=== PATIENT | female | born 1950 | race Caucasian/White ===

== ENCOUNTER → 2016-03-18 | Outpatient (CLI) | payer BC, OTHER ==
--- NOTE | 2016-03-18 19:04 | Diagnostic Imaging Report ---
Bilateral screening mammogram The current study was also evaluated with a Computer Aided Detection (CAD) system. INDICATION: Screening. No current complaints stated on the questionnaire. COMPARISON: 05/19/15. FINDINGS: The breasts are composed of extremely dense parenchyma which may decrease mammographic sensitivity. Benign-appearing calcifications and a biopsy clip is seen in the left breast. Allowing for technique and positional differences, no suspicious change is seen. IMPRESSION: Dense breasts with no definite change. ACR BI-RADS Category 2: Benign findings. Result letter will be mailed to the patient. Note: At least 10% of breast cancer is not imaged by mammography. Dictated by: Dictated on workstation # [id number]
== END ==
LOC: RAD 09:34
PROVIDERS: ATTEND Internal Medicine
DX: Z12.31 Encounter for screening mammogram for malignant neoplasm of breast (principal)
CPT/HCPCS: 77067

== ENCOUNTER → 2017-04-09 | Outpatient (CLI) | payer MEDICARE, OTHER ==
--- NOTE | 2017-04-09 14:52 | Diagnostic Imaging Report ---
INDICATION: Fall. [place] pop in left shoulder. FINDINGS: There is a transverse fracture of the neck of the humerus. Fracture does extend into the humeral tuberosity. Alignment is good. Humeral head is in normal articulation with the glenoid fossa. Scapular Y. view shows no fractures. There is separation of the AC joint with the inferior clavicular surface riding above the superior surface of the a.c. joint. IMPRESSION: 1. Transverse fracture of the humeral neck. 2. Separation of the AC joint. These findings were discussed with Dr. Hyde by Dr. Gabriel Moses prior to dictation. Report faxed to Dr. Hyde at [phone] at 2:52 p.m. 04/09/2017/cb Dictated by: Dictated on workstation # [id number]
== END ==
LOC: RAD 13:53
PROVIDERS: ATTEND Family Medicine
DX: S42.202A Unspecified fracture of upper end of left humerus, initial encounter for closed fracture (principal); S43.102A Unspecified dislocation of left acromioclavicular joint, initial encounter; S40.012A Contusion of left shoulder, initial encounter; W19.XXXA Unspecified fall, initial encounter
CPT/HCPCS: 73030

== ENCOUNTER → 2017-06-14 | Outpatient (CLI) | payer MEDICARE, OTHER ==
--- NOTE | 2017-06-14 17:03 | Diagnostic Imaging Report ---
EXAM: Digital mammogram bilateral screening with 3D tomosynthesis and Computer Aided Detection (CAD) system. COMPARISON: This study was compared to prior exams of 03/18/2016, 05/19/2015 and 11/05/2014. There are no current complaints. FINDINGS: The fibroglandular tissue in both breasts is dense. This does limit the sensitivity of this exam. Overall, there does not appear to have been any significant change when compared to the prior study. No primary or secondary sign of malignancy is noted. The stereotactic clip in the left breast seen previously is again evident and no different. IMPRESSION: There is no radiographic evidence for malignancy. ACR BI-RADS Category 1: Negative. Result letter will be mailed to the patient. Note: At least 10% of breast cancer is not imaged by mammography. Dictated by: Dictated on workstation # [id number]
== END ==
LOC: RAD 12:58
PROVIDERS: ATTEND Family Medicine
DX: Z12.31 Encounter for screening mammogram for malignant neoplasm of breast (principal)
CPT/HCPCS: 77067

== ENCOUNTER → 2018-06-01 | Outpatient (CLI) | payer MEDICARE, OTHER | LOC: CARD 13:35 | PROVIDERS: ATTEND Internal Medicine Cardiovascular Disease | DX: I48.2 Chronic atrial fibrillation (principal); I10 Essential (primary) hypertension; R00.0 Tachycardia, unspecified; E78.2 Mixed hyperlipidemia | CPT/HCPCS: 93306 ==

== ENCOUNTER → 2018-06-07 | Outpatient (CLI) | payer MEDICARE, OTHER ==
[~2018-06-07] VITALS: Ht 157.5 cm; Wt 55.3 kg
[~2018-06-07] MED LIST: CATHETER FLUSH 10 ML SYR IV PRN; REGADENOSON 0.4 MG/5 ML SYR (LEXISCAN) IV ONE; meTOprolol 5 MG/5 ML (LOPRESSOR) VIAL IV ONE; meTOprolol 5 MG/5 ML (LOPRESSOR) VIAL ONE
[2018-06-07 13:20] VITALS: BP 132/78
[2018-06-07 13:24] VITALS: BP 121/85
--- NOTE | 2018-06-07 20:06 | STRESS TEST ---
DATE OF SERVICE: 06/07/2018 LEXISCAN MYOVIEW STRESS TEST REPORT REFERRING PHYSICIAN: Dr. Gwendolyn Botello. Baseline heart rate is 90, baseline blood pressure 132/78. Baseline EKG is atrial fibrillation with no ischemic changes. In summary, the patient was injected with 10.68 mCi of technetium-99 Myoview and the resting images were obtained. Then, the patient received 0.4 mg of Lexiscan followed by 32.9 mCi of technetium-99 Myoview. Throughout the test, there were no EKG changes. The resting and stress images were reviewed and compared in the short axis, horizontal long axis, and vertical long axis views. Review of the images showed good radiotracer uptake with no significant ischemia or infarction on SPECT images. SSS is 2, SDS 2, TID value 1.05. On the gated images, the left ventricle appeared to be in normal size with normal contractility. Calculated ejection fraction 73%. CONCLUSION: 1. The patient tolerated Lexiscan well. 2. No significant ischemia or infarction on SPECT images. 3. Normal left ventricular size with normal contractility. Calculated ejection fraction 73%, gated images are unreliable due to underlying atrial fibrillation that was persistent during test. Job ID: [id number] DocumentID: [id number] Dictated Date: 06/07/2018 15:20:39 Motor Grader Operator Date: 06/07/2018 20:05:06 Dictated By: ADRIEL ROLDAN MD
== END ==
LOC: CARD 11:57
PROVIDERS: ATTEND Internal Medicine Cardiovascular Disease
DX: R00.0 Tachycardia, unspecified (principal); I10 Essential (primary) hypertension; I48.2 Chronic atrial fibrillation; E78.2 Mixed hyperlipidemia
CPT/HCPCS: 78452; 93017

== ENCOUNTER → 2018-06-22 | Outpatient (CLI) | payer MEDICARE, OTHER ==
--- NOTE | 2018-06-22 17:41 | Diagnostic Imaging Report ---
INDICATION: Routine screening. COMPARISON: Comparison is made with prior mammograms from 06/14/2017 and 03/18/2016. TECHNIQUE: 2-D and 3-D bilateral screening mammography was performed with Computer Aided Detection (CAD) system. FINDINGS: Both breasts remain heterogeneously dense, limiting the sensitivity of mammography. Biopsy clip in the left breast is noted. There are benign calcifications bilaterally. No mass or malignant appearing microcalcifications are seen. Axillae are unremarkable. IMPRESSION: No mammographic features suspicious for malignancy are identified. ACR BI-RADS Category 2: Benign findings. Result letter will be mailed to the patient. Note: At least 10% of breast cancer is not imaged by mammography. Dictated by: Dictated on workstation # [id number]
== END ==
LOC: RAD 10:42
PROVIDERS: ATTEND Family Medicine
DX: Z12.31 Encounter for screening mammogram for malignant neoplasm of breast (principal)
CPT/HCPCS: 77067

== ENCOUNTER → 2018-11-14 | Outpatient (CLI) | payer MEDICARE, OTHER ==
--- NOTE | 2018-11-14 15:22 | Diagnostic Imaging Report ---
EXAMINATION: Low-dose lung cancer screening exam. INDICATION: Screening for lung cancer. [id number] smoking history. Routine images of thorax were obtained using the low-dose lung cancer screening protocol. There are no prior studies available for comparison. FINDINGS: There is no parenchymal lung mass identified. There is no sign of failure, pneumonia, or pleural effusion to indicate an acute abnormality either. The heart size is at the upper limits of normal. There are a few coronary artery calcifications involving the distal LAD. The aorta is not abnormally dilated. There is no obvious mediastinal or hilar adenopathy. The thyroid gland is generally unremarkable. There is no breast mass noted. The sections through the upper abdomen fail to show any sign of an acute abnormality. The bone windows are unremarkable for a fracture or for a destructive lesion. There is mild levoscoliosis of the thoracolumbar junction. IMPRESSION: 1. There is no evidence for a lung mass. A follow-up low-dose lung cancer screening exam in one year would be recommended for continued evaluation. 2. There is no acute cardiopulmonary abnormality identified. 3. There is borderline cardiomegaly and sparse coronary artery calcifications. LUNG RADS CATEGORY : 1 Dictated by: Dictated on workstation # [id number]
--- NOTE | 2018-11-14 15:53 | Diagnostic Imaging Report ---
INDICATION: Screening for osteoporosis. COMPARISON: None. FINDINGS: There are no prior studies available for comparison. The bone mineral density of the hips and spine was measured. The T score for the spine is -3.4. This does indicate osteoporosis. The total T score for the left hip is -2.8 and for the right hip -3.2. The T score for each femoral neck is -3.1. All of these values also fall within the range of osteoporosis. AP Spine L1-L4: [BMD (g/cm2): .786] [T-Score: -3.4] [Z-Score: -1.5] [BMD Previous: 1.016] [BMD % Change: -22.6] LT Hip Neck: [BMD (g/cm2): 0.612] [T-Score: -3.1] [Z-Score: -1.3] LT Hip Total: [BMD (g/cm2):0.656] [T-Score:-2.8] [Z-Score: -1.2] [BMD Previous: 0.780] [BMD % Change: -15.9] RT Hip Neck: [BMD (g/cm2):0.605] [T-Score:-3.1] [Z-Score:-1.3] RT Hip Total: [BMD (g/cm2):0.608] [T-score:-3.2] [Z-Score:-1.6] [BMD Previous:0.687] [BMD % Change:-11.5] *Indicates significant change from prior examination based on 95% confidence level. World Health Organization criteria for BMD interpretation classify patients as Normal (T-score at or above -1.0), Osteopenic (T-score between -1.0 and -2.5) or Osteoporotic (T-score at or below -2.5). LIMITATIONS AND MODIFICATION: None. FRACTURE RISK (FRAX SCORE): The ten year probability of (%): Major Osteoporotic Fracture: [26.7] Hip Fracture: [9.1] IMPRESSION: 1. There is osteoporosis of the spine, hips and femoral necks. 2. See below National Osteoporosis Foundation guidelines on when to potentially initiate pharmacologic therapy. Based on the National Osteoporosis Foundation Guidelines, pharmacologic treatment should be initiated in any of the following, unless clinical conditions suggest otherwise: * Any patient with prior fragility fracture of the hip or vertebrae. A spine fracture indicates 5X risk for subsequent spine fracture and 2X risk for subsequent hip fracture. * Osteoporosis (T-score <-2.5). * Postmenopausal women and men age 50 and older with low bone mass/osteopenia (T-score between -1.0 and -2.5) by DXA and 10-year major osteoporotic fracture greater than 20% or a 10-year probability of hip fracture greater than 3%. These fracture risks are supplied above in the FRAX score, if applicable. * Clinician judgement and/or patient preferences may indicate treatment for people with 10-year fracture probabilities above or below these levels. Dictated by: Dictated on workstation # [id number]
== END ==
LOC: RAD 13:31
PROVIDERS: ATTEND Family Medicine
DX: Z12.2 Encounter for screening for malignant neoplasm of respiratory organs (principal); Z00.00 Encounter for general adult medical examination without abnormal findings; Z13.820 Encounter for screening for osteoporosis; M81.0 Age-related osteoporosis without current pathological fracture; I25.10 Atherosclerotic heart disease of native coronary artery without angina pectoris; I51.7 Cardiomegaly; Z87.891 Personal history of nicotine dependence; Z78.0 Asymptomatic menopausal state
CPT/HCPCS: 77080

== ENCOUNTER → 2019-07-13 | Outpatient (CLI) | payer MEDICARE, OTHER ==
--- NOTE | 2019-07-13 13:52 | Diagnostic Imaging Report ---
INDICATION: Screening. EXAM: Digital screening with CAD. COMPARISONS: 06/2018, 06/2017 and 03/2016 FINDINGS: The parenchymal pattern is extremely dense limiting mammographic sensitivity. No irregular lesion, spiculated mass or architectural distortion. No suspicious calcifications. IMPRESSION: Stable negative mammograms with heterogeneously dense parenchymal pattern. Dictated by: Dictated on workstation # [id number]
== END ==
LOC: RAD 09:25
PROVIDERS: ATTEND Nurse Practitioner Family
DX: Z12.31 Encounter for screening mammogram for malignant neoplasm of breast (principal)
CPT/HCPCS: 77063; 77067

== ENCOUNTER → 2019-12-06 | Outpatient (CLI) | payer MEDICARE, OTHER ==
--- NOTE | 2019-12-06 15:44 | Diagnostic Imaging Report ---
CT Lung Screening. INDICATION:30 pack-year smoking history TECHNIQUE: Noncontrast, low-dose CT imaging performed according to the lung cancer screening protocol. Auto Exposure Controls were utilize during the CT exam to meet ALARA standards for radiation dose reduction. COMPARISON: 11/14/2018. FINDINGS: The previous CT low-dose lung cancer screening exam of 11/14/2018 failed to show any sign of a parenchymal lung mass. On this study, there is still no mass identified to suggest neoplastic disease. The lungs remain generally clear. There is no sign of failure, pneumonia or a pleural effusion to indicate an acute abnormality. The heart is stable in size and within normal limits. The aorta is not abnormally dilated. There is no obvious mediastinal or hilar adenopathy. The thyroid gland was not well visualized. There is no definite breast mass identified. The sections through the upper abdomen failed to show any acute abnormality. The bone windows are also unremarkable for a fracture or for an acute injury. There is mild compression deformity of the superior endplate of T3. This appears to have been present on the prior exam although it was not well visualized. I do suspect this injury is long-standing in nature. There is also mild levoscoliosis of the lower thoracic spine. IMPRESSION: 1. There is still no evidence for a parenchymal lung mass to suggest neoplastic disease. A follow-up low-dose lung cancer screening exam in one year would be recommended for continued evaluation. 2. There is no acute cardiopulmonary abnormality noted. 3. The mild compression deformity of T3 is most likely long-standing in nature. If further imaging is desired, then MRI would be recommended. LUNG-RADS CATEGORY:1 MODIFIER: OTHER SIGNIFICANT FINDINGS: Dictated by: Dictated on workstation # [id number]
== END ==
LOC: RAD 12:45
PROVIDERS: ATTEND Family Medicine
DX: Z12.2 Encounter for screening for malignant neoplasm of respiratory organs (principal); M48.54XA Collapsed vertebra, not elsewhere classified, thoracic region, initial encounter for fracture; F17.210 Nicotine dependence, cigarettes, uncomplicated

== ENCOUNTER → 2020-07-18 | Outpatient (CLI) | payer MEDICARE, OTHER ==
--- NOTE | 2020-07-21 09:22 | Diagnostic Imaging Report ---
INDICATION: Routine screening. COMPARISON: 07/13/2019 and 06/22/2018. TECHNIQUE: 2D and 3D bilateral screening mammography was performed with CAD. FINDINGS: Both breasts remain heterogeneously dense, limiting the sensitivity of mammography. The parenchymal pattern is stable. A biopsy clip in the upper left breast is again noted. No mass or malignant appearing microcalcifications are seen. The axillae are unremarkable. IMPRESSION: No mammographic features suspicious for malignancy are identified. ACR BI-RADS Category 2: Benign findings. Result letter will be mailed to the patient. Note: At least 10% of breast cancer is not imaged by mammography. Dictated by: Dictated on workstation # [id number]
== END ==
LOC: RAD 13:15
PROVIDERS: ATTEND Family Medicine
DX: Z12.31 Encounter for screening mammogram for malignant neoplasm of breast (principal)
CPT/HCPCS: 77063; 77067

== ENCOUNTER → 2020-08-15 | Outpatient (CLI) | payer MEDICARE, OTHER ==
[~2020-08-15] VITALS: Ht 157 cm; Wt 54.0 kg
[~2020-08-15] MED LIST changes: -meTOprolol 5 MG/5 ML (LOPRESSOR) VIAL IV ONE; -meTOprolol 5 MG/5 ML (LOPRESSOR) VIAL ONE
[2020-08-15 08:32] VITALS: BP 146/80
--- NOTE | 2020-08-15 11:15 | Cardiology Stress Test Report ---
Stress Test Report Date of Procedure/Referring: Date of Procedure: Aug 15, 2020 PCP Adriel Davis MD Admitting Physician Gwendolyn Botello MD Indications: CP Baseline Heart Rate: 68 Baseline Blood Pressure: Blood Pressure Systolic: 146 Blood Pressure Diastolic: 80 Baseline Vitals Vital Signs Date Time Temp Pulse Resp B/P (MAP) Pulse Ox O2 Delivery O2 Flow Rate FiO2 08/15/20 08:32 66 18 146/80 (102) 98 Room Air Baseline EKG: Baseline EKG: NSR Summary After explaining the procedure to the patient, she signed a consent and then brought to the stress nuclear laboratory. Patient received 0.4 mg Lexiscan for stress test, ECG, heart rate and blood pressure were monitored continuously. Resting and stress dose of radio tracer were injected, imaging was acquired and reviewed in short axis, horizontal long axis and vertical long axis views. TID: 1.15 SSS: 2 SDS: 2 EF: 74 1. Patient tolerated Lexiscan well, had mild chest pain resolved spontaneously. 2. No ischemia or infarction on SPECT images 3. Normal left ventricular size, EF 74% ADRIEL DAVIS MD Aug 15, 2020 11:15
== END ==
LOC: CARD 07:15
PROVIDERS: ATTEND Internal Medicine Cardiovascular Disease
DX: I25.10 Atherosclerotic heart disease of native coronary artery without angina pectoris (principal); I10 Essential (primary) hypertension
CPT/HCPCS: 78452; 93017; A9502

== ENCOUNTER 2020-09-05 11:21 | Emergency (ER) | payer MEDICARE, OTHER ==
[~2020-09-05] VITALS: Ht 157.4 cm; Wt 55.8 kg
--- NOTE | 2020-09-05 11:59 | ED Chest Pain ---
General Stated Complaint: CHEST PAIN Source: patient Exam Limitations: no limitations (BRYCE CARRENO APRN) History of Present Illness Date Seen by Provider: Sep 05, 2020 Time Seen by Provider: 11:45 Initial Comments This is a 70-year-old female who presents to the ER with complaints of mid abdominal "bloating" and pain that radiated into her left chest. States discomfort started approximately 1 hour prior to arrival. On her way to the emergency department she broke out in a sweat, denies nausea, denies vomiting. Currently describes discomfort as pressure. States that she has had this pain in the past however was less severe. Has had both Covid vaccines in March 2020. Denies cough, shortness of breath, nausea, vomiting. (BRYCE CARRENO APRN) Allergies and Home Medications Allergies Coded Allergies: ibuprofen (Unverified Allergy, Unknown, 06/07/18) Patient Home Medication List Home Medication List Reviewed: Yes (BRYCE CARRENO APRN) Review of Systems Review of Systems Constitutional: see HPI; No chills, No fever EENTM: No Symptoms Reported Respiratory: No Symptoms Reported Cardiovascular: See HPI Gastrointestinal: See HPI Genitourinary: No Symptoms Reported Musculoskeletal: no symptoms reported Skin: no symptoms reported Psychiatric/Neurological: No Symptoms Reported Endocrine: No Symptoms Reported Hematologic/Lymphatic: No Symptoms Reported (BRYCE CARRENO APRN) All Other Systems Reviewed Negative Unless Noted: Yes (BRYCE CARRENO APRN) Physical Exam Vital Signs Vital Signs - First Documented 09/05/20 11:25 Temp 37.0 Pulse 89 Resp 18 B/P (MAP) 181/114 (136) Pulse Ox 99 O2 Delivery Room Air (MAURO GUY MD) Vital Signs Capillary Refill : (BRYCE CARRENO APRN) Height, Weight, BMI Height: 5'2.00" Weight: 122lbs. 0.0oz. 55.545228nk; 21.90 BMI Method: General Appearance: No Apparent Distress, WD/WN HEENT: PERRL/EOMI, TMs Normal, Normal ENT Inspection, Pharynx Normal, Moist Mucous Membranes Neck: Full Range of Motion, Normal Inspection, Supple Respiratory: Lungs Clear, Normal Breath Sounds, No Accessory Muscle Use Cardiovascular: No Edema, No Murmur, Normal Peripheral Pulses, Irregularly Irregular Gastrointestinal: Normal Bowel Sounds, No Organomegaly, No Pulsatile Mass, Soft; No Distended; Tenderness (diffuse) Extremity: Normal Inspection, Normal Range of Motion, Non Tender Neurologic/Psychiatric: Alert, Oriented x3, No Motor/Sensory Deficits, Normal Mood/Affect Skin: Normal Color, Warm/Dry (BRYCE CARRENO APRN) Progress/Results/Core Measures Results/Orders Lab Results Laboratory Tests Test 09/05/20 11:35 09/05/20 15:05 Range/Units White Blood Count 8.4 4.3-11.0 10^3/uL Red Blood Count 4.38 3.80-5.11 10^6/uL Hemoglobin 15.1 11.5-16.0 g/dL Hematocrit 45 35-52 % Mean Corpuscular Volume 102 H 80-99 fL Mean Corpuscular Hemoglobin 35 H 25-34 pg Mean Corpuscular Hemoglobin Concent 34 32-36 g/dL Red Cell Distribution Width 13.4 10.0-14.5 % Platelet Count 214 130-400 10^3/uL Mean Platelet Volume 11.9 9.0-12.2 fL Immature Granulocyte % (Auto) 0 % Neutrophils (%) (Auto) 52 42-75 % Lymphocytes (%) (Auto) 35 12-44 % Monocytes (%) (Auto) 11 0-12 % Eosinophils (%) (Auto) 2 0-10 % Basophils (%) (Auto) 0 0-10 % Neutrophils # (Auto) 4.4 1.8-7.8 10^3/uL Lymphocytes # (Auto) 2.9 1.0-4.0 10^3/uL Monocytes # (Auto) 0.9 0.0-1.0 10^3/uL Eosinophils # (Auto) 0.2 0.0-0.3 10^3/uL Basophils # (Auto) 0.0 0.0-0.1 10^3/uL Immature Granulocyte # (Auto) 0.0 0.0-0.1 10^3/uL Prothrombin Time 17.5 H 12.2-14.7 SEC INR Comment 1.4 0.8-1.4 Activated Partial Thromboplast Time 36 H 24-35 SEC D-Dimer 0.82 H 0.00-0.49 UG/ML Sodium Level 138 135-145 MMOL/L Potassium Level 4.3 3.6-5.0 MMOL/L Chloride Level 101 98-107 MMOL/L Carbon Dioxide Level 24 21-32 MMOL/L Anion Gap 13 5-14 MMOL/L Blood Urea Nitrogen 13 7-18 MG/DL Creatinine 0.91 0.60-1.30 MG/DL Estimat Glomerular Filtration Rate 61 BUN/Creatinine Ratio 14 Glucose Level 113 H 70-105 MG/DL Calcium Level 10.1 8.5-10.1 MG/DL Corrected Calcium 9.8 8.5-10.1 MG/DL Magnesium Level 1.9 1.6-2.4 MG/DL Total Bilirubin 1.1 H 0.1-1.0 MG/DL Aspartate Amino Transf (AST/SGOT) 32 5-34 U/L Alanine Aminotransferase (ALT/SGPT) 22 0-55 U/L Alkaline Phosphatase 64 40-136 U/L Myoglobin 40.8 10.0-92.0 NG/ML Troponin I < 0.028 < 0.028 <0.028 NG/ML B-Type Natriuretic Peptide 488.4 H <100.0 PG/ML Total Protein 8.0 6.4-8.2 GM/DL Albumin 4.4 3.2-4.5 GM/DL (MAURO GUY MD) Vital Signs/I&O 09/05/20 09/05/20 09/05/20 09/05/20 11:25 11:25 12:35 12:55 Temp 37.0 Pulse 89 104 88 Resp 18 18 18 B/P (MAP) 181/114 (136) 167/106 (126) 147/106 (120) Pulse Ox 99 97 99 O2 Delivery Room Air 09/05/20 16:20 Pulse 96 Resp 20 B/P (MAP) 128/84 Pulse Ox 94 (MAURO GUY MD) Progress Progress Note : Progress Note Patient examined and in no acute distress. Initiated cardiac work-up orders placed for ASA 324 mg x 1 and nitro tablet x1. Will reevaluate. She does have a history of chronic A. fib, rate is currently controlled. Reports feeling much improved and pain 0/10 after 1 dose of nitro. Labs reviewed her cardiac markers were negative. Her BNP is slightly elevated. She is noted to have elevation of Ddimer-0.82, reviewed findings with patient as well as risk/benefit of obtaining CTa Chest for PE r/o. She declined at this time. Reviewed case with Dr. Matute, patient OK to d/c home with close follow up next week if repeat enzymes neg and she continues to have no active chest pain. Repeat enzymes neg. Reviewed discharge POC with patient and she is agreeable with plan. (BRYCE CARRENO APRN) Initial ECG Impression Date: Sep 05, 2020 Initial ECG Impression Time: 11:42 Initial ECG Rate: 86 Initial ECG Rhythm: A Fib/Flutter Initial ECG Impression: Atrial Fibrillation Initial ECG Comparisson: Unchanged (BRYCE CARRENO APRN) Diagnostic Imaging Diagonstic Imaging: Xray Plain Films/CT/US/NM/MRI: chest Comments [facility] [place], [place] NAME: SHOBHA SCHRO[facility]ER [facility] REC#: [id number] PT STATUS: REG ER : 1950 PHYSICIAN: BRYCE CARRENO APRN ADMIT DATE: 09/05/20/ER Draft Date of Exam:09/05/20 CHEST 1 VIEW, AP/PA ONLY INDICATION: Chest pain. TECHNIQUE: Single view chest, 12:36 p.m. CORRELATION STUDY: Portions of CT chest 12/06/2019. FINDINGS: Heart size appears relatively stable. Hilum is mildly prominent but appears likely relatively stable. Lung doan are hyperinflated. No consolidating infiltrate. Mild scoliotic curvature of the thoracic spine. IMPRESSION: 1. Negative for acute abnormality of the chest. Mildly hyperinflated lung doan. No consolidating infiltrate. Dictated on workstation # [id number] Dict: 09/05/20 1236 Trans: 09/05/20 1244 [id number] Interpreted by: SHARON GRAHAM DO Electronically signed by: Reviewed: Reviewed by Me (BRYCE CARRENO APRN) Departure Impression Primary Impression: Chest pain Disposition: HOME, SELF-CARE Condition: Improved Departure-Patient Inst. Decision time for Depature: 15:53 (BRYCE CARRENO APRN) Referrals: JT VEGAS MD (PCP/Family) Primary Care Physician Patient Instructions: Chest Pain (DC) Add. Discharge Instructions: Plan: 1. Call Cardiology office on Tuesday to schedule close follow up. 2. Return to ER if you develop any chest pain, shortness of breath, nausea/vomiting. 3. Return for any new, concerning, or worsening symptoms. ATTENDING PHYSICIAN NOTE: I was physically present as attending physician in the emergency department during the care of this patient, but I was not directly involved in the decision making or delivery of care for this patient. (MAURO GUY MD) BRYCE CARRENO APRN Sep 05, 2020 11:59 MAURO GUY MD Sep 06, 2020 14:35
[2020-09-05 12:24] LABS: BASOPHILS % (AUTO) 0 % (0-10); EOSINOPHILS # (AUTO) 0.2 10^3/uL (0.0-0.3); EOSINOPHILS % (AUTO) 2 % (0-10); HEMATOCRIT 45 % (35-52); HEMOGLOBIN 15.1 g/dL (11.5-16.0); LYMPHOCYTES # (AUTO) 2.9 10^3/uL (1.0-4.0); LYMPHOCYTES % (AUTO) 35 % (12-44); MEAN CORPUSCULAR HEMOGLOBIN 35 pg (25-34); MEAN CORPUSCULAR HGB CONC 34 g/dL (32-36); MEAN CORPUSCULAR VOLUME 102 fL (80-99); MEAN PLATELET VOLUME 11.9 fL (9.0-12.2); MONOCYTES # (AUTO) 0.9 10^3/uL (0.0-1.0); MONOCYTES % (AUTO) 11 % (0-12); NEUTROPHILS # (AUTO) 4.4 10^3/uL (1.8-7.8); NEUTROPHILS % (AUTO) 52 % (42-75); PLATELET COUNT 214 10^3/uL (130-400); WHITE BLOOD COUNT 8.4 10^3/uL (4.3-11.0)
[2020-09-05 12:27] LABS: ALBUMIN 4.4 GM/DL (3.2-4.5); CHLORIDE 101 MMOL/L (98-107); POTASSIUM 4.3 MMOL/L (3.6-5.0); SODIUM 138 MMOL/L (135-145)
[2020-09-05 12:29] LABS: CALCIUM 10.1 MG/DL (8.5-10.1)
[2020-09-05 12:30] LABS: GLUCOSE 113 MG/DL (70-105); INR 1.4 (0.8-1.4); PROTHROMBIN TIME PATIENT 17.5 SEC (12.2-14.7)
[2020-09-05] MEDS ORDERED: ASPIRIN 81 MG CHEW (CHILDREN'S ASA) PO ONE (12:30)
[2020-09-05 12:31] LABS: CARBON DIOXIDE 24 MMOL/L (21-32)
[2020-09-05 12:32] LABS: BILIRUBIN,TOTAL 1.1 MG/DL (0.1-1.0)
[2020-09-05 12:33] LABS: ALKALINE PHOSPHATASE 64 U/L (40-136); CREATININE SERUM 0.91 MG/DL (0.60-1.30); GFR ESTIMATED 61
[2020-09-05] MEDS: NITROGLYCERIN 0.4 MG SL TABS BTL 25'S SL PRN ×2 (12:33→12:45)
[2020-09-05 12:34] LABS: BUN/CREATININE RATIO 14
[2020-09-05 12:36] LABS: ALANINE AMINOTRANSFERASE 22 U/L (0-55); MAGNESIUM 1.9 MG/DL (1.6-2.4)
--- NOTE | 2020-09-05 12:44 | Diagnostic Imaging Report ---
INDICATION: Chest pain. TECHNIQUE: Single view chest, 12:36 p.m. CORRELATION STUDY: Portions of CT chest 12/06/2019. FINDINGS: Heart size appears relatively stable. [place] is mildly prominent but appears likely relatively stable. Lung doan are hyperinflated. No consolidating infiltrate. Mild scoliotic curvature of the thoracic spine. IMPRESSION: 1. Negative for acute abnormality of the chest. Mildly hyperinflated lung doan. No consolidating infiltrate. Dictated by: Dictated on workstation # [id number]
[2020-09-05 16:20] VITALS: BP 128/84
== END 2020-09-05 16:23 | disposition home or self-care (01) ==
LOC: EDUNIT# 11:21 → ER 11:22
DX: R07.9 Chest pain, unspecified (principal)
CPT/HCPCS: 36415; 71045; 80053; 83735; 83874; 83880; 84484; 85025; 85379; 85610; 85730; 93005; 93041

== ENCOUNTER → 2020-12-23 | Outpatient (CLI) | payer MEDICARE, OTHER ==
--- NOTE | 2020-12-23 16:08 | Diagnostic Imaging Report ---
CT Lung Screening INDICATION: 42-yxin-hone smoking history, cessation five years ago, for low-dose screening. TECHNIQUE: Noncontrast, low-dose CT imaging performed according to the lung cancer screening protocol. Auto Exposure Controls were utilized during the CT exam to meet ALARA standards for radiation dose reduction. COMPARISON: 12/06/2019. FINDINGS: No dominant spiculated or suspicious lung mass is found. There is no thoracic lymphadenopathy. No consolidation, pneumonia, or evidence of edema. There is no effusion or pneumothorax. There is some slight biapical pleural-parenchymal scarring, chronic. A few 3-4 mm stable juxta-fissural and subpleural benign nodular foci are unchanged. No findings of neoplasm. Old T3 superior endplate concavity is chronic. No acute soft tissue or osseous chest wall pathology. The visualized upper abdomen appeared nonacute. IMPRESSION: Stable chronic findings. No evidence for lung cancer. Continued low-dose CT screening follow-up in one year's time recommended. LUNG-RADS CATEGORY: 1 MODIFIER: None. OTHER SIGNIFICANT FINDINGS: None. Dictated by: Dictated on workstation # [id number]
== END ==
LOC: RAD 13:45
PROVIDERS: ATTEND Family Medicine
DX: Z12.2 Encounter for screening for malignant neoplasm of respiratory organs (principal); Z87.891 Personal history of nicotine dependence
CPT/HCPCS: 71271

== ENCOUNTER 2021-01-11 10:19 | Inpatient (IN) | payer MEDICARE, OTHER ==
[2021-01-11] VITALS (9 sets, daily range): BP systolic 82–104; BP diastolic 53–66
[~2021-01-11] VITALS: Ht 157.4 cm; Wt 57.3 kg
[2021-01-11] MEDS ORDERED: NS IV 1000 ML 1,000 ML ONE (10:42)
[2021-01-11] MEDS ORDERED: NS IV 1000 ML 1,000 ML IV SCH ×2 (10:45→12:45)
[2021-01-11 11:00] LABS: BASOPHILS # (AUTO) 0.1 10^3/uL (0.0-0.1); BASOPHILS % (AUTO) 0 % (0-10); EOSINOPHILS % (AUTO) 0 % (0-10); HEMATOCRIT 48 % (35-52); HEMOGLOBIN 16.2 g/dL (11.5-16.0); LYMPHOCYTES # (AUTO) 0.9 10^3/uL (1.0-4.0); LYMPHOCYTES % (AUTO) 4 % (12-44); MEAN CORPUSCULAR HEMOGLOBIN 34 pg (25-34); MEAN CORPUSCULAR HGB CONC 34 g/dL (32-36); MEAN CORPUSCULAR VOLUME 102 fL (80-99); MEAN PLATELET VOLUME 12.5 fL (9.0-12.2); MONOCYTES # (AUTO) 1.1 10^3/uL (0.0-1.0); MONOCYTES % (AUTO) 5 % (0-12); NEUTROPHILS # (AUTO) 19.3 10^3/uL (1.8-7.8); NEUTROPHILS % (AUTO) 90 % (42-75); PLATELET COUNT 191 10^3/uL (130-400); WHITE BLOOD COUNT 21.5 10^3/uL (4.3-11.0)
[2021-01-11] MEDS ORDERED: PIPERACILLIN SODIUM/TAZOBACTAM 4.5 GM in NS (IVPB) 100 ML IV ONE (11:00)
[2021-01-11] MEDS ORDERED: morphine INJ 10 MG/ML 1ML (SYR OR VIAL) IVP ONE (11:00)
[2021-01-11] MEDS ORDERED: ONDANSETRON 4 MG/2 ML (SDV) Z0FRAN IVP ONE (11:00)
--- NOTE | 2021-01-11 11:04 | ED GI ---
General Chief Complaint: Abdominal/GI Problems Stated Complaint: ABD PAIN Nursing Triage Note: STARTED FEELING ILL ON TUESDAY WAS EXPERIENCING BLOATING EXTREME PAIN. WORSENING TODAY Source of Information: Patient Exam Limitations: No Limitations (NATALIE AMBROSE) History of Present Illness Date Seen by Provider: Jan 11, 2021 Time Seen by Provider: 11:01 Initial Comments Patient is a 70-year-old female presents ED with right-sided abdominal pain. Sharp pain since Tuesday. Pain does not radiate. She states she feels distended and bloated. Last bowel movement last . Patient with a history of A. fib. Currently on Xarelto. Slightly tachycardic on arrival. Denies of any fever, cough, chest pain, shortness of breath, headache, dizziness. Decreased urination. She reports vomiting initially but has not been able to eat since last Tuesday secondary to the pain. Denies history of previous abdominal surgery. Decreased urination. Patient in mild distress on arrival. (NATALIE AMBROSE) Allergies and Home Medications Allergies Coded Allergies: ibuprofen (Unverified Allergy, Unknown, 06/07/18) Patient Home Medication List Home Medication List Reviewed: Yes (NATALIE AMBROSE) Review of Systems Review of Systems Constitutional: No chills, No fever, No malaise EENTM: No Ear Pain, No Mouth Pain Respiratory: Denies Cough, Denies SOA With Exertion Cardiovascular: Denies Chest Pain, Denies Edema Gastrointestinal: Abdomen Distended, Abdominal Pain, Constipated; Denies Diarrhea; Nausea, Vomiting Musculoskeletal: No back pain, No joint pain, No muscle pain, No muscle stiffness Skin: No change in color, No dryness Psychiatric/Neurological: Denies Headache, Denies Weakness (NATALIE AMBROSE) Past Fdukjvl-Ibhrlx-Cmqiab Hx Patient Social History Tobacco Use?: No Smoking Status: Former Smoker Use of E-Cig and/or Vaping dev: No Substance use?: No Alcohol Use?: Yes Alcohol type: Wine Alcohol Frequency: Daily Pt feels they are or have been: No (NATALIE AMBROSE) Immunizations Up To Date Influenza Vaccine Up-to-Date: Yes; Up-to-Date First/Initial COVID19 Vaccinat: MAR 2020 Second COVID19 Vaccination Franki: APRIL 2020 COVID19 Vaccine Client Solutions Director: MODERNA (NATALIE AMBROSE) Physical Exam Vital Signs Vital Signs - First Documented 01/11/21 10:35 Temp 36.0 Pulse 77 Resp 18 B/P (MAP) 82/56 (65) Pulse Ox 99 O2 Delivery Room Air (MAURO GUY MD) Vital Signs Capillary Refill : Less Than 3 Seconds (NATALIE AMBROSE) Height/Weight/BMI Height: 5'2.00" Weight: 122lbs. 0.0oz. [id number]; 22.00 BMI Method: General Appearance: WD/WN, mild distress HEENT: PERRL/EOMI, normal ENT inspection, TMs normal Neck: non-tender, full range of motion, supple Respiratory: chest non-tender, lungs clear, normal breath sounds, no respiratory distress Cardiovascular: no edema, no gallop, irregularly irregular Gastrointestinal: normal bowel sounds, soft, distended, tenderness (rlq abd pain) Extremities: normal range of motion, non-tender, normal inspection, no pedal edema Back: normal inspection, no CVA tenderness, no vertebral tenderness Neurologic/Psychiatric: demonstrator sales II-XII nml as tested, no motor/sensory deficits, alert, normal mood/affect, oriented x 3 (NATALIE AMBROSE) Focused Exam Lactate Level 01/11/21 10:48: Lactic Acid Level 2.35*H 01/11/21 12:15: Lactic Acid Level 1.76 (MAURO GUY MD) Lactic Acid Level Laboratory Tests Test 01/11/21 10:48 01/11/21 12:15 Lactic Acid Level 2.35 MMOL/L (0.50-2.00) *H 1.76 MMOL/L (0.50-2.00) (MAURO GUY MD) Progress/Results/Core Measures Results/Orders Lab Results Laboratory Tests Test 01/11/21 10:40 01/11/21 10:48 01/11/21 12:15 Range/Units White Blood Count 21.5 H 4.3-11.0 10^3/uL Red Blood Count 4.71 3.80-5.11 10^6/uL Hemoglobin 16.2 H 11.5-16.0 g/dL Hematocrit 48 35-52 % Mean Corpuscular Volume 102 H 80-99 fL Mean Corpuscular Hemoglobin 34 25-34 pg Mean Corpuscular Hemoglobin Concent 34 32-36 g/dL Red Cell Distribution Width 13.5 10.0-14.5 % Platelet Count 191 130-400 10^3/uL Mean Platelet Volume 12.5 H 9.0-12.2 fL Immature Granulocyte % (Auto) 1 % Neutrophils (%) (Auto) 90 H 42-75 % Lymphocytes (%) (Auto) 4 L 12-44 % Monocytes (%) (Auto) 5 0-12 % Eosinophils (%) (Auto) 0 0-10 % Basophils (%) (Auto) 0 0-10 % Neutrophils # (Auto) 19.3 H 1.8-7.8 10^3/uL Lymphocytes # (Auto) 0.9 L 1.0-4.0 10^3/uL Monocytes # (Auto) 1.1 H 0.0-1.0 10^3/uL Eosinophils # (Auto) 0.0 0.0-0.3 10^3/uL Basophils # (Auto) 0.1 0.0-0.1 10^3/uL Immature Granulocyte # (Auto) 0.2 H 0.0-0.1 10^3/uL Neutrophils % (Manual) 84 % Lymphocytes % (Manual) 4 % Monocytes % (Manual) 6 % Band Neutrophils 6 % Blood Morphology Comment NORMAL Prothrombin Time 26.7 H 12.2-14.7 SEC INR Comment 2.4 H 0.8-1.4 Activated Partial Thromboplast Time 36 H 24-35 SEC Sodium Level 136 135-145 MMOL/L Potassium Level 4.3 3.6-5.0 MMOL/L Chloride Level 97 L 98-107 MMOL/L Carbon Dioxide Level 22 21-32 MMOL/L Anion Gap 17 H 5-14 MMOL/L Blood Urea Nitrogen 20 H 7-18 MG/DL Creatinine 1.17 0.60-1.30 MG/DL Estimat Glomerular Filtration Rate 46 BUN/Creatinine Ratio 17 Glucose Level 105 70-105 MG/DL Calcium Level 9.2 8.5-10.1 MG/DL Corrected Calcium 9.1 8.5-10.1 MG/DL Total Bilirubin 3.2 H 0.1-1.0 MG/DL Aspartate Amino Transf (AST/SGOT) 32 5-34 U/L Alanine Aminotransferase (ALT/SGPT) 21 0-55 U/L Alkaline Phosphatase 55 40-136 U/L C-Reactive Protein High Sensitivity 13.50 H 0.00-0.50 MG/DL Total Protein 7.8 6.4-8.2 GM/DL Albumin 4.1 3.2-4.5 GM/DL Lipase 1411 H 8-78 U/L Procalcitonin 5.57 H <0.10 NG/ML Lactic Acid Level 2.35 *H 1.76 0.50-2.00 MMOL/L (MAURO GUY MD) My Orders Orders - MAURO GUY MD Ed Iv/Invasive Line Start (01/11/21 10:41) Ns Iv 1000 Ml (Sodium Chloride 0.9%) (01/11/21 10:45) Ns Iv 1000 Ml (Sodium Chloride 0.9%) (01/11/21 10:42) Cbc With Automated Diff (01/11/21 10:50) Comprehensive Metabolic Panel (01/11/21 10:50) Blood Culture (01/11/21 10:50) Sputum Culture (01/11/21 10:50) Urinalysis (01/11/21 10:50) Urine Culture (01/11/21 10:50) Protime With Inr (01/11/21 10:50) Partial Thromboplastin Time (01/11/21 10:50) Chest 1 View, Ap/Pa Only (01/11/21 10:50) Vital Signs Adult Sepsis Patie Q15M (01/11/21 10:50) O2 (01/11/21 10:50) Remove Rings In Anticipation O (01/11/21 10:50) Lactic Acid Analyzer (01/11/21 10:50) Hs C Reactive Protein (01/11/21 10:50) Procalcitonin (Pct) (01/11/21 10:50) Lipase (01/11/21 10:50) Manual Differential (01/11/21 10:40) (MAURO GUY MD) Medications Given in ED Current Medications Medications Dose Ordered Sig/Beata Route Start Time Stop Time Status Last Admin Dose Admin Diltiazem HCl 10 mg ONCE ONCE IVP 01/11/21 12:00 01/11/21 12:01 DC 01/11/21 12:01 10 MG Iohexol 100 ml ONCE ONCE IV 01/11/21 12:15 01/11/21 12:16 DC 01/11/21 12:24 68 ML Morphine Sulfate 4 mg ONCE ONCE IVP 01/11/21 11:00 01/11/21 11:01 DC 01/11/21 11:14 4 MG Ondansetron HCl 4 mg ONCE ONCE IVP 01/11/21 11:00 01/11/21 11:01 DC 01/11/21 11:14 4 MG Piperacillin Sod/ Tazobactam Sod 4.5 gm/Sodium Chloride 100 ml @ 200 mls/hr ONCE ONCE IV 01/11/21 11:00 01/11/21 11:29 DC 01/11/21 11:15 200 MLS/HR Sodium Chloride 100 ml ONCE ONCE IV 01/11/21 12:15 01/11/21 12:16 DC 01/11/21 12:24 80 ML (MAURO GUY MD) Vital Signs/I&O 01/11/21 01/11/21 10:35 10:35 Temp 36.0 36.0 Pulse 77 77 Resp 18 18 B/P (MAP) 82/56 (65) 82/56 Pulse Ox 99 99 O2 Delivery Room Air (MAURO GUY MD) Blood Pressure Mean: 65 Initial ECG Impression Date: Jan 11, 2021 Initial ECG Impression Time: 11:57 Comment Atrial fibrillation, heart rate 131, QRS duration 74, QTc 511 MS (NATALIE AMBROSE) Departure Communication (Admissions) Time/Spoke to Admitting Phy: 13:17 Time/Spoke to Consulting Phy: 13:17 Patient hypotensive on arrival. Patient afebrile. Tachycardic concerning for A. fib with RVR. Patient was started sepsis protocol. Patient was given 30 mls/kg IV fluids. Started on IV Zosyn. Right-sided abdominal pain with no history of previous abdominal surgery. CT abdomen pelvis with acute pancreatitis. No evidence of cholelithiasis or cholecystitis. lipase 1411. Elevated white blood count 21,000. Pain controlled with IV morphine here in the ED. Patient Was started on Cardizem drip secondary to atrial fibrillation with RVR.. Improvement of blood pressure. Patient with a lactic acid 2.35. Discussed patient with Dr. Mendoza who accepts patient at this time. Patient was consulted with Dr. Vale who will consult general surgery. Patient was discussed with eICU who is aware of patient at this time. Discussed patient with who will consult. Patient states she drinks a half a bottle of wine daily. Surgery recommends ultrasound in the morning. Vasopressors were not started secondary to improvement of blood pressure. We will continue monitoring. (NATALIE AMBROSE) Impression Primary Impression: Septic shock Additional Impression: Pancreatitis Disposition: ADMITTED INPATIENT Condition: Stable Admissions Decision to Admit Reason: Admit from ER (General) Decision to Admit/Date: Jan 11, 2021 Time/Decision to Admit Time: 13:18 (NATALIE AMBROSE) Departure-Patient Inst. Referrals: JT VEGAS MD (PCP/Family) Primary Care Physician ATTENDING PHYSICIAN NOTE: I was physically present as attending physician in the emergency department during the care of this patient. I reviewed this case in brief with Jp Ambrose and Dr. Vlae. (MAURO GUY MD) NATALIE AMBROSE Jan 11, 2021 11:04 MAURO GUY MD Jan 11, 2021 20:23
[2021-01-11 11:26] LABS: ALBUMIN 4.1 GM/DL (3.2-4.5); BAND NEUTROPHILS 6 %; LYMPHOCYTES % (MANUAL) 4 %; MONOCYTES % (MANUAL) 6 %; NEUTROPHILS % (MANUAL) 84 %; POTASSIUM 4.3 MMOL/L (3.6-5.0); RBC MORPH NORMAL
[2021-01-11 11:27] LABS: INR 2.4 (0.8-1.4); PROTHROMBIN TIME PATIENT 26.7 SEC (12.2-14.7)
[2021-01-11 11:28] LABS: CALCIUM 9.2 MG/DL (8.5-10.1)
--- NOTE | 2021-01-11 11:28 | Diagnostic Imaging Report ---
EXAMINATION: Chest radiograph, portable AP view. DATE: 01/11/2021 11:16 AM INDICATION: 70-year-old female, worsening chest pain. COMPARISON: September 05, 2020. FINDINGS: Heart size and mediastinal contours are unchanged. There is no identified pneumothorax. There is no large pleural effusion. There is minimal atelectasis in the lung bases. There is chronic-appearing widening of the left acromioclavicular joint which is present previously. IMPRESSION: 1. No identified acute cardiopulmonary abnormality. 2. Mild atelectasis in the lung bases. Dictated by: Dictated on workstation # [id number]
[2021-01-11 11:29] LABS: TOTAL PROTEIN 7.8 GM/DL (6.4-8.2)
[2021-01-11 11:31] LABS: BILIRUBIN,TOTAL 3.2 MG/DL (0.1-1.0)
[2021-01-11 11:33] LABS: CREATININE SERUM 1.17 MG/DL (0.60-1.30)
[2021-01-11] MEDS ORDERED: HOLD METFORMIN - RECEIVED CONTRAST 20 ML VIAL IV SCH (12:15)
[2021-01-11] MEDS ORDERED: IOHEXOL 350 MG/ML 100 ML (OMNIPAQUE 350) VIAL IV ONE (12:15)
[2021-01-11] MEDS ORDERED: NS 100 ML (IVPB) BAG IV ONE (12:15)
--- NOTE | 2021-01-11 12:47 | Diagnostic Imaging Report ---
PROCEDURE: CT abdomen and pelvis with contrast. TECHNIQUE: Multiple contiguous axial images were obtained through the abdomen and pelvis after administration of intravenous contrast. Auto Exposure Controls were utilized during the CT exam to meet ALARA standards for radiation dose reduction. All CT scans use one or more of the following dose optimizing techniques: automated exposure control, MA and/or KvP adjustment based on patient size and exam type or iterative reconstruction. DATE: January 11, 2021. COMPARISON: None. INDICATION: 70-year-old female, abdominal pain and bloating. FINDINGS: There are linear opacities in the lung bases consistent with atelectasis. The heart is not enlarged. There is no pericardial effusion. The liver is unremarkable in size and contour. There is no identified liver lesion. The main, right, left portal veins are patent. The gallbladder is unremarkable. There is no intrahepatic or extrahepatic bile duct dilation. The main pancreatic duct is not abnormally dilated. There is abnormal fluid and inflammatory stranding adjacent to the pancreas. There is no currently well marginated focal fluid collection. There is enhancement of the pancreatic parenchyma without evidence of pancreatic necrosis. The spleen is normal in size. The adrenal glands are unremarkable. There is a 7 mm low-attenuation right renal lesion on axial image 30 which is too small to characterize. The urinary collecting systems are not distended. There is no identified renal or ureteral stone. Urinary bladder is collapsed and not well evaluated. The appendix is unremarkable and well seen. There is nonspecific wall thickening of the distal stomach. There is no free intraperitoneal air. There is a small volume ascites. There are atherosclerotic calcifications. There is no identified abnormally enlarged lymph node in the abdomen or pelvis meeting CT size criteria for adenopathy. There is no identified acute bony abnormality. IMPRESSION: CT ABDOMEN AND PELVIS. 1. Findings suspicious for acute pancreatitis with peripancreatic fluid and inflammatory stranding. No clearly identified current well marginated focal drainable fluid collection. No evidence of pancreatic necrosis. 2. Small volume ascites. 3. No CT evidence of cholelithiasis or acute cholecystitis. No biliary ductal dilation. Dictated by: Dictated on workstation # [id number]
[2021-01-11] MEDS: dilTIAZem DRIP PRE-MIX 125 ML IV SCH (12:54)
--- NOTE | 2021-01-11 13:07 | History & Physical-Hospitalist ---
History of Present Illness HPI/Chief Complaint Chief complaint: Atrial fibrillation with rapid ventricular response with acute pancreatitis and severe sepsis History present illness: This is a 70-year-old white female who drinks wine with heavy use who presented to the ER with a couple of days of nausea and vomiting and not feeling well with abdominal pain. She was found to be in atrial fibrillation with rapid ventricular response in addition to hypotension req uiring aggressive IV fluid at 30 cc/KG and found to have acute pancreatitis. Dr. Vale is consulted and will obtain ultrasound in the morning. Zosyn was started. Cardiology consulted for atrial fibrillation with right ventricular response. Patient sees Dr. Davis on a regular basis for atrial fibrillation. Patient appears to be very debilitated and acutely ill. ICU admission indicated. High risk for decompensation and respiratory failure and intubation. Source: patient, RN/MD, old records Exam Limitations: clinical condition Date Seen 01/11/21 Time Seen by a Provider: 14:00 Attending Physician PCP Gwendolyn Botello MD Referring Physician Date of Admission Home Medications & Allergies Home Medications Reviewed patient Home Medication Reconciliation performed by pharmacy medication reconciliations cooling tower technician and/or nursing. Patients Allergies have been reviewed. Allergies Allergies Coded Allergies ibuprofen (Unverified Allergy, Unknown, 06/07/18) Past Ggvshbo-Ywmndx-Ugyqee Hx Patient Social History Marrital Status: Employed/Student: retired Tobacco Use?: No Smoking Status: Former Smoker Use of E-Cig and/or Vaping dev: No Substance use?: No Alcohol Use?: Yes Alcohol type: Wine Alcohol Frequency: Daily Pt feels they are or have been: No Immunizations Up To Date First/Initial COVID19 Vaccinat: MAR 2020 Second COVID19 Vaccination Franki: APRIL 2020 Current Status Advance Directives: Yes Communicates: Verbally Primary Language: Emirati Preferred Spoken Language: Emirati Is interpretation needed?: No Past Medical History Atrial Fibrillation Osteoporosis Review of Systems Constitutional: see HPI, dizziness, malaise, weakness EENTM: no symptoms reported Respiratory: dyspnea on exertion Cardiovascular: no symptoms reported Gastrointestinal: abdominal pain, loss of appetite, nausea, vomiting Musculoskeletal: no symptoms reported Skin: no symptoms reported Psychiatric/Neurological: No Symptoms Reported All Other Systems Reviewed Negative Unless Noted: Yes Physical Exam Physical Exam Vital Signs Vital Signs - First Documented 01/11/21 01/11/21 10:35 16:30 Temp 36.0 Pulse 77 Resp 18 B/P (MAP) 82/56 (65) Pulse Ox 99 O2 Delivery Room Air FiO2 21 Capillary Refill : Less Than 3 Seconds Height, Weight, BMI Height: 5'2.00" Weight: 122lbs. 0.0oz. 55.699392lf; 22.00 BMI Method: General Appearance: No Apparent Distress, Chronically ill Eyes: Right Eye Normal Inspection, Right Eye PERRL HEENT: PERRL/EOMI, Normal ENT Inspection, Pharynx Normal, Moist Mucous Membranes Neck: Full Range of Motion, Normal Inspection, Non Tender Respiratory: Chest Non Tender, Lungs Clear, Normal Breath Sounds, No Accessory Muscle Use, No Respiratory Distress Cardiovascular: Regular Rate, Rhythm, No Edema, No Gallop, No JVD, No Murmur, Normal Peripheral Pulses Gastrointestinal: Normal Bowel Sounds, No Organomegaly, No Pulsatile Mass, Tenderness Back: Normal Inspection, No CVA Tenderness, No Vertebral Tenderness Extremity: Normal Capillary Refill, Normal Inspection, Normal Range of Motion, Non Tender, No Calf Tenderness, No Pedal Edema Neurologic/Psychiatric: Alert, Oriented x3, No Motor/Sensory Deficits, Normal Mood/Affect Skin: Normal Color, Warm/Dry Lymphatic: No Adenopathy Results Results/Procedures Labs Laboratory Tests 01/11/21 10:40 Patient resulted labs reviewed. Assessment/Plan Admission Diagnosis Assessment: Severe sepsis placed on severe sepsis IV fluid protocol Acute pancreatitis with possible pseudocyst infection placed on Zosyn Atrial fibrillation with rapid ventricular response Regular alcohol use heavy consumption of wine Anticoagulation for atrial fibrillation managed by Dr. Davis INR 2.4 today Leukocytosis Hypoxemia on ABG Osteoporosis Plan: Alcohol withdrawal protocol Aggressive IV fluid Zosyn Dr. Akanksha Grimes eIC Oxygen Supportive care Admission Status: Inpatient Order (span 2 midnights) Reason for Inpatient Admission: Severe sepsis Diagnosis/Problems Diagnosis/Problems (1) Atrial fibrillation with rapid ventricular response (2) Hypertension (3) Leukocytosis (4) On continuous oral anticoagulation (5) Osteoporosis (6) Severe sepsis (7) Pancreatitis ANAID IBRAHIM DO Jan 11, 2021 13:07
[2021-01-11] MEDS ORDERED: fentaNYL INJ 100 MCG/2 ML AMP IVP STA (13:38)
[2021-01-11 15:33] LABS: BILIRUBIN,URINE NEGATIVE (NEGATIVE); CLARITY,URINE SL CLOUDY; COLOR,URINE YELLOW; GLUCOSE, URINE (UA) NEGATIVE (NEGATIVE); KETONES,URINE TRACE (NEGATIVE); LEUKOCYTE ESTERASE ,URINE NEGATIVE (NEGATIVE); NITRITE,URINE NEGATIVE (NEGATIVE); PROTEIN,URINE 1+ (NEGATIVE)
[2021-01-11 15:40] LABS: BACTERIA,URINE NEGATIVE /HPF
[2021-01-11] MEDS ORDERED: LORazepam INJ 2 MG/ML (ATIVAN) VIAL IM/IV PRN (16:00)
[2021-01-11] MEDS ORDERED: LORazepam INJ 2 MG/ML (ATIVAN) VIAL IV PRN (16:00)
[2021-01-11] MEDS ORDERED: 1/2 NS IV SOLUTION 1,000 ML IV PRN (16:00)
[2021-01-11] MEDS ORDERED: LORazepam 1 MG (ATIVAN) TAB PO PRN (16:00)
[2021-01-11] MEDS ORDERED: ACETAMINOPHEN 650 MG SUPP (TYLENOL) PR PRN (16:00)
[2021-01-11] MEDS ORDERED: D5 1/2 NS 1000 ML IV SOLUTION 1,000 ML IV PRN (16:00)
--- NOTE | 2021-01-11 16:26 | Consultation - Surgery ---
SKIP LEMUS 01/11/21 1626: History of Present Illness History of Present Illness Patient Consulted On(niharika/time) 01/11/21 16:18 Date Seen by Provider: Jan 11, 2021 Time Seen by Provider: 03:56 History of Present Illness Cheri Del Cid is a 70 y/o female with a PMH of Afib, HTN, and HLD who presents with abdominal pain. Pt reports that the abdominal pain began around 10pm 2 days ago. The pain was spread throughout her abdomen and radiated to her chest and back. At the time she said the pain was a 10/10. Also had nausea and vomiting. Her abdomen also was distended so much that she felt like "her abdomen was about to burst". States that she did not go into the ER that night because she thought it was food poisoning from what she ate that night. Says that she had a baked potato with sour cream and spinach that night. At the current moment her abdominal pain is located in both right quadrants. Says that the pain is now cramp like and intermittent. Increases when she twists or tries to get up. Rates the pain as a 6-7/10. Nausea is still present but the vomiting has resolved. She reports that she drinks about a half bottle of wine a night. History of smoking which she said she quit in 2015 but started occasionally smoking again at the start of the COVID pandemic. Allergies and Home Medications Allergies Coded Allergies: ibuprofen (Unverified Allergy, Unknown, 06/07/18) Past Gehiaem-Sqtwmj-Tgnzyf Hx Patient Social History Smoking Status: Current Someday Smoker Type Used: Cigarettes Alcohol Use?: Yes (half bottle of wine nightly) Have you traveled recently?: No Surgeries History of Surgeries: Yes Surgeries: Orthopedic (bunionectomy) Cardiovascular History of Cardiac Disorders: Yes Cardiac Disorders: Atrial Fibrillation, High Cholesterol, Hypertension Neurological History of Neurological Disord: No Family Medical History Significant Family History: Psychiatric Problems (father-alzheimer's) Review of Systems-General Constitutional: No chills; diaphoresis; No fever EENTM: No hearing loss, No blurred vision, No double vision Respiratory: No cough, No dyspnea on exertion Cardiovascular: No chest pain, No palpitations Gastrointestinal: abdominal pain, nausea, vomiting Genitourinary: No dysuria, No frequency Musculoskeletal: No back pain, No joint pain, No muscle pain, No muscle weakness Skin: rash (on feet) Psychiatric/Neurological: Denies Numbness, Denies Paresthesia Physical Exam-General Problems Physical Exam Vital Signs Vital Signs - First Documented 01/11/21 10:35 Temp 36.0 Pulse 77 Resp 18 B/P (MAP) 82/56 (65) Pulse Ox 99 O2 Delivery Room Air Capillary Refill : Less Than 3 Seconds General Appearance: WD/WN, mild distress HEENT: PERRL/EOMI, scleral icterus (R), scleral icterus (L); No photophobia Neck: non-tender, supple Respiratory: lungs clear, normal breath sounds, no respiratory distress Cardiovascular: normal peripheral pulses, regular rate, rhythm Gastrointestinal: guarding, tenderness (diffuse tenderness w/ greater tenderness over epigastric region) Back: no CVA tenderness, no vertebral tenderness Extremities: non-tender, no pedal edema, normal capillary refill Neurologic/Psychiatric: alert, normal mood/affect Skin: cool (hands and feet), rash (diffuse rash on feet) Lymphatic: no adenopathy (cervical) Data Review Labs Laboratory Tests 01/11/21 10:40: White Blood Count 21.5H, Red Blood Count 4.71, Hemoglobin 16.2H, Hematocrit 48, Mean Corpuscular Volume 102H, Mean Corpuscular Hemoglobin 34, Mean Corpuscular Hemoglobin Concent 34, Red Cell Distribution Width 13.5, Platelet Count 191, Mean Platelet Volume 12.5H, Immature Granulocyte % (Auto) 1, Neutrophils (%) (Auto) 90H, Lymphocytes (%) (Auto) 4L, Monocytes (%) (Auto) 5, Eosinophils (%) (Auto) 0, Basophils (%) (Auto) 0, Neutrophils # (Auto) 19.3H, Lymphocytes # (Auto) 0.9L, Monocytes # (Auto) 1.1H, Eosinophils # (Auto) 0.0, Basophils # (Auto) 0.1, Immature Granulocyte # (Auto) 0.2H, Neutrophils % (Manual) 84, Lymphocytes % (Manual) 4, Monocytes % (Manual) 6, Band Neutrophils 6, Blood M orphology Comment NORMAL, Prothrombin Time 26.7H, INR Comment 2.4H, Activated Partial Thromboplast Time 36H, Sodium Level 136, Potassium Level 4.3, Chloride Level 97L, Carbon Dioxide Level 22, Anion Gap 17H, Blood Urea Nitrogen 20H, Creatinine 1.17, Estimat Glomerular Filtration Rate 46, BUN/Creatinine Ratio 17, Glucose Level 105, Calcium Level 9.2, Corrected Calcium 9.1, Total Bilirubin 3.2H, Aspartate Amino Transf (AST/SGOT) 32, Alanine Aminotransferase (ALT/SGPT) 21, Alkaline Phosphatase 55, C-Reactive Protein High Sensitivity 13.50H, Total Protein 7.8, Albumin 4.1, Lipase 1411H, Procalcitonin 5.57H 01/11/21 10:48: Lactic Acid Level 2.35*H 01/11/21 12:15: Lactic Acid Level 1.76 01/11/21 15:25: Urine Color YELLOW, Urine Clarity SL CLOUDY, Urine pH 6.0, Urine Specific Beaver <=1.005, Urine Protein 1+H, Urine Glucose (UA) NEGATIVE, Urine Ketones TRACEH, Urine Nitrite NEGATIVE, Urine Bilirubin NEGATIVE, Urine Urobilinogen 0.2, Urine Leukocyte Esterase NEGATIVE, Urine RBC (Auto) TRACE-IH, Urine RBC NONE, Urine WBC 5-10H, Urine Squamous Epithelial Cells 2-5, Urine Renal Epithelial Cells NONE, Urine Crystals NONE, Urine Bacteria NEGATIVE, Urine Casts NONE, Urine Mucus NEGATIVE, Urine Culture Indicated CULTURE PENDING Assessment/Plan Assessment/Plan Assessment/Plan Assessment Abdominal pain Acute pancreatitis Afib HTN HLD Plan U/S gallbladder tomorrow NPO Continue anti-emetics and pain medications prn Continue to monitor lab values BETH GUIDO DO 01/11/21 1709: History of Present Illness History of Present Illness Time Seen by Provider: 15:56 History of Present Illness Surgery asked to consult regarding abdominal pain. Pt stated she has never had pain like this before and denies any previous episodes of pancreatitis. Pain is at least 7 out of 10; nothing but pain meds seem to help. Allergies and Home Medications Allergies Coded Allergies: ibuprofen (Unverified Allergy, Unknown, 06/07/18) Patient Home Medication List Home Medication List Reviewed: Yes (pt gave me her hand written list) Past Quxoxde-Uekgac-Brfebk Hx Patient Social History Smoking Status: Current Someday Smoker Type Used: Cigarettes Alcohol Use?: Yes (half bottle of wine nightly) Surgeries History of Surgeries: Yes Surgeries: Orthopedic (bunionectomy) Respiratory History of Respiratory Disorde: No Cardiovascular History of Cardiac Disorders: Yes Cardiac Disorders: Atrial Fibrillation, High Cholesterol, Hypertension Neurological History of Neurological Disord: No Genitourinary History of Genitourinary Disor: No Gastrointestinal History of Gastrointestinal Di: No Musculoskeletal History of Musculoskeletal Dis: Yes Musculoskeletal Disorders: Degenerate Disk Disease, Arthritis Endocrine History of Endocrine Disorders: No HEENT History of HEENT Disorders: No Cancer History of Cancer: No Psychosocial History of Psychiatric Problem: No Integumentary History of Skin or Integumenta: No Family Medical History Significant Family History: Psychiatric Problems (father-alzheimer's) Review of Systems-General Constitutional: No chills; diaphoresis; No fever EENTM: No hearing loss, No blurred vision, No double vision Respiratory: No cough, No dyspnea on exertion Cardiovascular: No chest pain; palpitations Gastrointestinal: abdominal pain, nausea, vomiting Genitourinary: No dysuria, No frequency Musculoskeletal: No back pain, No joint pain, No muscle pain, No muscle weakness Skin: rash (on feet) Psychiatric/Neurological: Denies Numbness, Denies Paresthesia Physical Exam-General Problems Physical Exam General Appearance: mild distress, thin Eyes: Bilateral Eye PERRL, Bilateral Eye EOMI HEENT: PERRL/EOMI, scleral icterus (R), scleral icterus (L) Neck: non-tender, supple Respiratory: lungs clear, normal breath sounds, no respiratory distress Cardiovascular: normal peripheral pulses, no murmur, irregularly irregular Gastrointestinal: soft, no organomegaly, guarding (voluntary), tenderness (diffuse tenderness w/ greater tenderness over epigastric region) Back: no CVA tenderness, no vertebral tenderness Extremities: non-tender, no pedal edema Neurologic/Psychiatric: alert, normal mood/affect Skin: cool (hands and feet), rash (diffuse rash on feet) Lymphatic: no adenopathy (neck, axilla or groin) Data Review Radiology Date of Exam:01/11/21 CT ABDOMEN/PELVIS W PROCEDURE: CT abdomen and pelvis with contrast. TECHNIQUE: Multiple contiguous axial images were obtained through the abdomen and pelvis after administration of intravenous contrast. Auto Exposure Controls were utilized during the CT exam to meet ALARA standards for radiation dose reduction. All CT scans use one or more of the following dose optimizing techniques: automated exposure control, MA and/or KvP adjustment based on patient size and exam type or iterative reconstruction. DATE: January 11, 2021. COMPARISON: None. INDICATION: 70-year-old female, abdominal pain and bloating. FINDINGS: There are linear opacities in the lung bases consistent with atelectasis. The heart is not enlarged. There is no pericardial effusion. The liver is unremarkable in size and contour. There is no identified liver lesion. The main, right, left portal veins are patent. The gallbladder is unremarkable. There is no intrahepatic or extrahepatic bile duct dilation. The main pancreatic duct is not abnormally dilated. There is abnormal fluid and inflammatory stranding adjacent to the pancreas. There is no currently well marginated focal fluid collection. There is enhancement of the pancreatic parenchyma without evidence of pancreatic necrosis. The spleen is normal in size. The adrenal glands are unremarkable. There is a 7 mm low-attenuation right renal lesion on axial image 30 which is too small to characterize. The urinary collecting systems are not distended. There is no identified renal or ureteral stone. Urinary bladder is collapsed and not well evaluated. The appendix is unremarkable and well seen. There is nonspecific wall thickening of the distal stomach. There is no free intraperitoneal air. There is a small volume ascites. There are atherosclerotic calcifications. There is no identified abnormally enlarged lymph node in the abdomen or pelvis meeting CT size criteria for adenopathy. There is no identified acute bony abnormality. IMPRESSION: CT ABDOMEN AND PELVIS. 1. Findings suspicious for acute pancreatitis with peripancreatic fluid and inflammatory stranding. No clearly identified current well marginated focal drainable fluid collection. No evidence of pancreatic necrosis. 2. Small volume ascites. 3. No CT evidence of cholelithiasis or acute cholecystitis. No biliary ductal dilation. Dictated by: Dictated on workstation # [id number] Dict: 01/11/21 1240 Trans: 01/11/21 1309 [facility] [id number] Interpreted by: DONNELL ESPINOZA MD Electronically signed by: DONNELL ESPINOZA MD 01/11/21 1307 Assessment/Plan Assessment/Plan Assessment/Plan Acute pancreatitis with abd pain Afib HTN HLD Plan U/S gallbladder tomorrow NPO, IV fluids Continue anti-emetics and pain medications prn Continue to monitor lab values Supervisory-Addendum Brief Verification & Attestation Participated in pt care: history, MDM, physical Personally performed: exam, history, MDM, supervision of care Care discussed with: Medical Student Procedures: n/a Verification and Attestation of Medical Student E/M Service A medical student performed and documented this service. I then reviewed and verified all information documented by the medical student and made modifications to such information, when appropriate. I personally performed a physical exam, medical decision making and then discussed any differences between the notes and made revisions as necessary to create one note. Beth Guido , 01/11/21 , 17:12 SKIP LEMUS Jan 11, 2021 16:26 BETH GUIDO DO Jan 11, 2021 17:09
[2021-01-11] MEDS: ENOXAPARIN 60 MG/0.6 ML (LOVENOX) SYR SC SCH (16:28)
[2021-01-11] MEDS ORDERED: RT-ALBUTEROL SULF 2.5 MG/3 ML PRE-MIX VIAL INH PRN (16:45)
[2021-01-11] MEDS: THIAMINE INJECTION 100 MG, FOLIC ACID INJECTION 1 MG, MAGNESIUM SULFATE 2 GM, VITAMIN M... IV SCH ×5 (16:49)
--- NOTE | 2021-01-11 16:51 | Tele-ICU Consult ---
History of Present Illness History of Present Illness Date Seen by Provider: Jan 11, 2021 Time Seen by Provider: 16:46 Date of Admission 01/11/21 History of Present Illness Patient today presented with a complaint of right-sided abdominal pain which is later spread diffusely over the entire abdomen. And also had shortness of breath. She also has a history of fall hypertension, atrial fibrillation, hyperlipidemia and she has been on Xarelto. She has history of she had history of vomiting which is now resolved but she has an nausea.. Earlier ER physician engineering assistant called me regarding this admission and I have reviewed with him about the case. His CT of the abdomen done revealed peripancreatic inflammation suggestive of acute pancreatitis. Her LFTs slightly elevated and lipase markedly elevated. These findings are suggestive of acute pancreatitis with possible sepsis. Chest x-ray however is negative. She is started on IV Zosyn and a surgical consultation is requested. No evidence of gallstones on the CT of the abdomen. Allergies and Home Medications Allergies Coded Allergies: ibuprofen (Unverified Allergy, Unknown, 06/07/18) Past Medical/Social/Family Hx Patient Social History Tobacco Use?: No Smoking Status: Current Someday Smoker Smokeless Tobacco Frequency: Former User Use of E-Cig and/or Vaping dev: No Substance use?: No Alcohol Use?: Yes (half bottle of wine nightly) Alcohol type: Wine Alcohol Frequency: Daily Pt stated abuse/neglect: No Immunizations Up To Date Influenza Vaccine Up-to-Date: Yes; Up-to-Date First/Initial COVID19 Vaccinat: MAR 2020 Second COVID19 Vaccination Franki: APRIL 2020 Current Status Advance Directives: No Communicates: Verbally Primary Language: Georgian Preferred Spoken Language: Georgian Is interpretation needed?: No Sensory deficits: Vision impairment Implanted or Applied Medical D: None Review of Systems Constitutional: see HPI Other per attending Sepsis Event Evaluation Height, Weight, BMI Height: 5'2.00" Weight: 122lbs. 0.0oz. 55.373001ed; 22.52 BMI Method: Exam Exam Patient acknowledged, consented, and participated in this virtual visit which was conducted using real time audio/video Vital Signs Date Time Temp Pulse Resp B/P (MAP) Pulse Ox O2 Delivery O2 Flow Rate FiO2 01/11/21 16:43 36.6 01/11/21 16:30 36.0 77 99 21 01/11/21 16:09 94 Room Air 01/11/21 16:00 76 01/11/21 10:35 36.0 77 18 82/56 99 Room Air 01/11/21 10:35 36.0 77 18 82/56 (65) 99 Height & Weight Height: 5'2.00" Weight: 122lbs. 0.0oz. 55.856089fv; 22.52 BMI Method: General Appearance: Chronically ill Capillary Refill: Less Than 3 Seconds Gastrointestinal: guarding, tenderness (diffuse tenderness w/ greater tenderness over epigastric region) Other comments PE PER ATTENDING Results Lab Laboratory Tests 01/11/21 10:40 Meds REVIEWED Radiology CXR, CT ABDOMEN REVIEWED Assessment/Plan Assessment/Plan 1.. Acute abdomen nausea vomiting most likely due to acute pancreatitis probably due to her alcohol abuse. 2. History of atrial fibrillation with rapid ventricular rate. 3. Hypertension 4. Rule out sepsis 5. History of alcohol abuse 6. Rule out any gallstones. Recommendations 1. Keep patient n.p.o. 2. Cautiously hydrate patient 3. Agree with IV Zosyn. 4. IV Protonix 5. Surgical consultation is requested. 6. Ultrasonogram of the abdomen and right quadrant tomorrow. 7. Get lipid profile in a.m. 8. We will give thiamine and folic acid 9. Monitor for any alcohol withdrawal syndrome. 10. DVT prophylaxis with Lovenox Critical Care: Critically Ill Patient Time spent with patient (mins): 45 LARRY SILVA MD Jan 11, 2021 16:51
[2021-01-11] MEDS: NS IV 1000 ML 1,000 ML IV SCH ×2 (16:56→20:10)
[2021-01-11] MEDS: PIPERACILLIN/TAZOBACTAM (BULK) 4.5 GM in NS (IVPB) 100 ML IV SCH (17:22)
[2021-01-11 17:24] LABS: ABG BASE EXCESS -2.8 MMOL/L (-2.5-2.5); ABG OXYGEN SATURATION 88 % (94-100); ABG PCO2 38 MMHG (35-45); ABG PH 7.37 (7.37-7.43); ABG PO2 53 MMHG (79-93); ALLENS TEST YES-POS
[2021-01-11 17:25] LABS: INSPIRED O2 ROOM AIR; VENTILATOR NO
[2021-01-11 19:25] LABS: ALBUMIN 3.2 GM/DL (3.2-4.5); BILIRUBIN,DIRECT 0.8 MG/DL (0.0-0.3); BILIRUBIN,INDIRECT 1.8 MG/DL; BILIRUBIN,TOTAL 2.6 MG/DL (0.1-1.0); TOTAL PROTEIN 6.1 GM/DL (6.4-8.2)
[2021-01-11] MEDS: HYDROcodone/APAP 5 MG/325 MG (LORTAB) TAB PO PRN (20:09)
[2021-01-11] MEDS: SENNA W/DOCUSATE (SENOKOT S) TABLET PO SCH (21:41)
[2021-01-12] MEDS: PIPERACILLIN/TAZOBACTAM (BULK) 4.5 GM in NS (IVPB) 100 ML IV SCH ×3 (01:28→17:09)
[2021-01-12] MEDS: HYDROmorphone 2 MG/ML VIAL (DILAUDID) IVP PRN (01:41)
[2021-01-12] MEDS: NS IV 1000 ML 1,000 ML IV SCH ×4 (02:02→21:38)
[2021-01-12 05:19] LABS: BASOPHILS % (AUTO) 0 % (0-10); EOSINOPHILS % (AUTO) 0 % (0-10); HEMATOCRIT 39 % (35-52); MEAN PLATELET VOLUME 12.6 fL (9.0-12.2); PLATELET COUNT 121 10^3/uL (130-400)
[2021-01-12 05:22] LABS: HEMOGLOBIN 12.7 g/dL (11.5-16.0); LYMPHOCYTES % (AUTO) 6 % (12-44); MEAN CORPUSCULAR HEMOGLOBIN 34 pg (25-34); MEAN CORPUSCULAR HGB CONC 33 g/dL (32-36); MEAN CORPUSCULAR VOLUME 105 fL (80-99); MONOCYTES # (AUTO) 1.2 10^3/uL (0.0-1.0); MONOCYTES % (AUTO) 7 % (0-12); NEUTROPHILS # (AUTO) 15.3 10^3/uL (1.8-7.8); NEUTROPHILS % (AUTO) 87 % (42-75); WHITE BLOOD COUNT 17.6 10^3/uL (4.3-11.0)
[2021-01-12 05:37] LABS: ALBUMIN 3.2 GM/DL (3.2-4.5); POTASSIUM 3.9 MMOL/L (3.6-5.0)
[2021-01-12 05:38] LABS: CALCIUM 6.9 MG/DL (8.5-10.1)
[2021-01-12 05:39] LABS: TOTAL PROTEIN 6.3 GM/DL (6.4-8.2)
[2021-01-12 05:41] LABS: BILIRUBIN,TOTAL 1.9 MG/DL (0.1-1.0)
[2021-01-12 05:43] LABS: CREATININE SERUM 1.04 MG/DL (0.60-1.30)
[2021-01-12 05:47] LABS: MAGNESIUM 2.3 MG/DL (1.6-2.4)
[2021-01-12] MEDS: ENOXAPARIN 60 MG/0.6 ML (LOVENOX) SYR SC SCH ×2 (05:59→17:09)
[2021-01-12] MEDS: POTASSIUM CL 10MEQ/50ML IVPB 50 ML IV SCH (06:20)
[2021-01-12] MEDS: KCL 20 MEQ TAB (K-DUR) PO SCH (06:20)
[2021-01-12] MEDS: MAGNESIUM 1 GM/100 ML IVPB 100 ML IV SCH (06:20)
--- NOTE | 2021-01-12 07:23 | Progress Note - Surgery ---
SKIP LEMUS 01/12/21 0723: Subjective Date Seen by a Provider: Jan 12, 2021 Time Seen by a Provider: 06:24 Subjective/Events-last exam Pt reports that her abdominal pain is better today than it was yesterday. The pain waxes and wanes. Increased with movement. Mostly located on the right side. States that her nausea has resolved. Denies any vomiting. Review of Systems General: No Chills, No Night Sweats HEENT: No Head Aches, No Visual Changes Pulmonary: No Cough; Other (SOB w/ activity) Cardiovascular: No: Chest Pain, Palpitations Gastrointestinal: Abdominal Pain; No: Nausea, Vomiting Genitourinary: No Dysuria, No Frequency Musculoskeletal: No: neck pain, arm pain, back pain, leg pain Neurological: No: Weakness, Numbness Focused Exam Lactate Level 01/11/21 10:48: Lactic Acid Level 2.35*H 01/11/21 12:15: Lactic Acid Level 1.76 Objective Exam Vital Signs Date Time Temp Pulse Resp B/P (MAP) Pulse Ox O2 Delivery O2 Flow Rate FiO2 01/12/21 06:27 Nasal Cannula 6.00 01/12/21 06:00 74 36 118/84 92 Nasal Cannula 4.00 01/12/21 05:00 116 18 116/61 93 Nasal Cannula 4.00 01/12/21 04:00 92 15 86/56 95 Nasal Cannula 4.00 01/12/21 04:00 92 Nasal Cannula 4.00 01/12/21 03:00 90 13 112/76 94 Nasal Cannula 4.00 01/12/21 02:19 Nasal Cannula 4.00 01/12/21 02:00 68 20 100/61 90 Nasal Cannula 2.00 01/12/21 01:00 70 01/12/21 01:00 70 30 105/58 92 Nasal Cannula 2.00 01/12/21 00:00 68 15 112/63 95 Nasal Cannula 2.00 01/12/21 00:00 36.8 01/12/21 00:00 91 Nasal Cannula 2.00 01/11/21 23:00 70 38 108/59 95 Nasal Cannula 2.00 01/11/21 22:00 66 21 104/53 98 Nasal Cannula 2.00 01/11/21 21:45 69 28 92/56 98 12/5/21 21:30 72 31 105/60 97 01/11/21 21:15 71 17 101/62 97 01/11/21 21:00 73 22 97 Nasal Cannula 2.00 01/11/21 20:45 71 21 96/65 97 01/11/21 20:30 70 35 95/54 97 01/11/21 20:19 36.4 01/11/21 20:15 71 38 106/55 94 01/11/21 20:00 120 36 109/72 97 Nasal Cannula 2.00 01/11/21 20:00 91 Nasal Cannula 2.00 01/11/21 19:45 86 36 107/65 98 01/11/21 19:30 69 34 93/47 99 01/11/21 19:15 77 18 93/46 95 01/11/21 19:00 71 17 107/58 97 Nasal Cannula 2.00 01/11/21 19:00 71 01/11/21 18:00 67 33 95/54 (68) 91 Room Air 01/11/21 17:45 67 41 87/57 (68) 90 Room Air 01/11/21 17:30 70 20 98/56 (64) 94 Room Air 01/11/21 17:15 71 17 102/66 (82) 92 Room Air 01/11/21 17:00 71 35 87/53 (66) 91 Room Air 01/11/21 16:45 75 28 100/58 (69) 92 Room Air 01/11/21 16:43 36.6 01/11/21 16:30 36.0 77 99 21 01/11/21 16:30 71 21 102/64 (80) 92 Room Air 01/11/21 16:15 70 29 104/59 (72) 91 Room Air 01/11/21 16:09 94 Room Air 01/11/21 16:00 76 01/11/21 16:00 75 16 100/66 (74) 93 Room Air 01/11/21 15:40 75 18 101/62 93 Nasal Cannula 2.00 01/11/21 10:35 36.0 77 18 82/56 99 Room Air 01/11/21 10:35 36.0 77 18 82/56 (65) 99 I & O 01/12/21 07:00 Intake Total 4220 ml Output Total 400 ml Balance 3820 ml Capillary Refill : Less Than 3 Seconds General Appearance: No Apparent Distress, Chronically ill HEENT: PERRL/EOMI, Moist Mucous Membranes Neck: Non Tender, Supple Respiratory: Lungs Clear, Normal Breath Sounds, No Accessory Muscle Use, No Respiratory Distress Cardiovascular: Regular Rate, Rhythm, No Edema, No Murmur, Normal Peripheral Pulses Gastrointestinal: soft, no organomegaly, guarding (voluntary), tenderness (diffuse tenderness w/ greater tenderness over epigastric region) Extremity: Normal Capillary Refill, Non Tender, No Calf Tenderness, No Pedal Edema Neurologic/Psychiatric: Alert, Oriented x3, Normal Mood/Affect Skin: Normal Color, Warm/Dry Lymphatic: No Adenopathy (cervical) Results Lab Laboratory Tests 01/11/21 10:40: White Blood Count 21.5H, Red Blood Count 4.71, Hemoglobin 16.2H, Hematocrit 48, Mean Corpuscular Volume 102H, Mean Corpuscular Hemoglobin 34, Mean Corpuscular Hemoglobin Concent 34, Red Cell Distribution Width 13.5, Platelet Count 191, Mean Platelet Volume 12.5H, Immature Granulocyte % (Auto) 1, Neutrophils (%) (Auto) 90H, Lymphocytes (%) (Auto) 4L, Monocytes (%) (Auto) 5, Eosinophils (%) (Auto) 0, Basophils (%) (Auto) 0, Neutrophils # (Auto) 19.3H, Lymphocytes # (Auto) 0.9L, Monocytes # (Auto) 1.1H, Eosinophils # (Auto) 0.0, Basophils # (Aut o) 0.1, Immature Granulocyte # (Auto) 0.2H, Neutrophils % (Manual) 84, Lymphocytes % (Manual) 4, Monocytes % (Manual) 6, Band Neutrophils 6, Blood Morphology Comment NORMAL, Prothrombin Time 26.7H, INR Comment 2.4H, Activated Partial Thromboplast Time 36H, Sodium Level 136, Potassium Level 4.3, Chloride Level 97L, Carbon Dioxide Level 22, Anion Gap 17H, Blood Urea Nitrogen 20H, Creatinine 1.17, Estimat Glomerular Filtration Rate 46, BUN/Creatinine Ratio 17, Glucose Level 105, Calcium Level 9.2, Corrected Calcium 9.1, Total Bilirubin 3.2H, Aspartate Amino Transf (AST/SGOT) 32, Alanine Aminotransferase (ALT/SGPT) 21, Alkaline Phosphatase 55, C-Reactive Protein High Sensitivity 13.50H, Total Protein 7.8, Albumin 4.1, Lipase 1411H, Procalcitonin 5.57H 01/11/21 10:48: Lactic Acid Level 2.35*H 01/11/21 12:15: Lactic Acid Level 1.76 01/11/21 15:25: Urine Color YELLOW, Urine Clarity SL CLOUDY, Urine pH 6.0, Urine Specific Standard <=1.005, Urine Protein 1+H, Urine Glucose (UA) NEGATIVE, Urine Ketones TRACEH, Urine Nitrite NEGATIVE, Urine Bilirubin NEGATIVE, Urine Urobilinogen 0.2, Urine Leukocyte Esterase NEGATIVE, Urine RBC (Auto) TRACE-IH, Urine RBC NONE, Urine WBC 5-10H, Urine Squamous Epithelial Cells 2-5, Urine Renal Epithelial Cells NONE, Urine Crystals NONE, Urine Bacteria NEGATIVE, Urine Casts NONE, Urine Mucus NEGATIVE, Urine Culture Indicated CULTURE PENDING 01/11/21 17:20: Blood Gas Puncture Site RT RAD, Blood Gas Patient Temperature 36.0, Arterial Blood pH 7.37, Arterial Blood Partial Pressure CO2 38, Arterial Blood Partial P ressure O2 53L, Arterial Blood HCO3 22L, Arterial Blood Total CO2 23.0, Arterial Blood Oxygen Saturation 88L, Arterial Blood Base Excess -2.8L, Ady Test YES- POS, Blood Gas Ventilator Setting NO, Blood Gas Inspired Oxygen ROOM AIR 01/11/21 17:55: Glucometer 150H 01/11/21 18:38: Total Bilirubin 2.6H, Direct Bilirubin 0.8H, Indirect Bilirubin 1.8, Aspartate Amino Transf (AST/SGOT) 29, Alanine Aminotransferase (ALT/SGPT) 17, Alkaline Phosphatase 35L, Total Protein 6.1L, Albumin 3.2, Lipase 821H 01/12/21 01:42: Glucometer 121H 01/12/21 05:00: White Blood Count 17.6H, Red Blood Count 3.70L, Hemoglobin 12.7#, Hematocrit 39, Mean Corpuscular Volume 105H, Mean Corpuscular Hemoglobin 34, Mean Corpuscular Hemoglobin Concent 33, Red Cell Distribution Width 14.0, Platelet Count 121L, Mean Platelet Volume 12.6H, Immature Granulocyte % (Auto) 1, Neutrophils (%) (Auto) 87H, Lymphocytes (%) (Auto) 6L, Monocytes (%) (Auto) 7, Eosinophils (%) (Auto) 0, Basophils (%) (Auto) 0, Neutrophils # (Auto) 15.3H, Lymphocytes # (Auto) 1.0, Monocytes # (Auto) 1.2H, Eosinophils # (Auto) 0.0, Basophils # (Auto) 0.0, Immature Granulocyte # (Auto) 0.1, Percent Immature Platelet Fraction 12.2H, Sodium Level 135, Potassium Level 3.9, Chloride Level 106, Carbon Dioxide Level 18L, Anion Gap 11, Blood Urea Nitrogen 24H, Creatinine 1.04, Estimat Glomerular Filtration Rate 53, BUN/Creatinine Ratio 23, Glucose Level 108H, Calcium Level 6.9L, Corrected Calcium 7.5L, Phosphorus Level 2.0L, Magnesium Level 2.3, Total Bilirubin 1.9H, Aspartate Amino Transf (AST/SGOT) 33, Alanine Aminotransferase (ALT/SGPT) 15, Alkaline Phosphatase 39L, Total Protein 6.3L, Albumin 3.2, Triglycerides Level 58, Cholesterol Level 114, LDL Cholesterol Direct 31, VLDL Cholesterol 12, HDL Cholesterol 64H, Lipase 412H Assessment/Plan Assessment/Plan Assessment/Plan Acute pancreatitis with abd pain Afib HTN HLD Plan U/S gallbladder today NPO, IV fluids Continue anti-emetics and pain medications prn Continue to monitor lab values GABRIEL VALE DO 01/12/21 1635: Subjective Time Seen by a Provider: 13:14 Subjective/Events-last exam Pt seen and examined, states pain is better and she has no N/V. Wants to eat. Review of Systems General: No Chills, No Night Sweats HEENT: No Head Aches, No Visual Changes Pulmonary: No Cough Cardiovascular: No: Chest Pain, Palpitations Gastrointestinal: Abdominal Pain; No: Nausea, Vomiting Genitourinary: No Dysuria, No Frequency Objective Exam General Appearance: No Apparent Distress, Chronically ill HEENT: PERRL/EOMI, Moist Mucous Membranes Respiratory: Lungs Clear, Normal Breath Sounds, No Accessory Muscle Use, No Respiratory Distress Cardiovascular: Regular Rate, Rhythm, No Murmur Gastrointestinal: soft, no organomegaly, tenderness (much improved compared to yesterday) Neurologic/Psychiatric: Alert, Oriented x3 Assessment/Plan Assessment/Plan Assessment/Plan Acute pancreatitis Afib HTN U/S of gallbladder today showed dilated CBD, but no stones or wall thickening in GB. Will start clears since her pain is almost gone and enzymes are coming down. Continue IV fluids Continue anti-emetics and pain medications prn, Continue to monitor lab values. No indications for surgery at this time. Supervisory-Addendum Brief Verification & Attestation Participated in pt care: history, MDM, physical Personally performed: exam, history, MDM, supervision of care Care discussed with: Medical Student Procedures: n/a Verification and Attestation of Medical Student E/M Service A medical student performed and documented this service. I then reviewed and verified all information documented by the medical student and made modifications to such information, when appropriate. I personally performed a physical exam, medical decision making and then discussed any differences between the notes and made revisions as necessary to create one note. Gabriel Vale , 01/12/21 , 16:34 SKIP LEMUS Jan 12, 2021 07:23 GABRIEL VALE DO Jan 12, 2021 16:35
--- NOTE | 2021-01-12 08:33 | Diagnostic Imaging Report ---
PROCEDURE: US Abdomen, limited. TECHNIQUE: Multiple realtime grayscale images were obtained over the abdomen in various projections. INDICATION: Pancreatitis. FINDINGS: The liver measures 12 cm in length without evidence of focal abnormality. There is no gallbladder wall thickening. The common bile duct reaches 1 cm in diameter which may be related to previous stone passage. There is diffuse enlargement of the pancreas measuring approximately 6.6 x 5.1 x 2.5 cm with an adjacent hypoechoic region which may represent mild peripancreatic edema and/or fluid. The visualized portions of the abdominal aorta and inferior vena cava are unremarkable. There is also mild right perinephric fluid without other right renal abnormality identified. IMPRESSION: Findings are consistent with pancreatitis with demonstrated pancreatic enlargement and peripancreatic fluid. There is also a mild amount of fluid in the right anterior pararenal space which could be secondary to pancreatic inflammation. Dictated by: Dictated on workstation # [id number]
--- NOTE | 2021-01-12 08:40 | Consultation-Cardiology ---
HPI-Cardiology Cardiology Consultation: Date of Consultation 01/12/21 Time Seen by a Provider: 08:30 Date of Admission 01-11-21 Attending Physician Gwendolyn Botello MD Admitting Physician Gwendolyn Botello MD Consulting Physician Saloni Grimes MD Primary [employer] Technician: Dr. Davis HPI: Chief Complaint: A-fib/flutter with RVR Ms. Reyes is a 70 yr old female admitted to ICU 6 from the ED with abdominal pain and nausea. She denies any c/o CP, SOB, palpitations, syncope or near syncope. No LE swelling. She reports she began to have nausea and abdominal pain on Tuesday night. She reports abdominal bloating. She states she waited it out thinking it was food poisoning, but the discomfort and bloating persisted and so she called EMS. She reports she has chronic a-fib and has been compliant with Xarelto and Metoprolol. She currently is NPO. She continues to have RLQ abd tenderness and bloating. Review of Systems-Cardiology Review of Systems Constitutional: No chills, No fever; malaise Eyes: No vision change Ears/Nose/Throat: No epistaxis, No recent hearing loss Respiratory: As described under HPI Cardiovascular: As described under HPI Gastrointestinal: As described under HPI Genitourinary: No dysuria, No hematuria Musculoskeletal: no symptoms reported Skin: No rash on exposed areas, No ulcerations on exposed areas Psychiatric/Neurological: No anxiety, No depression, No seizure, No focal weakness, No syncope Hematologic: No bleeding abnormalities All Other Systems Reviewed Negative Unless Noted: Yes CPV-Kbsrud-Eppini Hx Patient Social History Marrital Status: Employed/Student: retired Smoking Status: Current Someday Smoker Have you traveled recently?: No Alcohol Use?: Yes (half bottle of wine nightly) Pt feels they are or have been: No Immunizations Up To Date Date of Influenza Vaccine: Nov 27, 2020 Past Medical History PMH As described under Assessment. Family Medical History Family Medical History: No reported family h/o CAD Allergies and Home Medications Allergies Coded Allergies: ibuprofen (Unverified Allergy, Unknown, 06/07/18) Patient Home Medication List Alendronate Sodium (Alendronate Sodium) 70 Mg Tablet, 70 MG PO MON, (Reported) Entered as Reported by: JOSE DANIEL WASHBURN on 01/12/21 0696 Last Action: Reviewed Atorvastatin Calcium (Atorvastatin Calcium) 10 Mg Tablet, 10 MG PO HS, (Repor paulino) Entered as Reported by: JOSE DANIEL WASHBURN on 01/12/211155 Last Action: Reviewed Calcium Carbonate/Vitamin D3 (Calcium + Vitamin D Tablet) 1 Each Tablet, 1 EACH PO DAILY, (Reported) Entered as Reported by: JOSE DANIEL WASHBURN on 01/12/211155 Last Action: Reviewed Cholecalciferol (Vitamin D3) (Vitamin D3) 125 Mcg Capsule, 125 MCG PO DAILY, (Reported) Entered as Reported by: JOSE DANIEL WASHBURN on 01/12/211155 Last Action: Reviewed Lorazepam (Ativan) 0.5 Mg Tablet, 0.5 MG PO BID PRN for ANXIETY, (Reported) Entered as Reported by: JOSE DANIEL WASHBURN on 01/12/211203 Last Action: Reviewed Metoprolol Succinate (Metoprolol Succinate) 50 Mg Tab.er.24h, 50 MG PO DAILY, (Reported) Entered as Reported by: JOSE DANIEL WASHBURN on 01/12/211155 Last Action: Reviewed Milk Thistle Seed Extract (Milk Thistle) 175 Mg Capsule, 175 MG PO BID, (Reported) Entered as Reported by: JOSE DANIEL WASHBURN on 01/12/211155 Last Action: Reviewed Multivitamin (Multivitamin) 1 Each Tablet, 1 EACH PO DAILY, (Reported) Entered as Reported by: JOSE DANIEL WASHBURN on 01/12/211155 Last Action: Reviewed [place]-3/Dha/Epa/Fish Oil (Fish Oil 1,000 mg Softgel) 1 Each Capsule, 1 EACH PO BID, (Reported) Entered as Reported by: JOSE DANIEL WASHBURN on 01/12/211155 Last Action: Reviewed Rivaroxaban (Xarelto Tablet) 20 Mg Tablet, 20 MG PO 1800, (Reported) Entered as Reported by: JOSE DANIEL WASHBURN on 01/12/211155 Last Action: Reviewed Physical Exam-Cardiology Physical Exam Vital Signs/I&O 01/20/21 01/20/21 01/20/21 01/20/21 05:00 06:00 07:00 07:00 Pulse 77 74 80 87 Resp 27 27 24 B/P (MAP) 121/64 109/67 97/83 Pulse Ox 91 93 88 O2 Delivery Vapotherm Vapotherm Vapotherm O2 Flow Rate 40.00 40.00 40.00 100.00 100.00 100.00 01/20/21 01/20/21 01/20/21 01/20/21 07:16 07:45 08:00 08:00 Temp 36.0 Pulse 91 Resp 25 B/P (MAP) 95/63 Pulse Ox 91 98 O2 Delivery Vapotherm Vapotherm NIV Bilevel O2 Flow Rate 40.00 40.00 100.00 FiO2 100 70 01/20/21 01/20/21 01/20/21 01/20/21 09:00 10:00 11:00 11:02 Pulse 88 87 89 80 Resp 19 B/P (MAP) 102/62 90/56 96/59 103/53 Pulse Ox 97 100 97 O2 Delivery Vapotherm Vapotherm Vapotherm O2 Flow Rate 40.00 40.00 40.00 100.00 100.00 100.00 01/20/21 01/20/21 01/20/21 01/20/21 11:50 12:00 12:00 13:00 Temp 36.3 Pulse 82 95 B/P (MAP) 97/65 104/63 Pulse Ox 96 96 O2 Delivery Vapotherm Vapotherm Vapotherm O2 Flow Rate 40.00 40.00 40.00 100.00 100.00 FiO2 100 01/20/21 01/20/21 01/20/21 01/20/21 13:00 14:00 14:52 15:00 Pulse 80 81 88 Resp 23 B/P (MAP) 129/77 118/82 Pulse Ox 94 89 88 O2 Delivery Vapotherm Vapotherm Vapotherm O2 Flow Rate 40.00 40.00 40.00 100.00 100.00 FiO2 100 01/20/21 01/20/21 01/20/21 15:17 16:00 16:03 Temp 36.4 O2 Delivery NIV Bilevel NIV Bilevel O2 Flow Rate 70.00 FiO2 70 01/20/21 00:00 Intake Total 890 ml Output Total 1050 ml Balance -160 ml Capillary Refill : Less Than 3 Seconds Constitutional: AAO x 3, well-developed, well-nourished HEENT: PERRL, hearing is well preserved, oral hygience is good Neck: No carotid bruit; carotid pulses are 2 + bilaterally Respiratory: No accessory muscle use, No respiratory distress; chest expansion is symmetric, chest is bilaterally symmetric, lungs clear to auscultation Cardiovascular: irregularly irregular; No JVD; S1 and S2 Gastrointestinal: tender (RLQ), distended; No guarding; audible bowel sounds (hyperactive) Extremities: no lower extremity edema bilateral Neurologic/Psychiatric: grossly intact (moves all extremities) Skin: No rash on exposed areas, No ulcerations on exposed areas Data Review Labs Laboratory Tests 01/20/21 05:22: White Blood Count 27.6H, Red Blood Count 3.05L, Hemoglobin 10.4L, Hematocrit 30L , Mean Corpuscular Volume 99, Mean Corpuscular Hemoglobin 34, Mean Corpuscular Hemoglobin Concent 34, Red Cell Distribution Width 13.7, Platelet Count 190, Mean Platelet Volume 11.5, Immature Granulocyte % (Auto) 2, Neutrophils (%) (Auto) 94H, Lymphocytes (%) (Auto) 2L, Monocytes (%) (Auto) 3, Eosinophils (%) (Auto) 0, Basophils (%) (Auto) 0, Neutrophils # (Auto) 25.9H, Lymphocytes # (Auto) 0.4L, Monocytes # (Auto) 0.7, Eosinophils # (Auto) 0.1, Basophils # (Auto) 0.1, Immature Granulocyte # (Auto) 0.4H, Sodium Level 136, Potassium Level 2.3#*L, Chloride Level 92L, Carbon Dioxide Level 33H, Anion Gap 11, Blood Urea Nitrogen 20H, Creatinine 0.86, Estimat Glomerular Filtration Rate 66, BUN/Creatinine Ratio 23, Glucose Level 161H, Calcium Level 7.7L, Corrected Calcium 9.1, Phosphorus Level 4.2, Magnesium Level 1.6, Total Bilirubin 0.5, Aspartate Amino Transf (AST/SGOT) 35H, Alanine Aminotransferase (ALT/SGPT) 17, Alkaline Phosphatase 91, Total Protein 5.2L, Albumin 2.2L 01/20/21 12:25: Prothrombin Time 18.8H, INR Comment 1.5H, Fibrinogen 527H, D-Dimer >= 20.00H Microbiology 01/13/21 Urine Culture - Final, Complete NO GROWTH 01/11/21 MRSA Screen - Final, Complete MRSA not isolated 01/11/21 Blood Culture - Final, Complete No growth Radiology NAME: ALEXANDRESHOBHA A [facility] REC#: [id number] PT STATUS: REG ER : 1950 PHYSICIAN: NATALIE AMBROSE ADMIT DATE: 01/11/21/ER Signed Date of Exam:01/11/21 CT ABDOMEN/PELVIS W PROCEDURE: CT abdomen and pelvis with contrast. TECHNIQUE: Multiple contiguous axial images were obtained through the abdomen and pelvis after administration of intravenous contrast. Auto Exposure Controls were utilized during the CT exam to meet ALARA standards for radiation dose reduction. All CT scans use one or more of the following dose optimizing techniques: automated exposure control, MA and/or KvP adjustment based on patient size and exam type or iterative reconstruction. DATE: January 11, 2021. COMPARISON: None. INDICATION: 70-year-old female, abdominal pain and bloating. FINDINGS: There are linear opacities in the lung bases consistent with atelectasis. The heart is not enlarged. There is no pericardial effusion. The liver is unremarkable in size and contour. There is no identified liver lesion. The main, right, left portal veins are patent. The gallbladder is unremarkable. There is no intrahepatic or extrahepatic bile duct dilation. The main pancreatic duct is not abnormally dilated. There is abnormal fluid and inflammatory stranding adjacent to the pancreas. There is no currently well marginated focal fluid collection. There is enhancement of the pancreatic parenchyma without evidence of pancreatic necrosis. The spleen is normal in size. The adrenal glands are unremarkable. There is a 7 mm low-attenuation right renal lesion on axial image 30 which is too small to characterize. The urinary collecting systems are not distended. There is no identified renal or ureteral stone. Urinary bladder is collapsed and not well evaluated. The appendix is unremarkable and well seen. There is nonspecific wall thickening of the distal stomach. There is no free intraperitoneal air. There is a small volume ascites. There are atherosclerotic calcifications. There is no identified abnormally enlarged lymph node in the abdomen or pelvis meeting CT size criteria for adenopathy. There is no identified acute bony abnormality. IMPRESSION: CT ABDOMEN AND PELVIS. 1. Findings suspicious for acute pancreatitis with peripancreatic fluid and inflammatory stranding. No clearly identified current well marginated focal drainable fluid collection. No evidence of pancreatic necrosis. 2. Small volume ascites. 3. No CT evidence of cholelithiasis or acute cholecystitis. No biliary ductal dilation. Dictated by: Dictated on workstation # [id number] Dict: 01/11/21 1240 Trans: 01/11/21 1309 CV [id number] Interpreted by: DONNELL ESPINOZA MD Electronically signed by: DONNELL ESPINOZA MD 01/11/21 1309 NAME: SHOBHA SCHROEDER [facility] REC#: [id number] PT STATUS: ADM IN : 1950 PHYSICIAN: ANAID IBRAHIM DO ADMIT DATE: 01/11/21/ICU Draft Date of Exam:01/12/21 US ABDOMEN LIMITED [id number] PROCEDURE: US Abdomen, limited. TECHNIQUE: Multiple realtime grayscale images were obtained over the abdomen in various projections. INDICATION: Pancreatitis. FINDINGS: The liver measures 12 cm in length without evidence of focal abnormality. There is no gallbladder wall thickening. The common bile duct reaches 1 cm in diameter which may be related to previous stone passage. There is diffuse enlargement of the pancreas measuring approximately 6.6 x 5.1 x 2.5 cm with an adjacent hypoechoic region which may represent mild peripancreatic edema and/or fluid. The visualized portions of the abdominal aorta and inferior vena cava are unremarkable. There is also mild right perinephric fluid without other right renal abnormality identified. IMPRESSION: Findings are consistent with pancreatitis with demonstrated pancreatic enlargement and peripancreatic fluid. There is also a mild amount of fluid in the right anterior pararenal space which could be secondary to pancreatic inflammation. Dictated on workstation # [id number] Dict: 01/12/21 0824 Trans: 01/12/21 0832 [id number] Interpreted by: KAROL HARRIS MD Electronically signed by: ECG Impression ECG Comment a-fib with RVR A/P-Cardiology Assessment/Admission Diagnosis Acute pancreatitis - management per medical/eICU/GI services Permanent a-fib - a-fib/flutter with RVR - Xarelto for stroke prophylaxis- - [id number] score of 3, yearly risk of stroke without oral anticoagulation is 3.2 percent, Lexiscan Myoview stress test was done on August 15, [address] Davis showing no ischemia or infarction, EF 74% Mild bilateral carotid stenosis, ultrasound was done in February 28, [address] Davis Echocardiogram 06-02-[address] Davis showed normal left ventricle size and function ejection fraction 55-65 percent, PA pressure 40-45 mmHg Hypertension Hyperlipidemia Discussion and Recomendations Acute pancreatitis - management per medical/surgical services A-fib/flutter with RVR - Cardizem gtt for rate control d/t NPO status Previously on Xarelto - currently on Lovenox d/t NPO status Monitor lab closely - replace electrolytes as indicated Further recs will be based on her hospital course We would like to thank medical services for this consult CASSANDRA RAI Jan 12, 2021 08:40
[2021-01-12] MEDS: THIAMINE INJECTION 100 MG, FOLIC ACID INJECTION 1 MG, MAGNESIUM SULFATE 2 GM, VITAMIN M... IV SCH ×5 (08:58)
[2021-01-12] MEDS ORDERED: FOLIC ACID 5MG/ML 10 ML IV SCH (09:00)
[2021-01-12] MEDS: SENNA W/DOCUSATE (SENOKOT S) TABLET PO SCH ×2 (09:01→20:15)
[2021-01-12] MEDS: PANTOPRAZOLE 40 MG (PROTONIX) VIAL IV SCH (09:14)
[2021-01-12] MEDS ORDERED: MILK175C5 PO (11:56)
[2021-01-12] MEDS ORDERED: CHOL500050 PO (11:56)
[2021-01-12] MEDS ORDERED: OMEG-160 PO (11:56)
[2021-01-12] MEDS ORDERED: RIVA20TA2 PO (11:56)
[2021-01-12] MEDS ORDERED: ATOR10TA66 PO (11:56)
[2021-01-12] MEDS ORDERED: MULT-1136 PO (11:56)
[2021-01-12] MEDS ORDERED: METO50TA7 PO (11:56)
[2021-01-12] MEDS ORDERED: ALEN70TA80 PO (11:56)
[2021-01-12] MEDS ORDERED: CALC-140 PO (11:56)
[2021-01-12] MEDS ORDERED: LORA-404 PO (12:04)
[2021-01-12] MEDS ORDERED: SODIUM PHOSPHATE INJ 15 MM in D5W 100 ML IVPB 100 ML IV ONE (12:30)
[2021-01-12] MEDS ORDERED: CALCIUM GLUCONATE 10% INJ 4.65 MEQ in NS (IVPB) 50 ML IV ONE (12:30)
--- NOTE | 2021-01-12 12:30 | Pulmonary Progress Note ---
[facility] BOWMAN 01/12/21 1230: Subjective Subjective/Events-last exam Patient is resting in no acute distress. She is complaining of abdominal pain which is worse in the right upper and lower quadrants. She denies any fever, chills, nausea, vomiting, shortness of breath, or chest pain at this time. Review of Systems General: No Chills, No Night Sweats HEENT: No Head Aches, No Visual Changes Pulmonary: No Dyspnea, No Cough, No Pleuritic Chest Pain Cardiovascular: No: Chest Pain, Palpitations Gastrointestinal: Abdominal Pain; No: Nausea, Vomiting, Diarrhea, Constipation Genitourinary: No Dysuria, No Frequency Neurological: No: Weakness, Numbness Exam Exam Patient acknowledged, consented, and participated in this virtual visit which was conducted using real time audio/video Vital Signs Date Time Temp Pulse Resp B/P (MAP) Pulse Ox O2 Delivery O2 Flow Rate FiO2 01/12/21 11:00 102/64 01/12/21 10:45 123 35 92 Nasal Cannula 6.00 01/12/21 10:30 101 18 107/68 93 Nasal Cannula 6.00 01/12/21 10:15 101 22 100/69 93 Nasal Cannula 6.00 01/12/21 10:00 115 31 108/72 93 Nasal Cannula 6.00 01/12/21 09:45 111 25 113/72 92 Nasal Cannula 6.00 01/12/21 09:30 100 18 104/57 89 Nasal Cannula 6.00 01/12/21 09:15 106 24 113/71 87 Nasal Cannula 6.00 01/12/21 09:00 120 17 130/81 90 Nasal Cannula 6.00 01/12/21 08:45 120 26 116/83 91 Nasal Cannula 6.00 01/12/21 08:30 90 15 103/67 94 Nasal Cannula 6.00 01/12/21 08:15 83 14 101/66 94 Nasal Cannula 6.00 01/12/21 08:00 92 Nasal Cannula 6.00 01/12/21 08:00 87 24 104/62 93 Nasal Cannula 6.00 01/12/21 07:46 35.5 01/12/21 07:00 100 01/12/21 06:27 Nasal Cannula 6.00 01/12/21 06:00 74 36 118/84 92 Nasal Cannula 4.00 01/12/21 05:00 116 18 116/61 93 Nasal Cannula 4.00 01/12/21 04:00 92 15 86/56 95 Nasal Cannula 4.00 01/12/21 04:00 92 Nasal Cannula 4.00 01/12/21 03:00 90 13 112/76 94 Nasal Cannula 4.00 01/12/21 02:19 Nasal Cannula 4.00 01/12/21 02:00 68 20 100/61 90 Nasal Cannula 2.00 01/12/21 01:00 70 01/12/21 01:00 70 30 105/58 92 Nasal Cannula 2.00 01/12/21 00:00 68 15 112/63 95 Nasal Cannula 2.00 01/12/21 00:00 36.8 01/12/21 00:00 91 Nasal Cannula 2.00 01/11/21 23:00 70 38 108/59 95 Nasal Cannula 2.00 01/11/21 22:00 66 21 104/53 98 Nasal Cannula 2.00 01/11/21 21:45 69 28 92/56 98 01/11/21 21:30 72 31 105/60 97 01/11/21 21:15 71 17 101/62 97 01/11/21 21:00 73 22 97 Nasal Cannula 2.00 01/11/21 20:45 71 21 96/65 97 01/11/21 20:30 70 35 95/54 97 01/11/21 20:19 36.4 01/11/21 20:15 71 38 106/55 94 01/11/21 20:00 120 36 109/72 97 Nasal Cannula 2.00 01/11/21 20:00 91 Nasal Cannula 2.00 01/11/21 19:45 86 36 107/65 98 01/11/21 19:30 69 34 93/47 99 01/11/21 19:15 77 18 93/46 95 01/11/21 19:00 71 17 107/58 97 Nasal Cannula 2.00 01/11/21 19:00 71 01/11/21 18:00 67 33 95/54 (68) 91 Room Air 01/11/21 17:45 67 41 87/57 (68) 90 Room Air 01/11/21 17:30 70 20 98/56 (64) 94 Room Air 01/11/21 17:15 71 17 102/66 (82) 92 Room Air 01/11/21 17:00 71 35 87/53 (66) 91 Room Air 01/11/21 16:45 75 28 100/58 (69) 92 Room Air 01/11/21 16:43 36.6 01/11/21 16:30 36.0 77 99 21 01/11/21 16:30 71 21 102/64 (80) 92 Room Air 01/11/21 16:15 70 29 104/59 (72) 91 Room Air 01/11/21 16:09 94 Room Air 01/11/21 16:00 76 01/11/21 16:00 75 16 100/66 (74) 93 Room Air 01/11/21 15:40 75 18 101/62 93 Nasal Cannula 2.00 I & O 01/12/21 06:59 Intake Total 4220 ml Output Total 400 ml Balance 3820 ml Height & Weight Height: 5'2.00" Weight: 122lbs. 0.0oz. [id number]; 22.52 BMI Method: General Appearance: No Apparent Distress, Chronically ill HEENT: PERRL/EOMI, Moist Mucous Membranes Neck: Non Tender, Supple Respiratory: Lungs Clear, Normal Breath Sounds, No Accessory Muscle Use, No Respiratory Distress Cardiovascular: Regular Rate, Rhythm, No Edema, No Murmur, Normal Peripheral Pulses Capillary Refill: Less Than 3 Seconds Gastrointestinal: no organomegaly, distended, guarding (voluntary), tenderness (diffuse tenderness w/ greater tenderness over epigastric and right quadrants ) Extremity: Normal Capillary Refill, Non Tender, No Calf Tenderness, No Pedal Edema Neurologic/Psychiatric: Alert, Oriented x3, Normal Mood/Affect Skin: Normal Color, Warm/Dry Lymphatic: No Adenopathy (cervical) Results Lab Laboratory Tests 01/11/21 10:40 01/12/21 05:00 Assessment/Plan Assessment/Plan Acute Pancreatitis * IV hydration * Advance diet as tolerated * RUQ US negative or cholelithiasis or cholecystitis * Lipid profile negative for hypertriglyceridemia Sepsis * IV fluids * IV Zosyn Critical Care: Critically Ill Patient ALYCE CRANE MD 01/15/21 0804: Subjective Date Seen by a Provider: Jan 12, 2021 Time Seen by a Provider: 12:00 Supervisory-Addendum Brief Verification & Attestation Participated in pt care: history, MDM, physical Personally performed: exam, history, MDM, supervision of care Care discussed with: Medical Student Procedures: n/a Results interpretation: Verified all documentation A medical student performed and documented this service. I reviewed information documented by the medical student . Medical student performed patients physical exam . Medical decision making was done during tele-rounds with this medical student and a bedside RN . Please see my notes for details /clarification of assessment and plans NHI BOWMAN Jan 12, 2021 12:30 ALYCE CRANE MD Jan 15, 2021 08:04
--- NOTE | 2021-01-12 12:34 | Consultation-Cardiology ---
HPI-Cardiology Cardiology Consultation: Date of Consultation 01/12/21 Time Seen by a Provider: 09:40 Date of Admission Attending Physician Gwendolyn Botello MD Admitting Physician Gwendolyn Botello MD Consulting Physician FRANNY CLARK MD, MA, FACP, FACC, FSCAI, CCDS HPI: Chief Complaint: Reason for Card consult: A-fib/flutter with RVR HPI Ms. Torre is a 70 yr old female admitted to ICU 6 from the ED with abdominal pain and nausea. She denies any c/o CP, SOB, palpitations, syncope or near syncope. No LE swelling. She reports she began to have nausea and abdominal pain on Tuesday night. She reports abdominal bloating. She states she waited it out thinking it was food poisoning, but the discomfort and bloating persisted and so she called EMS. She reports she has chronic a-fib and has been compliant with Xarelto and Metoprolol. She currently is NPO. She continues to have RLQ abd tenderness and bloating. Review of Systems-Cardiology Review of Systems Constitutional: No chills, No fever; malaise Eyes: No vision change Ears/Nose/Throat: No epistaxis, No recent hearing loss Respiratory: As described under HPI Cardiovascular: As described under HPI Gastrointestinal: As described under HPI Genitourinary: No dysuria, No hematuria Musculoskeletal: no symptoms reported Skin: No rash on exposed areas, No ulcerations on exposed areas Psychiatric/Neurological: No anxiety, No depression, No seizure, No focal weakness, No syncope Hematologic: No bleeding abnormalities All Other Systems Reviewed Negative Unless Noted: Yes [id number] Hx Patient Social History Marrital Status: Employed/Student: retired Smoking Status: Current Someday Smoker Have you traveled recently?: No Alcohol Use?: Yes (half bottle of wine nightly) Pt feels they are or have been: No Immunizations Up To Date Date of Influenza Vaccine: Nov 27, 2020 Past Medical History PMH As described under Assessment. Family Medical History Family Medical History: No reported family h/o CAD Allergies and Home Medications Allergies Coded Allergies: ibuprofen (Unverified Allergy, Unknown, 06/07/18) Patient Home Medication List Home Medication List Reviewed: Yes Alendronate Sodium (Alendronate Sodium) 70 Mg Tablet, 70 MG PO MON, (Reported) Entered as Reported by: JOSE DANIEL WASHBURN on 01/12/211155 Last Action: Reviewed Atorvastatin Calcium (Atorvastatin Calcium) 10 Mg Tablet, 10 MG PO HS, (Reported) Entered as Reported by: JOSE DANIEL WASHBURN on 01/12/211155 Last Action: Reviewed Calcium Carbonate/Vitamin D3 (Calcium + Vitamin D Tablet) 1 Each Tablet, 1 EACH PO DAILY, (Reported) Entered as Reported by: JOSE DANIEL WASHBURN on 01/12/211155 Last Action: Reviewed Cholecalciferol (Vitamin D3) (Vitamin D3) 125 Mcg Capsule, 125 MCG PO DAILY, (Reported) Entered as Reported by: JOSE DANIEL WASHBURN on 01/12/211155 Last Action: Reviewed Lorazepam (Ativan) 0.5 Mg Tablet, 0.5 MG PO BID PRN for ANXIETY, (Reported) Entered as Reported by: JOSE DANIEL WASHBURN on 01/12/211203 Last Action: Reviewed Metoprolol Succinate (Metoprolol Succinate) 50 Mg Tab.er.24h, 50 MG PO DAILY, (Reported) Entered as Reported by: JOSE DANIEL WASHBURN on 01/12/211155 Last Action: Reviewed Milk Thistle Seed Extract (Milk Thistle) 175 Mg Capsule, 175 MG PO BID, (Reported) Entered as Reported by: JOSE DANIEL WASHBURN on 01/12/211155 Last Action: Reviewed Multivitamin (Multivitamin) 1 Each Tablet, 1 EACH PO DAILY, (Reported) Entered as Reported by: JOSE DANIEL WASHBURN on 01/12/211155 Last Action: Reviewed [place]-3/Dha/Epa/Fish Oil (Fish Oil 1,000 mg Softgel) 1 Each Capsule, 1 EACH PO BID, (Reported) Entered as Reported by: JOSE DANIEL WASHBURN on 01/12/211155 Last Action: Reviewed Rivaroxaban (Xarelto Tablet) 20 Mg Tablet, 20 MG PO 1800, (Reported) Entered as Reported by: JOSE DANIEL WASHBURN on 01/12/211155 Last Action: Reviewed Physical Exam-Cardiology Physical Exam Vital Signs/I&O 01/12/21 01/12/21 01/12/21 01/12/21 01:00 01:00 02:00 02:19 Pulse 70 70 68 Resp 30 20 B/P (MAP) 105/58 100/61 Pulse Ox 92 90 O2 Delivery Nasal Cannula Nasal Cannula Nasal Cannula O2 Flow Rate 2.00 2.00 4.00 01/12/21 01/12/21 01/12/21 01/12/21 03:00 04:00 04:00 05:00 Pulse 90 92 116 Resp 13 15 18 B/P (MAP) 112/76 86/56 116/61 Pulse Ox 94 92 95 93 O2 Delivery Nasal Cannula Nasal Cannula Nasal Cannula Nasal Cannula O2 Flow Rate 4.00 4.00 4.00 4.00 01/12/21 01/12/21 01/12/21 01/12/21 06:00 06:27 07:00 07:46 Temp 35.5 Pulse 74 100 Resp 36 B/P (MAP) 118/84 Pulse Ox 92 O2 Delivery Nasal Cannula Nasal Cannula O2 Flow Rate 4.00 6.00 01/12/21 01/12/21 01/12/21 01/12/21 08:00 08:00 08:15 08:30 Pulse 87 83 90 Resp 24 14 15 B/P (MAP) 104/62 101/66 103/67 Pulse Ox 93 92 94 94 O2 Delivery Nasal Cannula Nasal Cannula Nasal Cannula Nasal Cannula O2 Flow Rate 6.00 6.00 6.00 6.00 01/12/21 01/12/21 01/12/21 01/12/21 08:45 09:00 09:15 09:30 Pulse 120 120 106 100 Resp 26 17 24 18 B/P (MAP) 116/83 130/81 113/71 104/57 Pulse Ox 91 90 87 89 O2 Delivery Nasal Cannula Nasal Cannula Nasal Cannula Nasal Cannula O2 Flow Rate 6.00 6.00 6.00 6.00 01/12/21 01/12/21 01/12/21 01/12/21 09:45 10:00 10:15 10:30 Pulse 111 115 101 101 Resp 25 31 22 18 B/P (MAP) 113/72 108/72 100/69 107/68 Pulse Ox 92 93 93 93 O2 Delivery Nasal Cannula Nasal Cannula Nasal Cannula Nasal Cannula O2 Flow Rate 6.00 6.00 6.00 6.00 01/12/21 01/12/21 01/12/21 10:45 11:00 12:00 Pulse 123 Resp 35 B/P (MAP) 102/64 Pulse Ox 92 92 O2 Delivery Nasal Cannula Nasal Cannula O2 Flow Rate 6.00 6.00 01/12/21 00:00 Intake Total 3000 ml Balance 3000 ml Capillary Refill : Less Than 3 Seconds Constitutional: AAO x 3, well-developed, well-nourished HEENT: PERRL, hearing is well preserved, oral hygience is good Neck: No carotid bruit; carotid pulses are 2 + bilaterally Respiratory: No accessory muscle use, No respiratory distress; chest expansion is symmetric, chest is bilaterally symmetric, lungs clear to auscultation Cardiovascular: irregularly irregular; No JVD; S1 and S2 Gastrointestinal: tender (RLQ), distended; No guarding; audible bowel sounds (hyperactive) Extremities: no lower extremity edema bilateral Neurologic/Psychiatric: grossly intact (moves all extremities) Skin: No rash on exposed areas, No ulcerations on exposed areas Data Review Labs Laboratory Tests 01/11/21 15:25: Urine Color YELLOW, Urine Clarity SL CLOUDY, Urine pH 6.0, Urine Specific [place] <=1.005, Urine Protein 1+H, Urine Glucose (UA) NEGATIVE, Urine Ketones TRACEH, Urine Nitrite NEGATIVE, Urine Bilirubin NEGATIVE, Urine Urobilinogen 0.2, Urine Leukocyte Esterase NEGATIVE, Urine RBC (Auto) TRACE-IH, Urine RBC NONE, Urine WBC 5-10H, Urine Squamous Epithelial Cells 2-5, Urine Renal Epithelial Cells NONE, Urine Crystals NONE, Urine Bacteria NEGATIVE, Urine Casts NONE, Urine Mucus NEGATIVE, Urine Culture Indicated CULTURE PENDING 01/11/21 17:20: Blood Gas Puncture Site RT RAD, Blood Gas Patient Temperature 36.0, Arterial Blood pH 7.37, Arterial Blood Partial Pressure CO2 38, Arterial Blood Partial Pressure O2 53L, Arterial Blood HCO3 22L, Arterial Blood Total CO2 23.0, Arterial Blood Oxygen Saturation 88L, Arterial Blood Base Excess -2.8L, Ady Test YES-POS, Blood Gas Ventilator Setting NO, Blood Gas Inspired Oxygen ROOM AIR 01/11/21 17:55: Glucometer 150H 01/11/21 18:38: Total Bilirubin 2.6H, Direct Bilirubin 0.8H, Indirect Bilirubin 1.8, Aspartate Amino Transf (AST/SGOT) 29, Alanine Aminotransferase (ALT/SGPT) 17, Alkaline Phosphatase 35L, Total Protein 6.1L, Albumin 3.2, Lipase 821H 01/12/21 01:42: Glucometer 121H 01/12/21 05:00: White Blood Count 17.6H, Red Blood Count 3.70L, Hemoglobin 12.7#, Hematocrit 39, Mean Corpuscular Volume 105H, Mean Corpuscular Hemoglobin 34, Mean Corpuscular Hemoglobin Concent 33, Red Cell Distribution Width 14.0, Platelet Count 121L, Mean Platelet Volume 12.6H, Immature Granulocyte % (Auto) 1, Neutrophils (%) (Auto) 87H, Lymphocytes (%) (Auto) 6L, Monocytes (%) (Auto) 7, Eosinophils (%) (Auto) 0, Basophils (%) (Auto) 0, Neutrophils # (Auto) 15.3H, Lymphocytes # (Auto) 1.0, Monocytes # (Auto) 1.2H, Eosinophils # (Auto) 0.0, Basophils # (Auto) 0.0, Immature Granulocyte # (Auto) 0.1, Percent Immature Platelet Fraction 12.2H, Sodium Level 135, Potassium Level 3.9, Chloride Level 106, Carbon Dioxide Level 18L, Anion Gap 11, Blood Urea Nitrogen 24H, Creatinine 1.04, Estimat Glomerular Filtration Rate 53, BUN/Creatinine Ratio 23, Glucose Level 108H, Calcium Level 6.9L, Corrected Calcium 7.5L, Phosphorus Level 2.0L, Magnesium Level 2.3, Total Bilirubin 1.9H, Aspartate Amino Transf (AST/SGOT) 33, Alanine Aminotransferase (ALT/SGPT) 15, Alkaline Phosphatase 39L, Total Protein 6.3L, Albumin 3.2, Triglycerides Level 58, Cholesterol Level 114, LDL Chol esterol Direct 31, VLDL Cholesterol 12, HDL Cholesterol 64H, Lipase 412H 01/12/21 12:19: Glucometer 91 A/P-Cardiology Assessment/Admission Diagnosis Acute pancreatitis - management per medical/eICU/GI services Permanent a-fib - currently a-fib/flutter with RVR - Xarelto for stroke prophylaxis- - [id number] score of 3 - Echocardiogram 06-02-[address] Davis showed normal left ventricle size and function ejection fraction 55-65 percent, PA pressure 40-45 mmHg - Lexiscan Myoview stress test was done on August 15, [address] Davis showing no ischemia or infarction, EF 74% Mild bilateral carotid stenosis, ultrasound was done in February 28, [address] Davis Hypertension Hyperlipidemia Discussion and Recomendations Acute pancreatitis - management per medical/surgical services A-fib/flutter with RVR - Cardizem gtt for rate control d/t NPO status Previously on Xarelto - currently on Lovenox d/t NPO status Monitor lab closely - replace electrolytes as indicated Further recs will be based on her hospital course We would like to thank Medical services for this consult FRANNY CLARK MD FACP [facility] CCDS Jan 12, 2021 12:34
[2021-01-12] MEDS: dilTIAZem DRIP PRE-MIX 125 ML IV SCH ×2 (13:04→19:31)
--- NOTE | 2021-01-12 15:14 | Progress Note - Hospitalist ---
MARILEE BULLOCK 01/12/21 1514: Subjective HPI/CC On Admission Date Seen by Provider: Jan 12, 2021 Time Seen by Provider: 11:00 Chief complaint: Atrial fibrillation with rapid ventricular response with acute pancreatitis and severe sepsis History present illness: This is a 70-year-old white female who drinks wine with heavy use who presented to the ER with a couple of days of nausea and vomiting and not feeling well with abdominal pain. She was found to be in atrial fibrillation with rapid ventricular response in addition to hypotension requiring aggressive IV fluid at 30 cc/KG and found to have acute pancreatitis. Dr. Vale obtained U/S this morning. Zosyn was started. Cardiology consulted for atrial fibrillation with right ventricular response. Patient sees Dr. Davis on a regular basis for atrial fibrillation. Currently in the ICU. Subjective/Events-last exam This morning, Cheri was still having substantial abdominal pain localized to the right side. Pain is worse with movement. She also notices that she is more distended this morning. She could not even lean up in bed to grab her pillow due to pain/distension. She has not had a bowel movement since being in the h ospital, but she is NPO. She slept poorly last night due to being woken up several times for blood draws, vitals, needle sticks, etc. She denies nay nausea/vomiting, headaches, chest pain, or lower extremity swelling. Review of Systems General: Fatigue HEENT: No Head Aches Pulmonary: No Dyspnea Cardiovascular: No: Chest Pain, Edema Gastrointestinal: Abdominal Pain, Constipation; No: Nausea, Vomiting Focused Exam Lactate Level 01/11/21 10:48: Lactic Acid Level 2.35*H 01/11/21 12:15: Lactic Acid Level 1.76 Objective Exam Vital Signs Vital Signs Date Time Temp Pulse Resp B/P (MAP) Pulse Ox O2 Delivery O2 Flow Rate FiO2 01/12/21 14:38 93 Nasal Cannula 6.00 01/12/21 13:20 35.9 01/12/21 13:02 110 01/12/21 13:00 34 111/65 01/11/21 16:30 21 Capillary Refill : Less Than 3 Seconds General Appearance: Mild Distress Neck: Normal Inspection, Supple Respiratory: Chest Non Tender, Lungs Clear, Normal Breath Sounds Cardiovascular: No Murmur, Irregularly Irregular Gastrointestinal: Normal Bowel Sounds, Distended, Tenderness Extremity: Non Tender, No Pedal Edema Neurologic/Psychiatric: Alert, Oriented x3, Normal Mood/Affect Skin: Normal Color, Warm/Dry Results/Procedures Lab Laboratory Tests 01/12/21 05:00 Patient resulted labs reviewed. Imaging: Reviewed Imaging Report Assessment/Plan Assessment and Plan Assess & Plan/Chief Complaint Atrial fibrillation with RVR * Patient has a history of chronic atrial fibrillation * OP meds include metoprolol and xarelto * Plan: Continue IV Diltiazem daily for a-fib and enoxaparin for anticoagulation Acute Pancreatitis, abdominal pain, distension, sepsis * Patient drinks 1/2 bottle of wine per day * Sepsis resolved * Lipase has dropped from 821 to 412 over last 24 hours * White blood cell count improving * Abdominal u/s and CT scan consistent with pancreatitis * Plan: Continue NPO, Zosyn. Dilaudid and APAP for pain. Alcohol-use disorder, potential for withdrawal * Plan: Lorazepam taper for alcohol withdrawal protocol, continue thiamine/folic acid/mag sulfate/multivitamin/dextrose/NaCl cocktail Mild basilar atelectasis * Discovered on CXR 01/11/21 * Patient states she can only take shallow breaths due to pain * Plan: Incentive spirometry as tolerated to help avoid secondary pneumonia Hypocalcemia, hypophosphatemia, other electrolytes * Ca++ 01/12: 6.9, corrected 7.5 * Phosphate 2.0 * Potassium 3.9 * Plan: Continue IV Calcium gluconate, KCl. No treatment for low phosphate b/c asymptomatic. GERD * Plan: continue IV pantoprazole daily Time spent with patient (mins): 15 minutes Diagnosis/Problems Diagnosis/Problems (1) Atrial fibrillation with rapid ventricular response Onset Date: ~ 01/11/2021 Status: Acute Assessment & Plan: Patient has a history of chronic atrial fibrillation * OP meds include metoprolol and xarelto * Plan: Continue IV Diltiazem daily for a-fib and enoxaparin for anticoagulation (2) Pancreatitis Onset Date: ~ 01/09/2021 Status: Acute Assessment & Plan: Patient drinks 1/2 bottle of wine per day * Lipase has dropped from 821 to 412 over last 24 hours * White blood cell count improving * Abdominal u/s and CT scan consistent with pancreatitis * Plan: Continue NPO, Zosyn. Dilaudid and APAP for pain. Qualifiers: Qualified Codes: K85.20 - Alcohol induced acute pancreatitis without necrosis or infection (3) Leukocytosis Onset Date: ~ 01/11/2021 Status: Acute Qualifiers: Qualified Codes: D72.828 - Other elevated white blood cell count (4) Severe sepsis Onset Date: ~ 01/11/2021 Status: Resolved Assessment & Plan: Plan: Continue to monitor vital signs and treat with broad spectrum antibiotics. Resolution Date/Time: 01/12/21 @ 16:00 JT VEGAS MD 01/12/21 2140: Objective Exam General Appearance: No Apparent Distress, WD/WN HEENT: PERRL/EOMI Neck: Full Range of Motion, Normal Inspection, Supple Respiratory: Chest Non Tender, Lungs Clear, Normal Breath Sounds, No Accessory Muscle Use, No Respiratory Distress Cardiovascular: No Murmur, Irregularly Irregular Gastrointestinal: Normal Bowel Sounds, Distended, Tenderness Extremity: Normal Capillary Refill, Normal Inspection, Normal Range of Motion, Non Tender, No Calf Tenderness, No Pedal Edema Neurologic/Psychiatric: Alert, Oriented x3, Normal Mood/Affect Skin: Normal Color, Warm/Dry Lymphatic: No Adenopathy Supervisory-Addendum Brief Verification & Attestation Participated in pt care: history, physical Personally performed: exam, history Care discussed with: Medical Student Procedures: n/a Verification and Attestation of Medical Student E/M Service A medical student performed and documented this service in my presence. I reviewed and verified all information documented by the medical student and made modifications to such information, when appropriate. I personally performed the physical exam and medical decision making. Jt [place], Jan 12, 2021,21:40 MARILEE BULLOCK Jan 12, 2021 15:14 JT VEGAS MD Jan 12, 2021 21:40
[2021-01-12] MEDS: HYDROcodone/APAP 5 MG/325 MG (LORTAB) TAB PO PRN (20:15)
[2021-01-12] MEDS: MELATONIN 3 MG TABLET PO PRN (22:34)
[2021-01-12] MEDS: CALCIUM CARBONATE 500 MG (TUMS) TAB.CHEW PO PRN (22:34)
[2021-01-12] MEDS: ONDANSETRON 4 MG/2 ML (SDV) Z0FRAN IVP PRN (23:51)
[2021-01-13] MEDS: HYDROmorphone 2 MG/ML VIAL (DILAUDID) IVP PRN (00:40)
[2021-01-13] MEDS: PIPERACILLIN/TAZOBACTAM (BULK) 4.5 GM in NS (IVPB) 100 ML IV SCH ×3 (01:06→17:47)
[2021-01-13] MEDS: HYDROcodone/APAP 5 MG/325 MG (LORTAB) TAB PO PRN ×2 (02:33→08:45)
[2021-01-13] MEDS: NS IV 1000 ML 1,000 ML IV SCH ×3 (04:23→22:25)
[2021-01-13] MEDS: ENOXAPARIN 60 MG/0.6 ML (LOVENOX) SYR SC SCH (04:32)
[2021-01-13 05:27] LABS: BASOPHILS % (AUTO) 0 % (0-10); PLATELET COUNT 123 10^3/uL (130-400)
[2021-01-13 05:29] LABS: EOSINOPHILS % (AUTO) 0 % (0-10); HEMATOCRIT 37 % (35-52); HEMOGLOBIN 12.1 g/dL (11.5-16.0); LYMPHOCYTES # (AUTO) 0.6 10^3/uL (1.0-4.0); LYMPHOCYTES % (AUTO) 4 % (12-44); MEAN CORPUSCULAR HEMOGLOBIN 34 pg (25-34); MEAN CORPUSCULAR HGB CONC 33 g/dL (32-36); MEAN CORPUSCULAR VOLUME 103 fL (80-99); MEAN PLATELET VOLUME 12.7 fL (9.0-12.2); MONOCYTES % (AUTO) 7 % (0-12); NEUTROPHILS # (AUTO) 11.7 10^3/uL (1.8-7.8); NEUTROPHILS % (AUTO) 88 % (42-75); WHITE BLOOD COUNT 13.4 10^3/uL (4.3-11.0)
[2021-01-13 05:45] LABS: ALBUMIN 2.8 GM/DL (3.2-4.5); POTASSIUM 3.2 MMOL/L (3.6-5.0)
[2021-01-13] MEDS: POTASSIUM CL 10MEQ/50ML IVPB 50 ML IV SCH (05:46)
[2021-01-13 05:47] LABS: TOTAL PROTEIN 5.6 GM/DL (6.4-8.2)
[2021-01-13 05:49] LABS: BILIRUBIN,TOTAL 1.2 MG/DL (0.1-1.0)
[2021-01-13 05:50] LABS: PHOSPHORUS 1.5 MG/DL (2.3-4.7)
[2021-01-13 05:51] LABS: CREATININE SERUM 0.82 MG/DL (0.60-1.30)
[2021-01-13 05:54] LABS: MAGNESIUM 2.6 MG/DL (1.6-2.4)
[2021-01-13] MEDS: KCL 20 MEQ TAB (K-DUR) PO SCH (05:55)
[2021-01-13] MEDS: MAGNESIUM 1 GM/100 ML IVPB 100 ML IV SCH (05:56)
[2021-01-13] MEDS ORDERED: KCL 20 MEQ TAB (K-DUR) PO ONE ×2 (06:00→08:00)
--- NOTE | 2021-01-13 08:09 | Progress Note - Surgery ---
SKIP LEMUS 01/13/21 0808: Subjective Date Seen by a Provider: Jan 13, 2021 Time Seen by a Provider: 07:34 Subjective/Events-last exam Pt reports that she is having abdominal pain that she describes as a "pressure". States the the feeling is diffuse but worse in the RLQ. Says that her abdominal is much more distended than it was yesterday. Was able to pass flatulence and had a BM last night. Having SOB that worsens when talking. Pt endorses feeling very tired. Review of Systems General: No Chills; Fatigue HEENT: No Visual Changes, No Eye Pain Pulmonary: No Cough; Other (SOB) Cardiovascular: No: Chest Pain, Palpitations Gastrointestinal: Nausea, Abdominal Pain, Constipation; No: Vomiting Musculoskeletal: No: neck pain, arm pain, back pain, leg pain Neurological: Weakness; No: Numbness Focused Exam Lactate Level 01/11/21 10:48: Lactic Acid Level 2.35*H 01/11/21 12:15: Lactic Acid Level 1.76 Objective Exam Vital Signs Date Time Temp Pulse Resp B/P (MAP) Pulse Ox O2 Delivery O2 Flow Rate FiO2 01/13/21 06:00 74 11 101/69 89 High Flow N/C 8.00 01/13/21 05:00 78 18 91/57 88 High Flow N/C 8.00 01/13/21 04:00 36.4 High Flow N/C 8.00 01/13/21 04:00 79 12 91/63 90 High Flow N/C 8.00 01/13/21 04:00 89 High Flow N/C 8.00 01/13/21 03:00 81 27 107/68 89 Nasal Cannula 6.00 01/13/21 02:00 84 13 106/67 92 Nasal Cannula 6.00 01/13/21 01:00 87 22 101/70 94 Nasal Cannula 6.00 01/13/21 01:00 87 01/13/21 00:01 92 38 98/58 90 Nasal Cannula 6.00 01/13/21 00:00 36.7 Nasal Cannula 6.00 01/12/21 23:59 91 Nasal Cannula 6.00 01/12/21 23:45 89 37 104/60 92 Nasal Cannula 5.00 01/12/21 23:37 137 127/65 Nasal Cannula 5.00 01/12/21 23:15 90 22 105/76 92 Nasal Cannula 5.00 01/12/21 23:00 86 22 119/65 92 Nasal Cannula 5.00 01/12/21 22:45 93 19 122/68 92 Nasal Cannula 5.00 01/12/21 22:30 100 37 117/73 89 Nasal Cannula 5.00 01/12/21 22:15 96 123/77 91 Nasal Cannula 5.00 01/12/21 22:00 103 38 120/81 91 Nasal Cannula 5.00 01/12/21 21:45 86 16 120/76 94 Nasal Cannula 5.00 01/12/21 21:30 79 14 125/65 96 Nasal Cannula 5.00 01/12/21 21:15 79 14 116/68 97 Nasal Cannula 5.00 01/12/21 21:00 85 19 132/72 93 Nasal Cannula 5.00 01/12/21 20:45 80 18 123/70 93 Nasal Cannula 5.00 01/12/21 20:30 84 21 114/73 94 Nasal Cannula 5.00 01/12/21 20:15 95 25 108/74 94 Nasal Cannula 5.00 01/12/21 20:05 124 24 143/72 92 Nasal Cannula 5.00 01/12/21 20:00 91 Nasal Cannula 6.00 01/12/21 19:45 95 26 112/71 94 Nasal Cannula 5.00 01/12/21 19:30 92 114/77 93 Nasal Cannula 5.00 01/12/21 19:30 36.4 01/12/21 19:15 97 29 114/61 94 Nasal Cannula 5.00 01/12/21 19:01 95 Nasal Cannula 6.00 01/12/21 19:00 105 31 111/71 94 Nasal Cannula 6.00 01/12/21 19:00 105 01/12/21 18:15 89 26 111/65 94 Nasal Cannula 6.00 01/12/21 18:00 93 30 114/69 94 Nasal Cannula 6.00 01/12/21 17:15 97 25 109/70 93 Nasal Cannula 6.00 01/12/21 17:00 89 43 120/64 91 Nasal Cannula 6.00 01/12/21 16:45 113/68 01/12/21 16:30 87 42 114/69 94 Nasal Cannula 6.00 01/12/21 16:15 88 17 108/66 95 Nasal Cannula 6.00 01/12/21 16:00 36.2 01/12/21 16:00 92 Nasal Cannula 6.00 01/12/21 16:00 104/68 01/12/21 15:45 103/60 01/12/21 15:36 104 45 118/76 90 Nasal Cannula 6.00 01/12/21 15:30 38 01/12/21 15:15 140 50 88 Nasal Cannula 6.00 01/12/21 15:00 98 37 112/68 92 Nasal Cannula 6.00 01/12/21 14:45 86 28 111/64 95 Nasal Cannula 6.00 01/12/21 14:38 93 Nasal Cannula 6.00 01/12/21 14:30 101 24 117/75 93 Nasal Cannula 6.00 01/12/21 14:15 85 25 99/79 93 Nasal Cannula 6.00 01/12/21 14:00 92 29 114/68 92 Nasal Cannula 6.00 01/12/21 13:20 35.9 01/12/21 13:02 110 01/12/21 13:00 110 34 111/65 95 Nasal Cannula 6.00 01/12/21 12:45 97 26 103/69 96 Nasal Cannula 6.00 01/12/21 12:30 108/70 01/12/21 12:15 93 23 110/67 95 Nasal Cannula 6.00 01/12/21 12:00 92 Nasal Cannula 6.00 01/12/21 12:00 120 50 127/67 94 Nasal Cannula 6.00 01/12/21 11:45 110/70 01/12/21 11:30 120 47 107/75 95 Nasal Cannula 6.00 01/12/21 11:15 106/73 01/12/21 11:00 102/64 01/12/21 11:00 102/64 01/12/21 10:45 123 35 92 Nasal Cannula 6.00 01/12/21 10:30 101 18 107/68 93 Nasal Cannula 6.00 01/12/21 10:15 101 22 100/69 93 Nasal Cannula 6.00 01/12/21 10:00 115 31 108/72 93 Nasal Cannula 6.00 01/12/21 09:45 111 25 113/72 92 Nasal Cannula 6.00 01/12/21 09:30 100 18 104/57 89 Nasal Cannula 6.00 01/12/21 09:15 106 24 113/71 87 Nasal Cannula 6.00 01/12/21 09:00 120 17 130/81 90 Nasal Cannula 6.00 01/12/21 08:45 120 26 116/83 91 Nasal Cannula 6.00 01/12/21 08:30 90 15 103/67 94 Nasal Cannula 6.00 01/12/21 08:15 83 14 101/66 94 Nasal Cannula 6.00 I & O 01/13/21 07:00 Intake Total 1320 ml Output Total 700 ml Balance 620 ml Capillary Refill : Less Than 3 Seconds General Appearance: WD/WN, Mild Distress (due to abdominal pain) HEENT: PERRL/EOMI; No Photophobia Neck: Non Tender, Supple Respiratory: Lungs Clear, Normal Breath Sounds Cardiovascular: No Murmur, Normal Peripheral Pulses, Irregularly Irregular Gastrointestinal: distended, tenderness (Worse compared to [place] ) Extremity: Normal Capillary Refill, Non Tender, No Calf Tenderness, No Pedal Edema Neurologic/Psychiatric: Alert; No Normal Mood/Affect (fatigued); Other Skin: Normal Color, Warm/Dry Lymphatic: No Adenopathy (cervical) Results Lab Laboratory Tests 01/12/21 12:19: Glucometer 91 01/12/21 17:47: Glucometer 137H 01/13/21 04:55: White Blood Count 13.4H, Red Blood Count 3.55L, Hemoglobin 12.1, Hematocrit 37, Mean Corpuscular Volume 103H, Mean Corpuscular Hemoglobin 34, Mean Corpuscular Hemoglobin Concent 33, Red Cell Distribution Width 13.6, Platelet Count 123L, Mean Platelet Volume 12.7H, Immature Granulocyte % (Auto) 1, Neutrophils (%) (Auto) 88H, Lymphocytes (%) (Auto) 4L, Monocytes (%) (Auto) 7, Eosinophils (%) (Auto) 0, Basophils (%) (Auto) 0, Neutrophils # (Auto) 11.7H, Lymphocytes # (Auto) 0.6L, Monocytes # (Auto) 1.0, Eosinophils # (Auto) 0.0, Basophils # (Auto) 0.0, Immature Granulocyte # (Auto) 0.1, Percent Immature Platelet Fraction 12.3H, Sodium Level 132L, Potassium Level 3.2L, Chloride Level 107, Carbon Dioxide Level 15L, Anion Gap 10, Blood Urea Nitrogen 17, Creatinine 0.82, Estimat Glomerular Filtration Rate 69, BUN/Creatinine Ratio 21, Glucose Level 140H, Calcium Level 7.0L, Corrected Calcium 8.0L, Phosphorus Level 1.5L, Magnesium Level 2.6H, Total Bilirubin 1.2H, Aspartate Amino Transf (AST/SGOT) 30, Alanine Aminotransferase (ALT/SGPT) 16, Alkaline Phosphatase 44, Total Protein 5.6L, Albumin 2.8L Microbiology 01/11/21 Urine Culture - Final, Complete NO GROWTH 01/11/21 Blood Culture - Preliminary, Resulted No growth Assessment/Plan Assessment/Plan Assessment/Plan Assessment Acute pancreatitis Afib HTN Plan U/S of gallbladder done yesterday showed dilated CBD, but no stones or wall thickening in GB. Has been started on a clears diet. Continue IV fluids Continue anti-emetics and pain medications prn, Continue to monitor lab values. No indications for surgery at this time. GABRIEL VALE DO 01/13/21 1712: Subjective Time Seen by a Provider: 11:16 Subjective/Events-last exam Pt seen and examined, she states she feels bloated but pain is not that bad. She is passing gas Review of Systems General: No Chills; Fatigue HEENT: No Visual Changes, No Eye Pain Cardiovascular: No: Chest Pain, Palpitations Gastrointestinal: Nausea, Abdominal Pain, Constipation; No: Vomiting Objective Exam General Appearance: WD/WN, Mild Distress (due to abdominal pain) HEENT: PERRL/EOMI Respiratory: Lungs Clear, Normal Breath Sounds Cardiovascular: No Murmur, Irregularly Irregular Gastrointestinal: soft, distended, tenderness (Worse compared to [place] ) Assessment/Plan Assessment/Plan Assessment/Plan Acute pancreatitis Afib HTN Plan U/S of gallbladder done yesterday showed dilated CBD, but no stones or wall thickening in GB. Has been started on a clears diet. Continue IV fluids Continue anti-emetics and pain medications prn, Continue to monitor lab values. No indications for surgery at this time. Supervisory-Addendum Brief Verification & Attestation Participated in pt care: history, MDM, physical Personally performed: exam, history, MDM, supervision of care Care discussed with: Medical Student Procedures: n/a Verification and Attestation of Medical Student E/M Service A medical student performed and documented this service. I then reviewed and verified all information documented by the medical student and made modifications to such information, when appropriate. I personally performed a physical exam, medical decision making and then discussed any differences between the notes and made revisions as necessary to create one note. Gabriel Vale , 01/13/21 , 17:10 SKIP LEMUS Jan 13, 2021 08:08 GABRIEL VALE DO Jan 13, 2021 17:12
[2021-01-13] MEDS: SENNA W/DOCUSATE (SENOKOT S) TABLET PO SCH ×2 (08:23→21:17)
[2021-01-13] MEDS: PANTOPRAZOLE 40 MG (PROTONIX) VIAL IV SCH (08:24)
[2021-01-13 09:03] VITALS: BP 124/81
--- NOTE | 2021-01-13 10:12 | Tele-ICU Progress Note ---
Subjective Date Seen by a Provider: Jan 12, 2021 Time Seen by a Provider: 12:03 Sepsis Event Evaluation Height, Weight, BMI Height: 5'2.00" Weight: 122lbs. 0.0oz. 55.790946ks; 22.52 BMI Method: Focused Exam Lactate Level 01/11/21 10:48: Lactic Acid Level 2.35*H 01/11/21 12:15: Lactic Acid Level 1.76 Exam Exam Patient acknowledged, consented, and participated in this virtual visit which was conducted using real time audio/video Vital Signs Date Time Temp Pulse Resp B/P (MAP) Pulse Ox O2 Delivery O2 Flow Rate FiO2 01/13/21 09:30 96 35 121/82 93 High Flow N/C 8.00 01/13/21 09:15 84 19 99/67 94 High Flow N/C 8.00 01/13/21 09:00 88 21 111/67 94 High Flow N/C 8.00 01/13/21 08:45 106 36 108/76 92 High Flow N/C 8.00 01/13/21 08:34 36.2 01/13/21 08:30 115/72 01/13/21 08:15 101 32 117/75 84 High Flow N/C 8.00 01/13/21 08:00 99/70 01/13/21 07:45 90 25 112/68 88 High Flow N/C 8.00 01/13/21 07:30 34 103/74 High Flow N/C 8.00 01/13/21 07:15 113 41 122/76 High Flow N/C 8.00 01/13/21 07:00 86 16 110/64 88 High Flow N/C 8.00 01/13/21 07:00 81 01/13/21 06:00 74 11 101/69 89 High Flow N/C 8.00 01/13/21 05:00 78 18 91/57 88 High Flow N/C 8.00 01/13/21 04:00 36.4 High Flow N/C 8.00 01/13/21 04:00 79 12 91/63 90 High Flow N/C 8.00 01/13/21 04:00 89 High Flow N/C 8.00 01/13/21 03:00 81 27 107/68 89 Nasal Cannula 6.00 01/13/21 02:00 84 13 106/67 92 Nasal Cannula 6.00 01/13/21 01:00 87 22 101/70 94 Nasal Cannula 6.00 01/13/21 01:00 87 01/13/21 00:01 92 38 98/58 90 Nasal Cannula 6.00 01/13/21 00:00 36.7 Nasal Cannula 6.00 01/12/21 23:59 91 Nasal Cannula 6.00 01/12/21 23:45 89 37 104/60 92 Nasal Cannula 5.00 01/12/21 23:37 137 127/65 Nasal Cannula 5.00 01/12/21 23:15 90 22 105/76 92 Nasal Cannula 5.00 01/12/21 23:00 86 22 119/65 92 Nasal Cannula 5.00 01/12/21 22:45 93 19 122/68 92 Nasal Cannula 5.00 01/12/21 22:30 100 37 117/73 89 Nasal Cannula 5.00 01/12/21 22:15 96 123/77 91 Nasal Cannula 5.00 01/12/21 22:00 103 38 120/81 91 Nasal Cannula 5.00 01/12/21 21:45 86 16 120/76 94 Nasal Cannula 5.00 01/12/21 21:30 79 14 125/65 96 Nasal Cannula 5.00 01/12/21 21:15 79 14 116/68 97 Nasal Cannula 5.00 01/12/21 21:00 85 19 132/72 93 Nasal Cannula 5.00 01/12/21 20:45 80 18 123/70 93 Nasal Cannula 5.00 01/12/21 20:30 84 21 114/73 94 Nasal Cannula 5.00 01/12/21 20:15 95 25 108/74 94 Nasal Cannula 5.00 01/12/21 20:05 124 24 143/72 92 Nasal Cannula 5.00 01/12/21 20:00 91 Nasal Cannula 6.00 01/12/21 19:45 95 26 112/71 94 Nasal Cannula 5.00 01/12/21 19:30 92 114/77 93 Nasal Cannula 5.00 01/12/21 19:30 36.4 01/12/21 19:15 97 29 114/61 94 Nasal Cannula 5.00 01/12/21 19:01 95 Nasal Cannula 6.00 01/12/21 19:00 105 31 111/71 94 Nasal Cannula 6.00 01/12/21 19:00 105 01/12/21 18:15 89 26 111/65 94 Nasal Cannula 6.00 01/12/21 18:00 93 30 114/69 94 Nasal Cannula 6.00 01/12/21 17:15 97 25 109/70 93 Nasal Cannula 6.00 01/12/21 17:00 89 43 120/64 91 Nasal Cannula 6.00 01/12/21 16:45 113/68 01/12/21 16:30 87 42 114/69 94 Nasal Cannula 6.00 01/12/21 16:15 88 17 108/66 95 Nasal Cannula 6.00 01/12/21 16:00 36.2 01/12/21 16:00 92 Nasal Cannula 6.00 01/12/21 16:00 104/68 01/12/21 15:45 103/60 01/12/21 15:36 104 45 118/76 90 Nasal Cannula 6.00 01/12/21 15:30 38 01/12/21 15:15 140 50 88 Nasal Cannula 6.00 01/12/21 15:00 98 37 112/68 92 Nasal Cannula 6.00 01/12/21 14:45 86 28 111/64 95 Nasal Cannula 6.00 01/12/21 14:38 93 Nasal Cannula 6.00 01/12/21 14:30 101 24 117/75 93 Nasal Cannula 6.00 01/12/21 14:15 85 25 99/79 93 Nasal Cannula 6.00 01/12/21 14:00 92 29 114/68 92 Nasal Cannula 6.00 01/12/21 13:20 35.9 01/12/21 13:02 110 01/12/21 13:00 110 34 111/65 95 Nasal Cannula 6.00 01/12/21 12:45 97 26 103/69 96 Nasal Cannula 6.00 01/12/21 12:30 108/70 01/12/21 12:15 93 23 110/67 95 Nasal Cannula 6.00 01/12/21 12:00 92 Nasal Cannula 6.00 01/12/21 12:00 120 50 127/67 94 Nasal Cannula 6.00 01/12/21 11:45 110/70 01/12/21 11:30 120 47 107/75 95 Nasal Cannula 6.00 01/12/21 11:15 106/73 01/12/21 11:00 102/64 01/12/21 11:00 102/64 01/12/21 10:45 123 35 92 Nasal Cannula 6.00 01/12/21 10:30 101 18 107/68 93 Nasal Cannula 6.00 01/12/21 10:15 101 22 100/69 93 Nasal Cannula 6.00 I & O 01/13/21 06:59 Intake Total 1320 ml Output Total 700 ml Balance 620 ml Height & Weight Height: 5'2.00" Weight: 122lbs. 0.0oz. 55.560146hp; 22.52 BMI Method: General Appearance: WD/WN, Mild Distress (due to abdominal pain) HEENT: PERRL/EOMI; No Photophobia Neck: Non Tender, Supple Respiratory: Lungs Clear, Normal Breath Sounds Cardiovascular: No Murmur, Normal Peripheral Pulses, Irregularly Irregular Capillary Refill: Less Than 3 Seconds Gastrointestinal: distended, tenderness (Worse compared to [place] ) Extremity: Normal Capillary Refill, Non Tender, No Calf Tenderness, No Pedal Edema Neurologic/Psychiatric: Alert; No Normal Mood/Affect (fatigued); Other Skin: Normal Color, Warm/Dry Lymphatic: No Adenopathy (cervical) Results Lab Laboratory Tests 01/11/21 10:40 01/12/21 05:00 01/13/21 04:55 Assessment/Plan Assessment/Plan (Tele-ICU Physician , Progress Note ) Available chart/ vitals / labs / Images reviewed Video assessment done using teleICU camera, rest of exam as per RN Discussed with RN , EXAM PER RN Events overnight : Afebrile FiO2 - 6 I/O = + Drips: cardizem Pressors: , hemodynamically stable Consultants: ROSLYN jordan Hospital course: (01/11) 70 y/o Female - Acute Pancreatitis - A Fib RVR - Cardizem Drip. A/P acute pancreatitis probably due to alcohol abuse ( TGL low , No CT evidence of cholelithiasis or acute cholecystitis.) - hydration - follow lytes - CT - no abscess - follow on Zosyn - sx consulted A fib RVR - cardizem gtt - as per julian - AC - lovenox 60 bid Hypoxemia - on 6 L O2 - no PNA - follow History of alcohol abuse - vitamins -ciwa Lines : (Central Line Necessity Reviewed) Hwang: OG: Nutrition: Analgesia: Anxiety/ delirium VTE Prophylaxis: izabella 60 bid Stress Ulcer Prophylaxis: ppi Glycemic Control: Plans in collaboration with bedside consultants and IM MDs. Discussed with RN to reach out if any questions or concerns A total of 33 minutes of critical care time was devoted to this patient today, required to treat and/or prevent further deterioration of critical care condition ( as above) ALYCE CRANE MD Jan 13, 2021 10:12
[2021-01-13] MEDS: THIAMINE INJECTION 100 MG, FOLIC ACID INJECTION 1 MG, MAGNESIUM SULFATE 2 GM, VITAMIN M... IV SCH ×5 (10:13)
--- NOTE | 2021-01-13 10:15 | Tele-ICU Progress Note ---
Subjective Date Seen by a Provider: Jan 13, 2021 Time Seen by a Provider: 10:15 Sepsis Event Evaluation Height, Weight, BMI Height: 5'2.00" Weight: 122lbs. 0.0oz. 55.003214op; 22.52 BMI Method: Focused Exam Lactate Level 01/11/21 10:48: Lactic Acid Level 2.35*H 01/11/21 12:15: Lactic Acid Level 1.76 Exam Exam Patient acknowledged, consented, and participated in this virtual visit which was conducted using real time audio/video Vital Signs Date Time Temp Pulse Resp B/P (MAP) Pulse Ox O2 Delivery O2 Flow Rate FiO2 01/13/21 09:30 96 35 121/82 93 High Flow N/C 8.00 01/13/21 09:15 84 19 99/67 94 High Flow N/C 8.00 01/13/21 09:00 88 21 111/67 94 High Flow N/C 8.00 01/13/21 08:45 106 36 108/76 92 High Flow N/C 8.00 01/13/21 08:34 36.2 01/13/21 08:30 115/72 01/13/21 08:15 101 32 117/75 84 High Flow N/C 8.00 01/13/21 08:00 99/70 01/13/21 07:45 90 25 112/68 88 High Flow N/C 8.00 01/13/21 07:30 34 103/74 High Flow N/C 8.00 01/13/21 07:15 113 41 122/76 High Flow N/C 8.00 01/13/21 07:00 86 16 110/64 88 High Flow N/C 8.00 01/13/21 07:00 81 01/13/21 06:00 74 11 101/69 89 High Flow N/C 8.00 01/13/21 05:00 78 18 91/57 88 High Flow N/C 8.00 01/13/21 04:00 36.4 High Flow N/C 8.00 01/13/21 04:00 79 12 91/63 90 High Flow N/C 8.00 01/13/21 04:00 89 High Flow N/C 8.00 01/13/21 03:00 81 27 107/68 89 Nasal Cannula 6.00 01/13/21 02:00 84 13 106/67 92 Nasal Cannula 6.00 01/13/21 01:00 87 22 101/70 94 Nasal Cannula 6.00 01/13/21 01:00 87 01/13/21 00:01 92 38 98/58 90 Nasal Cannula 6.00 01/13/21 00:00 36.7 Nasal Cannula 6.00 01/12/21 23:59 91 Nasal Cannula 6.00 01/12/21 23:45 89 37 104/60 92 Nasal Cannula 5.00 01/12/21 23:37 137 127/65 Nasal Cannula 5.00 01/12/21 23:15 90 22 105/76 92 Nasal Cannula 5.00 01/12/21 23:00 86 22 119/65 92 Nasal Cannula 5.00 01/12/21 22:45 93 19 122/68 92 Nasal Cannula 5.00 01/12/21 22:30 100 37 117/73 89 Nasal Cannula 5.00 01/12/21 22:15 96 123/77 91 Nasal Cannula 5.00 01/12/21 22:00 103 38 120/81 91 Nasal Cannula 5.00 01/12/21 21:45 86 16 120/76 94 Nasal Cannula 5.00 01/12/21 21:30 79 14 125/65 96 Nasal Cannula 5.00 01/12/21 21:15 79 14 116/68 97 Nasal Cannula 5.00 01/12/21 21:00 85 19 132/72 93 Nasal Cannula 5.00 01/12/21 20:45 80 18 123/70 93 Nasal Cannula 5.00 01/12/21 20:30 84 21 114/73 94 Nasal Cannula 5.00 01/12/21 20:15 95 25 108/74 94 Nasal Cannula 5.00 01/12/21 20:05 124 24 143/72 92 Nasal Cannula 5.00 01/12/21 20:00 91 Nasal Cannula 6.00 01/12/21 19:45 95 26 112/71 94 Nasal Cannula 5.00 01/12/21 19:30 92 114/77 93 Nasal Cannula 5.00 01/12/21 19:30 36.4 01/12/21 19:15 97 29 114/61 94 Nasal Cannula 5.00 01/12/21 19:01 95 Nasal Cannula 6.00 01/12/21 19:00 105 31 111/71 94 Nasal Cannula 6.00 01/12/21 19:00 105 01/12/21 18:15 89 26 111/65 94 Nasal Cannula 6.00 01/12/21 18:00 93 30 114/69 94 Nasal Cannula 6.00 01/12/21 17:15 97 25 109/70 93 Nasal Cannula 6.00 01/12/21 17:00 89 43 120/64 91 Nasal Cannula 6.00 01/12/21 16:45 113/68 01/12/21 16:30 87 42 114/69 94 Nasal Cannula 6.00 01/12/21 16:15 88 17 108/66 95 Nasal Cannula 6.00 01/12/21 16:00 36.2 01/12/21 16:00 92 Nasal Cannula 6.00 01/12/21 16:00 104/68 01/12/21 15:45 103/60 01/12/21 15:36 104 45 118/76 90 Nasal Cannula 6.00 01/12/21 15:30 38 01/12/21 15:15 140 50 88 Nasal Cannula 6.00 01/12/21 15:00 98 37 112/68 92 Nasal Cannula 6.00 01/12/21 14:45 86 28 111/64 95 Nasal Cannula 6.00 01/12/21 14:38 93 Nasal Cannula 6.00 01/12/21 14:30 101 24 117/75 93 Nasal Cannula 6.00 01/12/21 14:15 85 25 99/79 93 Nasal Cannula 6.00 01/12/21 14:00 92 29 114/68 92 Nasal Cannula 6.00 01/12/21 13:20 35.9 01/12/21 13:02 110 01/12/21 13:00 110 34 111/65 95 Nasal Cannula 6.00 01/12/21 12:45 97 26 103/69 96 Nasal Cannula 6.00 01/12/21 12:30 108/70 01/12/21 12:15 93 23 110/67 95 Nasal Cannula 6.00 01/12/21 12:00 92 Nasal Cannula 6.00 01/12/21 12:00 120 50 127/67 94 Nasal Cannula 6.00 01/12/21 11:45 110/70 01/12/21 11:30 120 47 107/75 95 Nasal Cannula 6.00 01/12/21 11:15 106/73 01/12/21 11:00 102/64 01/12/21 11:00 102/64 01/12/21 10:45 123 35 92 Nasal Cannula 6.00 01/12/21 10:30 101 18 107/68 93 Nasal Cannula 6.00 01/12/21 10:15 101 22 100/69 93 Nasal Cannula 6.00 I & O 01/13/21 07:00 Intake Total 1320 ml Output Total 700 ml Balance 620 ml Height & Weight Height: 5'2.00" Weight: 122lbs. 0.0oz. 55.895036xf; 22.52 BMI Method: General Appearance: WD/WN, Mild Distress (due to abdominal pain) HEENT: PERRL/EOMI; No Photophobia Neck: Non Tender, Supple Respiratory: Lungs Clear, Normal Breath Sounds Cardiovascular: No Murmur, Normal Peripheral Pulses, Irregularly Irregular Capillary Refill: Less Than 3 Seconds Gastrointestinal: distended, tenderness (Worse compared to [place] ) Extremity: Normal Capillary Refill, Non Tender, No Calf Tenderness, No Pedal Edema Neurologic/Psychiatric: Alert; No Normal Mood/Affect (fatigued); Other Skin: Normal Color, Warm/Dry Lymphatic: No Adenopathy (cervical) Results Lab Laboratory Tests 01/11/21 10:40 01/12/21 05:00 01/13/21 04:55 Assessment/Plan Assessment/Plan (Tele-ICU Physician , Progress Note ) Available chart/ vitals / labs / Images reviewed Video assessment done using teleICU camera, rest of exam as per RN Discussed with RN , EXAM PER RN Events overnight : Afebrile FiO2 - 8 L I/O = + Drips: cardizem Pressors: , hemodynamically stable Consultants: ROSLYN jordan Hospital course: (01/11) 70 y/o Female - Acute Pancreatitis - A Fib RVR - Cardizem Drip. A/P acute pancreatitis probably due to alcohol abuse ( TGL low , No CT evidence of cholelithiasis or acute cholecystitis.) - hydration to cont , decrease with initiating PO intake - follow lytes, correct - CT - no abscess - follow on Zosyn - sx consulted A fib RVR - cardizem gtt - as per cards to change to PO - AC - lovenox Hypoxemia - on 8 L O2, not doing IS - will check cxr , decrease IVF rate - no PNA - follow History of alcohol abuse - vitamins -ciwa Lines : (Central Line Necessity Reviewed) Hwang: OG: Nutrition: Analgesia: Anxiety/ delirium VTE Prophylaxis: izabella 60 bid Stress Ulcer Prophylaxis: ppi Glycemic Control: Plans in collaboration with bedside consultants and IM MDs. Discussed with RN to reach out if any questions or concerns A total of 33 minutes of critical care time was devoted to this patient today, required to treat and/or prevent further deterioration of critical care condition ( as above) ALYCE CRANE MD Jan 13, 2021 10:15
[2021-01-13] MEDS ORDERED: CALCIUM GLUCONATE 10% INJ 4.65 MEQ in NS (IVPB) 50 ML IV NR (10:26)
[2021-01-13] MEDS ORDERED: KCL 20 MEQ TAB (K-DUR) PO NR (10:28)
[2021-01-13] MEDS ORDERED: SODIUM PHOSPHATE INJ 30 MM in NS (IVPB) 250 ML INJ NR (10:28)
--- NOTE | 2021-01-13 10:35 | Cardiology Progress Note ---
Subjective Date Seen by Provider: Jan 13, 2021 Time Seen by Provider: 08:00 Subjective/Events-last exam Patient was seen at bedside, still complaining of abdominal pain and abdominal distention. Review of Systems General: No Chills, No Night Sweats; Fatigue, Malaise; No Appetite, No Other HEENT: No Head Aches, No Visual Changes, No Eye Pain, No Ear Pain, No Dysphasia , No Sinus Congestion, No Post Nasal Drip, No Sore Throat, No Other Pulmonary: No Dyspnea, No Cough, No Pleuritic Chest Pain, No Other Cardiovascular: No: Chest Pain, Palpitations, Orthopnea, Paroxysmal Noc. Dyspnea, Edema, Lt Headedness, Other Focused Exam Lactate Level 01/11/21 10:48: Lactic Acid Level 2.35*H 01/11/21 12:15: Lactic Acid Level 1.76 Objective-Cardiology Exam Last Set of Vital Signs Vital Signs 01/11/21 01/13/21 01/13/21 16:30 08:34 09:30 Temp 36.2 Pulse 96 Resp 35 B/P (MAP) 121/82 Pulse Ox 93 O2 Delivery High Flow N/C O2 Flow Rate 8.00 FiO2 21 I&O Intake and Output 01/13/21 00:00 Intake Total 1480 ml Output Total 750 ml Balance 730 ml Intake Oral 360 ml IV Total 1120 ml Output Urine Total 750 ml # Voids 3 General: Alert, Oriented X3, Cooperative HEENT: Atraumatic, PERRLA Neck: Supple, No JVD, No Thyromegaly Lungs: Clear to Auscultation, Normal Air Movement Heart: Normal S1, Normal S2, No Murmurs, Other (Atrial fibrillation) Abdomen: Soft, No Masses, Other (Abdominal pain and abdominal distention) Extremities: No Clubbing, No Cyanosis, No Edema, Normal Pulses, No Tenderness/Swelling Skin: No Rashes, No Breakdown, No Significant Lesion Neuro: Normal Gait, Normal Speech, Strength at 5/5 X4 Ext, Normal Tone, Sensati on Intact Psych/Mental Status: Mental Status NL, Mood NL Results Lab Laboratory Tests 01/13/21 04:55 A/P-Cardiology Admission Diagnosis Acute pancreatitis Permanent atrial fibrillation Hypertension Hyperlipidemia Assessment/Plan Acute pancreatitis, still having abdominal pain and abdominal distention, CT scan was reviewed fluid around the pancreas. I am concerned about the possibility of hemorrhagic pancreatitis while on aggressive anticoagulation, I will hold Lovenox for now and continue to monitor Atrial fibrillation with rapid ventricular response, history of permanent atrial fibrillation. Was on Xarelto as an outpatient. Currently I change Lovenox to the 40 mg once a day Due to the acute pancreatitis and active pain. We will continue monitoring [id number] score of 3, has been maintained on Xarelto as an outpatient, we will resume oral anticoagulation once her pancreatitis settle down. Echocardiogram done in May 2018 showing normal LV size and function, EF 55 to 65%, PA pressure 40 to 45 mm meter of mercury Stress test done in August 2020 showing no significant ischemia or infarction with EF 74% Hypertension, currently on Cardizem drip. Continue to monitor blood pressures Hyperlipidemia, monitor lipids, hold Lipitor at this time. Mild bilateral carotid stenosis, ultrasound was done in February 2020. Continue to monitor History of alcoholism, drink a few glasses of wine every evening, educated on avoiding alcohol products ADRIEL ROLDAN MD Jan 13, 2021 10:35
--- NOTE | 2021-01-13 12:30 | Progress Note ---
MARILEE BULLOCK 01/13/21 1230: Subjective Date Seen by a Provider: Jan 13, 2021 Time Seen by a Provider: 10:30 Subjective/Events-last exam Cheri had no acute events overnight. She slept off and on and is still lethargic this morning. She has been concerned with her oxygen levels. She still is st ruggling to take deep breaths and has been requiring more oxygen than usual. Patient is still in substantial abdominal pain with distension. No bowel movements during admission. Yesterday, a manual bowel disimpaction was performed but provided little relief. Subsequently tried prune & apple juice + stool softener but it also was unsuccessful. Patient is passing flatus this morning. Non-medical concerns of hers involve her long-term boyfriend of whom she helps take care of. Review of Systems General: Fatigue, Appetite HEENT: No Head Aches, No Visual Changes Pulmonary: Dyspnea; No Cough Cardiovascular: No: Chest Pain, Edema Gastrointestinal: Nausea, Abdominal Pain, Constipation; No: Vomiting, Diarrhea Neurological: No: Weakness, Numbness, Incoordination, Confusion Focused Exam Lactate Level 01/11/21 10:48: Lactic Acid Level 2.35*H 01/11/21 12:15: Lactic Acid Level 1.76 Objective Exam Last Set of Vital Signs Vital Signs Date Time Temp Pulse Resp B/P (MAP) Pulse Ox O2 Delivery O2 Flow Rate FiO2 01/13/21 11:37 92 High Flow N/C 8.00 01/13/21 09:30 96 35 121/82 01/13/21 08:34 36.2 01/11/21 16:30 21 Capillary Refill : Less Than 3 Seconds I&O Intake and Output 01/13/21 00:00 Intake Total 1480 ml Output Total 750 ml Balance 730 ml Intake Oral 360 ml IV Total 1120 ml Output Urine Total 750 ml # Voids 3 General: Alert, Oriented X3, Mild Distress HEENT: Atraumatic Neck: Supple Lungs: Clear to Auscultation Heart: Other (irregular, rapid rate) Abdomen: Other (Abdominal distension with tenderness to palpation. Normal bowel sounds. ) Extremities: No Edema, Normal Pulses Skin: No Rashes Results Lab Laboratory Tests 01/12/21 17:47: Glucometer 137H 01/13/21 04:55: White Blood Count 13.4H, Red Blood Count 3.55L, Hemoglobin 12.1, Hematocrit 37, Mean Corpuscular Volume 103H, Mean Corpuscular Hemoglobin 34, Mean Corpuscular Hemoglobin Concent 33, Red Cell Distribution Width 13.6, Platelet Count 123L, Mean Platelet Volume 12.7H, Immature Granulocyte % (Auto) 1, Neutrophils (%) (Auto) 88H, Lymphocytes (%) (Auto) 4L, Monocytes (%) (Auto) 7, Eosinophils (%) (Auto) 0, Basophils (%) (Auto) 0, Neutrophils # (Auto) 11.7H, Lymphocytes # (Auto) 0.6L, Monocytes # (Auto) 1.0, Eosinophils # (Auto) 0.0, Basophils # (Auto) 0.0, Immature Granulocyte # (Auto) 0.1, Percent Immature Platelet Fraction 12.3H, Sodium Level 132L, Potassium Level 3.2L, Chloride Level 107, Carbon Dioxide Level 15L, Anion Gap 10, Blood Urea Nitrogen 17, Creatinine 0.82, Estimat Glomerular Filtration Rate 69, BUN/Creatinine Ratio 21, Glucose Level 140H, Calcium Level 7.0L, Corrected Calcium 8.0L, Phosphorus Level 1.5L, Magnesium Level 2.6H, Total Bilirubin 1.2H, Aspartate Amino Transf (AST/SGOT) 30, Alanine Aminotransferase (ALT/SGPT) 16, Alkaline Phosphatase 44, Total Protein 5.6L, Albumin 2.8L, Lipase 158H Microbiology 01/11/21 MRSA Screen - Final, Complete MRSA not isolated 01/11/21 Urine Culture - Final, Complete NO GROWTH 01/11/21 Blood Culture - Preliminary, Resulted No growth Assessment/Plan Assessment/Plan Assess & Plan/Chief Complaint Atrial fibrillation with RVR * Patient has a history of chronic atrial fibrillation * OP meds include metoprolol and xarelto * Lovenox DC as anticoagulation per cardiology * Plan: Continue IV Diltiazem daily for a-fib. Acute Pancreatitis, abdominal pain, distension, sepsis * Patient drinks 1/2 bottle of wine per day * Sepsis resolved * Lipase has dropped from 821 to 412 over last 24 hours * White blood cell count improving * Abdominal u/s and CT scan consistent with pancreatitis * Plan: Continue NPO, Zosyn. Dilaudid and APAP for pain. Alcohol-use disorder, potential for withdrawal * Plan: Lorazepam taper for alcohol withdrawal protocol, continue thiamine/folic acid/mag sulfate/multivitamin/dextrose/NaCl cocktail Mild basilar atelectasis * Discovered on CXR 01/11/21 * Patient states she can only take shallow breaths due to pain * Requiring 6-8 liters O2 01/13 * Plan: Incentive spirometry as tolerated to help avoid secondary pneumonia. Important to get patient out of bed to maintain lung function Hypocalcemia, hypophosphatemia, other electrolytes * Ca++ 01/13: 7.0, corrected 8.0 * Phosphate 1.5 * Potassium 3.2 * Plan: Continue IV Calcium gluconate, KCl. No treatment of hypophosphatemia because asymptomatic. Transition to oral replacement as patient progress to PO intake. GERD * Plan: continue IV pantoprazole daily Diagnosis/Problems Diagnosis/Problems (1) Atrial fibrillation with rapid ventricular response Onset Date: ~ 01/11/2021 Status: Acute Assessment & Plan: Plan: Continue IV Diltiazem daily for a-fib. (2) Pancreatitis Onset Date: ~ 01/09/2021 Status: Acute Assessment & Plan: Plan: Continue NPO, Zosyn. Dilaudid and APAP for pain. Qualifiers: Qualified Codes: K85.20 - Alcohol induced acute pancreatitis without necrosis or infection (3) Leukocytosis Onset Date: ~ 01/11/2021 Status: Acute Qualifiers: Qualified Codes: D72.828 - Other elevated white blood cell count (4) Severe sepsis Onset Date: ~ 01/11/2021 Status: Resolved Assessment & Plan: Plan: Continue to monitor vital signs and treat with broad spectrum antibiotics. Resolution Date/Time: 01/12/21 @ 16:00 JT BOTELLO MD 01/13/21 2103: Supervisory-Addendum Brief Verification & Attestation Participated in pt care: history, physical Personally performed: exam, history Care discussed with: Medical Student Procedures: n/a Verification and Attestation of Medical Student E/M Service A medical student performed and documented this service in my presence. I reviewed and verified all information documented by the medical student and made modifications to such information, when appropriate. I personally performed the physical exam and medical decision making. Jt Botello, Jan 13, 2021,21:03 MARILEE BULLOCK Jan 13, 2021 12:30 JT BOTELLO MD Jan 13, 2021 21:03
--- NOTE | 2021-01-13 14:20 | Occupational Therapy Eval ---
OT Evaluation-General/PLF Medical Diagnosis Admission Date Jan 11, 2021 at 14:17 Medical Diagnosis: A-fib w/RVR, acute pancretitis and severe sepsis Onset Date: Jan 11, 2021 Therapy Diagnosis Therapy Diagnosis: Impaired adls, endurance, balance, strength Height/Weight Height (Feet): 5 Height (Inches): 2.00 Weight (Pounds): 122 Weight (Ounces): 0.0 Precautions Precautions/Isolations: Seizure, Fall Prevention, Standard Precautions Referral Physician: Rosmery Referral Reason: Evaluation/Treatment Medical History Pertinent Medical History: Atrial Fib Current History Presents to ER with nausea/vomiting and abdominal pain. Found to be in a-fib with RVR, with acute pancreatitis and severe sepsis. Pt reports living in single story home with a friend. She was indep with adls and Iadls prior to admission. 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 She was not using any assistive device and still drives. Pt does not see her alcoholism as a problem. Reviewed History: Yes Social History Home: Single Level Current Living Status: Friend ADL-Prior Level of Function SCALE: Activities may be completed with or without assistive devices. 2-Warponpfuq-nwdgfjs completes the activity by him/herself with no assistance from a helper. 5-Set-up or Clean-up Assistance-helper sets up or cleans up; patient completes activity. [place] assists only prior to or following the activity. 4-Supervision or Touching Assistance-helper provides verbal cues and/or touching/steadying and/or contact guard assistance as patient completes activity. Assistance may be provided throughout the activity or intermittently. 3-Partial/Moderate Assistance-helper does LESS THAN HALF the effort. [place] lifts, holds or supports trunk or limbs, but provides less than half the effort. 2-Substantial/Maximal Assistance-helper does MORE THAN HALF the effort. [place] lifts or holds trunk or limbs and provides more than half the effort. 8-Izxdwctey-azlahd does ALL the effort. Patient does none of the effort to complete the activity. Or, the assistance of 2 or more helpers is required for the patient to complete the activity. If activity was not attempted, code reason: 7-Patient Refused. 9-Not Applicable-not attempted and the patient did not perform the activity before the current illness, exacerbation or injury. 10-Not Attempted due to Environmental Limitations-(lack of equipment, weather restraints, etc.). 88-Not Attempted due to Medical Conditions or Safety Concerns. Self Care: Independent Functional Cognition: Independent DME/Equipment: Bath Bench, Tub/Shower Drive Self: Yes OT Current Status Subjective Agreeable to eval. Complains mostly about home set up vs medical symptoms/pain. Appearance Left sitting in chair, all needs within reach. Mental Status/Objective Patient Orientation: Person, Situation Attachments: IV, Oxygen, Telemetry Current Hand Dominance: Right Upper Extremity ROM WNL Upper Extremity Strength 3+/5 grossly ADL-Treatment Eating (QC): 5 Lower Body Dressing (QC): 3 (steadying assist) On/Off Footwear (QC): 4 Pt sitting in chair at OT arrival. Resting heart rate: 101 bpm. While in sitting, pt desats to mid 80's at times and requires cues for PLB. Able to perform cross over method without assist in order to don/doff [place] socks. Able to stand with CGA. Forward flexed posture with cues for upright. Pt does desat again with activity (low 80's) but able to recover quickly with cues and rest. Education OT Patient Education: Correct positioning, Purpose of tx/functional activities, Transfer techniques Teaching Recipient: Patient Teaching Methods: Discussion Response to Teaching: Verbalize Understanding OT Refrigeration Specialist Goals Senior Care Goals Time Frame: Jan 30, 2021 Oral Hygiene (QC): 5 Toileting Hygiene (QC): 4 Upper Body Dressing (QC): 5 Lower Body Dressing (QC): 4 On/Off Footwear (QC): 5 1=Demonstrate adherence to instructed precautions during ADL tasks. 2=Patient will verbalize/demonstrate understanding of assistive devices/modifications for ADL. 3=Patient will improve strength/tolerance for activity to enable patient to perform ADL's. OT Education/Plan Problem List/Assessment Assessment: Decreased Activ Tolerance, Decreased UE Strength, Impaired Funct Balance, Impaired I ADL's, Impaired Self-Care Skills Discharge Recommendations Plan/Recommendations: Continue POC Therapy Discharge Recommendati: Homemaker Support Target Placement home health vs home with family pending progress Treatment Plan/Plan of Care Treatment,Training & Education: Yes Patient would benefit from OT for education, treatment and training to promote independence in ADL's, mobility, safety and/or upper extremity function for ADL's. Plan of Care: ADL Retraining, Functional Mobility, Group Exercise/Act as Ind, UE Funct Exercise/Act Treatment Duration: Jan 30, 2021 Frequency: 3 times per week Estimated Hrs Per Day: .25 hour per day Agreement: Yes 3-5x/week Time/GCodes Start Time: 13:58 Stop Time: 14:12 Total Time Billed (hr/min): 14 Billed Treatment Time 1 visit Carolyn Kelsey OT Jan 13, 2021 14:20
--- NOTE | 2021-01-13 14:35 | Physical Therapy Evaluation ---
PT Evaluation-General Medical Diagnosis Admission Date Jan 11, 2021 at 14:17 Medical Diagnosis: A-fib w/RVR, acute pancretitis and severe sepsis Onset Date: Jan 11, 2021 Therapy Diagnosis Therapy Diagnosis: debility/weakness Height/Weight Height (Feet): 5 Height (Inches): 2.00 Weight (Pounds): 122 Weight (Ounces): 0.0 Precautions Precautions/Isolations: Seizure, Fall Prevention, Standard Precautions Referral Physician: Rosmery Reason for Referral: Evaluation/Treatment Medical History Pertinent Medical History: Atrial Fib, HTN Current History ER secondary to right side abdominal pain Reviewed History: Yes Social History Home: Single Level Current Living Status: Friend Entry Into Home: Level Entry Prior Prior Level of Function SCALE: Activities may be completed with or without assistive devices. 5-Gdesbzcipg-ftbmdow completes the activity by him/herself with no assistance from a helper. 5-Set-up or Clean-up Assistance-helper sets up or cleans up; patient completes activity. [place] assists only prior to or following the activity. 4-Supervision or Touching Assistance-helper provides verbal cues and/or touching/steadying and/or contact guard assistance as patient completes activity. Assistance may be provided throughout the activity or intermittently. 3-Partial/Moderate Assistance-helper does LESS THAN HALF the effort. [place] lifts, holds or supports trunk or limbs, but provides less than half the effort. 2-Substantial/Maximal Assistance-helper does MORE THAN HALF the effort. [place] lifts or holds trunk or limbs and provides more than half the effort. 5-Pvwslkuic-hfupjc does ALL the effort. Patient does none of the effort to complete the activity. Or, the assistance of 2 or more helpers is required for the patient to complete the activity. If activity was not attempted, code reason: 7-Patient Refused. 9-Not Applicable-not attempted and the patient did not perform the activity before the current illness, exacerbation or injury. 10-Not Attempted due to Environmental Limitations-(lack of equipment, weather restraints, etc.). 88-Not Attempted due to Medical Conditions or Safety Concerns. Bed Mobility: 6 Transfers (B,C,W/C): 6 Gait: 6 Stairs: 6 Indoor Mobility (Ambulation): Independent Stairs: Independent Prior Devices Use: None PT Evaluation-Current Subjective Patient agrees to PT. Pain Numeric Pain Scale: 5-Moderate Pain Location: Right, Medial Location Body Site: Abdomen Pain Description: Pressure Objective Patient Orientation: Normal For Age Attachments: Oxygen (10L HF), IV ROM/Strength ROM Lower Extremities bilateral LE WFL Strength Lower Extremities 3/5 grossly bilateral LE Integumentary/Posture Bowel Incontinence: No Bladder Incontinence: No Posture slightly kyphotic Neuromuscular (Tone, Coordination, Reflexes) diminished coordination due to weakness Sensory Vision: Wears Glasses Hearing: Functional Hand Dominance: Right Transfers Lying to Sitting/Side of Bed(Q: 4 Sit to Stand (QC): 4 Chair/Wue-gj-Jryui Xfer(QC): 4 Toilet Transfer (QC): 4 SBA for safety Gait Mode of Locomotion: Walk Anticipated Mode of Locomotion: Walk Walk 10 feet (QC): 3 Walk 50 ft with 2 Turns(QC): 88 Gait Assistive Device: FWW Balance Sitting Static: Normal Sitting Dynamic: Normal Standing Static: Fair Standing Dynamic: Fair Assessment/Needs 70 y.o. female, will benefit from skilled PT to address pulmonary function with functional mobility and strengthening. Patient's SAO2 decreases to 77% with minimal activity with quick recovery. BP also elevated. Rehab Potential: Fair PT Countersinker Balance Screw Hole Goals Countersinker Balance [place]w [place] Goals PT Fdc Goals Time Frame: Jan 31, 2021 Roll Left & Right (QC): 6 Sit to Lying (QC): 6 Lying-Sitting on Side/Bed(QC): 6 Sit to Stand (QC): 6 Chair/Xyq-ll-Odrko Xfer(QC): 6 Toilet Transfer (QC): 6 Walk 10 feet (QC): 6 Walk 50ft with 2 Turns (QC): 6 Walk 150 ft (QC): 6 PT Plan Problem List Problem List: Activity Tolerance, Functional Strength, Safety, Balance, Gait, Transfer, Bed Mobility Treatment/Plan Treatment Plan: Continue Plan of Care Treatment Plan: Bed Mobility, Education, Functional Activity Wu, Functional Strength, Gait, Safety, Therapeutic Exercise, Transfers Treatment Duration: Jan 31, 2021 Frequency: 6 times per week Estimated Hrs Per Day: .5 hour per day Patient and/or Family Agrees t: Yes Time/GCodes Time In: 1310 Time Out: 1325 Total Billed Treatment Time: 15 Total Billed Treatment 1 visit EVModC 15 min MARYJO GAINES PT Jan 13, 2021 14:35
[2021-01-13] MEDS: dilTIAZem DRIP PRE-MIX 125 ML IV SCH (15:42)
[2021-01-13] MEDS: RT-ALBUTEROL SULF 2.5 MG/3 ML PRE-MIX VIAL INH SCH (21:02)
[2021-01-13 22:29] LABS: BILIRUBIN,URINE NEGATIVE (NEGATIVE); CLARITY,URINE CLEAR; COLOR,URINE YELLOW; GLUCOSE, URINE (UA) NEGATIVE (NEGATIVE); KETONES,URINE NEGATIVE (NEGATIVE); LEUKOCYTE ESTERASE ,URINE TRACE (NEGATIVE); NITRITE,URINE NEGATIVE (NEGATIVE); PROTEIN,URINE 2+ (NEGATIVE)
[2021-01-13 22:39] LABS: BACTERIA,URINE MODERATE /HPF; RBC,URINE RARE /HPF
[2021-01-13] MEDS ORDERED: FUROSEMIDE 40 MG/4 ML INJ (LASIX) ONE (23:10)
[2021-01-13] MEDS ORDERED: FUROSEMIDE 40 MG/4 ML INJ (LASIX) IVP ONE (23:15)
[2021-01-13] MEDS: ONDANSETRON 4 MG/2 ML (SDV) Z0FRAN IVP PRN (23:24)
--- NOTE | 2021-01-13 23:24 | Diagnostic Imaging Report ---
EXAMINATION: Chest 1 view HISTORY: Hypoxia. COMPARISON: 01/11/2021. FINDINGS: Interval development of a moderate to large right pleural effusion with hazy opacities in the bilateral perihilar and basilar regions. No pneumothorax. Stable cardiac silhouette. IMPRESSION: 1. Moderate to large right pleural effusion with hazy opacities in the perihilar and basilar regions. These may represent edema or atelectasis. Dictated by: Dictated on workstation # [id number]
[2021-01-14] MEDS: PIPERACILLIN/TAZOBACTAM (BULK) 4.5 GM in NS (IVPB) 100 ML IV SCH ×3 (00:19→17:00)
[2021-01-14] MEDS: RT-ALBUTEROL SULF 2.5 MG/3 ML PRE-MIX VIAL INH SCH ×4 (02:45→21:33)
[2021-01-14] MEDS: dilTIAZem DRIP PRE-MIX 125 ML IV SCH (03:42)
[2021-01-14 05:52] LABS: BASOPHILS # (AUTO) 0.1 10^3/uL (0.0-0.1); BASOPHILS % (AUTO) 0 % (0-10); EOSINOPHILS # (AUTO) 0.1 10^3/uL (0.0-0.3); EOSINOPHILS % (AUTO) 1 % (0-10); HEMATOCRIT 34 % (35-52); HEMOGLOBIN 11.2 g/dL (11.5-16.0); LYMPHOCYTES # (AUTO) 0.4 10^3/uL (1.0-4.0); LYMPHOCYTES % (AUTO) 3 % (12-44); MEAN CORPUSCULAR HEMOGLOBIN 34 pg (25-34); MEAN CORPUSCULAR HGB CONC 33 g/dL (32-36); MEAN CORPUSCULAR VOLUME 103 fL (80-99); MONOCYTES % (AUTO) 9 % (0-12); NEUTROPHILS % (AUTO) 86 % (42-75); PLATELET COUNT 123 10^3/uL (130-400); WHITE BLOOD COUNT 11.6 10^3/uL (4.3-11.0)
[2021-01-14 06:12] LABS: ALBUMIN 2.7 GM/DL (3.2-4.5); POTASSIUM 3.9 MMOL/L (3.6-5.0)
[2021-01-14 06:14] LABS: CALCIUM 7.7 MG/DL (8.5-10.1)
[2021-01-14 06:15] LABS: TOTAL PROTEIN 5.7 GM/DL (6.4-8.2)
[2021-01-14 06:16] LABS: BILIRUBIN,TOTAL 1.2 MG/DL (0.1-1.0)
[2021-01-14 06:18] LABS: PHOSPHORUS 1.9 MG/DL (2.3-4.7)
[2021-01-14 06:19] LABS: CREATININE SERUM 0.94 MG/DL (0.60-1.30)
[2021-01-14] MEDS: POTASSIUM CL 10MEQ/50ML IVPB 50 ML IV SCH (06:20)
[2021-01-14 06:21] LABS: MAGNESIUM 2.6 MG/DL (1.6-2.4)
[2021-01-14] MEDS: KCL 20 MEQ TAB (K-DUR) PO SCH (06:21)
[2021-01-14] MEDS: MAGNESIUM 1 GM/100 ML IVPB 100 ML IV SCH (06:22)
--- NOTE | 2021-01-14 07:24 | Diagnostic Imaging Report ---
EXAMINATION: Chest radiograph, portable AP view. DATE: 01/14/2021 4:44 AM INDICATION: 70-year-old female, hypoxia. COMPARISON: January 13, 2021. FINDINGS: Heart size and mediastinal contours are unchanged. There is multifocal bilateral lung consolidation interval, increase in consolidation in the right upper lobe. There is obscuration of visualization of both hemidiaphragms. IMPRESSION: 1. Multifocal bilateral lung consolidation with increase in alveolar consolidation in the right upper lobe. There are probable bilateral pleural effusions. Dictated by: Dictated on workstation # [id number]
[2021-01-14] MEDS ORDERED: ENOXAPARIN 40 MG/0.4 ML (LOVENOX) SYR SC SCH (08:00)
--- NOTE | 2021-01-14 08:14 | Progress Note - Surgery ---
SKIP LEMUS 01/14/21 0814: Subjective Date Seen by a Provider: Jan 14, 2021 Time Seen by a Provider: 06:51 Subjective/Events-last exam Pt was on BIPAP when I was in the room and she had troubles communication. She denied having any episodes of flatus lately but did have 2 bowel movements yesterday. Reports that she is still having abdominal pain. Nurse reports that pts IV fluids have been stopped due to increased edema and decreased breath sounds. Review of Systems General: Chills, Fatigue HEENT: No Head Aches, No Visual Changes Pulmonary: No Cough; Other (SOB) Cardiovascular: No: Chest Pain, Palpitations Gastrointestinal: Abdominal Pain; No: Nausea, Vomiting Genitourinary: No Dysuria, No Frequency Musculoskeletal: No: neck pain, shoulder pain, back pain Neurological: No: Weakness, Numbness Focused Exam Lactate Level 01/11/21 10:48: Lactic Acid Level 2.35*H 01/11/21 12:15: Lactic Acid Level 1.76 Objective Exam Vital Signs Date Time Temp Pulse Resp B/P (MAP) Pulse Ox O2 Delivery O2 Flow Rate FiO2 01/14/21 07:22 94 25 95 100.00 01/14/21 06:00 74 19 96/64 98 NIV Bilevel 100.00 01/14/21 05:00 71 20 92/63 97 NIV Bilevel 100.00 01/14/21 04:17 91 NIV Bilevel 100 01/14/21 04:00 84 27 100/66 97 NIV Bilevel 100.00 01/14/21 03:14 36.4 NIV Bilevel 100.00 01/14/21 03:00 86 22 104/78 96 NIV Bilevel 100.00 01/14/21 02:45 86 28 97 85.00 01/14/21 02:00 74 16 114/67 98 NIV Bilevel 100.00 01/14/21 01:00 96 01/14/21 01:00 96 24 107/66 96 NIV Bilevel 100.00 01/14/21 00:00 36.4 01/14/21 00:00 106 20 134/94 93 NIV Bilevel 100.00 01/13/21 23:48 NIV Bilevel 100 01/13/21 23:00 86 23 156/96 90 NIV Bilevel 100.00 01/13/21 22:59 120 22 90 100.00 12/7/21 22:21 NIV Bilevel 100.00 01/13/21 22:00 111 21 142/90 93 High Flow N/C 9.00 01/13/21 21:20 High Flow N/C 9.00 01/13/21 21:02 92 Nasal Cannula 6.00 01/13/21 21:00 105 25 132/88 91 High Flow N/C 8.00 01/13/21 21:00 High Flow N/C 9.00 01/13/21 20:00 36.0 01/13/21 20:00 92 20 120/85 89 High Flow N/C 8.00 01/13/21 19:00 97 01/13/21 19:00 97 20 126/78 90 High Flow N/C 8.00 01/13/21 18:45 102 21 High Flow N/C 8.00 01/13/21 18:30 110 22 High Flow N/C 8.00 01/13/21 18:30 110 22 145/126 01/13/21 18:15 86 18 135/90 High Flow N/C 8.00 01/13/21 18:15 86 18 135/90 93 High Flow N/C 8.00 01/13/21 18:00 119/89 01/13/21 18:00 113 20 119/89 93 High Flow N/C 8.00 01/13/21 17:45 113 50 141/82 High Flow N/C 8.00 01/13/21 17:45 113 16 141/82 92 High Flow N/C 8.00 01/13/21 17:30 141 21 High Flow N/C 8.00 01/13/21 17:15 93/38 01/13/21 17:15 94 18 93/38 93 High Flow N/C 8.00 01/13/21 17:00 89 21 115/80 High Flow N/C 8.00 01/13/21 17:00 89 21 115/80 93 High Flow N/C 8.00 01/13/21 16:45 118 46 162/74 High Flow N/C 8.00 01/13/21 16:30 98 15 108/83 High Flow N/C 8.00 01/13/21 16:15 96 22 130/57 High Flow N/C 8.00 01/13/21 16:00 36.1 01/13/21 16:00 103 21 124/81 93 High Flow N/C 8.00 01/13/21 16:00 94 High Flow N/C 8.00 01/13/21 15:54 94 Nasal Cannula 6.00 01/13/21 15:45 92 37 118/79 92 High Flow N/C 8.00 01/13/21 15:30 89 17 107/70 High Flow N/C 8.00 01/13/21 15:15 106/73 01/13/21 15:00 93 37 116/69 94 High Flow N/C 8.00 01/13/21 14:45 93 29 117/107 High Flow N/C 8.00 01/13/21 14:30 89 24 118/70 96 High Flow N/C 8.00 01/13/21 14:15 85 21 121/77 High Flow N/C 8.00 01/13/21 14:00 102 30 133/83 93 High Flow N/C 8.00 01/13/21 13:53 84 01/13/21 13:45 89 36 121/76 High Flow N/C 8.00 01/13/21 13:30 101 32 137/82 High Flow N/C 8.00 01/13/21 13:15 96 25 High Flow N/C 8.00 01/13/21 13:00 84 13 111/72 High Flow N/C 8.00 01/13/21 12:45 83 19 125/65 High Flow N/C 8.00 01/13/21 12:30 81 19 117/75 High Flow N/C 8.00 01/13/21 12:15 126/79 01/13/21 12:00 152/97 01/13/21 11:45 99 18 138/84 High Flow N/C 8.00 01/13/21 11:37 92 High Flow N/C 8.00 01/13/21 11:30 93 22 151/107 87 High Flow N/C 8.00 01/13/21 11:15 93 18 128/84 94 High Flow N/C 8.00 01/13/21 11:00 86 27 133/71 High Flow N/C 8.00 01/13/21 10:45 89 23 146/83 High Flow N/C 8.00 01/13/21 10:30 101 33 132/61 High Flow N/C 8.00 01/13/21 10:15 81 23 118/68 93 High Flow N/C 8.00 01/13/21 10:00 101 29 129/54 High Flow N/C 8.00 01/13/21 09:30 96 35 121/82 93 High Flow N/C 8.00 01/13/21 09:15 84 19 99/67 94 High Flow N/C 8.00 01/13/21 09:03 103 93 01/13/21 09:00 88 21 111/67 94 High Flow N/C 8.00 01/13/21 08:45 106 36 108/76 92 High Flow N/C 8.00 01/13/21 08:34 36.2 01/13/21 08:30 115/72 01/13/21 08:15 101 32 117/75 84 High Flow N/C 8.00 I & O 01/14/21 07:00 Intake Total 1220 ml Output Total 825 ml Balance 395 ml Capillary Refill : Less Than 3 Seconds General Appearance: WD/WN, Moderate Distress HEENT: PERRL/EOMI; No Photophobia Neck: Non Tender, Supple Respiratory: No Accessory Muscle Use, Decreased Breath Sounds (B/L) Cardiovascular: No Murmur, Normal Peripheral Pulses, Irregularly Irregular Gastrointestinal: soft, distended, tenderness (RUQ) Extremity: Normal Capillary Refill, Non Tender, No Calf Tenderness, Pedal Edema Neurologic/Psychiatric: Alert; No Normal Mood/Affect (fatigued) Skin: Normal Color, Warm/Dry Lymphatic: No Adenopathy (cervical) Results Lab Laboratory Tests 01/13/21 22:15: Urine Color YELLOW, Urine Clarity CLEAR, Urine pH 6.0, Urine Specific [place] >=1.030, Urine Protein 2+H, Urine Glucose (UA) NEGATIVE, Urine Ketones NEGATIVE, Urine Nitrite NEGATIVE, Urine Bilirubin NEGATIVE, Urine Urobilinogen 1.0, Urine Leukocyte Esterase TRACEH, Urine RBC (Auto) TRACE-IH, Urine RBC RARE, Urine WBC 10-25H, Urine Squamous Epithelial Cells 2-5, Urine Renal Epithelial Cells NONE, Urine Crystals NONE, Urine Bacteria MODERATEH, Urine Casts NONE, Urine Mucus NEGATIVE, Urine Culture Indicated YES 01/14/21 05:15: White Blood Count 11.6H, Red Blood Count 3.34L, Hemoglobin 11.2L, Hematocrit 34L , Mean Corpuscular Volume 103H, Mean Corpuscular Hemoglobin 34, Mean Corpuscular Hemoglobin Concent 33, Red Cell Distribution Width 13.7, Platelet Count 123L, Mean Platelet Volume 12.0, Immature Granulocyte % (Auto) 1, Neutrophils (%) (Auto) 86H, Lymphocytes (%) (Auto) 3L, Monocytes (%) (Auto) 9, Eosinophils (%) (Auto) 1, Basophils (%) (Auto) 0, Neutrophils # (Auto) 10.0H, Lymphocytes # (Auto) 0.4L, Monocytes # (Auto) 1.0, Eosinophils # (Auto) 0.1, Basophils # (Auto) 0.1, Immature Granulocyte # (Auto) 0.1, Percent Immature Platelet Fraction 10.6H, Sodium Level 133L, Potassium Level 3.9, Chloride Level 106, Carbon Dioxide Level 16L, Anion Gap 11, Blood Urea Nitrogen 16, Creatinine 0.94, Estimat Glomerular Filtration Rate 59, BUN/Creatinine Ratio 17, Glucose Level 115H, Calcium Level 7.7L, Corrected Calcium 8.7, Phosphorus Level 1.9L, Magnesium Level 2.6H, Total Bilirubin 1.2H, Aspartate Amino Transf (AST/SGOT) 33, Alanine Aminotransferase (ALT/SGPT) 15, Alkaline Phosphatase 53, Total Protein 5.7L, Albumin 2.7L Microbiology 01/11/21 MRSA Screen - Final, Complete MRSA not isolated 01/11/21 Urine Culture - Final, Complete NO GROWTH 01/11/21 Blood Culture - Preliminary, Resulted No growth Assessment/Plan Assessment/Plan Assessment/Plan Assessment Acute pancreatitis Afib Pleural effusion HTN Plan U/S of gallbladder done on 01/12 showed dilated CBD, but no stones or wall thickening in GB. Continue anti-emetics and pain medications prn, Continue to monitor lab values. Pt is currently not getting IV fluids due to fluid overload. Currently on BIPAP. CXR showed according to radiology report-Multifocal bilateral lung consolidation with increase in alveolar consolidation in the right upper lobe. There are probable bilateral pleural effusions. No indications for surgery at this time. GABRIEL VALE DO 01/14/21 1323: Subjective Time Seen by a Provider: 11:29 Subjective/Events-last exam Pt seen and examined, having respiratory difficulty and is on BiPap now. She did have BMs yesterday, states pain in abdomen about the same maybe a little better. She is asking why she got the pancreatitis. Review of Systems General: Chills, Fatigue Pulmonary: No Cough; Other (SOB) Cardiovascular: No: Chest Pain, Palpitations Gastrointestinal: Abdominal Pain; No: Nausea, Vomiting Objective Exam General Appearance: Chronically ill, Moderate Distress HEENT: PERRL/EOMI Respiratory: Accessory Muscle Use, Crackles, Decreased Breath Sounds (B/L), Respiratory Distress (ok with BiPap) Gastrointestinal: soft, distended (maybe same or better than yesterday), tenderness (epigastric) Assessment/Plan Assessment/Plan Assessment/Plan Acute pancreatitis - resolved, but still bloated Acute Respiratory Failure Afib Pleural effusion HTN Plan U/S of gallbladder done on 01/12 showed dilated CBD, but no stones or wall thickening in GB. I told her most likely the pancreatitis was result of her alcohol use. Continue anti-emetics and pain medications prn, Continue to monitor lab values. Pt is currently not getting IV fluids due to fluid overload. Currently on BIPAP. CXR showed according to radiology report-Multifocal bilateral lung consolidation with increase in alveolar consolidation in the right upper lobe. There are probable bilateral pleural effusions. No indications for surgery at this time; will sign and can re:consult if needed. Supervisory-Addendum Brief Verification & Attestation Participated in pt care: history, MDM, physical Personally performed: exam, history, MDM, supervision of care Care discussed with: Medical Student Procedures: n/a Verification and Attestation of Medical Student E/M Service A medical student performed and documented this service. I then reviewed and verified all information documented by the medical student and made modifications to such information, when appropriate. I personally performed a physical exam, medical decision making and then discussed any differences between the notes and made revisions as necessary to create one note. Gabriel Vale , 01/14/21 , 13:23 SKIP LEMUS Jan 14, 2021 08:14 GABRIEL VALE DO Jan 14, 2021 13:23
[2021-01-14] MEDS ORDERED: DexMEDEtomidine 250 ML DRIP 250 ML IV ONE (09:30)
[2021-01-14] MEDS: SENNA W/DOCUSATE (SENOKOT S) TABLET PO SCH ×2 (09:40→20:50)
[2021-01-14] MEDS: PANTOPRAZOLE 40 MG (PROTONIX) VIAL IV SCH (09:41)
[2021-01-14] MEDS: DexMEDEtomidine 250 ML DRIP 250 ML IV SCH (09:41)
--- NOTE | 2021-01-14 09:43 | Progress Note - Hospitalist ---
MARILEE BULLOCK 01/14/21 0943: Subjective HPI/CC On Admission Chief complaint: Atrial fibrillation with rapid ventricular response with acute pancreatitis and severe sepsis History present illness: This is a 70-year-old white female who drinks wine with heavy use who presented to the ER with a couple of days of nausea and vomiting and not feeling well with abdominal pain. She was found to be in atrial fibrillation with rapid ventricular response in addition to hypotension requiring aggressive IV fluid at 30 cc/KG and found to have acute pancreatitis. Dr. Vale obtained U/S this morning. Zosyn was started. Cardiology consulted for atrial fibrillation with right ventricular response. Patient sees Dr. Davis on a regular basis for atrial fibrillation. Currently in the ICU. Subjective/Events-last exam Difficulty directly talking to patient due to bipap. She denies any pain, just experiencing lower abdominal discomfort. Also complains of dry mouth due to bipap. Nursing entered room during encounter and iterated the importance of leaving bipap mask on to avoid desats. Per nursing, started Bipap overnight. She has been reluctant to wear mask and appears anxious. Review of Systems HEENT: No Head Aches Cardiovascular: No: Chest Pain Gastrointestinal: No: Abdominal Pain Focused Exam Lactate Level 01/14/21 13:10: Lactic Acid Level 1.06 Objective Exam Vital Signs Vital Signs Date Time Temp Pulse Resp B/P (MAP) Pulse Ox O2 Delivery O2 Flow Rate FiO2 01/14/21 16:30 84 28 96/61 NIV Bilevel 100.00 01/14/21 16:00 92 100 01/14/21 16:00 35.8 Capillary Refill : Less Than 3 Seconds General Appearance: Anxious Respiratory: Decreased Breath Sounds Cardiovascular: Irregularly Irregular Gastrointestinal: Normal Bowel Sounds, Distended Extremity: No Calf Tenderness, No Pedal Edema Results/Procedures Lab Laboratory Tests 01/14/21 05:15 01/14/21 13:10 Patient resulted labs reviewed. Imaging: Reviewed Imaging Report Assessment/Plan Assessment and Plan Assess & Plan/Chief Complaint Atrial fibrillation with RVR * Patient has a history of chronic atrial fibrillation * OP meds include metoprolol and xarelto * Plan: Continue IV Diltiazem daily for a-fib. Mild basilar atelectasis --> Pulmonary edema * atelectasis iscovered on CXR 01/11/21 * Patient experienced shallow breathing during admission * O2 desaturation and flash pulmonary edema overnight of 01/13-01/14. Started on Bipap * Plan: Continue Bipap. Bumex to reduce edema. Precedex for sedation. Acute Pancreatitis, abdominal pain, distension, sepsis * Patient drinks 1/2 bottle of wine per day * Sepsis resolved * Lipase has dropped from 821 to 412 over last 24 hours * White blood cell count improving * Abdominal u/s and CT scan consistent with pancreatitis * Plan: Continue NPO, Zosyn. Dilaudid and APAP for pain. Alcohol-use disorder, potential for withdrawal * Plan: Lorazepam taper for alcohol withdrawal protocol, continue thiamine/folic acid/mag sulfate/multivitamin/dextrose/NaCl cocktail Hypocalcemia, hypophosphatemia, other electrolytes * Ca++ 01/12: 6.9, corrected 7.5 * Phosphate 2.0 * Potassium 3.9 * Plan: Continue IV Calcium gluconate, KCl. No treatment for low phosphate b/c asymptomatic. GERD * Plan: continue IV pantoprazole daily Diagnosis/Problems Diagnosis/Problems (1) Acute respiratory distress Onset Date: ~ 01/13/2021 Status: Acute Assessment & Plan: Plan: Bipap to keep O2 saturations between 95-100%. Bumex to reduce pulmonary edema. Precedex for sedation. (2) Atrial fibrillation with rapid ventricular response Onset Date: ~ 01/11/2021 Status: Acute Assessment & Plan: Plan: Continue IV Diltiazem daily for a-fib. (3) Pancreatitis Onset Date: ~ 01/09/2021 Status: Acute Assessment & Plan: Plan: Continue NPO, Zosyn. Dilaudid and APAP for pain. Qualifiers: Qualified Codes: K85.20 - Alcohol induced acute pancreatitis without necrosis or infection (4) Severe sepsis Onset Date: ~ 01/11/2021 Status: Resolved Assessment & Plan: Plan: Continue to monitor vital signs and treat with broad spectrum antibiotics. Resolution Date/Time: 01/12/21 @ 16:00 (5) Leukocytosis Onset Date: ~ 01/11/2021 Status: Acute Qualifiers: Qualified Codes: D72.828 - Other elevated white blood cell count JT VEGAS MD 01/14/21 2140: Subjective HPI/CC On Admission Date Seen by Provider: Jan 14, 2021 Time Seen by Provider: 09:30 Objective Exam General Appearance: Anxious, Moderate Distress (on bipap this AM) Respiratory: Accessory Muscle Use, Crackles, Decreased Breath Sounds Cardiovascular: No Murmur, Irregularly Irregular Gastrointestinal: Normal Bowel Sounds, Distended; No Guarding Extremity: Pedal Edema (2+ pitting edema) Neurologic/Psychiatric: Alert, Oriented x3 Assessment/Plan Assessment and Plan Assess & Plan/Chief Complaint Agree with above including Acute Respiratory failure Pulmonary Edema vs ARDS - Started on Bipap, AGB this AM - Lasix given, blood pressures borderline - Weight gain 15 kg in the last 2 days, aim for neg fluid balance - Continue Zosyn, CXR with probable PNA Pancreatitis - Lipase trending down, distension improving Elevated INR - Improving MD Arabella Supervisory-Addendum Brief Verification & Attestation Participated in pt care: history, physical Personally performed: exam, history Care discussed with: Medical Student Procedures: n/a Verification and Attestation of Medical Student E/M Service A medical student performed and documented this service in my presence. I reviewed and verified all information documented by the medical student and made modifications to such information, when appropriate. I personally performed the physical exam and medical decision making. Jt Vegas, Jan 14, 2021,21:39 MARILEE BULLOCK Jan 14, 2021 09:43 JT VEGAS MD Jan 14, 2021 21:40
--- NOTE | 2021-01-14 10:01 | Cardiology Progress Note ---
Subjective Date Seen by Provider: Jan 14, 2021 Time Seen by Provider: 09:56 Subjective/Events-last exam Patient is laying down in bed on BiPAP. Still having shortness of breath Review of Systems General: No Chills, No Night Sweats; Fatigue, Malaise; No Appetite, No Other HEENT: No Head Aches, No Visual Changes, No Eye Pain, No Ear Pain, No Dysphasia, No Sinus Congestion, No Post Nasal Drip, No Sore Throat, No Other Pulmonary: Dyspnea; No Cough, No Pleuritic Chest Pain, No Other Cardiovascular: No: Chest Pain, Palpitations, Orthopnea, Paroxysmal Noc. Dyspnea, Edema, Lt Headedness, Other Focused Exam Lactate Level 01/11/21 10:48: Lactic Acid Level 2.35*H 01/11/21 12:15: Lactic Acid Level 1.76 Objective-Cardiology Exam Last Set of Vital Signs Vital Signs 01/14/21 01/14/21 01/14/21 01/14/21 01/14/21 03:14 04:17 08:45 09:15 09:42 Temp 36.4 Pulse 112 Resp 41 B/P (MAP) 110/72 Pulse Ox 87 O2 Delivery NIV Bilevel O2 Flow Rate 100.00 FiO2 100 I&O Intake and Output 01/14/21 00:00 Intake Total 1810 ml Output Total 700 ml Balance 1110 ml Intake Oral 1810 ml Output Urine Total 700 ml # Voids 5 # Bowel Movements 3 General: Alert, Oriented X3, Mild Distress HEENT: Atraumatic Neck: Supple Lungs: Other (Bilateral rhonchi) Heart: Normal S1, Normal S2, Other (irregular, rapid rate) Abdomen: Other (Abdominal distension with tenderness to palpation. Normal bowel sounds. ) Extremities: No Edema, Normal Pulses Skin: No Rashes Neuro: Normal Speech, Normal Tone, Sensation Intact Psych/Mental Status: Mental Status NL, Mood NL Results Lab Laboratory Tests 01/14/21 05:15 A/P-Cardiology Admission Diagnosis Acute pancreatitis Permanent atrial fibrillation Hypertension Hyperlipidemia Assessment/Plan Status post acute pancreatitis, appears to be improving slowly, managed by medical team Acute respiratory failure, on BiPAP, chest x-ray showing pneumonia, questionable early ARDS, managed by medical team Atrial fibrillation with rapid ventricular response, history of permanent atrial fibrillation. Was on Xarelto as an outpatient. Currently anticoagulation are on hold. Once pancreatitis settle down I am planning to restart oral anticoagulation [id number] score of 3, has been maintained on Xarelto as an outpatient, we will resume oral anticoagulation once her pancreatitis settle down. Echocardiogram done in May 2018 showing normal LV size and function, EF 55 to 65%, PA pressure 40 to 45 mm meter of mercury Stress test done in August 2020 showing no significant ischemia or infarction with EF 74% Hypertension, currently on Cardizem drip. Continue to monitor blood pressures Hyperlipidemia, monitor lipids, hold Lipitor at this time. Mild bilateral carotid stenosis, ultrasound was done in February 2020. Continue to monitor History of alcoholism, drink a few glasses of wine every evening, educated on avoiding alcohol products ADRIEL ROLDAN MD Jan 14, 2021 10:01
[2021-01-14 10:03] LABS: ABG BASE EXCESS -8.4 MMOL/L (-2.5-2.5); ABG OXYGEN SATURATION 97 % (94-100); ABG PCO2 40 MMHG (35-45); ABG PO2 85 MMHG (79-93); ABG TCO2 18.7 MMOL/L (21.0-31.0)
[2021-01-14 10:07] LABS: ABG PH 7.26 (7.37-7.43)
[2021-01-14 10:08] LABS: PATIENT TEMP 36.6; VENTILATOR NO
[2021-01-14 10:09] LABS: INSPIRED O2 100%
[2021-01-14] MEDS ORDERED: BUMETANIDE 1 MG/4 ML (BUMEX) VIAL IV NR (10:45)
--- NOTE | 2021-01-14 10:51 | Tele-ICU Progress Note ---
Subjective Date Seen by a Provider: Jan 14, 2021 Time Seen by a Provider: 10:51 Sepsis Event Evaluation Height, Weight, BMI Height: 5'2.00" Weight: 122lbs. 0.0oz. [id number]; 22.52 BMI Method: Focused Exam Lactate Level 01/11/21 12:15: Lactic Acid Level 1.76 Exam Exam Patient acknowledged, consented, and participated in this virtual visit which was conducted using real time audio/video Vital Signs Date Time Temp Pulse Resp B/P (MAP) Pulse Ox O2 Delivery O2 Flow Rate FiO2 01/14/21 09:58 101 32 97 100.00 01/14/21 09:42 112 01/14/21 09:41 112 01/14/21 09:15 92 41 110/72 NIV Bilevel 100.00 01/14/21 09:00 95/71 01/14/21 08:45 87 28 113/73 87 NIV Bilevel 100.00 01/14/21 08:30 84 33 107/58 NIV Bilevel 100.00 01/14/21 08:15 96 27 104/70 NIV Bilevel 100.00 01/14/21 08:00 87 31 109/66 NIV Bilevel 100.00 01/14/21 07:45 137/67 100.00 01/14/21 07:30 90 29 108/86 NIV Bilevel 100.00 01/14/21 07:22 94 25 95 100.00 01/14/21 07:15 96 28 131/69 NIV Bilevel 100.00 01/14/21 07:00 90 29 123/75 97 NIV Bilevel 100.00 01/14/21 07:00 96 01/14/21 06:00 74 19 96/64 98 NIV Bilevel 100.00 01/14/21 05:00 71 20 92/63 97 NIV Bilevel 100.00 01/14/21 04:17 91 NIV Bilevel 100 01/14/21 04:00 84 27 100/66 97 NIV Bilevel 100.00 01/14/21 03:14 36.4 NIV Bilevel 100.00 01/14/21 03:00 86 22 104/78 96 NIV Bilevel 100.00 01/14/21 02:45 86 28 97 85.00 01/14/21 02:00 74 16 114/67 98 NIV Bilevel 100.00 01/14/21 01:00 96 01/14/21 01:00 96 24 107/66 96 NIV Bilevel 100.00 01/14/21 00:00 36.4 01/14/21 00:00 106 20 134/94 93 NIV Bilevel 100.00 01/13/21 23:48 NIV Bilevel 100 01/13/21 23:00 86 23 156/96 90 NIV Bilevel 100.00 01/13/21 22:59 120 22 90 100.00 01/13/21 22:21 NIV Bilevel 100.00 01/13/21 22:00 111 21 142/90 93 High Flow N/C 9.00 01/13/21 21:20 High Flow N/C 9.00 01/13/21 21:02 92 Nasal Cannula 6.00 01/13/21 21:00 105 25 132/88 91 High Flow N/C 8.00 01/13/21 21:00 High Flow N/C 9.00 01/13/21 20:00 36.0 01/13/21 20:00 92 20 120/85 89 High Flow N/C 8.00 01/13/21 19:00 97 01/13/21 19:00 97 20 126/78 90 High Flow N/C 8.00 01/13/21 18:45 102 21 High Flow N/C 8.00 01/13/21 18:30 110 22 High Flow N/C 8.00 01/13/21 18:30 110 22 145/126 01/13/21 18:15 86 18 135/90 High Flow N/C 8.00 01/13/21 18:15 86 18 135/90 93 High Flow N/C 8.00 01/13/21 18:00 119/89 01/13/21 18:00 113 20 119/89 93 High Flow N/C 8.00 01/13/21 17:45 113 50 141/82 High Flow N/C 8.00 01/13/21 17:45 113 16 141/82 92 High Flow N/C 8.00 01/13/21 17:30 141 21 High Flow N/C 8.00 01/13/21 17:15 93/38 01/13/21 17:15 94 18 93/38 93 High Flow N/C 8.00 01/13/21 17:00 89 21 115/80 High Flow N/C 8.00 01/13/21 17:00 89 21 115/80 93 High Flow N/C 8.00 01/13/21 16:45 118 46 162/74 High Flow N/C 8.00 01/13/21 16:30 98 15 108/83 High Flow N/C 8.00 01/13/21 16:15 96 22 130/57 High Flow N/C 8.00 01/13/21 16:00 36.1 01/13/21 16:00 103 21 124/81 93 High Flow N/C 8.00 01/13/21 16:00 94 High Flow N/C 8.00 01/13/21 15:54 94 Nasal Cannula 6.00 01/13/21 15:45 92 37 118/79 92 High Flow N/C 8.00 01/13/21 15:30 89 17 107/70 High Flow N/C 8.00 01/13/21 15:15 106/73 01/13/21 15:00 93 37 116/69 94 High Flow N/C 8.00 01/13/21 14:45 93 29 117/107 High Flow N/C 8.00 01/13/21 14:30 89 24 118/70 96 High Flow N/C 8.00 01/13/21 14:15 85 21 121/77 High Flow N/C 8.00 01/13/21 14:00 102 30 133/83 93 High Flow N/C 8.00 01/13/21 13:53 84 01/13/21 13:45 89 36 121/76 High Flow N/C 8.00 01/13/21 13:30 101 32 137/82 High Flow N/C 8.00 01/13/21 13:15 96 25 High Flow N/C 8.00 01/13/21 13:00 84 13 111/72 High Flow N/C 8.00 01/13/21 12:45 83 19 125/65 High Flow N/C 8.00 01/13/21 12:30 81 19 117/75 High Flow N/C 8.00 01/13/21 12:15 126/79 01/13/21 12:00 152/97 01/13/21 11:45 99 18 138/84 High Flow N/C 8.00 01/13/21 11:37 92 High Flow N/C 8.00 01/13/21 11:30 93 22 151/107 87 High Flow N/C 8.00 01/13/21 11:15 93 18 128/84 94 High Flow N/C 8.00 01/13/21 11:00 86 27 133/71 High Flow N/C 8.00 I & O 01/14/21 07:00 Intake Total 1220 ml Output Total 825 ml Balance 395 ml Height & Weight Height: 5'2.00" Weight: 122lbs. 0.0oz. [id number]; 22.52 BMI Method: General Appearance: WD/WN, Moderate Distress HEENT: PERRL/EOMI; No Photophobia Neck: Non Tender, Supple Respiratory: No Accessory Muscle Use, Decreased Breath Sounds (B/L) Cardiovascular: No Murmur, Normal Peripheral Pulses, Irregularly Irregular Capillary Refill: Less Than 3 Seconds Gastrointestinal: soft, distended, tenderness (RUQ) Extremity: Normal Capillary Refill, Non Tender, No Calf Tenderness, Pedal Edema Neurologic/Psychiatric: Alert; No Normal Mood/Affect (fatigued) Skin: Normal Color, Warm/Dry Lymphatic: No Adenopathy (cervical) Results Lab Laboratory Tests 01/13/21 04:55 01/14/21 05:15 Assessment/Plan Assessment/Plan (Tele-ICU Physician , Progress Note ) Available chart/ vitals / labs / Images reviewed Video assessment done using teleICU camera, rest of exam as per RN Discussed with RN , EXAM PER RN Events overnight :started on BIPAP Afebrile FiO2 - 8 L I/O = + Drips: cardizem Pressors: , hemodynamically stable Consultants: ROSLYN jordan Hospital course: (01/11) 70 y/o Female - Acute Pancreatitis - A Fib RVR - Cardizem Drip. 01/14 - started on BIPAP, 100% , met acidosis A/P acute pancreatitis probably due to alcohol abuse ( TGL low , No CT evidence of cholelithiasis or acute cholecystitis.) - follow lytes, correct - CT - no abscess - follow on Zosyn - sx consulted Acute resp failure , hypoxic 01/14 - VO vs ARDS , n addition to supected RIGHT PNA - started on BIPAP 22/11 - 100% rr30 tv 300-600 , MV 20L - try diuresis x1 PNA , R>L - already on zosyn ( MRSA swab nehative ) Metabolic acidosis - sandy recheck lactate /LDH - might need repeated CT to assess for ischemia/ abscess A fib RVR - cardizem gtt - as per cards to change to PO - AC - lovenox Thrombocytopenia - probably delutional , but will check HIPA sice she is on lovenox - add fibrinohgen to am labs History of alcohol abuse - vitamins -ciwa Lines : (Central Line Necessity Reviewed)= PICC LINE ordered Hwang: OG: Nutrition: Analgesia: Anxiety/ delirium VTE Prophylaxis: izabella 60 bid Stress Ulcer Prophylaxis: ppi Glycemic Control: Plans in collaboration with bedside consultants and IM MDs. Discussed with RN to reach out if any questions or concerns A total of 40 minutes of critical care time was devoted to this patient today, required to treat and/or prevent further deterioration of critical care condition ( as above) ALYCE CRANE MD Jan 14, 2021 10:51
--- NOTE | 2021-01-14 11:15 | Occupational Ther Daily Note ---
OT Current Status-Daily Note Subjective Pt sitting on BSC with nrsg present in room. Pt alert, no c/o pain. Pt agrees to therapy. Mental Status/Objective Patient Orientation: Person, Place, Time, Situation Attachments: Hwang Catheter, IV, Oxygen (NIV Bilevel), Telemetry ADL-Treatment Pt required assist x2 to complete toilet transfer and toileting. Min A to stand with BRITTON while nrsg completed hygiene. Assist to SPT while assist of 2nd person to manipulate tubing, BSC->EOB. Pt sit->supine CGA then was able to scoot self up in bed. Therapy Code Descriptions/Definitions Functional [place] Measure: 0=Not Assessed/NA 4=Minimal Assistance 1=Total Assistance 5=Supervision or Setup 2=Maximal Assistance 6=Modified [place] 3=Moderate Assistance 7=Complete IndependenceSCALE: Activities may be completed with or without assistive devices. 6-Atjzrvwtqy-cawswcz completes the activity by him/herself with no assistance from a helper. 5-Set-up or Clean-up Assistance-helper sets up or cleans up; patient completes activity. [place] assists only prior to or following the activity. 4-Supervision or Touching Assistance-helper provides verbal cues and/or touching/steadying and/or contact guard assistance as patient completes activity. Assistance may be provided throughout the activity or intermittently. 3-Partial/Moderate Assistance-helper does LESS THAN HALF the effort. [place] lifts, holds or supports trunk or limbs, but provides less than half the effort. 2-Substantial/Maximal Assistance-helper does MORE THAN HALF the effort. [place] lifts or holds trunk or limbs and provides more than half the effort. 2-Pnvtoqjcm-jsaihk does ALL the effort. Patient does none of the effort to co mplete the activity. Or, the assistance of 2 or more helpers is required for the patient to complete the activity. If activity was not attempted, code reason: 7-Patient Refused. 9-Not Applicable-not attempted and the patient did not perform the activity before the current illness, exacerbation or injury. 10-Not Attempted due to Environmental Limitations-(lack of equipment, weather restraints, etc.). 88-Not Attempted due to Medical Conditions or Safety Concerns. Other Treatment Pt engaged in skilled therapeutic exercises against gravity to increase B UE strength and activity tolerance to complete ADL tasks. Pt completed 10 reps x2 sets of alternating shoulder touching crossing midline, B horizontal shoulder abduction 15 reps, B shoulder flexion/extension to 90 degrees 10 reps. Monitored O2 SAT levels during therapy, pt at 90% and above throughout. After session, pt supine in bed with call light/phone within reach. All needs met in room. OT Halfway Goals Wood Machinist Goals Time Frame: Jan 30, 2021 Oral Hygiene (QC): 5 Toileting Hygiene (QC): 4 Upper Body Dressing (QC): 5 Lower Body Dressing (QC): 4 On/Off Footwear (QC): 5 1=Demonstrate adherence to instructed precautions during ADL tasks. 2=Patient will verbalize/demonstrate understanding of assistive devices/modifications for ADL. 3=Patient will improve strength/tolerance for activity to enable patient to perform ADL's. OT Education/Plan Problem List/Assessment Assessment: Decreased Activ Tolerance, Decreased UE Strength, Dependent Transfers Discharge Recommendations Plan/Recommendations: Continue POC Treatment Plan/Plan of Care Patient would benefit from OT for education, treatment and training to promote independence in ADL's, mobility, safety and/or upper extremity function for AD L's. Plan of Care: ADL Retraining, Functional Mobility, Group Exercise/Act as Ind, UE Funct Exercise/Act Treatment Duration: Jan 30, 2021 Frequency: 3 times per week Estimated Hrs Per Day: .25 hour per day Agreement: Yes Rehab Potential: Fair Time/GCodes Start Time: 10:43 Stop Time: 11:01 Total Time Billed (hr/min): 18 Billed Treatment Time 1 Visit- FA (18 min) ABIODUN CHACON Jan 14, 2021 11:14
--- NOTE | 2021-01-14 12:17 | Physical Therapy Daily Note ---
PT Daily Note-Current Subjective Pt c/o "dry mouth" and "I need moisture" several times. Pt nurse indicated she is NPO at this time. Pt agreeable to treatment. Mental Status Patient Orientation: Person Attachments: Oxygen, Hwang Catheter, IV multiple lines Transfers SCALE: Activities may be completed with or without assistive devices. 2-Daqpjenucg-citlpff completes the activity by him/herself with no assistance from a helper. 5-Set-up or Clean-up Assistance-helper sets up or cleans up; patient completes activity. [place] assists only prior to or following the activity. 4-Supervision or Touching Assistance-helper provides verbal cues and/or touching/steadying and/or contact guard assistance as patient completes activity. Assistance may be provided throughout the activity or intermittently. 3-Partial/Moderate Assistance-helper does LESS THAN HALF the effort. [place] lifts, holds or supports trunk or limbs, but provides less than half the effort. 2-Substantial/Maximal Assistance-helper does MORE THAN HALF the effort. [place] lifts or holds trunk or limbs and provides more than half the effort. 9-Dwdhsilpo-umonjn does ALL the effort. Patient does none of the effort to complete the activity. Or, the assistance of 2 or more helpers is required for the patient to complete the activity. If activity was not attempted, code reason: 7-Patient Refused. 9-Not Applicable-not attempted and the patient did not perform the activity before the current illness, exacerbation or injury. 10-Not Attempted due to Environmental Limitations-(lack of equipment, weather restraints, etc.). 88-Not Attempted due to Medical Conditions or Safety Concerns. Exercises Supine Ex: Ankle pumps, Quad Set, Heel Slides, Hip abd/add Supine Reps: 15 Treatments Pt restless, fidgeting with mask. Pt sat up and tried to sit EOB despite cues for pt to stop due to multiple lines pulling tight. Pt found a comfortable position sitting upright in her bed with one leg folded. Pt sat in middle of bed x 3-4min. Pt eventually repositioned with pillows under her LEs to float heels and pt covered. Pt continually moving her mask sideways on her face. Pt rec'd all vc's to align mask over her nose and mouth. O2 sats remained >92% throughout the treatment. Assessment Current Status: Fair Progress Pt appeared to madeleine treatment fairly well. Pt was distracted by her mask and appeared restless. Pt resting comfortable at end of treatment with O2 and all lines remaining in place throughout the treatment. Call light in reach and her nurse nearby. PT Fci Goals Fci Goals PT Typo Machine Operator Goals Time Frame: Jan 31, 2021 Roll Left & Right (QC): 6 Sit to Lying (QC): 6 Lying-Sitting on Side/Bed(QC): 6 Sit to Stand (QC): 6 Chair/Rmw-mf-Ioynu Xfer(QC): 6 Toilet Transfer (QC): 6 Walk 10 feet (QC): 6 Walk 50ft with 2 Turns (QC): 6 Walk 150 ft (QC): 6 PT Plan Treatment/Plan Treatment Plan: Continue Plan of Care Treatment Plan: Bed Mobility, Education, Functional Activity Wu, Functional Strength, Gait, Safety, Therapeutic Exercise, Transfers Treatment Duration: Jan 31, 2021 Frequency: 6 times per week Estimated Hrs Per Day: .5 hour per day Patient and/or Family Agrees t: Yes Time/GCodes Time In: 1109 Time Out: 1133 Total Billed Treatment Time: 24 Total Billed Treatment 1, ther ex 24' GREGORIO SUÁREZ CPTA Jan 14, 2021 12:17
--- NOTE | 2021-01-14 12:41 | Diagnostic Imaging Report ---
CLINICAL INDICATION: Patient post PICC line placement. EXAM: Portable chest x-ray, upright view. COMPARISON: Chest x-ray dated 01/12/2021 at 0354 hours. FINDINGS AND IMPRESSION: 1: Interval placement of a right PICC line seen with the tip in the high right atrium. This catheter should be withdrawn roughly 4 cm for improved positioning. 2: Diffuse bilateral lung infiltrates are again seen with slight improved aeration of the bibasilar regions and right upper lobe. 3: The remainder of this exam shows no significant interval change compared to the prior study of comparison. Dictated by: Dictated on workstation # [id number]
[2021-01-14 13:41] LABS: POTASSIUM 3.8 MMOL/L (3.6-5.0)
[2021-01-14 13:43] LABS: CALCIUM 7.9 MG/DL (8.5-10.1)
[2021-01-14 13:47] LABS: CREATININE SERUM 1.02 MG/DL (0.60-1.30)
[2021-01-14] MEDS: ONDANSETRON 4 MG/2 ML (SDV) Z0FRAN IVP PRN (15:13)
[2021-01-14] MEDS: HYDROcodone/APAP 5 MG/325 MG (LORTAB) TAB PO PRN (20:51)
[2021-01-15] MEDS: PIPERACILLIN/TAZOBACTAM (BULK) 4.5 GM in NS (IVPB) 100 ML IV SCH ×3 (01:03→17:55)
[2021-01-15] MEDS: RT-ALBUTEROL SULF 2.5 MG/3 ML PRE-MIX VIAL INH SCH ×4 (02:10→21:38)
[2021-01-15 04:47] LABS: ABG BASE EXCESS -6.2 MMOL/L (-2.5-2.5); ABG OXYGEN SATURATION 97 % (94-100); ABG PCO2 42 MMHG (35-45); ABG PO2 90 MMHG (79-93); ABG TCO2 20.6 MMOL/L (21.0-31.0)
[2021-01-15 04:48] LABS: ALLENS TEST POSITIVE; EOSINOPHILS % (AUTO) 0 % (0-10); MEAN CORPUSCULAR VOLUME 101 fL (80-99); WHITE BLOOD COUNT 11.5 10^3/uL (4.3-11.0)
[2021-01-15 04:49] LABS: INSPIRED O2 100 % BIPAP; PATIENT TEMP 36.5; VENTILATOR NO
[2021-01-15 04:50] LABS: ABG PH 7.29 (7.37-7.43); BASOPHILS # (AUTO) 0.1 10^3/uL (0.0-0.1); BASOPHILS % (AUTO) 1 % (0-10); HEMATOCRIT 32 % (35-52); HEMOGLOBIN 10.8 g/dL (11.5-16.0); LYMPHOCYTES # (AUTO) 0.5 10^3/uL (1.0-4.0); LYMPHOCYTES % (AUTO) 5 % (12-44); MEAN CORPUSCULAR HEMOGLOBIN 34 pg (25-34); MEAN CORPUSCULAR HGB CONC 34 g/dL (32-36); MEAN PLATELET VOLUME 11.6 fL (9.0-12.2); MONOCYTES % (AUTO) 8 % (0-12); NEUTROPHILS # (AUTO) 9.7 10^3/uL (1.8-7.8); NEUTROPHILS % (AUTO) 85 % (42-75); PLATELET COUNT 142 10^3/uL (130-400)
[2021-01-15 05:06] LABS: ALBUMIN 2.4 GM/DL (3.2-4.5); POTASSIUM 3.6 MMOL/L (3.6-5.0)
[2021-01-15 05:08] LABS: CALCIUM 8.1 MG/DL (8.5-10.1)
[2021-01-15 05:09] LABS: TOTAL PROTEIN 5.4 GM/DL (6.4-8.2)
[2021-01-15 05:11] LABS: BILIRUBIN,TOTAL 1.1 MG/DL (0.1-1.0)
[2021-01-15 05:12] LABS: PHOSPHORUS 2.2 MG/DL (2.3-4.7)
[2021-01-15 05:13] LABS: CREATININE SERUM 1.08 MG/DL (0.60-1.30)
[2021-01-15 05:16] LABS: MAGNESIUM 2.4 MG/DL (1.6-2.4)
[2021-01-15] MEDS: MAGNESIUM 1 GM/100 ML IVPB 100 ML IV SCH (05:24)
[2021-01-15] MEDS: KCL 20 MEQ TAB (K-DUR) PO SCH (05:24)
[2021-01-15] MEDS: POTASSIUM CL 10MEQ/50ML IVPB 50 ML IV SCH ×6 (05:42→21:51)
[2021-01-15 07:18] VITALS: BP 141/79
--- NOTE | 2021-01-15 08:20 | Cardiology Progress Note ---
Subjective Date Seen by Provider: Jan 15, 2021 Time Seen by Provider: 08:18 Subjective/Events-last exam Patient is laying down in bed, still on BiPAP. No chest pain. Review of Systems General: No Chills, No Night Sweats; Fatigue, Malaise; No Appetite, No Other HEENT: No Head Aches, No Visual Changes, No Eye Pain, No Ear Pain, No Dysphasia, No Sinus Congestion, No Post Nasal Drip, No Sore Throat, No Other Pulmonary: Dyspnea; No Cough, No Pleuritic Chest Pain, No Other Cardiovascular: No: Chest Pain, Palpitations, Orthopnea, Paroxysmal Noc. Dyspnea, Edema, Lt Headedness, Other Focused Exam Lactate Level 01/14/21 13:10: Lactic Acid Level 1.06 Objective-Cardiology Exam Last Set of Vital Signs Vital Signs 01/15/21 01/15/21 01/15/21 01/15/21 04:00 06:00 07:18 08:12 Temp 36.0 Pulse 85 Resp 33 B/P (MAP) 120/65 Pulse Ox 90 O2 Delivery NIV Bilevel O2 Flow Rate 100.00 FiO2 100 I&O Intake and Output 01/15/21 00:00 Intake Total 490 ml Output Total 1425 ml Balance -935 ml Intake Oral 0 ml IV Total 490 ml Output Urine Total 1425 ml General: Alert, Oriented X3, Mild Distress HEENT: Atraumatic Neck: Supple Lungs: Other (Bilateral rhonchi) Heart: Normal S1, Normal S2, Other (irregular, rapid rate) Abdomen: Other (Abdominal distension with tenderness to palpation. Normal bowel sounds. ) Extremities: No Edema, Normal Pulses Skin: No Rashes Neuro: Normal Speech, Normal Tone, Sensation Intact Psych/Mental Status: Mental Status NL, Mood NL Results Lab Laboratory Tests 01/14/21 13:10 01/15/21 04:25 A/P-Cardiology Admission Diagnosis Acute pancreatitis Permanent atrial fibrillation Hypertension Hyperlipidemia Assessment/Plan Status post acute pancreatitis, appears to be improving slowly, managed by medical team Acute respiratory failure, on BiPAP, still having significant dyspnea, consider using Vapotherm, managed by medical team. Atrial fibrillation with rapid ventricular response, history of permanent atrial fibrillation. Was on Xarelto as an outpatient. I will restart Xarelto and m onitor tolerance and response [id number] score of 3, has been maintained on Xarelto as an outpatient, I will restart Xarelto and monitor tolerance and response Echocardiogram done in May 2018 showing normal LV size and function, EF 55 to 65%, PA pressure 40 to 45 mm meter of mercury Stress test done in August 2020 showing no significant ischemia or infarction with EF 74% Hypertension, currently on Cardizem drip. Continue to monitor blood pressures Hyperlipidemia, monitor lipids, hold Lipitor at this time. Mild bilateral carotid stenosis, ultrasound was done in February 2020. Continue to monitor History of alcoholism, drink a few glasses of wine every evening, educated on avoiding alcohol products ADRIEL ROLDAN MD Jan 15, 2021 08:20
[2021-01-15] MEDS: dilTIAZem DRIP PRE-MIX 125 ML IV SCH ×2 (08:34→23:35)
[2021-01-15] MEDS ORDERED: FUROSEMIDE 40 MG/4 ML INJ (LASIX) IVP NR (08:40)
[2021-01-15] MEDS: PANTOPRAZOLE 40 MG (PROTONIX) VIAL IV SCH (09:22)
[2021-01-15] MEDS: SENNA W/DOCUSATE (SENOKOT S) TABLET PO SCH ×2 (09:22→20:04)
--- NOTE | 2021-01-15 09:41 | Occupational Ther Daily Note ---
OT Current Status-Daily Note Subjective Pt laying supine in bed, drowsy. No c/o pain. Pt reluctant to do therapy. Pt encouraged to participate in therapy. Mental Status/Objective Patient Orientation: Confused, Place, Non-Verbal/Aphasic Attachments: IV, Oxygen (BiPap 100), Telemetry ADL-Treatment Therapy Code Descriptions/Definitions Functional [place] Measure: 0=Not Assessed/NA 4=Minimal Assistance 1=Total Assistance 5=Supervision or Setup 2=Maximal Assistance 6=Modified [place] 3=Moderate Assistance 7=Complete IndependenceSCALE: Activities may be completed with or without assistive devices. 9-Scwffvpzwp-cavsvhi completes the activity by him/herself with no assistance from a helper. 5-Set-up or Clean-up Assistance-helper sets up or cleans up; patient completes activity. [place] assists only prior to or following the activity. 4-Supervision or Touching Assistance-helper provides verbal cues and/or touching/steadying and/or contact guard assistance as patient completes activity. Assistance may be provided throughout the activity or intermittently. 3-Partial/Moderate Assistance-helper does LESS THAN HALF the effort. [place] lifts, holds or supports trunk or limbs, but provides less than half the effort. 2-Substantial/Maximal Assistance-helper does MORE THAN HALF the effort. [place] lifts or holds trunk or limbs and provides more than half the effort. 6-Wsdkgruhw-ijyiix does ALL the effort. Patient does none of the effort to complete the activity. Or, the assistance of 2 or more helpers is required for the patient to complete the activity. If activity was not attempted, code reason: 7-Patient Refused. 9-Not Applicable-not attempted and the patient did not perform the activity before the current illness, exacerbation or injury. 10-Not Attempted due to Environmental Limitations-(lack of equipment, weather restraints, etc.). 88-Not Attempted due to Medical Conditions or Safety Concerns. Other Treatment Pt participated in skilled therapeutic exercise to strengthen B UE, increase B UE ROM, and activity tolerance for ADL completion. Pt completed 10 reps of B horizontal shoulder abduction against gravity, 10 reps B elbow flexion/extension against gravity with recovery breaks needed between sets. Pt participated in AAROM exercise of shoulder flexion/extension 10 reps. Pt refused to continue with exercises due to fatigue. Nrsg present in room. After session, pt laying supine in bed with call light/phone within reach. All needs met in room. 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 2=Patient will verbalize/demonstrate understanding of assistive dev ices/modifications for ADL. 3=Patient will improve strength/tolerance for activity to enable patient to perform ADL's. OT Education/Plan Problem List/Assessment Assessment: Decreased Activ Tolerance, Decreased UE Strength, Impaired Cognition Discharge Recommendations Plan/Recommendations: Continue POC Treatment Plan/Plan of Care Patient would benefit from OT for education, treatment and training to promote independence in ADL's, mobility, safety and/or upper extremity function for ADL's. Plan of Care: ADL Retraining, Functional Mobility, Group Exercise/Act as Ind, UE Funct Exercise/Act Treatment Duration: Jan 30, 2021 Frequency: 3 times per week Estimated Hrs Per Day: .25 hour per day Agreement: Yes Rehab Potential: Fair Time/GCodes Start Time: 09:21 Stop Time: 09:31 Total Time Billed (hr/min): 10 Billed Treatment Time 1 Visit- EX (10 min) ABIODUN CHACON Jan 15, 2021 09:41
--- NOTE | 2021-01-15 09:52 | Tele-ICU Progress Note ---
Subjective Date Seen by a Provider: Jan 15, 2021 Time Seen by a Provider: 09:52 Sepsis Event Evaluation Height, Weight, BMI Height: 5'2.00" Weight: 122lbs. 0.0oz. [id number]; 22.52 BMI Method: Focused Exam Lactate Level 01/14/21 13:10: Lactic Acid Level 1.06 Exam Exam Patient acknowledged, consented, and participated in this virtual visit which was conducted using real time audio/video Vital Signs Date Time Temp Pulse Resp B/P (MAP) Pulse Ox O2 Delivery O2 Flow Rate FiO2 01/15/21 08:12 36.0 01/15/21 07:18 85 33 90 100.00 01/15/21 07:00 88 01/15/21 06:00 80 30 120/65 92 NIV Bilevel 100.00 01/15/21 05:00 85 26 125/63 90 NIV Bilevel 100.00 01/15/21 04:00 90 20 112/71 92 NIV Bilevel 100.00 01/15/21 04:00 93 NIV Bilevel 100 01/15/21 03:24 36.3 NIV Bilevel 100.00 01/15/21 03:00 87 20 135/65 93 NIV Bilevel 100.00 01/15/21 02:09 75 30 90 100.00 01/15/21 02:00 79 26 119/77 92 NIV Bilevel 100.00 01/15/21 01:00 85 01/15/21 01:00 77 19 133/64 96 NIV Bilevel 100.00 01/15/21 00:00 79 19 128/70 95 NIV Bilevel 100.00 01/15/21 00:00 95 NIV Bilevel 100 01/14/21 23:00 86 24 115/59 95 NIV Bilevel 100.00 01/14/21 22:58 36.2 NIV Bilevel 100.00 01/14/21 22:00 90 21 114/56 95 NIV Bilevel 100.00 01/14/21 21:33 85 32 92 100.00 01/14/21 21:00 76 26 125/69 88 NIV Bilevel 100.00 01/14/21 20:00 70 23 106/60 94 NIV Bilevel 100.00 01/14/21 20:00 94 NIV Bilevel 100 01/14/21 19:37 36.0 01/14/21 19:00 94 NIV Bilevel 100.00 01/14/21 19:00 68 01/14/21 19:00 68 25 105/60 95 NIV Bilevel 100.00 01/14/21 18:31 76 30 94 100.00 01/14/21 18:00 25 112/47 NIV Bilevel 100.00 01/14/21 17:45 27 99/55 NIV Bilevel 100.00 01/14/21 17:30 93 31 111/77 NIV Bilevel 100.00 01/14/21 17:15 102 35 129/77 NIV Bilevel 100.00 01/14/21 17:00 86 29 101/60 NIV Bilevel 100.00 01/14/21 16:45 86 41 100/75 NIV Bilevel 100.00 01/14/21 16:30 84 28 96/61 NIV Bilevel 100.00 01/14/21 16:15 84 26 103/81 NIV Bilevel 100.00 01/14/21 16:00 92 NIV Bilevel 100 01/14/21 16:00 35.8 01/14/21 16:00 93 33 93/67 NIV Bilevel 100.00 01/14/21 15:45 88 40 105/68 NIV Bilevel 100.00 01/14/21 15:30 92 39 116/74 NIV Bilevel 100.00 01/14/21 15:15 95 27 125/74 NIV Bilevel 100.00 01/14/21 15:00 88 30 119/67 NIV Bilevel 100.00 01/14/21 14:53 80 29 94 100.00 01/14/21 14:45 67 20 90/58 NIV Bilevel 100.00 01/14/21 14:30 69 18 89/63 NIV Bilevel 100.00 01/14/21 14:18 65 18 81/59 NIV Bilevel 100.00 01/14/21 14:15 78 19 79/64 91 NIV Bilevel 100.00 01/14/21 14:00 66 18 84/58 NIV Bilevel 100.00 01/14/21 13:15 104/66 01/14/21 13:00 68 01/14/21 13:00 79 29 104/82 NIV Bilevel 100.00 01/14/21 12:45 86 34 128/70 NIV Bilevel 100.00 01/14/21 12:30 103 43 127/78 NIV Bilevel 100.00 01/14/21 12:28 115/82 01/14/21 12:15 71 28 87/60 NIV Bilevel 100.00 01/14/21 12:09 68 17 89/58 96 NIV Bilevel 100.00 01/14/21 12:05 67 20 82/53 NIV Bilevel 100.00 01/14/21 12:00 36.0 01/14/21 12:00 66 22 81/58 NIV Bilevel 100.00 01/14/21 12:00 92 NIV Bilevel 100 01/14/21 11:51 76 29 95/59 NIV Bilevel 100.00 01/14/21 11:45 71 24 90/59 NIV Bilevel 100.00 01/14/21 11:30 87 41 107/73 96 NIV Bilevel 100.00 01/14/21 11:15 102 60 142/102 NIV Bilevel 100.00 01/14/21 11:00 87 31 101/57 NIV Bilevel 100.00 01/14/21 10:45 110 29 129/74 NIV Bilevel 100.00 01/14/21 10:30 82 28 99/64 NIV Bilevel 100.00 01/14/21 10:15 87 38 109/64 NIV Bilevel 100.00 01/14/21 10:00 83 30 108/69 NIV Bilevel 100.00 01/14/21 09:58 101 32 97 100.00 I & O 01/15/21 07:00 Intake Total 120 ml Output Total 1400 ml Balance -1280 ml Height & Weight Height: 5'2.00" Weight: 122lbs. 0.0oz. 55.436150is; 22.52 BMI Method: General Appearance: Anxious, Moderate Distress (on bipap this AM) HEENT: PERRL/EOMI Neck: Non Tender, Supple Respiratory: Accessory Muscle Use, Crackles, Decreased Breath Sounds Cardiovascular: No Murmur, Irregularly Irregular Capillary Refill: Less Than 3 Seconds Gastrointestinal: soft, distended (maybe same or better than yesterday), tenderness (epigastric) Extremity: Pedal Edema (2+ pitting edema) Neurologic/Psychiatric: Alert, Oriented x3 Skin: Normal Color, Warm/Dry Lymphatic: No Adenopathy (cervical) Results Lab Laboratory Tests 01/14/21 05:15 01/14/21 13:10 01/15/21 04:25 Assessment/Plan Assessment/Plan (Tele-ICU Physician , Progress Note ) Available chart/ vitals / labs / Images reviewed Video assessment done using teleICU camera, rest of exam as per RN Discussed with RN , EXAM PER RN Events overnight :started on BIPAP Afebrile FiO2 - 8 L I/O = + Drips: cardizem, precedex Pressors: , hemodynamically stable Consultants: ROSLYN jordan Hospital course: (01/11) 70 y/o Female - Acute Pancreatitis - A Fib RVR - Cardizem Drip. 01/14 - started on BIPAP 16/10 - 100% rr30 tv 300-600 , MV 20L + PRECEDEX,, met acidosis, attempted diuresis 1L 01/15 - BIPAP 16/10 - 100% rr30 tv 300-600 , MV 16 L A/P acute pancreatitis probably due to alcohol abuse ( TGL low , No CT evidence of cholelithiasis or acute cholecystitis.) - follow lytes, correct - CT - no abscess - follow on Zosynbanana - sx consulted Acute resp failure , hypoxic 01/14 - VO vs ARDS , n addition to supected RIGHT PNA - started on BIPAP 16/10 - 100% rr30 tv 300-600 , MV 20L - try diuresis x1 01/14 - negative 1 L - to cont PNA , R>L - already on zosyn ( MRSA swab nehative ) Metabolic acidosis - neg lactate / elev LDH - abdomen exam is better as per bedside ( sx signed off 01/14 - might need repeated CT to assess for ischemia/ abscess A fib RVR - cardizem gtt - as per cards to change to PO - AC lovenox - changed to xarelto 01/15 Thrombocytopenia - probably delutional , but will check HIPA sice she is on lovenox History of alcohol abuse - vitamins po -ciwa Nutrition - will try po today - if not tolerates - CONSIDER TPN soon anxiety - precedex for now - might meed small dose of benzo with h/o ETOH Lines : PICC LINE 01/14 (Central Line Necessity Reviewed)= Hwang: + OG: Nutrition: Analgesia: Anxiety/ delirium VTE Prophylaxis: xarelto Stress Ulcer Prophylaxis: ppi Glycemic Control: Plans in collaboration with bedside consultants and IM MDs. Discussed with RN to reach out if any questions or concerns A total of 40 minutes of critical care time was devoted to this patient today, required to treat and/or prevent further deterioration of critical care condition ( as above) ALYCE CRANE MD Jan 15, 2021 09:52
[2021-01-15 10:13] VITALS: BP 94/77
--- NOTE | 2021-01-15 11:10 | Pulmonary Progress Note ---
[facility] BOWMAN 01/15/21 1110: Subjective Subjective/Events-last exam Patient is on BiPAP with some diffiulty communicating. No complaints at this time. Denies increasing shortness of breath, fever, chills, or abdominal pain. Review of Systems General: No Chills, No Night Sweats Pulmonary: No Dyspnea Cardiovascular: No: Chest Pain Gastrointestinal: No: Nausea, Vomiting, Abdominal Pain Exam Exam Patient acknowledged, consented, and participated in this virtual visit which was conducted using real time audio/video Vital Signs Date Time Temp Pulse Resp B/P (MAP) Pulse Ox O2 Delivery O2 Flow Rate FiO2 01/15/21 10:13 80 43 90 100.00 01/15/21 09:00 62 30 114/84 89 NIV Bilevel 100.00 01/15/21 09:00 85 0/0 90 NIV Bilevel 100.00 01/15/21 08:12 36.0 01/15/21 08:00 91 115/64 87 NIV Bilevel 100.00 01/15/21 08:00 89 NIV Bilevel 100 01/15/21 07:18 85 33 90 100.00 01/15/21 07:00 96 7 141/79 89 NIV Bilevel 100.00 01/15/21 07:00 88 01/15/21 06:00 80 30 120/65 92 NIV Bilevel 100.00 01/15/21 05:00 85 26 125/63 90 NIV Bilevel 100.00 01/15/21 04:00 90 20 112/71 92 NIV Bilevel 100.00 01/15/21 04:00 93 NIV Bilevel 100 01/15/21 03:24 36.3 NIV Bilevel 100.00 01/15/21 03:00 87 20 135/65 93 NIV Bilevel 100.00 01/15/21 02:09 75 30 90 100.00 01/15/21 02:00 79 26 119/77 92 NIV Bilevel 100.00 01/15/21 01:00 85 01/15/21 01:00 77 19 133/64 96 NIV Bilevel 100.00 01/15/21 00:00 79 19 128/70 95 NIV Bilevel 100.00 01/15/21 00:00 95 NIV Bilevel 100 01/14/21 23:00 86 24 115/59 95 NIV Bilevel 100.00 01/14/21 22:58 36.2 NIV Bilevel 100.00 01/14/21 22:00 90 21 114/56 95 NIV Bilevel 100.00 01/14/21 21:33 85 32 92 100.00 01/14/21 21:00 76 26 125/69 88 NIV Bilevel 100.00 01/14/21 20:00 70 23 106/60 94 NIV Bilevel 100.00 01/14/21 20:00 94 NIV Bilevel 100 01/14/21 19:37 36.0 01/14/21 19:00 94 NIV Bilevel 100.00 01/14/21 19:00 68 01/14/21 19:00 68 25 105/60 95 NIV Bilevel 100.00 01/14/21 18:31 76 30 94 100.00 01/14/21 18:00 25 112/47 NIV Bilevel 100.00 01/14/21 17:45 27 99/55 NIV Bilevel 100.00 01/14/21 17:30 93 31 111/77 NIV Bilevel 100.00 01/14/21 17:15 102 35 129/77 NIV Bilevel 100.00 01/14/21 17:00 86 29 101/60 NIV Bilevel 100.00 01/14/21 16:45 86 41 100/75 NIV Bilevel 100.00 01/14/21 16:30 84 28 96/61 NIV Bilevel 100.00 01/14/21 16:15 84 26 103/81 NIV Bilevel 100.00 01/14/21 16:00 92 NIV Bilevel 100 01/14/21 16:00 35.8 01/14/21 16:00 93 33 93/67 NIV Bilevel 100.00 01/14/21 15:45 88 40 105/68 NIV Bilevel 100.00 01/14/21 15:30 92 39 116/74 NIV Bilevel 100.00 01/14/21 15:15 95 27 125/74 NIV Bilevel 100.00 01/14/21 15:00 88 30 119/67 NIV Bilevel 100.00 01/14/21 14:53 80 29 94 100.00 01/14/21 14:45 67 20 90/58 NIV Bilevel 100.00 01/14/21 14:30 69 18 89/63 NIV Bilevel 100.00 01/14/21 14:18 65 18 81/59 NIV Bilevel 100.00 01/14/21 14:15 78 19 79/64 91 NIV Bilevel 100.00 01/14/21 14:00 66 18 84/58 NIV Bilevel 100.00 01/14/21 13:15 104/66 01/14/21 13:00 68 01/14/21 13:00 79 29 104/82 NIV Bilevel 100.00 01/14/21 12:45 86 34 128/70 NIV Bilevel 100.00 01/14/21 12:30 103 43 127/78 NIV Bilevel 100.00 01/14/21 12:28 115/82 01/14/21 12:15 71 28 87/60 NIV Bilevel 100.00 01/14/21 12:09 68 17 89/58 96 NIV Bilevel 100.00 01/14/21 12:05 67 20 82/53 NIV Bilevel 100.00 01/14/21 12:00 36.0 01/14/21 12:00 66 22 81/58 NIV Bilevel 100.00 01/14/21 12:00 92 NIV Bilevel 100 01/14/21 11:51 76 29 95/59 NIV Bilevel 100.00 01/14/21 11:45 71 24 90/59 NIV Bilevel 100.00 01/14/21 11:30 87 41 107/73 96 NIV Bilevel 100.00 01/14/21 11:15 102 60 142/102 NIV Bilevel 100.00 I & O 01/15/21 07:00 Intake Total 120 ml Output Total 1400 ml Balance -1280 ml Height & Weight Height: 5'2.00" Weight: 122lbs. 0.0oz. 55.460203si; 22.52 BMI Method: General Appearance: Anxious, Moderate Distress (on bipap this AM) HEENT: PERRL/EOMI Neck: Non Tender, Supple Respiratory: Accessory Muscle Use, Crackles, Decreased Breath Sounds Cardiovascular: No Murmur, Irregularly Irregular Capillary Refill: Less Than 3 Seconds Gastrointestinal: soft, distended (maybe same or better than yesterday), tenderness (epigastric) Extremity: Pedal Edema (2+ pitting edema) Neurologic/Psychiatric: Alert, Oriented x3 Skin: Normal Color, Warm/Dry Lymphatic: No Adenopathy (cervical) Results Lab Laboratory Tests 01/14/21 05:15 12/8/21 13:10 01/15/21 04:25 Assessment/Plan Assessment/Plan acute pancreatitis probably due to alcohol abuse * Slowly improving * Advance diet as tolerated * Fluids stopped due to volume overload concern Acute resp failure , hypoxic 01/14 * Volume overload vs ARDS vs Pneumonia * On BIPAP 100% RR 30 * Continue diuresis with Lasix for negative fluid balance * Currently on zosyn A fib RVR * Managed by cardiology * Cardizem drip * Started on Xarelto PO which she is on at home * Lovenox d/c Thrombocytopenia * Dilutional vs HIT * HIPA pending * Continue diuresis Nutrition * Attempt PO feeding with Ensure * Consider TPN if not tolerating PO feeds Critical Care: Critically Ill Patient ALYCE CRANE MD 01/15/21 1214: Subjective Date Seen by a Provider: Jan 15, 2021 Time Seen by a Provider: 12:13 Supervisory-Addendum Brief Verification & Attestation Participated in pt care: history, MDM, physical Personally performed: exam, history, MDM, supervision of care Care discussed with: Medical Student Procedures: n/a Results interpretation: Verified all documentation A medical student performed and documented this service. I reviewed information documented by the medical student . Medical student performed patients physical exam . Medical decision making was done during tele-rounds with this medical student and a bedside RN . Please see my notes for details /clarification of assessment and plans [facility] BOWMAN Jan 15, 2021 11:10 ALYCE CRANE MD Jan 15, 2021 12:14
--- NOTE | 2021-01-15 13:36 | Physical Therapy Daily Note ---
PT Daily Note-Current Subjective Patient difficult to understand while on the CPAP, however nods her head yes in approval for treatment. Mental Status Patient Orientation: Person Attachments: Oxygen, Hwang Catheter, IV Transfers SCALE: Activities may be completed with or without assistive devices. 9-Omhbmuefds-wnujskc completes the activity by him/herself with no assistance from a helper. 5-Set-up or Clean-up Assistance-helper sets up or cleans up; patient completes activity. [place] assists only prior to or following the activity. 4-Supervision or Touching Assistance-helper provides verbal cues and/or touching/steadying and/or contact guard assistance as patient completes activity. Assistance may be provided throughout the activity or intermittently. 3-Partial/Moderate Assistance-helper does LESS THAN HALF the effort. [place] lifts, holds or supports trunk or limbs, but provides less than half the effort. 2-Substantial/Maximal Assistance-helper does MORE THAN HALF the effort. [place] lifts or holds trunk or limbs and provides more than half the effort. 5-Mwibwtzha-fannle does ALL the effort. Patient does none of the effort to co mplete the activity. Or, the assistance of 2 or more helpers is required for the patient to complete the activity. If activity was not attempted, code reason: 7-Patient Refused. 9-Not Applicable-not attempted and the patient did not perform the activity before the current illness, exacerbation or injury. 10-Not Attempted due to Environmental Limitations-(lack of equipment, weather restraints, etc.). 88-Not Attempted due to Medical Conditions or Safety Concerns. Roll Left & Right (QC): 3 Sit to Lying (QC): 3 Lying to Sitting/Side of Bed(Q: 3 Sit to Stand (QC): 3 Gait Training Does the Patient Walk?: No and Walking Goal IS indicated Exercises Supine Ex: Ankle pumps, Quad Set, Glut sets, Heel Slides, Short Arc Quads, Straight leg raise, Hip abd/add Supine Reps: 20 Assessment Current Status: Fair Progress Patient tolerated treatment fair. Performs LE therapeutic exercise in supine as listed above. Requires min a for all observed bed mobility and sit to stand. Patient demonstrates decline in O2 sats to 84-87% while sitting and was only able to tolerate sitting ~3-5 minutes. Patient was able to perform sit to stand with min A and move up higher in the bed. Patient in bed post treatment with all needs met, nursing notified, call light in reach and nurse in the room. PT Fdc Goals Site Worker Goals PT Site Worker Goals Time Frame: Jan 31, 2021 Roll Left & Right (QC): 6 Sit to Lying (QC): 6 Lying-Sitting on Side/Bed(QC): 6 Sit to Stand (QC): 6 Chair/Xfs-ty-Hmusc Xfer(QC): 6 Toilet Transfer (QC): 6 Walk 10 feet (QC): 6 Walk 50ft with 2 Turns (QC): 6 Walk 150 ft (QC): 6 PT Plan Treatment/Plan Treatment Plan: Continue Plan of Care Treatment Plan: Bed Mobility, Education, Functional Activity Wu, Functional Strength, Gait, Safety, Therapeutic Exercise, Transfers Treatment Duration: Jan 31, 2021 Frequency: 6 times per week Estimated Hrs Per Day: .5 hour per day Patient and/or Family Agrees t: Yes Safety Risks/Education Patient Education: Transfer Techniques, Safety Issues Teaching Recipient: Patient Teaching Methods: Demonstration, Discussion Response to Teaching: Reinforcement Needed Time/GCodes Time In: 845 Time Out: 915 Total Billed Treatment Time: 30 Total Billed Treatment Visit, FA, TRA Salmon PT Jan 15, 2021 13:36
[2021-01-15 15:21] VITALS: BP 121/72
[2021-01-15] MEDS: RIVAROXABAN 20 MG TABLET (XARELTO) PO SCH (17:55)
--- NOTE | 2021-01-15 17:59 | Progress Note - Hospitalist ---
MARILEE BULLOCK 01/15/21 1759: Subjective HPI/CC On Admission Chief complaint: Atrial fibrillation with rapid ventricular response with acute pancreatitis and severe sepsis History present illness: This is a 70-year-old white female who drinks wine with heavy use who presented to the ER with a couple of days of nausea and vomiting and not feeling well with abdominal pain. She was found to be in atrial fibrillation with rapid ventricular response in addition to hypotension requiring aggressive IV fluid at 30 cc/KG and found to have acute pancreatitis. Dr. Vale obtained U/S this morning. Zosyn was started. Cardiology consulted for atrial fibrillation with right ventricular response. Patient sees Dr. Davis on a regular basis for atrial fibrillation. Currently in the ICU. Subjective/Events-last exam No events since yesterday. Cardiology changed anti-coagulation to PO. Patient is still on BiPAP. No pain this morning. Patient appears very anxious. Thinks last bowel movement was yesterday. Hope to try vapotherm over lunch so she can receive oral nutrition. Review of Systems HEENT: No Head Aches, No Visual Changes Pulmonary: Dyspnea Cardiovascular: No: Chest Pain Gastrointestinal: No: Abdominal Pain Focused Exam Lactate Level 01/14/21 13:10: Lactic Acid Level 1.06 Objective Exam Vital Signs Vital Signs Date Time Temp Pulse Resp B/P (MAP) Pulse Ox O2 Delivery O2 Flow Rate FiO2 01/15/21 16:00 36.4 01/15/21 16:00 105 120/70 86 NIV Bilevel 100.00 01/15/21 15:21 36 01/15/21 12:00 100 Capillary Refill : Less Than 3 Seconds General Appearance: Anxious, Moderate Distress Neck: Supple Respiratory: Chest Non Tender, Decreased Breath Sounds, Respiratory Distress Cardiovascular: Irregularly Irregular Gastrointestinal: Non Tender, Soft Extremity: Pedal Edema Neurologic/Psychiatric: Alert, Oriented x3 Results/Procedures Lab Laboratory Tests 01/15/21 04:25 01/15/21 17:38 Patient resulted labs reviewed. Imaging: Reviewed Imaging Report Assessment/Plan Assessment and Plan Assess & Plan/Chief Complaint Atrial fibrillation with RVR * Patient has a history of chronic atrial fibrillation * OP meds include metoprolol and xarelto * Plan: Continue IV Diltiazem daily for a-fib. PO xarelto for anticoagulation per cards. Mild basilar atelectasis --> Pulmonary edema * atelectasis iscovered on CXR 01/11/21 * Patient experienced shallow breathing during admission * O2 desaturation and flash pulmonary edema overnight of 01/13-01/14. Started on Bipap * Plan: Continue Bipap. Lasix to reduce edema. Precedex for sedation. Acute Pancreatitis, abdominal pain, distension, sepsis * Patient drinks 1/2 bottle of wine per day * Sepsis resolved * Lipase has dropped from 821 to 412 over last 24 hours * White blood cell count improving * Abdominal u/s and CT scan consistent with pancreatitis * Plan: Continue NPO, Zosyn. Hydrocodone/APAP for moderate pain. Dilaudid for severe pain. Alcohol-use disorder, potential for withdrawal * Plan: Lorazepam taper for alcohol withdrawal protocol GERD/ulcer prophylaxis * Plan: continue IV pantoprazole daily Hypocalcemia, hypophosphatemia, other electrolytes * Ca++ 01/12: 6.9, corrected 7.5 * Phosphate 2.0 * Potassium 3.9 * Plan: Follow lytes daily with CMP Constipation * Plan: Senna Time spent with patient (mins): 10 Diagnosis/Problems Diagnosis/Problems (1) Acute respiratory distress Onset Date: ~ 01/13/2021 Status: Acute Assessment & Plan: Plan: Bipap to keep O2 saturations between 95-100%. Lasix to reduce edema. Precedex for sedation. (2) Atrial fibrillation with rapid ventricular response Onset Date: ~ 01/11/2021 Status: Acute Assessment & Plan: Plan: Continue IV Diltiazem daily for a-fib. PO xarelto for anticoagulation per cards. (3) Pancreatitis Onset Date: ~ 01/09/2021 Status: Acute Assessment & Plan: Plan: Continue NPO, Zosyn. Dilaudid and APAP for pain. Qualifiers: Qualified Codes: K85.20 - Alcohol induced acute pancreatitis without necrosis or infection (4) Severe sepsis Onset Date: ~ 01/11/2021 Status: Resolved Assessment & Plan: Plan: Continue to monitor vital signs and treat with broad spectrum antibiotics. Resolution Date/Time: 01/12/21 @ 16:00 (5) Leukocytosis Onset Date: ~ 01/11/2021 Status: Acute Qualifiers: Qualified Codes: D72.828 - Other elevated white blood cell count JT VEGAS MD 01/15/21 2215: Subjective HPI/CC On Admission Date Seen by Provider: Jan 15, 2021 Time Seen by Provider: 09:15 Assessment/Plan Assessment and Plan Assess & Plan/Chief Complaint Agree with above including: Acute Respiratory Failure: ARDS vs Flash Pulmonary edema: patient at high risk for intubation, critical care Critical Care: Critically Ill Patient Time spent with patient (mins): 30 Supervisory-Addendum Brief Verification & Attestation Participated in pt care: history, physical Personally performed: exam, history Care discussed with: Medical Student Procedures: n/a Verification and Attestation of Medical Student E/M Service A medical student performed and documented this service in my presence. I reviewed and verified all information documented by the medical student and made modifications to such information, when appropriate. I personally performed the physical exam and medical decision making. Jt Vegas, Jan 15, 2021,22:15 MARILEE BULLOCK Jan 15, 2021 17:59 JT VEGAS MD Jan 15, 2021 22:15
[2021-01-15] MEDS ORDERED: POTASSIUM CL 10MEQ/50ML IVPB 50 ML IV ONE (18:00)
[2021-01-15 19:17] VITALS: BP 117/76
[2021-01-15 19:55] LABS: ABG BASE EXCESS -1.6 MMOL/L (-2.5-2.5); ABG OXYGEN SATURATION 91 % (94-100); ABG PCO2 42 MMHG (35-45); ABG PH 7.36 (7.37-7.43); ABG PO2 62 MMHG (79-93); ABG TCO2 24.7 MMOL/L (21.0-31.0)
[2021-01-15 19:56] LABS: ALLENS TEST YES-POS; INSPIRED O2 100%; VENTILATOR NO
[2021-01-15 19:57] LABS: PATIENT TEMP 35.9
[2021-01-15 21:38] VITALS: BP 110/70
[2021-01-15] MEDS: DexMEDEtomidine 250 ML DRIP 250 ML IV SCH (23:34)
[2021-01-16] MEDS: PIPERACILLIN/TAZOBACTAM (BULK) 4.5 GM in NS (IVPB) 100 ML IV SCH ×2 (00:54→10:00)
[2021-01-16 03:10] VITALS: BP 106/73
[2021-01-16] MEDS: RT-ALBUTEROL SULF 2.5 MG/3 ML PRE-MIX VIAL INH SCH ×4 (03:10→21:17)
[2021-01-16 03:51] LABS: BASOPHILS # (AUTO) 0.1 10^3/uL (0.0-0.1); BASOPHILS % (AUTO) 1 % (0-10); EOSINOPHILS % (AUTO) 0 % (0-10); HEMATOCRIT 33 % (35-52); HEMOGLOBIN 10.9 g/dL (11.5-16.0); LYMPHOCYTES # (AUTO) 0.8 10^3/uL (1.0-4.0); LYMPHOCYTES % (AUTO) 5 % (12-44); MEAN CORPUSCULAR HEMOGLOBIN 34 pg (25-34); MEAN CORPUSCULAR HGB CONC 34 g/dL (32-36); MEAN CORPUSCULAR VOLUME 102 fL (80-99); MEAN PLATELET VOLUME 11.7 fL (9.0-12.2); MONOCYTES # (AUTO) 1.2 10^3/uL (0.0-1.0); MONOCYTES % (AUTO) 8 % (0-12); NEUTROPHILS # (AUTO) 13.4 10^3/uL (1.8-7.8); NEUTROPHILS % (AUTO) 85 % (42-75); PLATELET COUNT 155 10^3/uL (130-400); WHITE BLOOD COUNT 15.8 10^3/uL (4.3-11.0)
[2021-01-16 03:59] LABS: ALBUMIN 2.5 GM/DL (3.2-4.5)
[2021-01-16 04:00] LABS: CALCIUM 8.7 MG/DL (8.5-10.1)
[2021-01-16 04:01] LABS: TOTAL PROTEIN 5.7 GM/DL (6.4-8.2)
[2021-01-16 04:03] LABS: BILIRUBIN,TOTAL 0.9 MG/DL (0.1-1.0)
[2021-01-16 04:04] LABS: PHOSPHORUS 2.2 MG/DL (2.3-4.7)
[2021-01-16 04:05] LABS: CREATININE SERUM 1.16 MG/DL (0.60-1.30)
[2021-01-16 04:08] LABS: MAGNESIUM 1.9 MG/DL (1.6-2.4)
[2021-01-16 05:18] LABS: ABG BASE EXCESS -1.7 MMOL/L (-2.5-2.5); ABG OXYGEN SATURATION 97 % (94-100); ABG PCO2 43 MMHG (35-45); ABG PH 7.35 (7.37-7.43); ABG PO2 86 MMHG (79-93); ABG TCO2 24.7 MMOL/L (21.0-31.0); ALLENS TEST YES-POS; INSPIRED O2 100%; PATIENT TEMP 35.9; VENTILATOR NO
[2021-01-16] MEDS: KCL 20 MEQ TAB (K-DUR) PO SCH (05:18)
[2021-01-16] MEDS: MAGNESIUM 1 GM/100 ML IVPB 100 ML IV SCH (05:18)
[2021-01-16] MEDS: POTASSIUM CL 10MEQ/50ML IVPB 50 ML IV SCH (05:18)
--- NOTE | 2021-01-16 05:55 | Diagnostic Imaging Report ---
EXAMINATION: Chest 1 view HISTORY: Hypoxia COMPARISON: 01/14/2021 FINDINGS: Right upper extremity peripherally inserted central venous catheter tip terminates in the superior vena cava. There has been progression of severe bilateral airspace opacities. No pleural effusion or pneumothorax. Heart size is normal. IMPRESSION: 1. Progression of severe bilateral airspace opacities consistent with pneumonia. Dictated by: Dictated on workstation # [id number]
[2021-01-16] MEDS: THIAMINE 100 MG (VITAMIN B-1) TAB PO SCH (06:24)
[2021-01-16 07:27] VITALS: BP 105/71
--- NOTE | 2021-01-16 08:53 | Tele-ICU Progress Note ---
Subjective Date Seen by a Provider: Jan 16, 2021 Time Seen by a Provider: 08:53 Subjective/Events-last exam She is a 70-year-old female admitted with acute pancreatitis, bilateral pneumonia with hypoxic respiratory failure currently on BiPAP ventilation with 100% FiO2 with 18/12 on the BiPAP. Patient apparently told the RN today that she does not want to be intubated and want to be a DNR. She wants to be removed from the BiPAP and receive comfort care. We are awaiting to be informed about this to the patient's brother who does not live locally and a longtime boyfriend. RN spoke to the formerly [facility]. Awaiting to inform the attending physician as well. I have made a video visit and assisted with a te lemetry ICU camera. Also available data, vitals, labs, images reviewed. I respect her wishes and await to be informed to her brother and boyfriend as well as attending physician Review of Systems ros per rn Sepsis Event Evaluation Height, Weight, BMI Height: 5'2.00" Weight: 122lbs. 0.0oz. 55.399059wf; 22.52 BMI Method: Focused Exam Lactate Level 01/14/21 13:10: Lactic Acid Level 1.06 Exam Exam Patient acknowledged, consented, and participated in this virtual visit which was conducted using real time audio/video Vital Signs Date Time Temp Pulse Resp B/P (MAP) Pulse Ox O2 Delivery O2 Flow Rate FiO2 01/16/21 08:00 36.3 01/16/21 07:27 83 40 96 100.00 01/16/21 07:00 88 01/16/21 07:00 88 01/16/21 06:00 77 31 108/78 93 NIV Bilevel 100.00 01/16/21 05:00 87 43 114/65 95 NIV Bilevel 100.00 01/16/21 04:00 91 NIV Bilevel 100 01/16/21 04:00 84 30 122/71 92 NIV Bilevel 100.00 01/16/21 03:39 35.9 01/16/21 03:10 75 28 85 100.00 01/16/21 03:00 77 28 106/73 85 NIV Bilevel 100.00 01/16/21 02:01 87 128/79 NIV Bilevel 100.00 01/16/21 01:00 79 01/16/21 01:00 79 122/83 94 NIV Bilevel 100.00 01/16/21 00:00 75 37 101/65 96 NIV Bilevel 100.00 01/16/21 00:00 90 NIV Bilevel 100 01/15/21 23:39 36.0 01/15/21 23:00 80 34 105/72 92 NIV Bilevel 100.00 01/15/21 22:00 90 34 111/69 87 NIV Bilevel 100.00 01/15/21 21:38 81 36 87 100.00 01/15/21 21:00 82 49 119/60 84 NIV Bilevel 100.00 01/15/21 20:00 88 NIV Bilevel 100 01/15/21 20:00 35.8 01/15/21 20:00 85 39 114/67 86 NIV Bilevel 100.00 01/15/21 19:17 89 38 88 100.00 01/15/21 19:00 83 01/15/21 19:00 83 39 112/59 87 NIV Bilevel 100.00 01/15/21 18:00 88 99/57 92 NIV Bilevel 100.00 01/15/21 17:00 86 97/66 88 NIV Bilevel 100.00 01/15/21 16:00 89 NIV Bilevel 100 01/15/21 16:00 36.4 01/15/21 16:00 105 120/70 86 NIV Bilevel 100.00 01/15/21 15:21 82 36 90 100.00 01/15/21 15:00 86 115/58 92 NIV Bilevel 100.00 01/15/21 14:00 89 108/63 86 NIV Bilevel 100.00 01/15/21 13:00 91 01/15/21 13:00 87 115/64 88 NIV Bilevel 100.00 01/15/21 12:00 89 NIV Bilevel 100 01/15/21 12:00 87 15 102/59 86 NIV Bilevel 100.00 01/15/21 11:00 96 11 112/75 91 NIV Bilevel 100.00 01/15/21 10:13 80 43 90 100.00 01/15/21 10:00 68 114/83 86 NIV Bilevel 100.00 01/15/21 09:00 62 30 114/84 89 NIV Bilevel 100.00 01/15/21 09:00 85 0/0 90 NIV Bilevel 100.00 I & O 01/16/21 07:00 Intake Total 1415 ml Output Total 2800 ml Balance -1385 ml Height & Weight Height: 5'2.00" Weight: 122lbs. 0.0oz. 55.399637lz; 22.52 BMI Method: General Appearance: Anxious, Moderate Distress HEENT: PERRL/EOMI Neck: Supple Respiratory: Chest Non Tender, Decreased Breath Sounds, Respiratory Distress Cardiovascular: Irregularly Irregular Capillary Refill: Less Than 3 Seconds Gastrointestinal: soft, distended (maybe same or better than yesterday), tenderness (epigastric) Extremity: Pedal Edema Neurologic/Psychiatric: Alert, Oriented x3 Skin: Normal Color, Warm/Dry Lymphatic: No Adenopathy (cervical) Other comments PE PER RN Results Lab Laboratory Tests 01/14/21 13:10 01/15/21 04:25 01/15/21 17:38 01/16/21 03:44 Assessment/Plan Assessment/Plan 1. Acute pancreatitis slowly improving. 2. Bilateral pneumonia with acute hypoxic respiratory failure requiring 100% FiO2 and a BiPAP of 18/12. 3. Atrial fibrillation with rapid ventricular rate cardiology on the case. 4. Patient wants a DNR/DNI and wants to go on comfort care. Recommendations 1. I agree with her wishes and will notify patient's long-term boyfriend and patient's brother as well as the attending physician. 2. Pastoral care informed. 3. Agree with DNR/DNI comfort measures per patient wishes Critical Care: Critically Ill Patient Time spent with patient (mins): 25 LARRY SILVA MD Jan 16, 2021 08:53
--- NOTE | 2021-01-16 09:45 | Cardiology Progress Note ---
Subjective Date Seen by Provider: Jan 16, 2021 Time Seen by Provider: 09:44 Subjective/Events-last exam Patient was seen at bedside, sedated, on BiPAP. Still short of breath Review of Systems General: No Chills, No Night Sweats; Fatigue, Malaise; No Appetite, No Other HEENT: No Head Aches, No Visual Changes, No Eye Pain, No Ear Pain, No Dysphasia, No Sinus Congestion, No Post Nasal Drip, No Sore Throat, No Other Pulmonary: Dyspnea; No Cough, No Pleuritic Chest Pain, No Other Cardiovascular: No: Chest Pain, Palpitations, Orthopnea, Paroxysmal Noc. Dyspnea, Edema, Lt Headedness, Other Focused Exam Lactate Level 01/14/21 13:10: Lactic Acid Level 1.06 Objective-Cardiology Exam Last Set of Vital Signs Vital Signs 01/16/21 01/16/21 08:00 09:00 Temp 36.3 Pulse 80 Resp 27 B/P (MAP) 106/71 Pulse Ox 94 O2 Delivery NIV Bilevel O2 Flow Rate 100.00 FiO2 100 I&O Intake and Output 01/16/21 00:00 Intake Total 1195 ml Output Total 2975 ml Balance -1780 ml Intake Oral 275 ml IV Total 920 ml Output Urine Total 2975 ml General: Mild Distress, Other (Sedated) HEENT: Atraumatic Neck: Supple Lungs: Other (Bilateral rhonchi) Heart: Normal S1, Normal S2, Other (irregular, rapid rate) Abdomen: Other (Abdominal distension with tenderness to palpation. Normal bowel sounds. ) Extremities: No Edema, Normal Pulses Skin: No Rashes Neuro: Normal Speech, Normal Tone, Sensation Intact Psych/Mental Status: Other (Sedated) Results Lab Laboratory Tests 01/15/21 17:38 01/16/21 03:44 A/P-Cardiology Admission Diagnosis Acute pancreatitis Permanent atrial fibrillation Hypertension Hyperlipidemia Assessment/Plan Status post acute pancreatitis, appears to be improving slowly, managed by medical team Acute respiratory failure, on BiPAP, still having significant dyspnea, on BiPAP, chest x-ray showed worsening pulmonary infiltrate. Managed by medical team. Atrial fibrillation with rapid ventricular response, history of permanent atrial fibrillation. Started back on Xarelto. [id number] score of 3, started back on Xarelto. Echocardiogram done in May 2018 showing normal LV size and function, EF 55 to 65%, PA pressure 40 to 45 mm meter of mercury Stress test done in August 2020 showing no significant ischemia or infarction with EF 74% Hypertension, currently on Cardizem drip. Continue to monitor blood pressures Hyperlipidemia, monitor lipids, hold Lipitor at this time. Mild bilateral carotid stenosis, ultrasound was done in February 2020. Continue to monitor History of alcoholism, drink a few glasses of wine every evening, educated on avoiding alcohol products ADRIEL ROLDAN MD Jan 16, 2021 09:45
[2021-01-16] MEDS: PANTOPRAZOLE 40 MG (PROTONIX) VIAL IV SCH (09:54)
[2021-01-16] MEDS: SENNA W/DOCUSATE (SENOKOT S) TABLET PO SCH ×2 (09:54→20:06)
[2021-01-16] MEDS: FOLIC ACID 1 MG TAB PO SCH (09:54)
[2021-01-16] MEDS: FUROSEMIDE 40 MG/4 ML INJ (LASIX) IVP SCH ×2 (09:54→20:05)
--- NOTE | 2021-01-16 10:20 | Progress Note - Hospitalist ---
MARILEE BULLOCK 01/16/21 1020: Subjective HPI/CC On Admission Date Seen by Provider: Jan 16, 2021 Time Seen by Provider: 09:30 Chief complaint: Atrial fibrillation with rapid ventricular response with acute pancreatitis and severe sepsis History present illness: This is a 70-year-old white female who drinks wine with heavy use who presented to the ER with a couple of days of nausea and vomiting and not feeling well with abdominal pain. She was found to be in atrial fibrillation with rapid ventricular response in addition to hypotension requiring aggressive IV fluid at 30 cc/KG and found to have acute pancreatitis. Dr. Vale obtained U/S this morning. Zosyn was started. Cardiology consulted for atrial fibrillation with right ventricular response. Patient sees Dr. Davis on a regular basis for atrial fibrillation. Currently in the ICU. Subjective/Events-last exam Patient sitting in bed with BIPAP sleeping. She reports general discomfort and pain and does not feel like she is improving. Overnight, patient removed BIPAP on two separate occasions which resulted in severe desaturations. Per nursing, Cheri is frustrated with the care she has received and is tired of doing this. She is "ready to call it." Patient has been made DNR, DNI. Daily weights are significantly elevated from admission (~25 kilos). Discussed with Cheri that we should try and get more fluid off before giving up. Review of Systems General: Malaise Pulmonary: Dyspnea Cardiovascular: Edema Focused Exam Lactate Level 01/14/21 13:10: Lactic Acid Level 1.06 Objective Exam Vital Signs Vital Signs Date Time Temp Pulse Resp B/P (MAP) Pulse Ox O2 Delivery O2 Flow Rate FiO2 01/16/21 12:00 96 NIV Bilevel 100 01/16/21 11:10 36.7 01/16/21 10:00 79 32 119/77 100.00 Capillary Refill : Less Than 3 Seconds General Appearance: Anxious, Moderate Distress Neck: Normal Inspection Respiratory: Decreased Breath Sounds Cardiovascular: Regular Rate, Rhythm Gastrointestinal: Normal Bowel Sounds, Distended Extremity: Pedal Edema (Bilateral 2+ edema to knee) Results/Procedures Lab Laboratory Tests 01/15/21 17:38 01/16/21 03:44 Patient resulted labs reviewed. Imaging: Reviewed Imaging Report Assessment/Plan Assessment and Plan Assess & Plan/Chief Complaint Atrial fibrillation with RVR * Patient has a history of chronic atrial fibrillation * OP meds include metoprolol and xarelto * Plan: Continue IV Diltiazem daily for a-fib. PO xarelto for anticoagulation per cards. Mild basilar atelectasis --> Pulmonary edema * atelectasis iscovered on CXR 01/11/21 * Patient experienced shallow breathing during admission * O2 desaturation and flash pulmonary edema overnight of 01/13-01/14. Started on Bipap * Plan: Continue Bipap. Scheduled Lasix BID to reduce edema. Precedex for sedation. Acute Pancreatitis, abdominal pain, distension, sepsis * Patient drinks 1/2 bottle of wine per day * Sepsis resolved * Lipase has dropped from 821 to 412 over last 24 hours * White blood cell count improving * Abdominal u/s and CT scan consistent with pancreatitis * Plan: Continue NPO, Zosyn. Hydrocodone/APAP for moderate pain. Dilaudid for severe pain. Alcohol-use disorder, potential for withdrawal * Plan: Lorazepam taper for alcohol withdrawal protocol GERD/ulcer prophylaxis * Plan: continue IV pantoprazole daily Hypocalcemia, hypophosphatemia, other electrolytes * Ca++ 01/12: 6.9, corrected 7.5 * Phosphate 2.0 * Potassium 3.9 * Plan: Follow lytes daily with CMP Constipation * Plan: Senna Time spent with patient (mins): 10 Diagnosis/Problems Diagnosis/Problems (1) Acute respiratory distress Onset Date: ~ 01/13/2021 Status: Acute Assessment & Plan: Plan: Bipap to keep O2 saturations between 95-100%. Schedu led lasix BID to reduce edema. Precedex for sedation. (2) Atrial fibrillation with rapid ventricular response Onset Date: ~ 01/11/2021 Status: Acute Assessment & Plan: Plan: Continue IV Diltiazem daily for a-fib. PO xarelto for anticoagulation per cards. (3) Pancreatitis Onset Date: ~ 01/09/2021 Status: Acute Assessment & Plan: Plan: Continue NPO, Zosyn. Dilaudid and APAP for pain. Qualifiers: Qualified Codes: K85.20 - Alcohol induced acute pancreatitis without necrosis or infection (4) Severe sepsis Onset Date: ~ 01/11/2021 Status: Resolved Assessment & Plan: Plan: Continue to monitor vital signs and treat with broad spectrum antibiotics. Resolution Date/Time: 01/12/21 @ 16:00 (5) Leukocytosis Onset Date: ~ 01/11/2021 Status: Acute Qualifiers: Qualified Codes: D72.828 - Other elevated white blood cell count JT VEGAS MD 01/16/212116: Assessment/Plan Assessment and Plan Time spent with patient (mins): 40 Supervisory-Addendum Brief Verification & Attestation Participated in pt care: history, physical Personally performed: exam, history Care discussed with: Medical Student Procedures: n/a Verification and Attestation of Medical Student E/M Service A medical student performed and documented this service in my presence. I reviewed and verified all information documented by the medical student and made modifications to such information, when appropriate. I personally performed the physical exam and medical decision making. Jt Vegas, Jan 16, 2021,21:16 MARILEE BULLOCK Jan 16, 2021 10:20 JT VEGAS MD Jan 16, 2021 21:17
--- NOTE | 2021-01-16 10:52 | Pulmonary Progress Note ---
NHI BOWMAN 01/16/21 1052: Subjective Subjective/Events-last exam The patient remains on BIPAP. She is now requesting to be DNR/DNI. Patient spoke with pastoral services and her brother as well as her boyfriend will be informed of her wishes. Review of Systems General: No Chills, No Night Sweats HEENT: No Head Aches, No Visual Changes Pulmonary: No Dyspnea, No Cough Cardiovascular: No: Chest Pain, Palpitations Gastrointestinal: No: Nausea, Vomiting, Abdominal Pain Genitourinary: No Dysuria, No Frequency Musculoskeletal: No: other, neck pain, shoulder pain, arm pain, back pain, hand pain, leg pain, foot pain Neurological: No: Weakness, Numbness Exam Exam Patient acknowledged, consented, and participated in this virtual visit which was conducted using real time audio/video Vital Signs Date Time Temp Pulse Resp B/P (MAP) Pulse Ox O2 Delivery O2 Flow Rate FiO2 01/16/21 10:00 36.5 79 32 119/77 94 NIV Bilevel 100.00 01/16/21 09:00 80 27 106/71 94 NIV Bilevel 100.00 01/16/21 08:00 87 114/79 95 NIV Bilevel 100.00 01/16/21 08:00 96 NIV Bilevel 100 01/16/21 08:00 36.3 01/16/21 07:27 83 40 96 100.00 01/16/21 07:00 77 30 108/64 95 NIV Bilevel 100.00 01/16/21 07:00 88 01/16/21 07:00 88 01/16/21 06:00 77 31 108/78 93 NIV Bilevel 100.00 01/16/21 05:00 87 43 114/65 95 NIV Bilevel 100.00 01/16/21 04:00 91 NIV Bilevel 100 01/16/21 04:00 84 30 122/71 92 NIV Bilevel 100.00 01/16/21 03:39 35.9 01/16/21 03:10 75 28 85 100.00 01/16/21 03:00 77 28 106/73 85 NIV Bilevel 100.00 01/16/21 02:01 87 128/79 NIV Bilevel 100.00 01/16/21 01:00 79 01/16/21 01:00 79 122/83 94 NIV Bilevel 100.00 01/16/21 00:00 75 37 101/65 96 NIV Bilevel 100.00 01/16/21 00:00 90 NIV Bilevel 100 01/15/21 23:39 36.0 01/15/21 23:00 80 34 105/72 92 NIV Bilevel 100.00 01/15/21 22:00 90 34 111/69 87 NIV Bilevel 100.00 01/15/21 21:38 81 36 87 100.00 01/15/21 21:00 82 49 119/60 84 NIV Bilevel 100.00 01/15/21 20:00 88 NIV Bilevel 100 01/15/21 20:00 35.8 01/15/21 20:00 85 39 114/67 86 NIV Bilevel 100.00 01/15/21 19:17 89 38 88 100.00 01/15/21 19:00 83 01/15/21 19:00 83 39 112/59 87 NIV Bilevel 100.00 01/15/21 18:00 88 99/57 92 NIV Bilevel 100.00 01/15/21 17:00 86 97/66 88 NIV Bilevel 100.00 01/15/21 16:00 89 NIV Bilevel 100 01/15/21 16:00 36.4 01/15/21 16:00 105 120/70 86 NIV Bilevel 100.00 01/15/21 15:21 82 36 90 100.00 01/15/21 15:00 86 115/58 92 NIV Bilevel 100.00 01/15/21 14:00 89 108/63 86 NIV Bilevel 100.00 01/15/21 13:00 91 01/15/21 13:00 87 115/64 88 NIV Bilevel 100.00 01/15/21 12:00 89 NIV Bilevel 100 01/15/21 12:00 87 15 102/59 86 NIV Bilevel 100.00 01/15/21 11:00 96 11 112/75 91 NIV Bilevel 100.00 I & O 01/16/21 06:59 Intake Total 1415 ml Output Total 2800 ml Balance -1385 ml Height & Weight Height: 5'2.00" Weight: 122lbs. 0.0oz. 55.546287qt; 22.52 BMI Method: General Appearance: Anxious, Moderate Distress HEENT: PERRL/EOMI Neck: Supple Respiratory: Chest Non Tender, Decreased Breath Sounds, Respiratory Distress Cardiovascular: Irregularly Irregular Capillary Refill: Less Than 3 Seconds Gastrointestinal: soft, distended (maybe same or better than yesterday), tenderness (epigastric) Extremity: Pedal Edema Neurologic/Psychiatric: Alert, Oriented x3 Skin: Normal Color, Warm/Dry Lymphatic: No Adenopathy (cervical) Results Lab Laboratory Tests 01/14/21 13:10 01/15/21 04:25 01/15/21 17:38 01/16/21 03:44 Assessment/Plan Assessment/Plan Acute pancreatistis: * Improving * IV fluis discontinued due to concern for volume overload and worsening respiratory status Acute respiratory failure due to ARDS vs Pneumonia * Patient on BIPAP 100% * Last day of zosyn * Leukocytosis worsening * CXR shows progression of lung opacities Patient is wanting to be DNR/DNI LARRY SILVA MD 01/17/21 0744: Subjective Date Seen by a Provider: Jan 16, 2021 Time Seen by a Provider: 12:00 Supervisory-Addendum Brief Verification & Attestation Participated in pt care: history, physical Personally performed: exam, history Care discussed with: Medical Student Procedures: n/a I have personally supervised the medical student and participated in examination ,history taking and formation of treatment protocol NHI BOWMAN Jan 16, 2021 10:52 LARRY SILVA MD Jan 17, 2021 07:44
--- NOTE | 2021-01-16 12:02 | Occ Therapy Progress Note ---
Therapy Progress Note OT visited with pt's nurse prior to entering pt's room. Pt's nurse states pt has had difficulty maintaining O2 saturation while on BiPAP with minimal activity, but states pt OK to be seen if pt will participate. OT attempted tx, but pt indicates she would just like to rest at this time. Pt's O2 saturation between 85%-90% at rest while on BiPAP. OT will attempt tx next available date per pt request and due to pt's low O2 saturation at rest. 1, visit 1150 GIOVANNI ALEXANDER OT Jan 16, 2021 12:02
[2021-01-16 14:02] VITALS: BP 105/71
[2021-01-16] MEDS: RIVAROXABAN 20 MG TABLET (XARELTO) PO SCH (19:34)
[2021-01-16] MEDS: dilTIAZem DRIP PRE-MIX 125 ML IV SCH (20:06)
[2021-01-16] MEDS: ACETAMINOPHEN 325 MG TABLET PO PRN (23:44)
[2021-01-17] MEDS: DexMEDEtomidine 250 ML DRIP 250 ML IV SCH (02:11)
[2021-01-17] MEDS: RT-ALBUTEROL SULF 2.5 MG/3 ML PRE-MIX VIAL INH SCH ×3 (02:12→15:24)
[2021-01-17 02:24] VITALS: BP 109/68
[2021-01-17 03:04] LABS: BASOPHILS # (AUTO) 0.1 10^3/uL (0.0-0.1); BASOPHILS % (AUTO) 1 % (0-10); EOSINOPHILS % (AUTO) 0 % (0-10); HEMATOCRIT 32 % (35-52); HEMOGLOBIN 10.9 g/dL (11.5-16.0); LYMPHOCYTES # (AUTO) 0.7 10^3/uL (1.0-4.0); LYMPHOCYTES % (AUTO) 4 % (12-44); MEAN CORPUSCULAR HEMOGLOBIN 34 pg (25-34); MEAN CORPUSCULAR HGB CONC 35 g/dL (32-36); MEAN CORPUSCULAR VOLUME 98 fL (80-99); MEAN PLATELET VOLUME 11.5 fL (9.0-12.2); MONOCYTES # (AUTO) 0.9 10^3/uL (0.0-1.0); MONOCYTES % (AUTO) 5 % (0-12); NEUTROPHILS # (AUTO) 15.8 10^3/uL (1.8-7.8); NEUTROPHILS % (AUTO) 88 % (42-75); PLATELET COUNT 176 10^3/uL (130-400); WHITE BLOOD COUNT 17.9 10^3/uL (4.3-11.0)
[2021-01-17 03:31] LABS: ALBUMIN 2.5 GM/DL (3.2-4.5)
[2021-01-17 03:32] LABS: CALCIUM 9.3 MG/DL (8.5-10.1)
[2021-01-17 03:33] LABS: TOTAL PROTEIN 5.8 GM/DL (6.4-8.2)
[2021-01-17 03:35] LABS: BILIRUBIN,TOTAL 0.7 MG/DL (0.1-1.0)
[2021-01-17 03:37] LABS: CREATININE SERUM 1.18 MG/DL (0.60-1.30); PHOSPHORUS 2.5 MG/DL (2.3-4.7)
[2021-01-17 03:40] LABS: MAGNESIUM 1.6 MG/DL (1.6-2.4)
[2021-01-17 03:42] LABS: POTASSIUM 2.5 MMOL/L (3.6-5.0)
[2021-01-17] MEDS: POTASSIUM CL 10MEQ/50ML IVPB 50 ML IV SCH ×5 (03:44→09:53)
[2021-01-17] MEDS: MAGNESIUM 1 GM/100 ML IVPB 100 ML IV SCH ×3 (03:44→04:22)
[2021-01-17] MEDS: KCL 20 MEQ TAB (K-DUR) PO SCH (03:44)
[2021-01-17] MEDS ORDERED: MAGNESIUM 1 GM/100 ML IVPB 200 ML IV ONE (03:46)
[2021-01-17] MEDS ORDERED: POTASSIUM CL 10MEQ/50ML IVPB 300 ML IV ONE (03:46)
[2021-01-17] MEDS: THIAMINE 100 MG (VITAMIN B-1) TAB PO SCH (05:44)
[2021-01-17 07:14] VITALS: BP 69/68
[2021-01-17] MEDS: ONDANSETRON 4 MG/2 ML (SDV) Z0FRAN IVP PRN (08:04)
[2021-01-17] MEDS: PANTOPRAZOLE 40 MG (PROTONIX) VIAL IV SCH (08:04)
[2021-01-17] MEDS: HYDROmorphone 2 MG/ML VIAL (DILAUDID) IVP PRN ×2 (08:18→12:12)
[2021-01-17] MEDS: RIVAROXABAN 20 MG TABLET (XARELTO) PO SCH (09:11)
--- NOTE | 2021-01-17 09:17 | Cardiology Progress Note ---
Subjective Date Seen by Provider: Jan 17, 2021 Time Seen by Provider: 09:15 Subjective/Events-last exam Patient is laying down in bed, still in respiratory failure, complaining of worsening abdominal pain Review of Systems General: No Chills, No Night Sweats; Fatigue, Malaise; No Appetite, No Other HEENT: No Head Aches, No Visual Changes, No Eye Pain, No Ear Pain, No Dysphasia, No Sinus Congestion, No Post Nasal Drip, No Sore Throat, No Other Pulmonary: Dyspnea; No Cough, No Pleuritic Chest Pain, No Other Cardiovascular: No: Chest Pain, Palpitations, Orthopnea, Paroxysmal Noc. Dyspnea, Edema, Lt Headedness, Other Focused Exam Lactate Level 01/14/21 13:10: Lactic Acid Level 1.06 Objective-Cardiology Exam Last Set of Vital Signs Vital Signs 01/17/21 01/17/21 03:30 09:00 Pulse 78 Resp 36 B/P (MAP) 104/63 Pulse Ox 95 O2 Delivery NIV Bilevel O2 Flow Rate 80.00 FiO2 90 I&O Intake and Output 01/17/21 00:00 Intake Total 755 ml Output Total 2875 ml Balance -2120 ml Intake Oral 390 ml IV Total 365 ml Output Urine Total 2875 ml General: Mild Distress, Other (Sedated) HEENT: Atraumatic Neck: Supple Lungs: Other (Bilateral rhonchi) Heart: Normal S1, Normal S2, Other (irregular, rapid rate) Abdomen: Other (Abdominal pain and distention, guarding) Extremities: No Edema, Normal Pulses Skin: No Rashes Neuro: Normal Speech, Normal Tone, Sensation Intact Psych/Mental Status: Other (Sedated) Results Lab Laboratory Tests 01/17/21 02:59 A/P-Cardiology Admission Diagnosis Acute pancreatitis Permanent atrial fibrillation Hypertension Hyperlipidemia Assessment/Plan Status post acute pancreatitis, have worsening abdominal pain today, I will reevaluate amylase and lipase, stop Xarelto and monitor. Consider doing CT of the abdomen again Acute respiratory failure, on BiPAP, still having significant dyspnea, on BiPAP, chest x-ray showed worsening pulmonary infiltrate. Managed by medical team. Atrial fibrillation with rapid ventricular response, history of permanent atrial fibrillation. Stop Xarelto due to acute abdominal pain [id number] score of 3, yearly risk of stroke without oral anticoagulation is 3.2%. Hold Xarelto for now and monitor Echocardiogram done in May 2018 showing normal LV size and function, EF 55 to 65%, PA pressure 40 to 45 mm meter of mercury Stress test done in August 2020 showing no significant ischemia or infarction with EF 74% Hypertension, currently on Cardizem drip. Continue to monitor blood pressures Hyperlipidemia, monitor lipids, hold Lipitor at this time. Mild bilateral carotid stenosis, ultrasound was done in February 2020. Continue to monitor History of alcoholism, drink a few glasses of wine every evening, educated on avoiding alcohol products ADRIEL ROLDAN MD Jan 17, 2021 09:17
[2021-01-17] MEDS: FUROSEMIDE 40 MG/4 ML INJ (LASIX) IVP SCH ×2 (09:21→21:03)
[2021-01-17] MEDS: FOLIC ACID 1 MG TAB PO SCH (09:21)
[2021-01-17] MEDS: SENNA W/DOCUSATE (SENOKOT S) TABLET PO SCH ×2 (09:21→21:02)
[2021-01-17 09:41] LABS: AMYLASE 139 U/L (25-125); LIPASE 150 U/L (8-78)
--- NOTE | 2021-01-17 10:44 | Tele-ICU Progress Note ---
Subjective Date Seen by a Provider: Jan 17, 2021 Time Seen by a Provider: 10:40 Subjective/Events-last exam Patient today is awake alert and feels very hot. She is transiently placed on Vapotherm for drinking Ensure. So far she is tolerating Vapotherm well with oxygen saturation ranging 88-90%. She is currently DNR/DNI but medications are being continued to see whether she improves. She does complained of her bilate ral upper quadrant abdominal pain and she is given Dilaudid. Amylase lipase are still elevated but improving. Video vist made and d/w pt Review of Systems ros per rn Sepsis Event Evaluation Height, Weight, BMI Height: 5'2.00" Weight: 122lbs. 0.0oz. 55.075835gw; 22.52 BMI Method: Focused Exam Lactate Level 01/14/21 13:10: Lactic Acid Level 1.06 Exam Exam Patient acknowledged, consented, and participated in this virtual visit which was conducted using real time audio/video Vital Signs Date Time Temp Pulse Resp B/P (MAP) Pulse Ox O2 Delivery O2 Flow Rate FiO2 01/17/21 10:37 NIV Bilevel 80.00 01/17/21 10:01 Vapotherm 40.00 100.00 01/17/21 10:00 89 142/77 94 01/17/21 09:45 81 36 114/73 97 NIV Bilevel 80.00 01/17/21 09:30 77 35 102/69 98 NIV Bilevel 80.00 01/17/21 09:15 76 103/68 94 NIV Bilevel 80.00 01/17/21 09:00 78 36 104/63 95 NIV Bilevel 80.00 01/17/21 08:45 81 24 99/52 92 NIV Bilevel 80.00 01/17/21 08:30 35.4 01/17/21 08:30 75 25 95/61 94 NIV Bilevel 80.00 01/17/21 08:15 82 43 107/63 96 NIV Bilevel 80.00 01/17/21 08:00 85 53 90/66 96 NIV Bilevel 80.00 01/17/21 08:00 95 NIV Bilevel 90 01/17/21 07:45 87 31 113/77 94 NIV Bilevel 80.00 01/17/21 07:30 75 22 102/60 93 NIV Bilevel 80.00 01/17/21 07:15 74 22 102/61 93 NIV Bilevel 80.00 01/17/21 07:14 77 31 92 80.00 01/17/21 07:00 74 01/17/21 07:00 77 20 98/61 92 NIV Bilevel 80.00 01/17/21 06:45 69 24 101/62 93 NIV Bilevel 80.00 01/17/21 06:30 72 35 96/60 90 NIV Bilevel 80.00 01/17/21 06:18 NIV Bilevel 80.00 01/17/21 06:15 73 28 99/65 100 NIV Bilevel 01/17/21 06:00 75 22 97/60 93 NIV Bilevel 90.00 01/17/21 05:45 73 34 106/73 95 NIV Bilevel 90.00 01/17/21 05:30 89/54 NIV Bilevel 90.00 01/17/21 05:15 80 22 94/60 95 NIV Bilevel 90.00 01/17/21 05:00 78 22 102/67 95 NIV Bilevel 90.00 01/17/21 04:45 77 30 105/65 95 NIV Bilevel 90.00 01/17/21 04:41 NIV Bilevel 90.00 01/17/21 04:30 85 53 109/79 86 Vapotherm 40.00 100.00 01/17/21 04:25 36.5 Vapotherm 40.00 100.00 01/17/21 04:15 110/73 NIV Bilevel 90.00 01/17/21 04:00 85 23 105/62 97 NIV Bilevel 90.00 01/17/21 03:45 82 23 108/57 97 NIV Bilevel 90.00 01/17/21 03:30 96 NIV Bilevel 90 01/17/21 03:30 77 18 104/66 97 NIV Bilevel 90.00 01/17/21 03:15 80 20 103/61 97 NIV Bilevel 90.00 01/17/21 03:00 89 23 101/72 97 NIV Bilevel 90.00 01/17/21 02:45 89 32 110/72 96 NIV Bilevel 90.00 01/17/21 02:30 93 26 107/67 97 NIV Bilevel 90.00 01/17/21 02:24 77 31 97 90.00 01/17/21 02:15 89 33 110/66 96 NIV Bilevel 90.00 01/17/21 02:11 80 109/68 01/17/21 02:00 77 30 109/68 97 NIV Bilevel 90.00 01/17/21 01:45 71 31 101/66 94 NIV Bilevel 90.00 01/17/21 01:30 77 23 101/65 95 NIV Bilevel 90.00 01/17/21 01:15 77 25 100/61 96 NIV Bilevel 90.00 01/17/21 01:00 94 01/17/21 01:00 81 34 120/72 96 NIV Bilevel 90.00 01/17/21 00:45 87 24 112/72 93 NIV Bilevel 90.00 01/17/21 00:30 79 29 119/73 94 NIV Bilevel 90.00 01/17/21 00:15 81 31 120/77 98 NIV Bilevel 90.00 01/17/21 00:00 81 33 120/77 100 NIV Bilevel 90.00 01/16/21 23:30 94 NIV Bilevel 90 01/16/21 23:00 77 27 114/67 95 NIV Bilevel 90.00 01/16/21 23:00 36.4 NIV Bilevel 90.00 01/16/21 23:00 114/67 NIV Bilevel 90.00 01/16/21 22:45 80 25 107/68 94 NIV Bilevel 90.00 01/16/21 22:30 86 31 110/71 93 NIV Bilevel 90.00 01/16/21 22:15 78 29 107/70 95 NIV Bilevel 90.00 01/16/21 22:00 86 31 107/72 93 NIV Bilevel 90.00 01/16/21 22:00 88 34 110/71 95 NIV Bilevel 90.00 01/16/21 21:50 NIV Bilevel 90.00 01/16/21 21:45 81 30 116/71 98 NIV Bilevel 100.00 01/16/21 21:40 NIV Bilevel 100.00 01/16/21 21:30 80 36 135/83 86 Vapotherm 40.00 100.00 01/16/21 21:22 Vapotherm 40.00 100.00 01/16/21 21:19 93 Vapotherm 40.00 100 01/16/21 21:15 85 39 129/82 89 NIV Bilevel 100.00 01/16/21 21:00 89 35 129/82 92 NIV Bilevel 100.00 01/16/21 20:45 89 30 113/73 92 NIV Bilevel 100.00 01/16/21 20:30 85 35 119/76 95 NIV Bilevel 100.00 01/16/21 20:15 90 43 116/68 87 NIV Bilevel 100.00 01/16/21 20:00 89 26 115/72 96 NIV Bilevel 100.00 01/16/21 20:00 36.6 01/16/21 20:00 96 NIV Bilevel 100 01/16/21 19:45 84 50 115/72 92 NIV Bilevel 100.00 01/16/21 19:30 83 117/70 95 NIV Bilevel 100.00 01/16/21 19:15 78 110/71 94 NIV Bilevel 100.00 01/16/21 19:00 37.0 84 34 106/71 98 NIV Bilevel 100.00 01/16/21 19:00 80 01/16/21 19:00 84 106/71 94 NIV Bilevel 100.00 01/16/21 18:00 87 25 111/75 94 NIV Bilevel 100.00 01/16/21 17:45 93 34 117/81 94 NIV Bilevel 100.00 01/16/21 17:30 90 11/68 94 NIV Bilevel 100.00 01/16/21 17:15 89 111/77 97 NIV Bilevel 100.00 01/16/21 17:00 80 33 123/75 94 NIV Bilevel 100.00 01/16/21 16:45 93 34 123/71 96 NIV Bilevel 100.00 01/16/21 16:32 36.3 01/16/21 16:30 90 39 120/67 93 NIV Bilevel 100.00 01/16/21 16:15 93 45 124/71 97 NIV Bilevel 100.00 01/16/21 16:00 82 33 114/62 93 NIV Bilevel 100.00 01/16/21 16:00 96 NIV Bilevel 100 01/16/21 15:45 86 31 118/75 31 NIV Bilevel 100.00 01/16/21 15:30 93 36 104/72 94 NIV Bilevel 100.00 01/16/21 15:15 85 43 122/72 98 01/16/21 15:00 82 39 115/74 96 NIV Bilevel 100.00 01/16/21 14:45 116/80 01/16/21 14:30 93 40 122/76 96 01/16/21 14:15 87 35 132/82 97 01/16/21 14:02 84 40 96 100.00 01/16/21 14:00 90 33 126/80 95 NIV Bilevel 100.00 01/16/21 13:45 80 39 117/79 96 01/16/21 13:30 89 43 140/82 95 01/16/21 13:15 78 30 119/77 96 01/16/21 13:00 78 28 118/72 95 01/16/21 13:00 89 01/16/21 13:00 78 28 118/72 95 NIV Bilevel 100.00 01/16/21 12:45 80 27 120/72 85 01/16/21 12:30 82 27 114/82 87 01/16/21 12:15 88 40 118/76 88 01/16/21 12:00 87 38 115/79 90 NIV Bilevel 100.00 01/16/21 12:00 96 NIV Bilevel 100 01/16/21 11:45 87 38 115/79 90 01/16/21 11:30 80 43 115/71 90 01/16/21 11:15 82 45 122/77 88 01/16/21 11:10 36.7 01/16/21 11:00 80 45 125/74 93 NIV Bilevel 100.00 01/16/21 10:45 80 45 123/90 94 I & O 01/17/21 06:59 Intake Total 1785 ml Output Total 3700 ml Balance -1915 ml Height & Weight Height: 5'2.00" Weight: 122lbs. 0.0oz. 55.587026si; 22.52 BMI Method: General Appearance: Anxious, Moderate Distress HEENT: PERRL/EOMI Neck: Normal Inspection Respiratory: Decreased Breath Sounds Cardiovascular: Regular Rate, Rhythm Capillary Refill: Less Than 3 Seconds Gastrointestinal: soft, distended (maybe same or better than yesterday), tenderness (epigastric) Extremity: Pedal Edema (Bilateral 2+ edema to knee) Neurologic/Psychiatric: Alert, Oriented x3 Skin: Normal Color, Warm/Dry Lymphatic: No Adenopathy (cervical) Other comments pe per attending physician Results Lab Laboratory Tests 01/15/21 17:38 01/16/21 03:44 01/17/21 02:59 01/17/21 09:15 Assessment/Plan Assessment/Plan Assessment/Plan 1. Acute pancreatitis slowly improving. 2. Bilateral pneumonia with acute hypoxic respiratory failure requiring 80% FiO2 and a BiPAP of 18/12. but transiently tolerating VPT also 3. Atrial fibrillation with rapid ventricular rate cardiology on the case. 4. Patient wants a DNR/DNI and wants to go on comfort care. Recommendations 1. Contiune current care and try her prn VPT as tolerated 2. Pastoral care informed. 3. Agree with DNR/DNI . 4. anlgesia with Dilaudid for abdominal pain Critical Care: Critically Ill Patient Time spent with patient (mins): 20 LARRY SILVA MD Jan 17, 2021 10:44
[2021-01-17 11:00] VITALS: BP 86/55
--- NOTE | 2021-01-17 11:03 | Physical Therapy Daily Note ---
PT Daily Note-Current Subjective Pt. with BiPap on in bed, states she is hurting in her abdomen, declines out of bed activity but does agree to leg exercises. Unable to give pain rating. Mental Status Patient Orientation: Person, Place, Time, Situation Transfers SCALE: Activities may be completed with or without assistive devices. 8-Cdrnjtrkqm-mircyjc completes the activity by him/herself with no assistance from a helper. 5-Set-up or Clean-up Assistance-helper sets up or cleans up; patient completes activity. [place] assists only prior to or following the activity. 4-Supervision or Touching Assistance-helper provides verbal cues and/or touching/steadying and/or contact guard assistance as patient completes activity. Assistance may be provided throughout the activity or intermittently. 3-Partial/Moderate Assistance-helper does LESS THAN HALF the effort. [place] lifts, holds or supports trunk or limbs, but provides less than half the effort. 2-Substantial/Maximal Assistance-helper does MORE THAN HALF the effort. [place] lifts or holds trunk or limbs and provides more than half the effort. 3-Hgwymsbbd-chtilj does ALL the effort. Patient does none of the effort to complete the activity. Or, the assistance of 2 or more helpers is required for the patient to complete the activity. If activity was not attempted, code reason: 7-Patient Refused. 9-Not Applicable-not attempted and the patient did not perform the activity before the current illness, exacerbation or injury. 10-Not Attempted due to Environmental Limitations-(lack of equipment, weather restraints, etc.). 88-Not Attempted due to Medical Conditions or Safety Concerns. Exercises Supine Ex: Ankle pumps (20), Quad Set (20), Glut sets, Straight leg raise, Hip abd/add Supine Reps: 10 Treatments leg exercises Assessment Current Status: Fair Progress Pt. does well with exercises but does fatigue. She has a difficult time conversing due to Bipap and declines out of bed activity today due to pain. Pt. in bed post session with call light and all needs met. PT Tableau Architect Goals Snf Goals PT Snf Goals Time Frame: Jan 31, 2021 Roll Left & Right (QC): 6 Sit to Lying (QC): 6 Lying-Sitting on Side/Bed(QC): 6 Sit to Stand (QC): 6 Chair/Fik-pg-Nlram Xfer(QC): 6 Toilet Transfer (QC): 6 Walk 10 feet (QC): 6 Walk 50ft with 2 Turns (QC): 6 Walk 150 ft (QC): 6 PT Plan Treatment/Plan Treatment Plan: Continue Plan of Care Treatment Plan: Bed Mobility, Education, Functional Activity Wu, Functional Strength, Gait, Safety, Therapeutic Exercise, Transfers Treatment Duration: Jan 31, 2021 Frequency: 6 times per week Estimated Hrs Per Day: .5 hour per day Patient and/or Family Agrees t: Yes Time/GCodes Time In: 1054 Time Out: 1103 Total Billed Treatment Time: 9 Total Billed Treatment 1, Ex 9' MAHI PRESTON PT Jan 17, 2021 11:03
[2021-01-17 15:24] VITALS: BP 69/68
[2021-01-17] MEDS: dilTIAZem DRIP PRE-MIX 125 ML IV SCH (21:07)
[2021-01-17 21:32] VITALS: BP 125/73
[2021-01-18] MEDS: RT-ALBUTEROL SULF 2.5 MG/3 ML PRE-MIX VIAL INH SCH ×5 (02:16→21:04)
[2021-01-18 02:18] VITALS: BP 106/68
[2021-01-18 04:51] LABS: BASOPHILS # (AUTO) 0.1 10^3/uL (0.0-0.1); BASOPHILS % (AUTO) 1 % (0-10); EOSINOPHILS # (AUTO) 0.1 10^3/uL (0.0-0.3); EOSINOPHILS % (AUTO) 0 % (0-10); HEMATOCRIT 31 % (35-52); HEMOGLOBIN 10.8 g/dL (11.5-16.0); LYMPHOCYTES # (AUTO) 0.7 10^3/uL (1.0-4.0); LYMPHOCYTES % (AUTO) 4 % (12-44); MEAN CORPUSCULAR HEMOGLOBIN 34 pg (25-34); MEAN CORPUSCULAR HGB CONC 35 g/dL (32-36); MEAN CORPUSCULAR VOLUME 98 fL (80-99); MEAN PLATELET VOLUME 11.7 fL (9.0-12.2); MONOCYTES # (AUTO) 0.6 10^3/uL (0.0-1.0); MONOCYTES % (AUTO) 3 % (0-12); NEUTROPHILS # (AUTO) 17.5 10^3/uL (1.8-7.8); NEUTROPHILS % (AUTO) 90 % (42-75); PLATELET COUNT 198 10^3/uL (130-400); WHITE BLOOD COUNT 19.4 10^3/uL (4.3-11.0)
[2021-01-18 04:59] LABS: ALBUMIN 2.2 GM/DL (3.2-4.5)
[2021-01-18 05:00] LABS: POTASSIUM 2.8 MMOL/L (3.6-5.0)
[2021-01-18 05:01] LABS: CALCIUM 8.6 MG/DL (8.5-10.1)
[2021-01-18 05:02] LABS: TOTAL PROTEIN 5.4 GM/DL (6.4-8.2)
[2021-01-18 05:04] LABS: BILIRUBIN,TOTAL 0.7 MG/DL (0.1-1.0)
[2021-01-18 05:05] LABS: PHOSPHORUS 2.5 MG/DL (2.3-4.7)
[2021-01-18 05:06] LABS: CREATININE SERUM 0.98 MG/DL (0.60-1.30)
[2021-01-18 05:09] LABS: MAGNESIUM 1.6 MG/DL (1.6-2.4)
--- NOTE | 2021-01-18 05:41 | Cardiology Progress Note ---
Subjective Date Seen by Provider: Jan 18, 2021 Time Seen by Provider: 05:39 Subjective/Events-last exam Patient is laying down in bed, resting comfortably. Review of Systems General: Fatigue, Malaise Pulmonary: Dyspnea Objective-Cardiology Exam Last Set of Vital Signs Vital Signs 01/17/21 01/17/21 01/18/21 01/18/21 20:00 23:00 00:00 02:18 Temp 36.3 Pulse 82 Resp 23 B/P (MAP) 119/82 Pulse Ox 100 O2 Delivery NIV Bilevel O2 Flow Rate 80.00 FiO2 80 I&O Intake and Output 01/18/21 00:00 Intake Total 2505 ml Output Total 2450 ml Balance 55 ml Intake Oral 1530 ml IV Total 975 ml Output Urine Total 2450 ml General: Mild Distress, Other (Sedated) HEENT: Atraumatic Neck: Supple Lungs: Other (Bilateral rhonchi) Heart: Normal S1, Normal S2, Other (irregular, rapid rate) Abdomen: Other (Abdominal pain and distention, guarding) Extremities: No Edema, Normal Pulses Skin: No Rashes Neuro: Normal Speech, Normal Tone, Sensation Intact Psych/Mental Status: Other (Sedated) Results Lab Laboratory Tests 01/17/21 09:15 01/18/21 04:35 A/P-Cardiology Admission Diagnosis Acute pancreatitis Permanent atrial fibrillation Hypertension Hyperlipidemia Assessment/Plan Status post acute pancreatitis, had abdominal pain, amylase and lipase are trending down. Managed by medical team. Acute respiratory failure, on BiPAP, still having significant dyspnea, on BiPAP, chest x-ray showed worsening pulmonary infiltrate. Managed by medical team. Hypokalemia, defer management to the medical team Atrial fibrillation with rapid ventricular response, history of permanent atrial fibrillation. Xarelto is on hold again since January 17, 2021 due to recurrent acute abdominal pain. [id number] score of 3, yearly risk of stroke without oral anticoagulation is 3.2%. Hold Xarelto for now and monitor Echocardiogram done in May 2018 showing normal LV size and function, EF 55 to 65%, PA pressure 40 to 45 mm meter of mercury Stress test done in August 2020 showing no significant ischemia or infarction with EF 74% Hypertension, currently on Cardizem drip. Continue to monitor blood pressures Hyperlipidemia, monitor lipids, hold Lipitor at this time. Mild bilateral carotid stenosis, ultrasound was done in February 2020. Continue to monitor History of alcoholism, drink a few glasses of wine every evening, educated on avoiding alcohol products ADRIEL ROLDAN MD Jan 18, 2021 05:41
[2021-01-18] MEDS: POTASSIUM CL 10MEQ/50ML IVPB 50 ML IV SCH ×9 (06:26→13:51)
[2021-01-18] MEDS: DexMEDEtomidine 250 ML DRIP 250 ML IV SCH ×2 (06:26→21:20)
[2021-01-18] MEDS: MAGNESIUM 1 GM/100 ML IVPB 100 ML IV SCH ×3 (07:15→09:49)
[2021-01-18] MEDS: KCL 20 MEQ TAB (K-DUR) PO SCH (07:15)
[2021-01-18] MEDS: HYDROmorphone 2 MG/ML VIAL (DILAUDID) IVP PRN ×2 (07:36→16:15)
[2021-01-18] MEDS: THIAMINE 100 MG (VITAMIN B-1) TAB PO SCH (07:37)
[2021-01-18] MEDS: PANTOPRAZOLE 40 MG (PROTONIX) VIAL IV SCH (07:37)
[2021-01-18] MEDS: ONDANSETRON 4 MG/2 ML (SDV) Z0FRAN IVP PRN (07:37)
[2021-01-18] MEDS: FOLIC ACID 1 MG TAB PO SCH (07:37)
[2021-01-18] MEDS: SENNA W/DOCUSATE (SENOKOT S) TABLET PO SCH ×2 (07:37→21:09)
[2021-01-18] MEDS: FUROSEMIDE 40 MG/4 ML INJ (LASIX) IVP SCH ×2 (07:37→21:09)
--- NOTE | 2021-01-18 09:32 | Tele-ICU Progress Note ---
Subjective Date Seen by a Provider: Jan 18, 2021 Time Seen by a Provider: 07:15 Subjective/Events-last exam This virtual visit was conducted using real time audio/video. Thank you for asking us to see this patient for respiratory insufficiency due to B pna. Also acute pancreatitis and septic shock. Recent events: Controlled afib.(chronic). PE: Appears comfortable. VSS. 90-100 afib. HEENT: No obvious masses, adenopathy or JVD. Chest: clear to auscultation. CV: Irreg. S1 S2 No murmur or added sounds. Abd: Non-tender. Bowel sounds Y. : Unremarkable. Hwang Y. DIESEL DINKEY OPERATOR/psychiatric: Grossly intact. No obvious focal findings. Extremities: 1+ edema. Capillary refill < 3 seconds. Skin: unremarkable. Results: Elevated WCC 19.4. Decreased Hb 10.8, K 2.8. Available chart/ vitals / labs / images reviewed. Video assessment done using teleICU camera, rest of exam as per RN. A/P: Respiratory insufficiency: Continue present management with BiPAP 18/8 80%, alternating w VT 40/100%. Monitor for increasing oxygenation needs and/or need for intubation. Critical Care: critically ill patient. Cont. Alb., ativan PRN, IV Dilt., PPI, Precedex. Xarelto on hold. Discussed with RN Christy. Asked RN to reach out to eICU if any questions or concerns later. Time spent with patient/coordination of care with other health professionals (mins): Sepsis Event Evaluation Height, Weight, BMI Height: 5'2.00" Weight: 122lbs. 0.0oz. 55.802137eu; 22.52 BMI Method: Exam Exam Patient acknowledged, consented, and participated in this virtual visit which was conducted using real time audio/video Vital Signs Date Time Temp Pulse Resp B/P (MAP) Pulse Ox O2 Delivery O2 Flow Rate FiO2 01/18/21 09:00 77 32 94/59 100 NIV Bilevel 80.00 01/18/21 08:54 NIV Bilevel 80.00 01/18/21 08:45 92 26 113/83 83 Vapotherm 40.00 100.00 01/18/21 08:30 83 30 112/76 99 Vapotherm 40.00 100.00 01/18/21 08:15 88 34 113/76 100 Vapotherm 40.00 100.00 01/18/21 08:12 Vapotherm 40.00 100 01/18/21 08:00 35.0 01/18/21 08:00 82 34 98/35 100 Vapotherm 40.00 100.00 01/18/21 07:54 Vapotherm 40.00 100.00 01/18/21 07:45 82 21 109/78 100 NIV Bilevel 80.00 01/18/21 07:30 82 27 116/75 100 NIV Bilevel 80.00 01/18/21 07:15 84 17 108/72 100 NIV Bilevel 80.00 01/18/21 07:00 85 01/18/21 07:00 86 19 108/67 100 NIV Bilevel 80.00 01/18/21 06:26 75 100/68 01/18/21 06:00 75 18 108/72 100 NIV Bilevel 80.00 01/18/21 05:00 83 24 113/85 100 NIV Bilevel 80.00 01/18/21 04:00 84 18 116/75 97 NIV Bilevel 80.00 01/18/21 04:00 96 NIV Bilevel 80 01/18/21 03:00 96 22 107/63 96 NIV Bilevel 80.00 01/18/21 02:18 82 23 100 80.00 01/18/21 02:00 76 22 109/61 97 NIV Bilevel 80.00 01/18/21 01:00 80 01/18/21 01:00 76 17 111/76 99 NIV Bilevel 80.00 01/18/21 00:00 96 NIV Bilevel 80 01/18/21 00:00 76 18 116/70 99 NIV Bilevel 80.00 01/17/21 23:00 81 20 119/82 100 NIV Bilevel 80.00 01/17/21 22:00 75 21 116/74 100 NIV Bilevel 80.00 01/17/21 21:32 87 34 100 80.00 01/17/21 21:03 98 Vapotherm 40.00 100 01/17/21 21:01 84 22 100 01/17/21 21:00 81 24 125/73 100 NIV Bilevel 80.00 01/17/21 20:00 36.3 01/17/21 20:00 96 NIV Bilevel 80 01/17/21 20:00 77 28 111/63 100 NIV Bilevel 80.00 01/17/21 19:00 80 01/17/21 19:00 76 22 113/71 98 NIV Bilevel 80.00 01/17/21 18:00 83 23 102/67 98 NIV Bilevel 80.00 01/17/21 17:45 79 25 108/65 99 NIV Bilevel 80.00 01/17/21 17:30 80 30 119/69 100 NIV Bilevel 80.00 01/17/21 17:15 83 36 118/72 92 NIV Bilevel 80.00 01/17/21 17:00 87 108/78 100 NIV Bilevel 80.00 01/17/21 16:45 91 81/74 96 NIV Bilevel 80.00 01/17/21 16:30 75 102/60 94 NIV Bilevel 80.00 01/17/21 16:27 35.6 01/17/21 16:19 96 NIV Bilevel 80 01/17/21 16:15 79 21 96/62 94 NIV Bilevel 80.00 01/17/21 16:00 78 20 93/59 95 NIV Bilevel 80.00 01/17/21 15:45 91 20 97/62 95 NIV Bilevel 80.00 01/17/21 15:30 84 93/55 NIV Bilevel 80.00 01/17/21 15:24 72 31 93 80.00 01/17/21 15:15 73 19 86/55 93 NIV Bilevel 80.00 01/17/21 15:00 73 20 89/54 93 NIV Bilevel 80.00 01/17/21 14:45 74 21 93/54 94 NIV Bilevel 80.00 01/17/21 14:30 81 28 84/58 91 NIV Bilevel 80.00 01/17/21 14:15 81 30 103/65 97 NIV Bilevel 80.00 01/17/21 14:10 NIV Bilevel 80.00 01/17/21 14:00 79 36 121/68 87 Vapotherm 40.00 100.00 01/17/21 13:46 Vapotherm 40.00 100.00 01/17/21 13:45 78 35 110/74 95 NIV Bilevel 80.00 01/17/21 13:30 74 23 102/73 97 NIV Bilevel 80.00 01/17/21 13:15 81 20 93/66 94 NIV Bilevel 80.00 01/17/21 13:00 78 21 90/53 93 NIV Bilevel 80.00 01/17/21 13:00 77 01/17/21 12:45 80 19 97/63 97 NIV Bilevel 80.00 01/17/21 12:30 76 28 100/63 100 NIV Bilevel 80.00 01/17/21 12:21 35.2 01/17/21 12:10 NIV Bilevel 80.00 01/17/21 12:00 87 124/69 Vapotherm 40.00 100.00 01/17/21 11:52 90 Vapotherm 40.00 100 01/17/21 11:52 Vapotherm 40.00 100.00 01/17/21 11:45 81 34 107/64 98 NIV Bilevel 80.00 01/17/21 11:30 74 28 89/67 95 NIV Bilevel 80.00 01/17/21 11:15 81 36 99/63 96 NIV Bilevel 80.00 01/17/21 11:00 80 31 101/80 98 NIV Bilevel 80.00 01/17/21 11:00 77 31 92 80.00 01/17/21 10:45 87 31 104/67 98 01/17/21 10:37 NIV Bilevel 80.00 01/17/21 10:30 93 125/77 Vapotherm 40.00 100.00 01/17/21 10:15 90 120/80 89 Vapotherm 40.00 100.00 01/17/21 10:01 Vapotherm 40.00 100.00 01/17/21 10:00 89 142/77 94 01/17/21 09:45 81 36 114/73 97 NIV Bilevel 80.00 01/17/21 09:30 77 35 102/69 98 NIV Bilevel 80.00 I & O 01/18/21 07:00 Intake Total 1805 ml Output Total 1975 ml Balance -170 ml Height & Weight Height: 5'2.00" Weight: 122lbs. 0.0oz. 55.435981nw; 22.52 BMI Method: General Appearance: No Apparent Distress, Anxious, Moderate Distress HEENT: PERRL/EOMI Neck: Normal Inspection Respiratory: Decreased Breath Sounds Cardiovascular: Regular Rate, Rhythm Capillary Refill: Less Than 3 Seconds Peripheral Pulses: 1+ Dorsalis Pedis (R), 1+ Left Dors-Pedis (L) (See free text.) Gastrointestinal: soft, distended (maybe same or better than yesterday), tenderness (epigastric) Extremity: Pedal Edema (Bilateral 2+ edema to knee) Neurologic/Psychiatric: Alert, Oriented x3 Skin: Normal Color, Warm/Dry Lymphatic: No Adenopathy (cervical) Results Lab Laboratory Tests 01/17/21 02:59 01/17/21 09:15 01/18/21 04:35 Assessment/Plan Assessment/Plan See free text. Critical Care: Critically Ill Patient JB RENEE MD Jan 18, 2021 09:32
[2021-01-18 09:37] VITALS: BP 84/52
--- NOTE | 2021-01-18 12:37 | Progress Note - Hospitalist ---
Subjective HPI/CC On Admission Date Seen by Provider: Jan 18, 2021 Time Seen by Provider: 11:35 Chief complaint: Atrial fibrillation with rapid ventricular response with acute pancreatitis and severe sepsis History present illness: This is a 70-year-old white female who drinks wine with heavy use who presented to the ER with a couple of days of nausea and vomiting and not feeling well with abdominal pain. She was found to be in atrial fibrillation with rapid ventricular response in addition to hypotension requiring aggressive IV fluid at 30 cc/KG and found to have acute pancreatitis. Dr. Vale obtained U/S this morning. Zosyn was started. Cardiology consulted for atrial fibrillation with right ventricular response. Patient sees Dr. Davis on a regular basis for atrial fibrillation. Currently in the ICU. Subjective/Events-last exam Patient reports abdominal pain is only been mild nothing severe. She still is unable to sit up without assistance let alone get out of bed. This is secondary to weakness. She denies shortness of breath at rest and denies chest pain. Objective Exam Vital Signs Vital Signs Date Time Temp Pulse Resp B/P (MAP) Pulse Ox O2 Delivery O2 Flow Rate FiO2 01/18/21 12:00 80 39 105/78 94 NIV Bilevel 70.00 01/18/21 11:30 100 01/18/21 08:00 35.0 Capillary Refill : Less Than 3 Seconds General Appearance: Mild Distress Respiratory: No Accessory Muscle Use, No Respiratory Distress, Other (Tachypnea on high flow oxygen diminished breath sounds bilaterally with fine rales no wheezing appreciated.) Cardiovascular: No Murmur, Irregularly Irregular Gastrointestinal: Other (Abdominal distention unchanged bowel sounds present but hypoactive mild generalized tenderness no rebound or guarding.) Results/Procedures Lab Laboratory Tests 01/18/21 04:35 01/18/21 12:25 Patient resulted labs reviewed. Imaging: Reviewed Imaging Report Assessment/Plan Assessment and Plan Assess & Plan/Chief Complaint Assess & Plan/Chief Complaint (1) Acute respiratory distress Onset Date: ~ 01/13/2021 Status: Acute Assessment & Plan: Plan: Bipap to keep O2 saturations between 95-100%. Scheduled lasix BID to reduce edema. Precedex for sedation. 01/17/2021: Respiratory distress most likely due to ARDS from underlying pancreatitis prognosis extremely poor. Atrial fibrillation is probably the least of her worries her rate is controlled and doubt underlying heart failure as does cardiology. Continue high flow oxygen supportive care etc. Patient too ill do repeat CAT scan or look for progressing complications intra-abdominal a from her severe pancreatitis. 01/18/2021: No increase in abdominal pain no improvement in respiratory status patient remains in critical condition. Her white count was higher today concerning for necrotizing pancreatitis progression infection less likely but patient is higher risk we will initiate IV Zosyn prognosis poor. (2) Atrial fibrillation with rapid ventricular response Onset Date: ~ 01/11/2021 Status: Acute Assessment & Plan: Plan: Continue IV Diltiazem daily for a-fib. PO xarelto for anticoagulation per cards. (3) Pancreatitis Onset Date: ~ 01/09/2021 Status: Acute Assessment & Plan: Plan: Continue NPO, Zosyn. Dilaudid and APAP for pain. Qualifiers: Qualified Codes: K85.20 - Alcohol induced acute pancreatitis without n ecrosis or infection (4) Severe sepsis Onset Date: ~ 01/11/2021 Status: Resolved Assessment & Plan: Plan: Continue to monitor vital signs and treat with broad spectrum antibiotics. Resolution Date/Time: 01/12/21 @ 16:00 (5) Leukocytosis Onset Date: ~ 01/11/2021 Status: Acute Critical Care Critically Ill Patient ALESSANDRA STRAUSS MD Jan 18, 2021 12:37
--- NOTE | 2021-01-18 12:43 | Progress Note - Hospitalist ---
Subjective HPI/CC On Admission Date Seen by Provider: Jan 17, 2021 Time Seen by Provider: 13:00 Chief complaint: Atrial fibrillation with rapid ventricular response with acute pancreatitis and severe sepsis History present illness: This is a 70-year-old white female who drinks wine with heavy use who presented to the ER with a couple of days of nausea and vomiting and not feeling well with abdominal pain. She was found to be in atrial fibrillation with rapid ventricular response in addition to hypotension requiring aggressive IV fluid at 30 cc/KG and found to have acute pancreatitis. Dr. Vale obtained U/S this morning. Zosyn was started. Cardiology consulted for atrial fibrillation with right ventricular response. Patient sees Dr. Davis on a regular basis for atrial fibrillation. Currently in the ICU. Subjective/Events-last exam Patient extremely weak reporting mild generalized abdominal pain a little worse in the upper quadrants. She denies chest pain denies shortness of breath at rest but cannot even sit up without assistance requiring high flow oxygen Via Vapotherm. Objective Exam Vital Signs Vital Signs Date Time Temp Pulse Resp B/P (MAP) Pulse Ox O2 Delivery O2 Flow Rate FiO2 01/18/21 12:00 80 39 105/78 94 NIV Bilevel 70.00 01/18/21 11:30 100 01/18/21 08:00 35.0 Capillary Refill : Less Than 3 Seconds General Appearance: Anxious, Mild Distress Respiratory: No Accessory Muscle Use, No Respiratory Distress, Other (Tachypneic diminished breath sounds posteriorly with rales fine in the bases no wheezing noted.) Cardiovascular: No Gallop, No JVD, No Murmur, Irregularly Irregular Gastrointestinal: Other (Mild distention generalized abdominal discomfort little worse in the upper quadrants without rebound or guarding bowel sounds present but hypoactive.) Results/Procedures Lab Laboratory Tests 01/18/21 04:35 Patient resulted labs reviewed. Imaging: Reviewed Imaging Report Assessment/Plan Assessment and Plan Assess & Plan/Chief Complaint (1) Acute respiratory distress Onset Date: ~ 01/13/2021 Status: Acute Assessment & Plan: Plan: Bipap to keep O2 saturations between 95-100%. Scheduled lasix BID to reduce edema. Precedex for sedation. 01/17/2021: Respiratory distress most likely due to ARDS from underlying pancreatitis prognosis extremely poor. Atrial fibrillation is probably the least of her worries her rate is controlled and doubt underlying heart failure as does cardiology. Continue high flow oxygen supportive care etc. Patient too ill do repeat CAT scan or look for progressing complications intra-abdominal a from her severe pancreatitis. (2) Atrial fibrillation with rapid ventricular response Onset Date: ~ 01/11/2021 Status: Acute Assessment & Plan: Plan: Continue IV Diltiazem daily for a-fib. PO xarelto for anticoagulation per cards. (3) Pancreatitis Onset Date: ~ 01/09/2021 Status: Acute Assessment & Plan: Plan: Continue NPO, Zosyn. Dilaudid and APAP for pain. Qualifiers: Qualified Codes: K85.20 - Alcohol induced acute pancreatitis without necrosis or infection (4) Severe sepsis Onset Date: ~ 01/11/2021 Status: Resolved Assessment & Plan: Plan: Continue to monitor vital signs and treat with broad spectrum antibiotics. Resolution Date/Time: 01/12/21 @ 16:00 (5) Leukocytosis Onset Date: ~ 01/11/2021 Status: Acute Qualifiers: Qualified Codes: D72.828 - Other elevated white blood cell cou Critical Care Critically Ill Patient ALESSANDRA STRAUSS MD Jan 18, 2021 12:43
[2021-01-18] MEDS: PIPERACILLIN/TAZOBACTAM (BULK) 4.5 GM in NS (IVPB) 100 ML IV SCH ×2 (13:20→21:09)
[2021-01-18] MEDS: RIVAROXABAN 20 MG TABLET (XARELTO) PO SCH (16:04)
[2021-01-18] MEDS: dilTIAZem DRIP PRE-MIX 125 ML IV SCH (21:20)
[2021-01-19] MEDS: RT-ALBUTEROL SULF 2.5 MG/3 ML PRE-MIX VIAL INH SCH ×4 (01:57→21:14)
[2021-01-19] MEDS: PIPERACILLIN/TAZOBACTAM (BULK) 4.5 GM in NS (IVPB) 100 ML IV SCH ×3 (05:32→20:30)
[2021-01-19 05:58] LABS: BASOPHILS # (AUTO) 0.1 10^3/uL (0.0-0.1); BASOPHILS % (AUTO) 0 % (0-10); EOSINOPHILS # (AUTO) 0.2 10^3/uL (0.0-0.3); EOSINOPHILS % (AUTO) 1 % (0-10); HEMATOCRIT 30 % (35-52); HEMOGLOBIN 10.5 g/dL (11.5-16.0); LYMPHOCYTES # (AUTO) 0.6 10^3/uL (1.0-4.0); LYMPHOCYTES % (AUTO) 3 % (12-44); MEAN CORPUSCULAR HEMOGLOBIN 34 pg (25-34); MEAN CORPUSCULAR HGB CONC 35 g/dL (32-36); MEAN CORPUSCULAR VOLUME 99 fL (80-99); MEAN PLATELET VOLUME 11.7 fL (9.0-12.2); MONOCYTES # (AUTO) 0.5 10^3/uL (0.0-1.0); MONOCYTES % (AUTO) 2 % (0-12); NEUTROPHILS # (AUTO) 19.4 10^3/uL (1.8-7.8); NEUTROPHILS % (AUTO) 92 % (42-75); PLATELET COUNT 180 10^3/uL (130-400); WHITE BLOOD COUNT 21.1 10^3/uL (4.3-11.0)
[2021-01-19] MEDS: THIAMINE 100 MG (VITAMIN B-1) TAB PO SCH (06:01)
[2021-01-19] MEDS: KCL 20 MEQ TAB (K-DUR) PO SCH (06:01)
[2021-01-19] MEDS: HYDROcodone/APAP 5 MG/325 MG (LORTAB) TAB PO PRN ×2 (06:05→18:26)
[2021-01-19] MEDS: diphenhydrAMINE 25 MG TAB (BENADRYL) PO PRN (06:05)
[2021-01-19 06:14] LABS: ALBUMIN 2.3 GM/DL (3.2-4.5); POTASSIUM 3.5 MMOL/L (3.6-5.0)
[2021-01-19 06:15] LABS: CALCIUM 8.4 MG/DL (8.5-10.1)
[2021-01-19 06:17] LABS: TOTAL PROTEIN 5.5 GM/DL (6.4-8.2)
[2021-01-19 06:18] LABS: BILIRUBIN,TOTAL 0.5 MG/DL (0.1-1.0)
[2021-01-19 06:20] LABS: CREATININE SERUM 0.98 MG/DL (0.60-1.30); PHOSPHORUS 2.7 MG/DL (2.3-4.7)
[2021-01-19 06:23] LABS: MAGNESIUM 1.7 MG/DL (1.6-2.4)
[2021-01-19 06:24] LABS: BAND NEUTROPHILS 1 %; EOSINOPHILS % (MANUAL) 1 %; LYMPHOCYTES % (MANUAL) 2 %; MONOCYTES % (MANUAL) 1 %; NEUTROPHILS % (MANUAL) 95 %; RBC MORPH NORMAL
[2021-01-19] MEDS: POTASSIUM CL 10MEQ/50ML IVPB 50 ML IV SCH ×3 (06:43→07:58)
[2021-01-19] MEDS: MAGNESIUM 1 GM/100 ML IVPB 100 ML IV SCH ×3 (06:43→07:58)
[2021-01-19] MEDS: PANTOPRAZOLE 40 MG (PROTONIX) VIAL IV SCH (07:58)
[2021-01-19] MEDS: FUROSEMIDE 40 MG/4 ML INJ (LASIX) IVP SCH ×2 (07:58→20:15)
[2021-01-19 08:02] VITALS: BP 97/64
[2021-01-19] MEDS: FOLIC ACID 1 MG TAB PO SCH (08:03)
[2021-01-19] MEDS: SENNA W/DOCUSATE (SENOKOT S) TABLET PO SCH ×2 (08:03→21:17)
[2021-01-19] MEDS: DexMEDEtomidine 250 ML DRIP 250 ML IV SCH ×2 (08:57→22:38)
--- NOTE | 2021-01-19 09:53 | Cardiology Progress Note ---
Subjective Date Seen by Provider: Jan 19, 2021 Time Seen by Provider: 09:52 Subjective/Events-last exam Patient was seen at bedside, still on CPAP, complaining of fatigue and loss of energy. Review of Systems General: No Chills, No Night Sweats; Fatigue, Malaise; No Appetite, No Other HEENT: No Head Aches, No Visual Changes, No Eye Pain, No Ear Pain, No Dysphasia, No Sinus Congestion, No Post Nasal Drip, No Sore Throat, No Other Pulmonary: Dyspnea; No Cough, No Pleuritic Chest Pain, No Other Cardiovascular: No: Chest Pain, Palpitations, Orthopnea, Paroxysmal Noc. Dyspnea, Edema, Lt Headedness, Other Objective-Cardiology Exam Last Set of Vital Signs Vital Signs 01/19/21 01/19/21 01/19/21 08:00 08:15 08:57 Temp 36.0 Pulse 87 Resp 18 B/P (MAP) 91/62 Pulse Ox 95 O2 Delivery Vapotherm O2 Flow Rate 40.00 100.00 FiO2 60 I&O Intake and Output 01/19/21 00:00 Intake Total 3265 ml Output Total 1975 ml Balance 1290 ml Intake Oral 2120 ml IV Total 1145 ml Output Urine Total 1975 ml General: Alert, Oriented X3, Cooperative, Mild Distress HEENT: Atraumatic Neck: Supple Lungs: Other (Bilateral rhonchi) Heart: Normal S1, Normal S2, Other (irregular, rapid rate) Abdomen: Other (Abdominal pain and distention, guarding) Extremities: No Clubbing, No Cyanosis, No Edema, Normal Pulses Skin: No Rashes Neuro: Normal Speech, Normal Tone, Sensation Intact Psych/Mental Status: Mood NL Results Lab Laboratory Tests 01/18/21 12:25 01/19/21 05:54 A/P-Cardiology Admission Diagnosis Acute pancreatitis Permanent atrial fibrillation Hypertension Hyperlipidemia Assessment/Plan Status post acute pancreatitis, had abdominal pain, amylase and lipase are trending down. Managed by medical team. Acute respiratory failure, on BiPAP, still having significant dyspnea, on BiPAP, chest x-ray showed worsening pulmonary infiltrate, requesting to take of the BiPAP. Probably Vapotherm. Managed by medical team Hypokalemia, defer management to the medical team Atrial fibrillation with rapid ventricular response, history of permanent atrial fibrillation. Xarelto is on hold again since January 17, 2021 due to recurrent acute abdominal pain. [id number] score of 3, yearly risk of stroke without oral anticoagulation is 3.2%. Hold Xarelto for now and monitor Echocardiogram done in May 2018 showing normal LV size and function, EF 55 to 65%, PA pressure 40 to 45 mm meter of mercury Stress test done in August 2020 showing no significant ischemia or infarction with EF 74% Hypertension, currently on Cardizem drip. Continue to monitor blood pressures Hyperlipidemia, monitor lipids, hold Lipitor at this time. Mild bilateral carotid stenosis, ultrasound was done in February 2020. Continue to monitor History of alcoholism, drink a few glasses of wine every evening, educated on avoiding alcohol products ADRIEL ROLDAN MD Jan 19, 2021 09:53
--- NOTE | 2021-01-19 10:28 | Diagnostic Imaging Report ---
INDICATION: Hypoxia. COMPARISON: 01/16/2021. FINDINGS: A single frontal radiographic view of the chest was obtained and again demonstrates diffuse interstitial prominence. There are a few scattered alveolar opacities bilaterally as well. There is also confluent opacification in the left base with partial obscuration of the left hemidiaphragm, suspicious for an underlying effusion. There is no pneumothorax. Depth of inspiration has improved but overall aeration shows no significant interval change. Cardiac silhouette is stable. Osseous structures are unchanged. IMPRESSION: 1. Essentially stable diffuse bilateral infiltrates. 2. Probable small left effusion. Dictated by: Dictated on workstation # [id number]
--- NOTE | 2021-01-19 11:45 | Tele-ICU Progress Note ---
Subjective Date Seen by a Provider: Jan 19, 2021 Time Seen by a Provider: 09:41 Sepsis Event Evaluation Height, Weight, BMI Height: 5'2.00" Weight: 122lbs. 0.0oz. [id number]; 22.52 BMI Method: Exam Exam Patient acknowledged, consented, and participated in this virtual visit which was conducted using real time audio/video Vital Signs Date Time Temp Pulse Resp B/P (MAP) Pulse Ox O2 Delivery O2 Flow Rate FiO2 01/19/21 11:30 36.0 01/19/21 10:15 86 34 116/77 92 Vapotherm 40.00 100.00 01/19/21 10:00 80 38 102/69 92 Vapotherm 40.00 100.00 01/19/21 09:45 76 27 103/69 97 Vapotherm 40.00 100.00 01/19/21 09:30 72 28 105/61 96 Vapotherm 40.00 100.00 01/19/21 09:15 79 26 103/70 97 Vapotherm 40.00 100.00 01/19/21 09:00 82 23 106/89 96 Vapotherm 40.00 100.00 01/19/21 08:57 87 01/19/21 08:45 77 17 99/56 97 Vapotherm 40.00 100.00 01/19/21 08:30 93 17 96/54 97 Vapotherm 40.00 100.00 01/19/21 08:15 83 18 91/62 95 Vapotherm 40.00 100.00 01/19/21 08:02 72 27 87 60.00 01/19/21 08:00 NIV Bilevel 60 01/19/21 08:00 36.0 01/19/21 08:00 NIV Bilevel 60.00 01/19/21 08:00 63 21 97/64 87 Vapotherm 40.00 100.00 01/19/21 07:45 108/79 01/19/21 07:30 75 30 109/73 96 Vapotherm 40.00 100.00 01/19/21 07:15 69 31 113/77 95 Vapotherm 40.00 100.00 01/19/21 07:00 81 01/19/21 07:00 67 24 112/75 94 Vapotherm 40.00 100.00 01/19/21 06:00 70 114/78 96 Vapotherm 40.00 100.00 01/19/21 05:00 72 23 98/60 95 Vapotherm 40.00 100.00 01/19/21 04:00 NIV Bilevel 60 01/19/21 04:00 83 111/70 100 Vapotherm 40.00 100.00 01/19/21 03:55 36.4 01/19/21 03:54 Vapotherm 40.00 100.00 01/19/21 03:00 80 15 111/73 98 NIV Bilevel 60.00 01/19/21 02:00 76 25 93/64 100 NIV Bilevel 60.00 01/19/21 01:58 NIV Bilevel 60.00 01/19/21 01:51 75 22 100 60.00 01/19/21 01:00 88 01/19/21 01:00 83 32 103/69 93 Vapotherm 40.00 100.00 01/19/21 00:51 Vapotherm 40.00 100.00 01/19/21 00:00 NIV Bilevel 60 01/19/21 00:00 81 23 111/73 94 NIV Bilevel 60.00 01/18/21 23:28 36.4 01/18/21 23:00 90 20 109/63 93 NIV Bilevel 60.00 01/18/21 22:20 NIV Bilevel 60.00 01/18/21 22:00 78 29 110/69 99 Vapotherm 40.00 100.00 01/18/21 21:05 98 Vapotherm 40.00 100 01/18/21 21:00 80 86/58 86 Vapotherm 40.00 100.00 01/18/21 20:56 Vapotherm 40.00 100.00 01/18/21 20:00 36.3 01/18/21 20:00 76 20 100/70 91 NIV Bilevel 60.00 01/18/21 20:00 NIV Bilevel 60 01/18/21 19:00 74 91/62 89 NIV Bilevel 60.00 01/18/21 19:00 77 01/18/21 18:05 NIV Bilevel 60.00 01/18/21 18:00 84 128/117 88 Vapotherm 40.00 100.00 01/18/21 17:45 80 40 121/82 91 01/18/21 17:30 78 27 100/65 92 01/18/21 17:15 110/71 01/18/21 17:00 73 26 97/61 91 Vapotherm 40.00 100.00 01/18/21 16:45 84 28 98/59 90 01/18/21 16:42 36.0 01/18/21 16:30 76 27 99/57 97 01/18/21 16:15 70 40 109/75 92 01/18/21 16:00 78 36 113/67 99 Vapotherm 40.00 100.00 01/18/21 16:00 80 34 113/67 98 01/18/21 15:45 77 34 101/70 96 01/18/21 15:30 75 27 98/70 89 01/18/21 15:21 99 Vapotherm 40.00 100 01/18/21 15:16 Vapotherm 40.00 100 01/18/21 15:15 73 18 106/61 93 01/18/21 15:00 69 32 106/59 98 Vapotherm 40.00 100.00 01/18/21 14:55 Vapotherm 40.00 100.00 01/18/21 14:45 76 23 102/63 96 01/18/21 14:30 79 29 99/73 100 01/18/21 14:15 75 19 106/71 96 01/18/21 14:00 80 22 97/60 97 NIV Bilevel 60.00 01/18/21 13:45 75 19 96/62 94 01/18/21 13:30 73 23 98/64 91 01/18/21 13:15 99/58 01/18/21 13:00 75 17 100/58 98 NIV Bilevel 60.00 01/18/21 12:53 NIV Bilevel 60.00 01/18/21 12:52 82 01/18/21 12:34 NIV Bilevel 70.00 01/18/21 12:00 35.5 01/18/21 12:00 80 39 105/78 94 Vapotherm 40.00 100.00 I & O 01/19/21 07:00 Intake Total 3135 ml Output Total 2300 ml Balance 835 ml Height & Weight Height: 5'2.00" Weight: 122lbs. 0.0oz. 55.693746ps; 22.52 BMI Method: General Appearance: Mild Distress HEENT: PERRL/EOMI Neck: Normal Inspection Respiratory: No Accessory Muscle Use, No Respiratory Distress, Other (Tachypnea on high flow oxygen diminished breath sounds bilaterally with fine rales no wheezing appreciated.) Cardiovascular: No Murmur, Irregularly Irregular Capillary Refill: Less Than 3 Seconds Peripheral Pulses: 1+ Dorsalis Pedis (R), 1+ Left Dors-Pedis (L) (See free text.) Gastrointestinal: soft, distended (maybe same or better than yesterday), tenderness (epigastric) Extremity: Pedal Edema (Bilateral 2+ edema to knee) Neurologic/Psychiatric: Alert, Oriented x3 Skin: Normal Color, Warm/Dry Lymphatic: No Adenopathy (cervical) Results Lab Laboratory Tests 01/18/21 04:35 01/18/21 12:25 01/19/21 05:54 Assessment/Plan Assessment/Plan (Tele-ICU Physician , Progress Note ) Available chart/ vitals / labs / Images reviewed Video assessment done using teleICU camera, rest of exam as per RN Discussed with RN , EXAM PER RN Events overnight :started on BIPAP Afebrile FiO2 - VT 40 L 100% I/O = +1200 Drips: cardizem, precedex Pressors: , hemodynamically stable Consultants: ROSLYN jordan Hospital course: (01/11) 70 y/o Female - Acute Pancreatitis - A Fib RVR - Cardizem Drip. 01/14 - started on BIPAP 16/10 - 100% rr30 tv 300-600 , MV 20L + PRECEDEX,, met acidosis, attempted diuresis 1L 01/15 - BIPAP 16/10 - 100% rr30 tv 300-600 , MV 16 L 01/19- VT 40 L 100% A/P acute pancreatitis probably due to alcohol abuse ( TGL low , No CT evidence of cholelithiasis or acute cholecystitis.) - improving , CT admission - no abscess - follow on Zosyn - sx consulted Acute resp failure , hypoxic 01/14 - VO vs ARDS , in addition to supected RIGHT PNA - started on BIPAP 16/10 - , now on VT 40 L 100% - cont diuresis - fluid balance positive , check PCT and PBA and CXR - and reassess PNA , R>L - already on zosyn ( MRSA swab negative ) - 01/19 - rising WBC on zosyn - will recheck PCT and CXR A fib RVR - cardizem gtt - hopefully cards to change to PO to decrease IVF load - AC lovenox - changed to xarelto 01/15- as per RN it is " on hold" - to recheck with cards Thrombocytopenia= resoved - HIPA neg History of alcohol abuse - vitamins po -ciwa Nutrition - po anxiety - precedex for now - might meed small dose of benzo with h/o ETOH Lines : PICC LINE 01/14 (Central Line Necessity Reviewed)= Hwang: + OG: Nutrition: po Analgesia: Anxiety/ delirium precedex VTE Prophylaxis: xarelto Stress Ulcer Prophylaxis: ppi Glycemic Control: Plans in collaboration with bedside consultants and IM MDs. Discussed with RN to reach out if any questions or concerns A total of 40 minutes of critical care time was devoted to this patient today, required to treat and/or prevent further deterioration of critical care condition ( as above) ALYCE CRANE MD Jan 19, 2021 11:45
--- NOTE | 2021-01-19 12:07 | Pulmonary Progress Note ---
[facility] BOWMAN 01/19/21 1207: Subjective Subjective/Events-last exam The patient is anxious this morning and is in moderate respiratory distress. She is denying any abdominal pain but states that she has not been passing flatus or having bowel movements. Review of Systems General: No Chills, No Night Sweats HEENT: Head Aches Pulmonary: Dyspnea Cardiovascular: No: Chest Pain, Palpitations Gastrointestinal: No: Nausea, Vomiting, Abdominal Pain Genitourinary: No Dysuria, No Frequency Musculoskeletal: neck pain, shoulder pain, back pain Neurological: No: Weakness, Numbness Exam Exam Patient acknowledged, consented, and participated in this virtual visit which was conducted using real time audio/video Vital Signs Date Time Temp Pulse Resp B/P (MAP) Pulse Ox O2 Delivery O2 Flow Rate FiO2 01/19/21 11:30 36.0 01/19/21 10:15 86 34 116/77 92 Vapotherm 40.00 100.00 01/19/21 10:00 80 38 102/69 92 Vapotherm 40.00 100.00 01/19/21 09:45 76 27 103/69 97 Vapotherm 40.00 100.00 01/19/21 09:30 72 28 105/61 96 Vapotherm 40.00 100.00 01/19/21 09:15 79 26 103/70 97 Vapotherm 40.00 100.00 01/19/21 09:00 82 23 106/89 96 Vapotherm 40.00 100.00 01/19/21 08:57 87 01/19/21 08:45 77 17 99/56 97 Vapotherm 40.00 100.00 01/19/21 08:30 93 17 96/54 97 Vapotherm 40.00 100.00 01/19/21 08:15 83 18 91/62 95 Vapotherm 40.00 100.00 01/19/21 08:02 72 27 87 60.00 01/19/21 08:00 NIV Bilevel 60 01/19/21 08:00 36.0 01/19/21 08:00 NIV Bilevel 60.00 01/19/21 08:00 63 21 97/64 87 Vapotherm 40.00 100.00 01/19/21 07:45 108/79 01/19/21 07:30 75 30 109/73 96 Vapotherm 40.00 100.00 01/19/21 07:15 69 31 113/77 95 Vapotherm 40.00 100.00 01/19/21 07:00 81 01/19/21 07:00 67 24 112/75 94 Vapotherm 40.00 100.00 01/19/21 06:00 70 114/78 96 Vapotherm 40.00 100.00 01/19/21 05:00 72 23 98/60 95 Vapotherm 40.00 100.00 01/19/21 04:00 NIV Bilevel 60 01/19/21 04:00 83 111/70 100 Vapotherm 40.00 100.00 01/19/21 03:55 36.4 01/19/21 03:54 Vapotherm 40.00 100.00 01/19/21 03:00 80 15 111/73 98 NIV Bilevel 60.00 01/19/21 02:00 76 25 93/64 100 NIV Bilevel 60.00 01/19/21 01:58 NIV Bilevel 60.00 01/19/21 01:51 75 22 100 60.00 01/19/21 01:00 88 01/19/21 01:00 83 32 103/69 93 Vapotherm 40.00 100.00 01/19/21 00:51 Vapotherm 40.00 100.00 01/19/21 00:00 NIV Bilevel 60 01/19/21 00:00 81 23 111/73 94 NIV Bilevel 60.00 01/18/21 23:28 36.4 01/18/21 23:00 90 20 109/63 93 NIV Bilevel 60.00 01/18/21 22:20 NIV Bilevel 60.00 01/18/21 22:00 78 29 110/69 99 Vapotherm 40.00 100.00 01/18/21 21:05 98 Vapotherm 40.00 100 01/18/21 21:00 80 86/58 86 Vapotherm 40.00 100.00 01/18/21 20:56 Vapotherm 40.00 100.00 01/18/21 20:00 36.3 01/18/21 20:00 76 20 100/70 91 NIV Bilevel 60.00 01/18/21 20:00 NIV Bilevel 60 01/18/21 19:00 74 91/62 89 NIV Bilevel 60.00 01/18/21 19:00 77 01/18/21 18:05 NIV Bilevel 60.00 01/18/21 18:00 84 128/117 88 Vapotherm 40.00 100.00 01/18/21 17:45 80 40 121/82 91 01/18/21 17:30 78 27 100/65 92 01/18/21 17:15 110/71 01/18/21 17:00 73 26 97/61 91 Vapotherm 40.00 100.00 01/18/21 16:45 84 28 98/59 90 01/18/21 16:42 36.0 01/18/21 16:30 76 27 99/57 97 01/18/21 16:15 70 40 109/75 92 01/18/21 16:00 78 36 113/67 99 Vapotherm 40.00 100.00 01/18/21 16:00 80 34 113/67 98 01/18/21 15:45 77 34 101/70 96 01/18/21 15:30 75 27 98/70 89 01/18/21 15:21 99 Vapotherm 40.00 100 01/18/21 15:16 Vapotherm 40.00 100 01/18/21 15:15 73 18 106/61 93 01/18/21 15:00 69 32 106/59 98 Vapotherm 40.00 100.00 01/18/21 14:55 Vapotherm 40.00 100.00 01/18/21 14:45 76 23 102/63 96 01/18/21 14:30 79 29 99/73 100 01/18/21 14:15 75 19 106/71 96 01/18/21 14:00 80 22 97/60 97 NIV Bilevel 60.00 01/18/21 13:45 75 19 96/62 94 01/18/21 13:30 73 23 98/64 91 01/18/21 13:15 99/58 01/18/21 13:00 75 17 100/58 98 NIV Bilevel 60.00 01/18/21 12:53 NIV Bilevel 60.00 01/18/21 12:52 82 01/18/21 12:34 NIV Bilevel 70.00 I & O 01/19/21 07:00 Intake Total 3135 ml Output Total 2300 ml Balance 835 ml Height & Weight Height: 5'2.00" Weight: 122lbs. 0.0oz. 55.357832di; 22.52 BMI Method: General Appearance: Mild Distress HEENT: PERRL/EOMI Neck: Normal Inspection Respiratory: No Accessory Muscle Use, No Respiratory Distress, Other (Tachypnea on high flow oxygen diminished breath sounds bilaterally with fine rales no wheezing appreciated.) Cardiovascular: No Murmur, Irregularly Irregular Capillary Refill: Less Than 3 Seconds Peripheral Pulses: 1+ Dorsalis Pedis (R), 1+ Left Dors-Pedis (L) (See free text.) Gastrointestinal: soft, distended (maybe same or better than yesterday), tenderness (epigastric) Extremity: Pedal Edema (Bilateral 2+ edema to knee) Neurologic/Psychiatric: Alert, Oriented x3 Skin: Normal Color, Warm/Dry Lymphatic: No Adenopathy (cervical) Results Lab Laboratory Tests 01/18/21 04:35 01/18/21 12:25 01/19/21 05:54 Assessment/Plan Assessment/Plan acute pancreatitis - Likely due to alcohol - Lipase and amylase trending down, Pain improving and tolerating full liquid diet - improving , CT admission - no abscess - follow on Zosyn Acute resp failure , hypoxic 01/14 - VO vs ARDS , in addition to supected RIGHT PNA - Alternating on Bipap and vapotherm 60% - cont diuresis - fluid balance positive , check PCT and PBA and CXR - and reassess PNA , R>L - already on zosyn ( MRSA swab negative ) - 01/19 - rising WBC on zosyn - will recheck PCT and CXR A fib RVR - cardizem drip - Checking with cardiology to change to oral - was on Xarelto which was held for acute abdominal pain, will check with cardiology about restarting Thrombocytopenia= resoved - HIPA neg History of alcohol abuse - vitamins po -CIWA Nutrition - Tolerating full liquid diet anxiety - precedex ALYCE CRANE MD 01/23/21 1429: Subjective Date Seen by a Provider: Jan 19, 2021 Time Seen by a Provider: 12:00 Supervisory-Addendum Brief Verification & Attestation Participated in pt care: history, MDM, physical Personally performed: exam, history, MDM, supervision of care Care discussed with: Medical Student Procedures: n/a Results interpretation: Verified all documentation A medical student performed and documented this service. I reviewed information documented by the medical student . Medical student performed patients physical exam . Medical decision making was done during tele-rounds with this medical student and a bedside RN . Please see my notes for details /clarification of assessment and plans [facility] BOWMAN Jan 19, 2021 12:07 ALYCE CRANE MD Jan 23, 2021 14:29
--- NOTE | 2021-01-19 13:57 | Occupational Ther Daily Note ---
OT Current Status-Daily Note Subjective Pt alert, lying in bed. Pt requires encouragement to participate in OT session. Pt stated that she was too tired and had already completed exercises. BRITTON explained that she had completed leg exercises and OT will complete B UE exercises. Pt stated that she cannot talk and do anything else because she is t oo tired. BRITTON explained that to do exercises she does not need to talk. Pt finally agreed to do a few exercises. Mental Status/Objective Patient Orientation: Person, Place, Time, Situation Attachments: IV, Oxygen (vapotherm 40/100), Telemetry ADL-Treatment Therapy Code Descriptions/Definitions Functional [place] Measure: 0=Not Assessed/NA 4=Minimal Assistance 1=Total Assistance 5=Supervision or Setup 2=Maximal Assistance 6=Modified [place] 3=Moderate Assistance 7=Complete IndependenceSCALE: Activities may be completed with or without assistive devices. 9-Coswvklhpj-euimggv completes the activity by him/herself with no assistance from a helper. 5-Set-up or Clean-up Assistance-helper sets up or cleans up; patient completes activity. [place] assists only prior to or following the activity. 4-Supervision or Touching Assistance-helper provides verbal cues and/or touching/steadying and/or contact guard assistance as patient completes activity. Assistance may be provided throughout the activity or intermittently. 3-Partial/Moderate Assistance-helper does LESS THAN HALF the effort. [place] lifts, holds or supports trunk or limbs, but provides less than half the effort. 2-Substantial/Maximal Assistance-helper does MORE THAN HALF the effort. [place] lifts or holds trunk or limbs and provides more than half the effort. 8-Imcgrqcii-kbafps does ALL the effort. Patient does none of the effort to complete the activity. Or, the assistance of 2 or more helpers is required for the patient to complete the activity. If activity was not attempted, code reason: 7-Patient Refused. 9-Not Applicable-not attempted and the patient did not perform the activity before the current illness, exacerbation or injury. 10-Not Attempted due to Environmental Limitations-(lack of equipment, weather restraints, etc.). 88-Not Attempted due to Medical Conditions or Safety Concerns. Other Treatment Pt able to complete 1 set 10 reps of B UE exercises against gravity. Skilled instruction for technique and modification required. Monitoring O2 levels during session, staying above 90%. Shldr int/ext rotation, bicep curls and tricep extension. After session, pt lying in bed with call light/phone in reach. All needs met in room. OT Trades Helper Goals Jail Goals Time Frame: Jan 30, 2021 Oral Hygiene (QC): 5 Toileting Hygiene (QC): 4 Upper Body Dressing (QC): 5 Lower Body Dressing (QC): 4 On/Off Footwear (QC): 5 1=Demonstrate adherence to instructed precautions during ADL tasks. 2=Patient will verbalize/demonstrate understanding of assistive devices/modifications for ADL. 3=Patient will improve strength/tolerance for activity to enable patient to perform ADL's. OT Education/Plan Problem List/Assessment Assessment: Decreased Activ Tolerance, Decreased UE Strength, Impaired Self- Care Skills, Restricted Funct UE ROM Discharge Recommendations Plan/Recommendations: Continue POC Treatment Plan/Plan of Care Patient would benefit from OT for education, treatment and training to promote independence in ADL's, mobility, safety and/or upper extremity function for ADL's. Plan of Care: ADL Retraining, Functional Mobility, Group Exercise/Act as Ind, UE Funct Exercise/Act Treatment Duration: Jan 30, 2021 Frequency: 3 times per week Estimated Hrs Per Day: .25 hour per day Agreement: Yes Rehab Potential: Fair Time/GCodes Start Time: 13:38 Stop Time: 13:46 Total Time Billed (hr/min): 8 Billed Treatment Time 1 visit-EX 1 (8 min) ABIODUN CHACON Jan 19, 2021 13:57
--- NOTE | 2021-01-19 15:33 | Physical Therapy Progress Note ---
Therapy Progress Note Patient refuses PT this afternoon even exercises in bed. The benefits of therapy were explained to patient but she continued to refuse. Patient states she is in too much pain and has already done exercises. JUAQUIN ANGELES PT Jan 19, 2021 15:33
--- NOTE | 2021-01-19 15:36 | Progress Note ---
Subjective Subjective/Events-last exam Seen at 1015 am. She states she is doing okay, but if she does anything, even drinking, she gets very tired. She states her abdomen feels "hard as a rock" but is not as painful as before and she is tolerating liquids. She is on vapotherm at 100% FiO2, she reaffirms to me she does not want to be intubated, but she is very anxious about the prospect of getting worse. Objective Exam Last Set of Vital Signs Vital Signs Date Time Temp Pulse Resp B/P (MAP) Pulse Ox O2 Delivery O2 Flow Rate FiO2 01/19/21 14:42 92 Vapotherm 40.00 100 01/19/21 14:15 92 31 129/79 01/19/21 11:30 36.0 Capillary Refill : Less Than 3 Seconds I&O Intake and Output 01/19/21 00:00 Intake Total 3265 ml Output Total 1975 ml Balance 1290 ml Intake Oral 2120 ml IV Total 1145 ml Output Urine Total 1975 ml General: Alert, Mild Distress Lungs: Other (ronchi) Heart: Other (irregular) Abdomen: Normal Bowel Sounds, Soft, Other (mild epigastric ttp) Extremities: No Edema Neuro: Normal Speech Psych/Mental Status: Mood NL Results/Procedures Lab Laboratory Tests 01/19/21 05:50: B-Type Natriuretic Peptide 744.8H, Procalcitonin 0.55H 01/19/21 05:54: White Blood Count 21.1H, Red Blood Count 3.07L, Hemoglobin 10.5L, Hematocrit 30L , Mean Corpuscular Volume 99, Mean Corpuscular Hemoglobin 34, Mean Corpuscular Hemoglobin Concent 35, Red Cell Distribution Width 13.8, Platelet Count 180, Mean Platelet Volume 11.7, Immature Granulocyte % (Auto) 2, Neutrophils (%) (Auto) 92H, Lymphocytes (%) (Auto) 3L, Monocytes (%) (Auto) 2, Eosinophils (%) (Auto) 1, Basophils (%) (Auto) 0, Neutrophils # (Auto) 19.4H, Lymphocytes # (Auto) 0.6L, Monocytes # (Auto) 0.5, Eosinophils # (Auto) 0.2, Basophils # (Auto) 0.1, Immature Granulocyte # (Auto) 0.4H, Neutrophils % (Manual) 95, Lymphocytes % (Manual) 2, Monocytes % (Manual) 1, Eosinophils % (Manual) 1, Band Neutrophils 1, Blood Morphology Comment NORMAL, Sodium Level 135, Potassium Level 3.5L, Chloride Level 93L, Carbon Dioxide Level 32, Anion Gap 10, Blood Urea Nitrogen 23H, Creatinine 0.98, Estimat Glomerular Filtration Rate 56, BUN/Creatinine Ratio 23, Glucose Level 172H, Calcium Level 8.4L, Corrected Calcium 9.8, Phosphorus Level 2.7, Magnesium Level 1.7, Total Bilirubin 0.5, Aspartate Amino Transf (AST/SGOT) 40H, Alanine Aminotransferase (ALT/SGPT) 18, Alkaline Phosphatase 93, Total Protein 5.5L, Albumin 2.3L Microbiology 01/13/21 Urine Culture - Final, Complete NO GROWTH 01/11/21 MRSA Screen - Final, Complete MRSA not isolated 01/11/21 Blood Culture - Final, Complete No growth Radiology NAME: SHOBHA SCHROEDER [facility] REC#: [id number] PT STATUS: REG ER : 1950 PHYSICIAN: NATALIE AMBROSE ADMIT DATE: 01/11/21/ER Signed Date of Exam:01/11/21 CT ABDOMEN/PELVIS W PROCEDURE: CT abdomen and pelvis with contrast. TECHNIQUE: Multiple contiguous axial images were obtained through the abdomen and pelvis after administration of intravenous contrast. Auto Exposure Controls were utilized during the CT exam to meet ALARA standards for radiation dose reduction. All CT scans use one or more of the following dose optimizing techniques: automated exposure control, MA and/or KvP adjustment based on patient size and exam type or iterative reconstruction. DATE: January 11, 2021. COMPARISON: None. INDICATION: 70-year-old female, abdominal pain and bloating. FINDINGS: There are linear opacities in the lung bases consistent with atelectasis. The heart is not enlarged. There is no pericardial effusion. The liver is unremarkable in size and contour. There is no identified liver lesion. The main, right, left portal veins are patent. The gallbladder is unremarkable. There is no intrahepatic or extrahepatic bile duct dilation. The main pancreatic duct is not abnormally dilated. There is abnormal fluid and inflammatory stranding adjacent to the pancreas. There is no currently well marginated focal fluid collection. There is enhancement of the pancreatic parenchyma without evidence of pancreatic necrosis. The spleen is normal in size. The adrenal glands are unremarkable. There is a 7 mm low-attenuation right renal lesion on axial image 30 which is too small to characterize. The urinary collecting systems are not distended. There is no identified renal or ureteral stone. Urinary bladder is collapsed and not well evaluated. The appendix is unremarkable and well seen. There is nonspecific wall thickening of the distal stomach. There is no free intraperitoneal air. There is a small volume ascites. There are atherosclerotic calcifications. There is no identified abnormally enlarged lymph node in the abdomen or pelvis meeting CT size criteria for adenopathy. There is no identified acute bony abnormality. IMPRESSION: CT ABDOMEN AND PELVIS. 1. Findings suspicious for acute pancreatitis with peripancreatic fluid and inflammatory stranding. No clearly identified current well marginated focal drainable fluid collection. No evidence of pancreatic necrosis. 2. Small volume ascites. 3. No CT evidence of cholelithiasis or acute cholecystitis. No biliary ductal dilation. Dictated by: Dictated on workstation # [id number] Dict: 01/11/21 1240 Trans: 01/11/21 1309 [facility] [id number] Interpreted by: DONNELL ESPINOZA MD Electronically signed by: DONNELL ESPINOZA MD 01/11/21 1309 NAME: SHOBHA SCHROEDER [facility] REC#: [id number] PT STATUS: ADM IN : 1950 PHYSICIAN: ANAID IBRAHIM DO ADMIT DATE: 01/11/21/ICU Draft Date of Exam:01/12/21 US ABDOMEN LIMITED [id number] PROCEDURE: US Abdomen, limited. TECHNIQUE: Multiple realtime grayscale images were obtained over the abdomen in various projections. INDICATION: Pancreatitis. FINDINGS: The liver measures 12 cm in length without evidence of focal abnormality. There is no gallbladder wall thickening. The common bile duct reaches 1 cm in diameter which may be related to previous stone passage. There is diffuse enlargement of the pancreas measuring approximately 6.6 x 5.1 x 2.5 cm with an adjacent hypoechoic region which may represent mild peripancreatic edema and/or fluid. The visualized portions of the abdominal aorta and inferior vena cava are unremarkable. There is also mild right perinephric fluid without other right renal abnormality identified. IMPRESSION: Findings are consistent with pancreatitis with demonstrated pancreatic enlargement and peripancreatic fluid. There is also a mild amount of fluid in the right anterior pararenal space which could be secondary to pancreatic inflammation. Dictated on workstation # [id number] Dict: 01/12/21823 Trans: 01/12/21831 [id number] Interpreted by: KAROL HARRIS MD Electronically signed by: Assessment/Plan Assessment/Plan (1) Acute respiratory failure Status: Acute Assessment & Plan: Possibly secondary to pancreatitis/sepsis, requiring extremely high FiO2, appreciate eICU recommendations. Qualifiers: Qualified Codes: J96.01 - Acute respiratory failure with hypoxia (2) Pancreatitis Onset Date: ~ 01/09/2021 Status: Acute Assessment & Plan: Lipase improved from over 1000 to 150, symptomatically improving, no evidence of necrosis on CT scan. Continued on Zosyn given her recurrent leukocytosis and respiratory failure. Qualifiers: Qualified Codes: K85.20 - Alcohol induced acute pancreatitis without necrosis or infection (3) Atrial fibrillation with rapid ventricular response Onset Date: ~ 01/11/2021 Status: Acute Assessment & Plan: On Xarelto outpatient, held per Cardiology due to abdominal pain, on cardizem drip, appreciate Cardiology recommendations. (4) Hypertension Status: Chronic (5) Leukocytosis Onset Date: ~ 01/11/2021 Status: Acute Assessment & Plan: Improved initially but now worsening again, repeat procalc itonin pending, continue Zosyn. Qualifiers: Qualified Codes: D72.828 - Other elevated white blood cell count (6) Severe sepsis Onset Date: ~ 01/11/2021 Status: Resolved Assessment & Plan: Elevated lactic acid, leukocytosis and tachycardia on admission. Suspect secondary to pancreatitis. (7) Alcohol use Status: Chronic Assessment & Plan: Alcohol withdrawal protocol started on admission. Has not been requiring ativan since 01/13, is on dexmedetomidine drip due to anxiety. ANURAG BERNARDO MD Jan 19, 2021 15:36
[2021-01-19] MEDS: RIVAROXABAN 20 MG TABLET (XARELTO) PO SCH (16:02)
[2021-01-19] MEDS: MELATONIN 3 MG TABLET PO PRN (20:29)
[2021-01-19 21:14] VITALS: BP 143/75
[2021-01-19] MEDS: dilTIAZem DRIP PRE-MIX 125 ML IV SCH (22:37)
[2021-01-20] MEDS: HYDROmorphone 2 MG/ML VIAL (DILAUDID) IVP PRN (00:42)
[2021-01-20] MEDS: RT-ALBUTEROL SULF 2.5 MG/3 ML PRE-MIX VIAL INH SCH ×4 (02:19→22:01)
[2021-01-20] MEDS: PIPERACILLIN/TAZOBACTAM (BULK) 4.5 GM in NS (IVPB) 100 ML IV SCH (05:21)
[2021-01-20 05:28] LABS: BASOPHILS # (AUTO) 0.1 10^3/uL (0.0-0.1); BASOPHILS % (AUTO) 0 % (0-10); EOSINOPHILS # (AUTO) 0.1 10^3/uL (0.0-0.3); EOSINOPHILS % (AUTO) 0 % (0-10); HEMATOCRIT 30 % (35-52); HEMOGLOBIN 10.4 g/dL (11.5-16.0); LYMPHOCYTES # (AUTO) 0.4 10^3/uL (1.0-4.0); LYMPHOCYTES % (AUTO) 2 % (12-44); MEAN CORPUSCULAR HEMOGLOBIN 34 pg (25-34); MEAN CORPUSCULAR HGB CONC 34 g/dL (32-36); MEAN CORPUSCULAR VOLUME 99 fL (80-99); MEAN PLATELET VOLUME 11.5 fL (9.0-12.2); MONOCYTES # (AUTO) 0.7 10^3/uL (0.0-1.0); MONOCYTES % (AUTO) 3 % (0-12); NEUTROPHILS # (AUTO) 25.9 10^3/uL (1.8-7.8); NEUTROPHILS % (AUTO) 94 % (42-75); PLATELET COUNT 190 10^3/uL (130-400); WHITE BLOOD COUNT 27.6 10^3/uL (4.3-11.0)
[2021-01-20 05:48] LABS: ALBUMIN 2.2 GM/DL (3.2-4.5)
[2021-01-20 05:49] LABS: CALCIUM 7.7 MG/DL (8.5-10.1)
[2021-01-20 05:51] LABS: TOTAL PROTEIN 5.2 GM/DL (6.4-8.2)
[2021-01-20 05:52] LABS: BILIRUBIN,TOTAL 0.5 MG/DL (0.1-1.0)
[2021-01-20 05:54] LABS: CREATININE SERUM 0.86 MG/DL (0.60-1.30); PHOSPHORUS 4.2 MG/DL (2.3-4.7)
[2021-01-20 05:57] LABS: MAGNESIUM 1.6 MG/DL (1.6-2.4)
[2021-01-20 05:59] LABS: POTASSIUM 2.3 MMOL/L (3.6-5.0)
[2021-01-20] MEDS: MAGNESIUM 1 GM/100 ML IVPB 100 ML IV SCH (06:29)
[2021-01-20] MEDS ORDERED: POTASSIUM CL 10MEQ/50ML IVPB 50 ML IV SCH ×3 (06:45→17:45)
[2021-01-20] MEDS: POTASSIUM CL 10MEQ/50ML IVPB 50 ML IV SCH ×11 (06:46→22:40)
[2021-01-20] MEDS: KCL 20 MEQ TAB (K-DUR) PO SCH (06:46)
[2021-01-20] MEDS: THIAMINE 100 MG (VITAMIN B-1) TAB PO SCH (06:51)
[2021-01-20] MEDS: diphenhydrAMINE 25 MG TAB (BENADRYL) PO PRN (06:51)
[2021-01-20] MEDS ORDERED: POTASSIUM BICARB 20 MEQ (EFFER-K) TABLET PO ONE (07:00)
--- NOTE | 2021-01-20 08:51 | Cardiology Progress Note ---
Subjective Date Seen by Provider: Jan 20, 2021 Time Seen by Provider: 08:49 Subjective/Events-last exam Patient is laying down in bed, feeling better, breathing better. Passing gas. Less pain in her abdomen Review of Systems General: No Chills, No Night Sweats; Fatigue, Malaise; No Appetite, No Other HEENT: No Head Aches, No Visual Changes, No Eye Pain, No Ear Pain, No Dysphasia, No Sinus Congestion, No Post Nasal Drip, No Sore Throat, No Other Pulmonary: Dyspnea; No Cough, No Pleuritic Chest Pain, No Other Cardiovascular: No: Chest Pain, Palpitations, Orthopnea, Paroxysmal Noc. Dyspnea, Edema, Lt Headedness, Other Objective-Cardiology Exam Last Set of Vital Signs Vital Signs 01/20/21 01/20/21 01/20/21 06:00 07:16 07:45 Temp 36.0 Pulse 74 Resp 27 B/P (MAP) 109/67 Pulse Ox 91 O2 Delivery Vapotherm O2 Flow Rate 40.00 FiO2 100 I&O Intake and Output 01/20/21 00:00 Intake Total 1910 ml Output Total 2325 ml Balance -415 ml Intake Oral 990 ml IV Total 920 ml Output Urine Total 2325 ml General: Alert, Oriented X3, Cooperative, No Acute Distress HEENT: Atraumatic Neck: Supple Lungs: Normal Air Movement, Other (ronchi) Heart: Normal S1, Normal S2, Other (irregular) Abdomen: Normal Bowel Sounds, Soft, Other (mild epigastric ttp) Extremities: No Edema Skin: No Rashes Neuro: Normal Speech Psych/Mental Status: Mental Status NL, Mood NL Results Lab Laboratory Tests 01/20/21 05:22 A/P-Cardiology Admission Diagnosis Acute pancreatitis Permanent atrial fibrillation Hypertension Hyperlipidemia Assessment/Plan Status post acute pancreatitis, had abdominal pain, amylase and lipase are trending down. Managed by medical team. Acute respiratory failure, improving slowly, managed by medical team Hypokalemia, I am changing Lasix to oral and once a day and adding Aldactone, continue to replace potassium, monitor closely Atrial fibrillation with rapid ventricular response, history of permanent atrial fibrillation. Switching Cardizem to oral, restart Tenormin: [id number] score of 3, yearly risk of stroke without oral anticoagulation is 3.2%. Started back on Xarelto on January 20, 2021 Echocardiogram done in May 2018 showing normal LV size and function, EF 55 to 65%, PA pressure 40 to 45 mm meter of mercury Stress test done in August 2020 showing no significant ischemia or infarction with EF 74% Hypertension, currently on Cardizem drip. Continue to monitor blood pressures Hyperlipidemia, monitor lipids, hold Lipitor at this time. Mild bilateral carotid stenosis, ultrasound was done in February 2020. Continue to monitor History of alcoholism, drink a few glasses of wine every evening, educated on a voiding alcohol products ADRIEL ROLDAN MD Jan 20, 2021 08:51
[2021-01-20] MEDS: FUROSEMIDE 40 MG (LASIX) TAB PO SCH (09:17)
[2021-01-20] MEDS: PANTOPRAZOLE 40 MG (PROTONIX) VIAL IV SCH (09:17)
[2021-01-20] MEDS: dilTIAZem120 MG (CARDIZEM CD) CAP PO SCH (09:17)
[2021-01-20] MEDS: FOLIC ACID 1 MG TAB PO SCH (09:18)
[2021-01-20] MEDS: SENNA W/DOCUSATE (SENOKOT S) TABLET PO SCH ×2 (09:18→20:18)
[2021-01-20] MEDS: SPIRONOLACTONE 25 MG (ALDACTONE) TAB PO SCH (09:18)
--- NOTE | 2021-01-20 09:49 | Progress Note ---
Subjective Subjective/Events-last exam Still feeling very weak and tired, but is sitting up in chair and eating pudding. Objective Exam Last Set of Vital Signs Vital Signs Date Time Temp Pulse Resp B/P (MAP) Pulse Ox O2 Delivery O2 Flow Rate FiO2 01/20/21 08:00 NIV Bilevel 70 01/20/21 07:45 36.0 01/20/21 07:16 91 40.00 01/20/21 06:00 74 27 109/67 Capillary Refill : Less Than 3 Seconds I&O Intake and Output 01/20/21 00:00 Intake Total 1910 ml Output Total 2325 ml Balance -415 ml Intake Oral 990 ml IV Total 920 ml Output Urine Total 2325 ml General: Alert, No Acute Distress Lungs: Other (decreased air movement throughout) Heart: Regular Rate Abdomen: Normal Bowel Sounds, Soft Extremities: No Edema Neuro: Normal Speech Psych/Mental Status: Mood NL Results/Procedures Lab Laboratory Tests 01/20/21 05:22: White Blood Count 27.6H, Red Blood Count 3.05L, Hemoglobin 10.4L, Hematocrit 30L , Mean Corpuscular Volume 99, Mean Corpuscular Hemoglobin 34, Mean Corpuscular Hemoglobin Concent 34, Red Cell Distribution Width 13.7, Platelet Count 190, Mean Platelet Volume 11.5, Immature Granulocyte % (Auto) 2, Neutrophils (%) (Auto) 94H, Lymphocytes (%) (Auto) 2L, Monocytes (%) (Auto) 3, Eosinophils (%) (Auto) 0, Basophils (%) (Auto) 0, Neutrophils # (Auto) 25.9H, Lymphocytes # (Auto) 0.4L, Monocytes # (Auto) 0.7, Eosinophils # (Auto) 0.1, Basophils # (Auto) 0.1, Immature Granulocyte # (Auto) 0.4H, Sodium Level 136, Potassium Level 2.3#*L, Chloride Level 92L, Carbon Dioxide Level 33H, Anion Gap 11, Blood Urea Nitrogen 20H, Creatinine 0.86, Estimat Glomerular Filtration Rate 66, BUN/Creatinine Ratio 23, Glucose Level 161H, Calcium Level 7.7L, Corrected Calcium 9.1, Phosphorus Level 4.2, Magnesium Level 1.6, Total Bilirubin 0.5, A spartate Amino Transf (AST/SGOT) 35H, Alanine Aminotransferase (ALT/SGPT) 17, Alkaline Phosphatase 91, Total Protein 5.2L, Albumin 2.2L Microbiology 01/13/21 Urine Culture - Final, Complete NO GROWTH 01/11/21 MRSA Screen - Final, Complete MRSA not isolated 01/11/21 Blood Culture - Final, Complete No growth Radiology NAME: SHOBHA SCHROEDER [facility] REC#: [id number] PT STATUS: REG ER : 1950 PHYSICIAN: NATALIE AMBROSE ADMIT DATE: 01/11/21/ER Signed Date of Exam:01/11/21 CT ABDOMEN/PELVIS W PROCEDURE: CT abdomen and pelvis with contrast. TECHNIQUE: Multiple contiguous axial images were obtained through the abdomen and pelvis after administration of intravenous contrast. Auto Exposure Controls were utilized during the CT exam to meet ALARA standards for radiation dose reduction. All CT scans use one or more of the following dose optimizing techniques: automated exposure control, MA and/or KvP adjustment based on patient size and exam type or iterative reconstruction. DATE: January 11, 2021. COMPARISON: None. INDICATION: 70-year-old female, abdominal pain and bloating. FINDINGS: There are linear opacities in the lung bases consistent with atelectasis. The heart is not enlarged. There is no pericardial effusion. The liver is unremarkable in size and contour. There is no identified liver lesion. The main, right, left portal veins are patent. The gallbladder is unremarkable. There is no intrahepatic or extrahepatic bile duct dilation. The main pancreatic duct is not abnormally dilated. There is abnormal fluid and inflammatory stranding adjacent to the pancreas. There is no currently well marginated focal fluid collection. There is enhancement of the pancreatic parenchyma without evidence of pancreatic necrosis. The spleen is normal in size. The adrenal glands are unremarkable. There is a 7 mm low-attenuation right renal lesion on axial image 30 which is too small to characterize. The urinary collecting systems are not distended. There is no identified renal or ureteral stone. Urinary bladder is collapsed and not well evaluated. The appendix is unremarkable and well seen. There is nonspecific wall thickening of the distal stomach. There is no free intraperitoneal air. There is a small volume ascites. There are atherosclerotic calcifications. There is no identified abnormally enlarged lymph node in the abdomen or pelvis meeting CT size criteria for adenopathy. There is no identified acute bony abnormality. IMPRESSION: CT ABDOMEN AND PELVIS. 1. Findings suspicious for acute pancreatitis with peripancreatic fluid and inflammatory stranding. No clearly identified current well marginated focal drainable fluid collection. No evidence of pancreatic necrosis. 2. Small volume ascites. 3. No CT evidence of cholelithiasis or acute cholecystitis. No biliary ductal dilation. Dictated by: Dictated on workstation # [id number] Dict: 01/11/21 1240 Trans: 01/11/21 1309 [facility] [id number] Interpreted by: DONNELL ESPINOZA MD Electronically signed by: DONNELL ESPINOZA MD 01/11/21 1309 NAME: SHOBHA SCHROEDER [facility] REC#: [id number] PT STATUS: ADM IN : 1950 PHYSICIAN: ANAID IBRAHIM DO ADMIT DATE: 01/11/21/ICU Draft Date of Exam:01/12/21 US ABDOMEN LIMITED [id number] PROCEDURE: US Abdomen, limited. TECHNIQUE: Multiple realtime grayscale images were obtained over the abdomen in various projections. INDICATION: Pancreatitis. FINDINGS: The liver measures 12 cm in length without evidence of focal abnormality. There is no gallbladder wall thickening. The common bile duct reaches 1 cm in diameter which may be related to previous stone passage. There is diffuse enlargement of the pancreas measuring approximately 6.6 x 5.1 x 2.5 cm with an adjacent hypoechoic region which may represent mild peripancreatic edema and/or fluid. The visualized portions of the abdominal aorta and inferior vena cava are unremarkable. There is also mild right perinephric fluid without other right renal abnormality identified. IMPRESSION: Findings are consistent with pancreatitis with demonstrated pancreatic enlargement and peripancreatic fluid. There is also a mild amount of fluid in the right anterior pararenal space which could be secondary to pancreatic inflammation. Dictated on workstation # [id number] Dict: 01/12/2124 Trans: 01/12/21 0832 [id number] Interpreted by: AKROL HARRIS MD Electronically signed by: Assessment/Plan Assessment/Plan (1) Acute respiratory failure Status: Acute Assessment & Plan: Possibly secondary to pancreatitis/sepsis, requiring extremely high FiO2, appreciate eICU recommendations. Chest CTA later today if D dimer elevated, per ICU doc. Qualifiers: Qualified Codes: J96.01 - Acute respiratory failure with hypoxia (2) Pancreatitis Onset Date: ~ 01/09/2021 Status: Acute Assessment & Plan: Lipase improved from over 1000 to 150, symptomatically improving, no evidence of necrosis on CT scan. Continued on Zosyn given her recurrent leukocytosis and respiratory failure. Continued worsening leukoctyosis, repeat CT abdomen today, continue Zosyn. Qualifiers: Qualified Codes: K85.20 - Alcohol induced acute pancreatitis without necrosis or infection (3) Atrial fibrillation with rapid ventricular response Onset Date: ~ 01/11/2021 Status: Acute Assessment & Plan: On Xarelto outpatient, held per Cardiology due to abdominal pain, on cardizem drip, appreciate Cardiology recommendations. (4) Hypertension Status: Chronic (5) Leukocytosis Onset Date: ~ 01/11/2021 Status: Acute Assessment & Plan: Improved initially but now worsening again, repeat procalcitonin decreased from prior, continue Zosyn. Qualifiers: Qualified Codes: D72.828 - Other elevated white blood cell count (6) Severe sepsis Onset Date: ~ 01/11/2021 Status: Resolved Assessment & Plan: Elevated lactic acid, leukocytosis and tachycardia on admission. Suspect secondary to pancreatitis. (7) Alcohol use Status: Chronic Assessment & Plan: Alcohol withdrawal protocol started on admission. Has not been requiring ativan since 01/13, is on dexmedetomidine drip due to anxiety. ANURAG BERNARDO MD Jan 20, 2021 09:49
[2021-01-20] MEDS: DexMEDEtomidine 250 ML DRIP 250 ML IV SCH ×2 (11:02→22:37)
--- NOTE | 2021-01-20 11:26 | Tele-ICU Progress Note ---
Subjective Date Seen by a Provider: Jan 20, 2021 Time Seen by a Provider: 10:00 Sepsis Event Evaluation Height, Weight, BMI Height: 5'2.00" Weight: 122lbs. 0.0oz. 55.500250gd; 22.52 BMI Method: Exam Exam Patient acknowledged, consented, and participated in this virtual visit which was conducted using real time audio/video Vital Signs Date Time Temp Pulse Resp B/P (MAP) Pulse Ox O2 Delivery O2 Flow Rate FiO2 01/20/21 11:02 80 103/53 01/20/21 08:00 NIV Bilevel 70 01/20/21 07:45 36.0 01/20/21 07:16 91 Vapotherm 40.00 100 01/20/21 07:00 80 01/20/21 06:00 74 27 109/67 93 Vapotherm 40.00 100.00 01/20/21 05:00 77 27 121/64 91 Vapotherm 40.00 100.00 01/20/21 04:00 NIV Bilevel 40.00 70 01/20/21 04:00 81 23 106/59 92 Vapotherm 40.00 100.00 01/20/21 04:00 35.7 01/20/21 03:00 75 24 107/60 92 Vapotherm 40.00 100.00 01/20/21 02:19 94 Vapotherm 40.00 100 01/20/21 02:00 69 23 116/70 94 Vapotherm 40.00 100.00 01/20/21 01:00 60 01/20/21 01:00 74 116/69 95 Vapotherm 40.00 100.00 01/20/21 00:30 93 Vapotherm 40.00 100.00 01/20/21 00:00 NIV Bilevel 40.00 70 01/20/21 00:00 76 27 105/60 91 NIV Bilevel 70.00 01/20/21 00:00 35.8 01/19/21 23:00 79 14 106/62 97 NIV Bilevel 70.00 01/19/21 22:38 80 100/63 01/19/21 22:00 83 16 92/66 95 NIV Bilevel 70.00 01/19/21 21:30 84 28 93/57 88 NIV Bilevel 70.00 01/19/21 21:14 87 37 93 70.00 01/19/21 21:00 81 29 135/81 93 Vapotherm 40.00 100.00 01/19/21 20:42 35.4 01/19/21 20:00 Vapotherm 40.00 100 01/19/21 20:00 89 26 134/71 95 Vapotherm 40.00 100.00 01/19/21 19:00 93 01/19/21 19:00 93 26 143/82 93 Vapotherm 40.00 100.00 01/19/21 18:15 92 33 130/90 91 Vapotherm 40.00 100.00 01/19/21 18:00 86 37 126/69 95 Vapotherm 40.00 100.00 01/19/21 17:45 81 29 126/68 97 Vapotherm 40.00 100.00 01/19/21 17:30 86 38 131/72 95 Vapotherm 40.00 100.00 01/19/21 17:15 82 40 126/81 93 Vapotherm 40.00 100.00 01/19/21 17:00 121/70 01/19/21 16:45 92 32 129/72 94 Vapotherm 40.00 100.00 01/19/21 16:30 125/78 01/19/21 16:15 94 29 126/75 93 Vapotherm 40.00 100.00 01/19/21 16:00 96 35 131/75 97 Vapotherm 40.00 100.00 01/19/21 16:00 Vapotherm 40.00 100 01/19/21 15:45 96 35 117/76 96 Vapotherm 40.00 100.00 01/19/21 15:30 85 36 122/70 94 Vapotherm 40.00 100.00 01/19/21 15:15 93 31 127/74 91 Vapotherm 40.00 100.00 01/19/21 15:00 93 35 128/79 93 Vapotherm 40.00 100.00 01/19/21 14:45 77 33 129/77 92 Vapotherm 40.00 100.00 01/19/21 14:42 92 Vapotherm 40.00 100 01/19/21 14:30 92 37 123/89 94 Vapotherm 40.00 100.00 01/19/21 14:15 92 31 129/79 93 Vapotherm 40.00 100.00 01/19/21 14:00 80 32 131/81 93 Vapotherm 40.00 100.00 01/19/21 13:45 82 37 122/77 Vapotherm 40.00 100.00 01/19/21 13:30 89 49 122/76 91 Vapotherm 40.00 100.00 01/19/21 13:15 81 38 115/78 94 Vapotherm 40.00 100.00 01/19/21 13:00 112/69 01/19/21 12:45 86 35 121/73 Vapotherm 40.00 100.00 01/19/21 12:30 87 31 118/74 93 Vapotherm 40.00 100.00 01/19/21 12:28 80 01/19/21 12:15 82 34 117/76 95 Vapotherm 40.00 100.00 01/19/21 12:00 86 29 122/67 98 Vapotherm 40.00 100.00 01/19/21 12:00 Vapotherm 40.00 100 01/19/21 11:45 80 42 114/83 80 Vapotherm 40.00 100.00 01/19/21 11:30 78 42 115/63 91 Vapotherm 40.00 100.00 01/19/21 11:30 36.0 I & O 01/20/21 07:00 Intake Total 1640 ml Output Total 2125 ml Balance -485 ml Height & Weight Height: 5'2.00" Weight: 122lbs. 0.0oz. 55.156982lp; 22.52 BMI Method: General Appearance: Mild Distress HEENT: PERRL/EOMI Neck: Normal Inspection Respiratory: No Accessory Muscle Use, No Respiratory Distress, Other (Tachypnea on high flow oxygen diminished breath sounds bilaterally with fine rales no wheezing appreciated.) Cardiovascular: No Murmur, Irregularly Irregular Capillary Refill: Less Than 3 Seconds Peripheral Pulses: 1+ Dorsalis Pedis (R), 1+ Left Dors-Pedis (L) (See free text.) Gastrointestinal: soft, distended (maybe same or better than yesterday), tenderness (epigastric) Extremity: Pedal Edema (Bilateral 2+ edema to knee) Neurologic/Psychiatric: Alert, Oriented x3 Skin: Normal Color, Warm/Dry Lymphatic: No Adenopathy (cervical) Results Lab Laboratory Tests 01/18/21 12:25 01/19/21 05:54 01/20/21 05:22 Assessment/Plan Assessment/Plan (Tele-ICU Physician , Progress Note ) Available chart/ vitals / labs / Images reviewed Video assessment done using teleICU camera, rest of exam as per RN Discussed with RN , EXAM PER RN Events overnight :started on BIPAP Afebrile FiO2 - VT 40 L 100% I/O = neg Drips: cardizem, precedex Pressors: , hemodynamically stable Consultants: ROSLYN jordan Hospital course: (01/11) 70 y/o Female - Acute Pancreatitis - A Fib RVR - Cardizem Drip. 01/14 - started on BIPAP 16/10 - 100% rr30 tv 300-600 , MV 20L + PRECEDEX,, met acidosis, attempted diuresis 1L 01/15 - BIPAP 16/10 - 100% rr30 tv 300-600 , MV 16 L 01/19- VT 40 L 100% - attempted diuresis 12.14 - same O2 meeds despite agressive diuresis , CT abd /pelvis A/P acute pancreatitis probably due to alcohol abuse ( TGL low , No CT evidence of cholelithiasis or acute cholecystitis.) - improving , CT admission - no abscess - follow on Zosyn - worsening of leukocytosis- will repeat CT abd/pelvis - sx consulted Acute resp failure , hypoxic 01/14 - VO , ARDS , in addition to supected RIGHT PNA - started on BIPAP 16/10 - , now on VT 40 L 100% - cont diuresis - fluid balance even , neg PCT and and CXR PNA , R>L - already on zosyn ( MRSA swab negative ) - 01/19 - rising WBC on zosyn -neg PCT and same CXR 01/19 -01/20 - - worsening of leukocytosis- will repeat CT abd/pelvis A fib RVR - cardizem gtt off - hopefully cards to change to PO to decrease IVF load - AC lovenox - changed to xarelto 01/15- as per RN it is " on hold" - to recheck with cards - started 01/19 Thrombocytopenia= resoved - HIPA neg History of alcohol abuse - vitamins po -ciwa Nutrition - po anxiety - precedex for now - might meed small dose of benzo with h/o ETOH Lines : PICC LINE 01/14 (Central Line Necessity Reviewed)= Hwang: + OG: Nutrition: po Analgesia: Anxiety/ delirium precedex VTE Prophylaxis: xarelto Stress Ulcer Prophylaxis: ppi Glycemic Control: Plans in collaboration with bedside consultants and IM MDs. Discussed with RN to reach out if any questions or concerns A total of 40 minutes of critical care time was devoted to this patient today, required to treat and/or prevent further deterioration of critical care condition ( as above) ALYCE CRANE MD Jan 20, 2021 11:26
--- NOTE | 2021-01-20 11:53 | Occupational Ther Daily Note ---
OT Current Status-Daily Note Subjective Pt sleeping in bed. Pt would not wake to name or touch. Nrsg complete sternal rub to wake pt. Pt required encouragement from nrsg and BRITTON to participate in therapy. Pt stated that she was stiff and tired. Mental Status/Objective Patient Orientation: Person, Place, Time, Situation Attachments: Hwang Catheter, IV (PICC), Oxygen (vapotherm 40/100), Telemetry ADL-Treatment Therapy Code Descriptions/Definitions Functional [place] Measure: 0=Not Assessed/NA 4=Minimal Assistance 1=Total Assistance 5=Supervision or Setup 2=Maximal Assistance 6=Modified [place] 3=Moderate Assistance 7=Complete IndependenceSCALE: Activities may be completed with or without assistive devices. 6-Brricgtdlu-kmrglhe completes the activity by him/herself with no assistance from a helper. 5-Set-up or Clean-up Assistance-helper sets up or cleans up; patient completes activity. [place] assists only prior to or following the activity. 4-Supervision or Touching Assistance-helper provides verbal cues and/or touching/steadying and/or contact guard assistance as patient completes activity. Assistance may be provided throughout the activity or intermittently. 3-Partial/Moderate Assistance-helper does LESS THAN HALF the effort. [place] lifts, holds or supports trunk or limbs, but provides less than half the effort. 2-Substantial/Maximal Assistance-helper does MORE THAN HALF the effort. [place] lifts or holds trunk or limbs and provides more than half the effort. 4-Hpfksgvvs-qgmozu does ALL the effort. Patient does none of the effort to complete the activity. Or, the assistance of 2 or more helpers is required for the patient to complete the activity. If activity was not attempted, code reason: 7-Patient Refused. 9-Not Applicable-not attempted and the patient did not perform the activity before the current illness, exacerbation or injury. 10-Not Attempted due to Environmental Limitations-(lack of equipment, weather restraints, etc.). 88-Not Attempted due to Medical Conditions or Safety Concerns. Other Treatment Supine to EOB with supervision due to monitoring lines and tubing. Sit <--> stand CGA for safety. CGA using FWW to transfer from bed to chair with shuffling gait. Pt c/o that she was stiff and not able to bend or stand up, pt able to complete both during transfer. After session, pt sitting in recliner with nrsg present. Call light/phone in reach. All needs met in room. OT Machine Crater Goals Retirement Goals Time Frame: Jan 30, 2021 Oral Hygiene (QC): 5 Toileting Hygiene (QC): 4 Upper Body Dressing (QC): 5 Lower Body Dressing (QC): 4 On/Off Footwear (QC): 5 1=Demonstrate adherence to instructed precautions during ADL tasks. 2=Patient will verbalize/demonstrate understanding of assistive devices/modifications for ADL. 3=Patient will improve strength/tolerance for activity to enable patient to perform ADL's. OT Education/Plan Problem List/Assessment Assessment: Decreased Activ Tolerance, Impaired Self-Care Skills Discharge Recommendations Plan/Recommendations: Continue POC Treatment Plan/Plan of Care Patient would benefit from OT for education, treatment and training to promote independence in ADL's, mobility, safety and/or upper extremity function for ADL's. Plan of Care: ADL Retraining, Functional Mobility, Group Exercise/Act as Ind, UE Funct Exercise/Act Treatment Duration: Jan 30, 2021 Frequency: 3 times per week Estimated Hrs Per Day: .25 hour per day Agreement: Yes Rehab Potential: Fair Time/GCodes Start Time: 09:15 Stop Time: 09:30 Total Time Billed (hr/min): 15 Billed Treatment Time 1 visit-FA 1 (15 min) ABIODUN CHACON Jan 20, 2021 11:53
[2021-01-20 13:03] LABS: FIBRIN DEGRADATION PRODUCTS >= 20.00 UG/ML (0.00-0.49); FIBRINOGEN 527 MG/DL (221-496); INR 1.5 (0.8-1.4); PROTHROMBIN TIME PATIENT 18.8 SEC (12.2-14.7)
[2021-01-20] MEDS: PIPERACILLIN SODIUM/TAZOBACTAM 4.5 GM in NS (IVPB) 100 ML IV SCH ×2 (13:19→20:18)
[2021-01-20] MEDS ORDERED: IOHEXOL 350 MG/ML 100 ML (OMNIPAQUE 350) VIAL IV ONE (13:45)
[2021-01-20] MEDS ORDERED: CATHETER FLUSH 10 ML SYR IV PRN (13:45)
[2021-01-20] MEDS ORDERED: NS 100 ML (IVPB) BAG IV ONE (13:45)
[2021-01-20] MEDS ORDERED: HOLD METFORMIN - RECEIVED CONTRAST 20 ML VIAL IV SCH (13:45)
--- NOTE | 2021-01-20 13:55 | Physical Therapy Daily Note ---
PT Daily Note-Current Subjective Patient in bedside chair pre tx, agrees to PT, has unrated pain in her right hip. Appearance Patient in bedside chair post tx with nurse call, phone, tray, all needs met. Mental Status Patient Orientation: Person, Place, Situation Attachments: Oxygen, Hwang Catheter, IV Transfers SCALE: Activities may be completed with or without assistive devices. 9-Epghnzjhie-sdxnxoo completes the activity by him/herself with no assistance from a helper. 5-Set-up or Clean-up Assistance-helper sets up or cleans up; patient completes activity. [place] assists only prior to or following the activity. 4-Supervision or Touching Assistance-helper provides verbal cues and/or touching/steadying and/or contact guard assistance as patient completes activity. Assistance may be provided throughout the activity or intermittently. 3-Partial/Moderate Assistance-helper does LESS THAN HALF the effort. [place] lifts, holds or supports trunk or limbs, but provides less than half the effort. 2-Substantial/Maximal Assistance-helper does MORE THAN HALF the effort. [place] lifts or holds trunk or limbs and provides more than half the effort. 9-Itearwrry-kjmten does ALL the effort. Patient does none of the effort to complete the activity. Or, the assistance of 2 or more helpers is required for the patient to complete the activity. If activity was not attempted, code reason: 7-Patient Refused. 9-Not Applicable-not attempted and the patient did not perform the activity before the current illness, exacerbation or injury. 10-Not Attempted due to Environmental Limitations-(lack of equipment, weather restraints, etc.). 88-Not Attempted due to Medical Conditions or Safety Concerns. Sit to Stand (QC): 3 min assist for sit to stand, cues for hand placement and positioning Gait Training patient attempted to ambulate a little but could only take a couple of steps before refusing to go any further due to unsteadiness, she instead does standing ex Exercises Standing: Heel/toe raises, Marching, Mini squats Standing Reps: 20 Treatments LE strengthening Assessment Current Status: Fair Progress improved sit to stand PT Hospice Volunteer Coordinator Goals Fpc Goals PT Fpc Goals Time Frame: Jan 31, 2021 Roll Left & Right (QC): 6 Sit to Lying (QC): 6 Lying-Sitting on Side/Bed(QC): 6 Sit to Stand (QC): 6 Chair/Azg-yz-Ywgfl Xfer(QC): 6 Toilet Transfer (QC): 6 Walk 10 feet (QC): 6 Walk 50ft with 2 Turns (QC): 6 Walk 150 ft (QC): 6 PT Plan Problem List Problem List: Activity Tolerance, Functional Strength, Safety, Balance, Gait, Transfer, Bed Mobility, ROM Treatment/Plan Treatment Plan: Continue Plan of Care Treatment Plan: Bed Mobility, Education, Functional Activity Wu, Functional Strength, Gait, Safety, Therapeutic Exercise, Transfers Treatment Duration: Jan 31, 2021 Frequency: 6 times per week Estimated Hrs Per Day: .5 hour per day Patient and/or Family Agrees t: Yes Safety Risks/Education Patient Education: Correct Positioning, Safety Issues Teaching Recipient: Patient Teaching Methods: Demonstration, Discussion Response to Teaching: Reinforcement Needed Time/GCodes Time In: 1300 Time Out: 1311 Total Billed Treatment Time: 11 Total Billed Treatment 1 visit EX 11' JUAQUIN ANGELES PT Jan 20, 2021 13:55
--- NOTE | 2021-01-20 16:54 | Diagnostic Imaging Report ---
INDICATION: Elevated white blood cell count, pancreatitis. COMPARISON: Exam is compared with a CT abdomen and pelvis 01/11/2021. TECHNIQUE: Thin axial sections through the chest, abdomen, and pelvis are obtained following intravenous contrast bolus. Multiplanar MIP images were reconstructed and reviewed. All CT scans use one or more of the following dose optimizing techniques: Automated exposure control, MA and/or KvP adjustment based on patient size and exam type or iterative reconstruction. FINDINGS: CHEST: There are no intraluminal pulmonary arterial filling defects. There is no pulmonary arterial embolus. The thoracic aorta is patent and nonaneurysmal. The patient has developed moderate-sized bilateral pleural effusions, greater right, nonloculated and layering to a maximal depth of 4.5 cm. No pericardial effusion. This patient has extensive five-lobe infiltrates as a new finding from the prior raising the question of ARDS. Some reactive mediastinal and hilar lymphadenopathy with no dominant mass. ABDOMEN AND PELVIS: There is no evidence for pancreatic necrosis. Pancreatic parenchyma shows iso-enhancement at follow-up, and there are improvements in pancreatic thickening as well as improvements in peripancreatic stranding. However, there is loculation and greater organization with multiple pseudocysts having formed at the sites of previous phlegmonous change. There is a dominant right abdominal likely multiseptated cystic collection now measuring 13 x 5 cm. Ventral to the neck and proximal body of the pancreas along its anterior margin is a pseudocyst measuring 6 x 3 cm. Additional separable smaller peripancreatic locules present. There is trace amount of pelvic free fluid in the dependent pelvis. There is no evidence for gastric outlet obstruction. No small or large bowel obstruction. No gallstone or bile duct dilatation. Spleen is unremarkable. The splenic vein is patent. No vascular contrast extravasation or hemorrhage. Urinary bladder is catheterized and empty. Kidneys are unobstructed, well perfused, and normal. There is no adrenal mass. IMPRESSION: CHEST: Extensive five-lobe pulmonary opacities raise the question of ARDS. Bilateral pleural effusions, nonloculated. Negative for PE or acute aortic disease. ABDOMEN AND PELVIS: 1. Mixed changes. Previously, there was extensive peripancreatic phlegmon and stranding, now representing multiseptated fluid locules consistent with pseudocysts; sampled dimensions above. The pancreatic parenchyma itself is enhanced with no gas or evidence for its necrosis. No bile duct dilatation. Nondilated stomach. 2. Trace free fluid in the pelvis. Dictated by: Dictated on workstation # [id number]
[2021-01-20 17:00] LABS: POTASSIUM 2.7 MMOL/L (3.6-5.0)
[2021-01-20 17:02] LABS: CALCIUM 8.3 MG/DL (8.5-10.1)
[2021-01-20 17:06] LABS: CREATININE SERUM 0.95 MG/DL (0.60-1.30)
[2021-01-20] MEDS: RIVAROXABAN 20 MG TABLET (XARELTO) PO SCH (18:03)
[2021-01-20] MEDS ORDERED: fentaNYL INJ 100 MCG/2 ML AMP ONE (18:35)
[2021-01-20] MEDS ORDERED: ATROPINE INJECTION 1 MG/10 ML SYR (ABBOTT) ONE (18:35)
[2021-01-20] MEDS: MELATONIN 3 MG TABLET PO PRN (22:36)
[2021-01-20] MEDS: ONDANSETRON 4 MG/2 ML (SDV) Z0FRAN IVP PRN (22:36)
[2021-01-20] MEDS: HYDROcodone/APAP 5 MG/325 MG (LORTAB) TAB PO PRN (22:36)
[2021-01-21 02:52] VITALS: BP 108/71
[2021-01-21] MEDS: RT-ALBUTEROL SULF 2.5 MG/3 ML PRE-MIX VIAL INH SCH ×4 (02:52→21:13)
[2021-01-21 03:37] LABS: BASOPHILS % (AUTO) 0 % (0-10); EOSINOPHILS # (AUTO) 0.1 10^3/uL (0.0-0.3); EOSINOPHILS % (AUTO) 0 % (0-10); HEMATOCRIT 27 % (35-52); HEMOGLOBIN 9.1 g/dL (11.5-16.0); LYMPHOCYTES # (AUTO) 0.5 10^3/uL (1.0-4.0); LYMPHOCYTES % (AUTO) 2 % (12-44); MEAN CORPUSCULAR HEMOGLOBIN 34 pg (25-34); MEAN CORPUSCULAR HGB CONC 34 g/dL (32-36); MEAN CORPUSCULAR VOLUME 100 fL (80-99); MEAN PLATELET VOLUME 11.5 fL (9.0-12.2); MONOCYTES # (AUTO) 0.5 10^3/uL (0.0-1.0); MONOCYTES % (AUTO) 2 % (0-12); NEUTROPHILS % (AUTO) 94 % (42-75); PLATELET COUNT 159 10^3/uL (130-400); WHITE BLOOD COUNT 21.4 10^3/uL (4.3-11.0)
[2021-01-21 03:55] LABS: ALBUMIN 1.9 GM/DL (3.2-4.5); POTASSIUM 3.1 MMOL/L (3.6-5.0)
[2021-01-21 03:57] LABS: TOTAL PROTEIN 4.5 GM/DL (6.4-8.2)
[2021-01-21 03:59] LABS: BILIRUBIN,TOTAL 0.5 MG/DL (0.1-1.0)
[2021-01-21 04:01] LABS: CREATININE SERUM 0.8 MG/DL (0.60-1.30); PHOSPHORUS 2.8 MG/DL (2.3-4.7)
[2021-01-21 04:05] LABS: MAGNESIUM 1.4 MG/DL (1.6-2.4)
[2021-01-21] MEDS: POTASSIUM CL 10MEQ/50ML IVPB 50 ML IV SCH (04:17)
[2021-01-21] MEDS: MAGNESIUM 1 GM/100 ML IVPB 100 ML IV SCH ×3 (04:17→06:50)
[2021-01-21] MEDS: KCL 20 MEQ TAB (K-DUR) PO SCH (04:18)
[2021-01-21] MEDS: PIPERACILLIN SODIUM/TAZOBACTAM 4.5 GM in NS (IVPB) 100 ML IV SCH ×3 (05:40→20:36)
[2021-01-21] MEDS: HYDROcodone/APAP 5 MG/325 MG (LORTAB) TAB PO PRN ×2 (05:40→16:23)
[2021-01-21] MEDS ORDERED: KCL 20 MEQ TAB (K-DUR) PO ONE ×2 (06:00→09:00)
[2021-01-21] MEDS: THIAMINE 100 MG (VITAMIN B-1) TAB PO SCH (06:04)
[2021-01-21] MEDS: FOLIC ACID 1 MG TAB PO SCH (08:12)
[2021-01-21] MEDS: SPIRONOLACTONE 25 MG (ALDACTONE) TAB PO SCH (08:12)
[2021-01-21] MEDS: FUROSEMIDE 40 MG (LASIX) TAB PO SCH (08:13)
[2021-01-21] MEDS: SENNA W/DOCUSATE (SENOKOT S) TABLET PO SCH ×2 (08:13→20:35)
[2021-01-21] MEDS: dilTIAZem120 MG (CARDIZEM CD) CAP PO SCH ×2 (08:13→20:35)
[2021-01-21] MEDS: PANTOPRAZOLE 40 MG (PROTONIX) VIAL IV SCH (08:13)
--- NOTE | 2021-01-21 08:49 | Progress Note ---
Subjective Subjective/Events-last exam Feels about the same as yesterday, gets weaker throughout the day. Objective Exam Last Set of Vital Signs Vital Signs Date Time Temp Pulse Resp B/P (MAP) Pulse Ox O2 Delivery O2 Flow Rate FiO2 01/21/21 08:29 93 Vapotherm 35.00 95 01/21/21 07:51 35.8 01/21/21 06:00 93 28 111/71 Capillary Refill : Less Than 3 Seconds I&O Intake and Output 01/21/21 00:00 Intake Total 2020 ml Output Total 1800 ml Balance 220 ml Intake Oral 1320 ml IV Total 700 ml Output Urine Total 1800 ml General: Alert, Mild Distress Lungs: Other (decreased air movement throughout) Heart: Other (irregular rhythm) Abdomen: Normal Bowel Sounds, Soft, No Tenderness Extremities: No Edema Psych/Mental Status: Mental Status NL, Mood NL Results/Procedures Lab Laboratory Tests 01/20/21 12:25: Prothrombin Time 18.8H, INR Comment 1.5H, Fibrinogen 527H, D-Dimer >= 20.00H 01/20/21 16:45: Sodium Level 136, Potassium Level 2.7L, Chloride Level 90L, Carbon Dioxide Level 33H, Anion Gap 13, Blood Urea Nitrogen 21H, Creatinine 0.95, Estimat Glomerular Filtration Rate 58, BUN/Creatinine Ratio 22, Glucose Level 129H, Calcium Level 8.3L 01/21/21 03:31: Sodium Level 139, Potassium Level 3.1L, Chloride Level 100, Carbon Dioxide Level 28, Anion Gap 11, Blood Urea Nitrogen 18, Creatinine 0.80, Estimat Glomerular Filtration Rate 71, BUN/Creatinine Ratio 23, Glucose Level 107H, Calcium Level 7.0L, White Blood Count 21.4H, Red Blood Count 2.66L, Hemoglobin 9.1L, Hematocrit 27L, Mean Corpuscular Volume 100H, Mean Corpuscular Hemoglobin 34, Mean Corpuscular Hemoglobin Concent 34, Red Cell Distribution Width 13.7, Platelet Count 159, Mean Platelet Volume 11.5, Immature Granulocyte % (Auto) 1, Neutrophils (%) (Auto) 94H, Lymphocytes (%) (Auto) 2L, Monocytes (%) (Auto) 2, Eosinophils (%) (Auto) 0, Basophils (%) (Auto) 0, Neutrophils # (Auto) 20.0H, Lymphocytes # (Auto) 0.5L, Monocytes # (Auto) 0.5, Eosinophils # (Auto) 0.1, Basophils # (Auto) 0.0, Immature Granulocyte # (Auto) 0.3H, Corrected Calcium 8.7, Phosphorus Level 2.8, Magnesium Level 1.4L, Total Bilirubin 0.5, Aspartate Amino Transf (AST/SGOT) 35H, Alanine Aminotransferase (ALT/SGPT) 17, Alkaline Phosphatase 84, Total Protein 4.5L, Albumin 1.9L Microbiology 01/13/21 Urine Culture - Final, Complete NO GROWTH 01/11/21 MRSA Screen - Final, Complete MRSA not isolated 01/11/21 Blood Culture - Final, Complete No growth Radiology NAME: SHOBHA SCHROEDER [facility] REC#: [id number] PT STATUS: REG ER : 1950 PHYSICIAN: NATALIE AMBROSE ADMIT DATE: 01/11/21/ER Signed Date of Exam:01/11/21 CT ABDOMEN/PELVIS W PROCEDURE: CT abdomen and pelvis with contrast. TECHNIQUE: Multiple contiguous axial images were obtained through the abdomen and pelvis after administration of intravenous contrast. Auto Exposure Controls were utilized during the CT exam to meet ALARA standards for radiation dose reduction. All CT scans use one or more of the following dose optimizing techniques: automated exposure control, MA and/or KvP adjustment based on patient size and exam type or iterative reconstruction. DATE: January 11, 2021. COMPARISON: None. INDICATION: 70-year-old female, abdominal pain and bloating. FINDINGS: There are linear opacities in the lung bases consistent with atelectasis. The heart is not enlarged. There is no pericardial effusion. The liver is unremarkable in size and contour. There is no identified liver lesion. The main, right, left portal veins are patent. The gallbladder is unremarkable. There is no intrahepatic or extrahepatic bile duct dilation. The main pancreatic duct is not abnormally dilated. There is abnormal fluid and inflammatory stranding adjacent to the pancreas. There is no currently well marginated focal fluid collection. There is enhancement of the pancreatic parenchyma without evidence of pancreatic necrosis. The spleen is normal in size. The adrenal glands are unremarkable. There is a 7 mm low-attenuation right renal lesion on axial image 30 which is too small to characterize. The urinary collecting systems are not distended. There is no identified renal or ureteral stone. Urinary bladder is collapsed and not well evaluated. The appendix is unremarkable and well seen. There is nonspecific wall thickening of the distal stomach. There is no free intraperitoneal air. There is a small volume ascites. There are atherosclerotic calcifications. There is no identified abnormally enlarged lymph node in the abdomen or pelvis meeting CT size criteria for adenopathy. There is no identified acute bony abnormality. IMPRESSION: CT ABDOMEN AND PELVIS. 1. Findings suspicious for acute pancreatitis with peripancreatic fluid and inflammatory stranding. No clearly identified current well marginated focal drainable fluid collection. No evidence of pancreatic necrosis. 2. Small volume ascites. 3. No CT evidence of cholelithiasis or acute cholecystitis. No biliary ductal dilation. Dictated by: Dictated on workstation # [id number] Dict: 01/11/21 1240 Trans: 01/11/21 1309 CV [id number] Interpreted by: DONNELL ESPINOZA MD Electronically signed by: DONNELL ESPINOZA MD 01/11/21 1309 NAME: SHOBHA SCHROEDER [facility] REC#: [id number] PT STATUS: ADM IN : 1950 PHYSICIAN: ANAID IBRAHIM DO ADMIT DATE: 01/11/21/ICU Draft Date of Exam:01/12/21 US ABDOMEN LIMITED [id number] PROCEDURE: US Abdomen, limited. TECHNIQUE: Multiple realtime grayscale images were obtained over the abdomen in various projections. INDICATION: Pancreatitis. FINDINGS: The liver measures 12 cm in length without evidence of focal abnormality. There is no gallbladder wall thickening. The common bile duct reaches 1 cm in diameter which may be related to previous stone passage. There is diffuse enlargement of the pancreas measuring approximately 6.6 x 5.1 x 2.5 cm with an adjacent hypoechoic region which may represent mild peripancreatic edema and/or fluid. The visualized portions of the abdominal aorta and inferior vena cava are unremarkable. There is also mild right perinephric fluid without other right renal abnormality identified. IMPRESSION: Findings are consistent with pancreatitis with demonstrated pancreatic enlargement and peripancreatic fluid. There is also a mild amount of fluid in the right anterior pararenal space which could be secondary to pancreatic inflammation. Dictated on workstation # [id number] Dict: 01/12/21 0824 Trans: 01/12/21 0832 [id number] Interpreted by: KAROL HARRIS MD Electronically signed by: Assessment/Plan Assessment/Plan (1) Acute respiratory failure Status: Acute Assessment & Plan: Possibly secondary to pancreatitis/sepsis, requiring extremely high FiO2, appreciate eICU recommendations. Chest CTA later today if D dimer elevated, per ICU doc. CTA chest on 01/20 with Extensive five-lobe pulmonary opacities raise the question of ARDS. Bilateral pleural effusions, nonloculated. Negative for PE or acute aortic disease. Qualifiers: Qualified Codes: J96.01 - Acute respiratory failure with hypoxia (2) Pancreatitis Onset Date: ~ 01/09/2021 Status: Acute Assessment & Plan: Lipase improved from over 1000 to 150, symptomatically improving, no evidence of necrosis on CT scan. Continued on Zosyn given her recurrent leukocytosis and respiratory failure. Continued worsening leukoctyosis, repeat CT abdomen today, continue Zosyn. 01/[address] abdomen showed Mixed changes. Previously, there was extensive peripancreatic phlegmon and stranding, now representing multiseptated fluid locules consistent with pseudocysts; The pancreatic parenchyma itself is enhanced with no gas or evidence for its necrosis. Qualifiers: Qualified Codes: K85.20 - Alcohol induced acute pancreatitis without necrosis or infection (3) Atrial fibrillation with rapid ventricular response Onset Date: ~ 01/11/2021 Status: Acute Assessment & Plan: On Xarelto outpatient, held per Cardiology due to abdominal pain, on cardizem drip, appreciate Cardiology recommendations. 01/21 changed to PO cardizem yesterday, monitor. (4) Hypertension Status: Chronic (5) Leukocytosis Onset Date: ~ 01/11/2021 Status: Acute Assessment & Plan: Improved initially but now worsening again, repeat procalcitonin decreased from prior, continue Zosyn. 01/21 slight decrease today, continue to monitor and continue Zosyn. Qualifiers: Qualified Codes: D72.828 - Other elevated white blood cell count (6) Severe sepsis Onset Date: ~ 01/11/2021 Status: Resolved Assessment & Plan: Elevated lactic acid, leukocytosis and tachycardia on admission. Suspect secondary to pancreatitis. (7) Alcohol use Status: Chronic Assessment & Plan: Alcohol withdrawal protocol started on admission. Has not been requiring ativan since 12/7, is on dexmedetomidine drip due to anxiety. ANURAG BERNARDO MD Jan 21, 2021 08:49
--- NOTE | 2021-01-21 11:22 | Physical Therapy Daily Note ---
PT Daily Note-Current Subjective Patient in bed pre tx, agrees to PT, has unrated pain in her right side, has a slightly red spot there, nurse aide sees it and says she will notify the nurse. Patient states she feels like she needs to have a BM. Mental Status Patient Orientation: Person, Place, Situation Attachments: Oxygen (vapotherm), Hwang Catheter, IV Transfers SCALE: Activities may be completed with or without assistive devices. 2-Pflydwjgal-aphpdwp completes the activity by him/herself with no assistance from a helper. 5-Set-up or Clean-up Assistance-helper sets up or cleans up; patient completes activity. [place] assists only prior to or following the activity. 4-Supervision or Touching Assistance-helper provides verbal cues and/or touching/steadying and/or contact guard assistance as patient completes activity. Assistance may be provided throughout the activity or intermittently. 3-Partial/Moderate Assistance-helper does LESS THAN HALF the effort. [place] lifts, holds or supports trunk or limbs, but provides less than half the effort. 2-Substantial/Maximal Assistance-helper does MORE THAN HALF the effort. [place] lifts or holds trunk or limbs and provides more than half the effort. 1-Llqvkcjkb-sxictn does ALL the effort. Patient does none of the effort to complete the activity. Or, the assistance of 2 or more helpers is required for the patient to complete the activity. If activity was not attempted, code reason: 7-Patient Refused. 9-Not Applicable-not attempted and the patient did not perform the activity before the current illness, exacerbation or injury. 10-Not Attempted due to Environmental Limitations-(lack of equipment, weather restraints, etc.). 88-Not Attempted due to Medical Conditions or Safety Concerns. Roll Left & Right (QC): 3 Lying to Sitting/Side of Bed(Q: 3 Sit to Stand (QC): 3 Chair/Yyp-qz-Jbmef Xfer(QC): 4 min assist for supine to sit and sit to stand, CGA to transfer to commode using a rolling walker. Patient has a BM, stands while nurse aide cleans patient and then commode is removed and chair placed behind her, she sits but then states she needs the commode again, she stands again and chair is removed and commode placed again, she sits. Patient has nurse call and will call when done. Exercises Seated Therapy Exercises: Hip flexion Seated Reps: 20 Treatments bed mobility and transfers, toileting Assessment Current Status: Fair Progress patient remains very weak, O2 stayed at 88%-92% PT Track Moving Machine Operator Goals Fdc Goals PT Fdc Goals Time Frame: Jan 31, 2021 Roll Left & Right (QC): 6 Sit to Lying (QC): 6 Lying-Sitting on Side/Bed(QC): 6 Sit to Stand (QC): 6 Chair/Cfc-gk-[place] Xfer(QC): 6 Toilet Transfer (QC): 6 Walk 10 feet (QC): 6 Walk 50ft with 2 Turns (QC): 6 Walk 150 ft (QC): 6 PT Plan Problem List Problem List: Activity Tolerance, Functional Strength, Safety, Balance, Gait, Transfer, Bed Mobility, ROM Treatment/Plan Treatment Plan: Continue Plan of Care Treatment Plan: Bed Mobility, Education, Functional Activity Wu, Functional Strength, Gait, Safety, Therapeutic Exercise, Transfers Treatment Duration: Jan 31, 2021 Frequency: 6 times per week Estimated Hrs Per Day: .5 hour per day Patient and/or Family Agrees t: Yes Safety Risks/Education Patient Education: Gait Training, Transfer Techniques, Correct Positioning, Safety Issues Teaching Recipient: Patient Teaching Methods: Demonstration, Discussion Response to Teaching: Reinforcement Needed Time/GCodes Time In: 1045 Time Out: 1102 Total Billed Treatment Time: 17 Total Billed Treatment 1 visit FA JUAQUIN FLOREZ PT Jan 21, 2021 11:22
--- NOTE | 2021-01-21 12:27 | Tele-ICU Progress Note ---
Subjective Date Seen by a Provider: Jan 21, 2021 Time Seen by a Provider: 12:26 Sepsis Event Evaluation Height, Weight, BMI Height: 5'2.00" Weight: 122lbs. 0.0oz. 55.032262as; 22.52 BMI Method: Exam Exam Patient acknowledged, consented, and participated in this virtual visit which was conducted using real time audio/video Vital Signs Date Time Temp Pulse Resp B/P (MAP) Pulse Ox O2 Delivery O2 Flow Rate FiO2 01/21/21 11:40 36.1 01/21/21 10:51 89 Vapotherm 40.00 100 01/21/21 08:29 93 Vapotherm 35.00 95 01/21/21 07:51 35.8 01/21/21 07:18 94 Vapotherm 40.00 100 01/21/21 07:00 101 01/21/21 06:05 Vapotherm 40.00 100.00 01/21/21 06:00 93 28 111/71 97 NIV Bilevel 60.00 01/21/21 05:00 85 14 110/74 94 NIV Bilevel 60.00 01/21/21 04:14 36.1 NIV Bilevel 60.00 01/21/21 04:13 NIV Bilevel 60 01/21/21 04:00 101 109/68 95 NIV Bilevel 70.00 01/21/21 03:00 110 19 114/80 98 Vapotherm 40.00 100.00 01/21/21 02:52 99 21 99 70.00 01/21/21 02:00 96 13 108/71 96 Vapotherm 40.00 100.00 01/21/21 01:00 99 01/21/21 01:00 103 14 108/73 95 Vapotherm 40.00 100.00 01/21/21 00:00 108 19 115/88 94 Vapotherm 40.00 100.00 01/21/21 00:00 NIV Bilevel 70 01/21/21 00:00 35.9 01/20/21 23:00 147 115/76 96 Vapotherm 40.00 100.00 01/20/21 23:00 NIV Bilevel 70.00 01/20/21 22:37 145/81 01/20/21 22:01 89 Vapotherm 40.00 100 01/20/21 22:00 96 37 114/80 94 Vapotherm 40.00 100.00 01/20/21 21:00 97 40 114/80 94 Vapotherm 40.00 100.00 01/20/21 20:00 Vapotherm 40.00 100 01/20/21 20:00 96 39 126/93 98 Vapotherm 40.00 100.00 01/20/21 19:00 92 38 117/73 96 Vapotherm 40.00 100.00 01/20/21 19:00 93 01/20/21 18:07 Vapotherm 40.00 100.00 01/20/21 17:00 88 17 120/80 93 NIV Bilevel 70.00 01/20/21 16:03 36.4 01/20/21 16:00 NIV Bilevel 70 01/20/21 16:00 92 32 107/66 92 NIV Bilevel 70.00 01/20/21 15:17 NIV Bilevel 70.00 01/20/21 15:00 88 23 118/82 88 Vapotherm 40.00 100.00 01/20/21 14:52 89 Vapotherm 40.00 100 01/20/21 14:00 81 129/77 94 Vapotherm 40.00 100.00 01/20/21 13:00 80 01/20/21 13:00 95 104/63 96 Vapotherm 40.00 100.00 I & O 01/21/21 07:00 Intake Total 1890 ml Output Total 1370 ml Balance 520 ml Height & Weight Height: 5'2.00" Weight: 122lbs. 0.0oz. 55.844285ub; 22.52 BMI Method: General Appearance: Mild Distress HEENT: PERRL/EOMI Neck: Normal Inspection Respiratory: No Accessory Muscle Use, No Respiratory Distress, Other (Tachypnea on high flow oxygen diminished breath sounds bilaterally with fine rales no wheezing appreciated.) Cardiovascular: No Murmur, Irregularly Irregular Capillary Refill: Less Than 3 Seconds Peripheral Pulses: 1+ Dorsalis Pedis (R), 1+ Left Dors-Pedis (L) (See free text.) Gastrointestinal: soft, distended (maybe same or better than yesterday), tenderness (epigastric) Extremity: Pedal Edema (Bilateral 2+ edema to knee) Neurologic/Psychiatric: Alert, Oriented x3 Skin: Normal Color, Warm/Dry Lymphatic: No Adenopathy (cervical) Results Lab Laboratory Tests 01/20/21 05:22 01/20/21 16:45 01/21/21 03:31 Assessment/Plan Assessment/Plan (Tele-ICU Physician , Progress Note ) Available chart/ vitals / labs / Images reviewed Video assessment done using teleICU camera, rest of exam as per RN Discussed with RN , EXAM PER RN Events overnight :started on BIPAP Afebrile FiO2 - VT 40 L 100% I/O = neg Drips: cardizem, OFF precedex Pressors: , hemodynamically stable Consultants: ROSLYN jordan Hospital course: (01/11) 70 y/o Female - Acute Pancreatitis - A Fib RVR - Cardizem Drip. 01/14 - started on BIPAP 16/10 - 100% rr30 tv 300-600 , MV 20L + PRECEDEX,, met acidosis, attempted diuresis 1L 01/15 - BIPAP 16/10 - 100% rr30 tv 300-600 , MV 16 L 01/19- VT 40 L 100% - attempted diuresis .14 - same O2 meeds despite agressive diuresis , CT abd /pelvis - PSEUDOCYSTS 01/21 - VT 40L 100% A/P acute pancreatitis probably due to alcohol abuse ( TGL low , No CT evidence of cholelithiasis or acute cholecystitis.) - improving , CT admission - no abscess - follow on Zosyn - worsening of leukocytosis- repeat CT abd/pelvis 01/21- multiseptated fluid consistent with pseudocysts - sx consulted- aske today to review CT - ? needs fo tollow up / sampling Acute resp failure , hypoxic 01/14 - VO , ARDS , in addition to supected RIGHT PNA - started on BIPAP 16/10 - , now on VT 40 L 100% - cont diuresis - fluid balance even , neg PCT and and CXR - no PE on CTA 01/20 -moderate effusion R>L - might need thora latter - will follow , change on lovenox from Xarelto or possible thora PNA , R>L - zosyn /-5 01/21 - 10 days ( MRSA swab negative ) - 01/19 - rising WBC on zosyn -neg PCT and same CXR 01/19 -01/20 - - worsening of leukocytosis- CT abd/pelvis : pseudocysts, CTA chest - no classic PNA - CONSIDER TO STOP ZOSYN TOMORROW IF OK WITH SX A fib RVR - cardizem gtt off - hopefully cards to change to PO to decrease IVF load - AC lovenox - changed to xarelto 01/15- as per RN it is " on hold" - to recheck with cards - started 01/19 --might need thora latter - change to lovenox from Xarelto 01/21 or possible thora Thrombocytopenia= resoved - HIPA neg History of alcohol abuse - vitamins po -ciwa Nutrition - po anxiety - precedex for now - might meed small dose of benzo with h/o ETOH Lines : PICC LINE 01/14 (Central Line Necessity Reviewed)= Hwang: + OG: Nutrition: po Analgesia: Anxiety/ delirium precedex VTE Prophylaxis: xarelto Stress Ulcer Prophylaxis: ppi Glycemic Control: Plans in collaboration with bedside consultants and IM MDs. Discussed with RN to reach out if any questions or concerns A total of 40 minutes of critical care time was devoted to this patient today, required to treat and/or prevent further deterioration of critical care con dition ( as above) ALYCE CRANE MD Jan 21, 2021 12:26
[2021-01-21] MEDS ORDERED: ENOXAPARIN 80 MG/0.8 ML (LOVENOX) SYR SC SCH (12:30)
--- NOTE | 2021-01-21 13:35 | Occupational Ther Daily Note ---
OT Current Status-Daily Note Subjective Pt dozing in bed, woke to name. Pt stated that she was trying to rest so that she could get up in chair later. Pt c/o pain in neck, reported this to nrsg. Place heat on area to assist with decreasing pain. Reported to nrsg. Mental Status/Objective Patient Orientation: Person, Place, Time, Situation Attachments: Hwang Catheter, IV (PICC), Oxygen (Vapotherm 35/95) ADL-Treatment Therapy Code Descriptions/Definitions Functional [place] Measure: 0=Not Assessed/NA 4=Minimal Assistance 1=Total Assistance 5=Supervision or Setup 2=Maximal Assistance 6=Modified [place] 3=Moderate Assistance 7=Complete IndependenceSCALE: Activities may be completed with or without assistive devices. 6-Lswpujpioq-pjvktyd completes the activity by him/herself with no assistance from a helper. 5-Set-up or Clean-up Assistance-helper sets up or cleans up; patient completes activity. [place] assists only prior to or following the activity. 4-Supervision or Touching Assistance-helper provides verbal cues and/or touching/steadying and/or contact guard assistance as patient completes activity. Assistance may be provided throughout the activity or intermittently. 3-Partial/Moderate Assistance-helper does LESS THAN HALF the effort. [place] lifts, holds or supports trunk or limbs, but provides less than half the effort. 2-Substantial/Maximal Assistance-helper does MORE THAN HALF the effort. [place] lifts or holds trunk or limbs and provides more than half the effort. 3-Caubpqaac-pjoogk does ALL the effort. Patient does none of the effort to complete the activity. Or, the assistance of 2 or more helpers is required for the patient to complete the activity. If activity was not attempted, code reason: 7-Patient Refused. 9-Not Applicable-not attempted and the patient did not perform the activity before the current illness, exacerbation or injury. 10-Not Attempted due to Environmental Limitations-(lack of equipment, weather restraints, etc.). 88-Not Attempted due to Medical Conditions or Safety Concerns. Other Treatment O2 levels stay at 90% and above. Pt able to complete 2 sets of 3 B UE 3 exercises with recovery breaks between each set. Attempted to have pt sit up in chair and pt stated not right now I am too tired. Encouraged pt to complete B UE and pt able to complete. Pt does demonstrate fair mobility and B UE movement. After session, pt lying in bed with call light/phone in reach. All needs met in room. OT Assisted Goals Cnc Programmer Goals Time Frame: Jan 30, 2021 Oral Hygiene (QC): 5 Toileting Hygiene (QC): 4 Upper Body Dressing (QC): 5 Lower Body Dressing (QC): 4 On/Off Footwear (QC): 5 1=Demonstrate adherence to instructed precautions during ADL tasks. 2=Patient will verbalize/demonstrate understanding of assistive devices/modifications for ADL. 3=Patient will improve strength/tolerance for activity to enable patient to perform ADL's. OT Education/Plan Problem List/Assessment Assessment: Decreased Activ Tolerance, Decreased UE Strength, Impaired Self- Care Skills Discharge Recommendations Plan/Recommendations: Continue POC Treatment Plan/Plan of Care Patient would benefit from OT for education, treatment and training to promote independence in ADL's, mobility, safety and/or upper extremity function for ADL's. Plan of Care: ADL Retraining, Functional Mobility, Group Exercise/Act as Ind, UE Funct Exercise/Act Treatment Duration: Jan 30, 2021 Frequency: 3 times per week Estimated Hrs Per Day: .25 hour per day Agreement: Yes Rehab Potential: Fair Time/GCodes Start Time: 09:20 Stop Time: 09:43 Total Time Billed (hr/min): 23 Billed Treatment Time 1 visit- FA 1 (10 min) EX 1 (13 min) ABIODUN CHACON Jan 21, 2021 13:35
--- NOTE | 2021-01-21 14:01 | Cardiology Progress Note ---
Subjective Date Seen by Provider: Jan 21, 2021 Time Seen by Provider: 08:00 Subjective/Events-last exam Patient was seen this morning, she was still short of breath on Vapotherm, eating breakfast. No abdominal pain. Review of Systems General: No Chills, No Night Sweats; Fatigue, Malaise; No Appetite, No Other HEENT: No Head Aches, No Visual Changes, No Eye Pain, No Ear Pain, No Dysphasia, No Sinus Congestion, No Post Nasal Drip, No Sore Throat, No Other Pulmonary: Dyspnea; No Cough, No Pleuritic Chest Pain, No Other Cardiovascular: No: Chest Pain, Palpitations, Orthopnea, Paroxysmal Noc. Dyspnea, Edema, Lt Headedness, Other Objective-Cardiology Exam Last Set of Vital Signs Vital Signs 01/21/21 01/21/21 01/21/21 01/21/21 01/21/21 01/21/21 06:00 07:00 11:40 12:00 13:05 13:06 Temp 36.1 Pulse 101 Resp 28 B/P (MAP) 111/71 Pulse Ox 99 O2 Delivery Vapotherm O2 Flow Rate 25.00 65.00 FiO2 90 I&O Intake and Output 01/21/21 00:00 Intake Total 2020 ml Output Total 1800 ml Balance 220 ml Intake Oral 1320 ml IV Total 700 ml Output Urine Total 1800 ml General: Alert, Oriented X3, Cooperative, Mild Distress HEENT: Atraumatic Neck: Supple Lungs: Normal Air Movement, Other (decreased air movement throughout) Heart: Normal S1, Normal S2, Other (irregular rhythm) Abdomen: Normal Bowel Sounds, Soft, No Tenderness Extremities: No Clubbing, No Edema Skin: No Rashes Neuro: Normal Speech Psych/Mental Status: Mental Status NL, Mood NL Results Lab Laboratory Tests 01/20/21 16:45 01/21/21 03:31 A/P-Cardiology Admission Diagnosis Acute pancreatitis Permanent atrial fibrillation Hypertension Hyperlipidemia Assessment/Plan Status post acute pancreatitis, had abdominal pain, amylase and lipase are tren ding down, CT scan showed pancreatic pseudocyst. Asymptomatic at this time, improving. Continue to monitor Status post acute respiratory failure, still in advanced stage, currently on Vapotherm 100% alternating with CPAP. Managed by medical team. Electrolyte imbalance, being corrected. Continue to monitor Atrial fibrillation with rapid ventricular response, history of permanent atrial fibrillation. Tolerating oral Cardizem and atenolol. Monitor [id number] score of 3, yearly risk of stroke without oral anticoagulation is 3.2%. Started back on Xarelto on January 20, 2021 Echocardiogram done in May 2018 showing normal LV size and function, EF 55 to 65%, PA pressure 40 to 45 mm meter of mercury Stress test done in August 2020 showing no significant ischemia or infarction with EF 74% Hypertension, controlled on current medication, continue to monitor Hyperlipidemia, monitor lipids, hold Lipitor at this time. Mild bilateral carotid stenosis, ultrasound was done in February 2020. Continue to monitor History of alcoholism, drink a few glasses of wine every evening, educated on avoiding alcohol products ADRIEL ROLDAN MD Jan 21, 2021 14:01
[2021-01-21] MEDS: ALPRAZolam 0.5 MG (XANAX) TAB PO PRN (14:24)
[2021-01-21] MEDS: ENOXAPARIN 80 MG/0.8 ML (LOVENOX) SYR SC SCH (20:35)
[2021-01-21] MEDS: ACETAMINOPHEN 325 MG TABLET PO PRN (20:47)
[2021-01-21] MEDS: MELATONIN 3 MG TABLET PO PRN (20:47)
[2021-01-22] MEDS: RT-ALBUTEROL SULF 2.5 MG/3 ML PRE-MIX VIAL INH SCH ×4 (03:02→21:47)
[2021-01-22] MEDS: PIPERACILLIN SODIUM/TAZOBACTAM 4.5 GM in NS (IVPB) 100 ML IV SCH (04:45)
[2021-01-22 04:54] LABS: BASOPHILS # (AUTO) 0.1 10^3/uL (0.0-0.1); BASOPHILS % (AUTO) 0 % (0-10); EOSINOPHILS # (AUTO) 0.2 10^3/uL (0.0-0.3); EOSINOPHILS % (AUTO) 1 % (0-10); HEMATOCRIT 31 % (35-52); HEMOGLOBIN 10.3 g/dL (11.5-16.0); LYMPHOCYTES # (AUTO) 0.6 10^3/uL (1.0-4.0); LYMPHOCYTES % (AUTO) 3 % (12-44); MEAN CORPUSCULAR HEMOGLOBIN 34 pg (25-34); MEAN CORPUSCULAR HGB CONC 33 g/dL (32-36); MEAN CORPUSCULAR VOLUME 101 fL (80-99); MEAN PLATELET VOLUME 11.2 fL (9.0-12.2); MONOCYTES # (AUTO) 0.9 10^3/uL (0.0-1.0); MONOCYTES % (AUTO) 4 % (0-12); NEUTROPHILS # (AUTO) 19.4 10^3/uL (1.8-7.8); NEUTROPHILS % (AUTO) 91 % (42-75); PLATELET COUNT 268 10^3/uL (130-400); WHITE BLOOD COUNT 21.3 10^3/uL (4.3-11.0)
[2021-01-22 05:17] LABS: ALBUMIN 2.4 GM/DL (3.2-4.5); POTASSIUM 3.4 MMOL/L (3.6-5.0)
[2021-01-22 05:18] LABS: CALCIUM 8.8 MG/DL (8.5-10.1)
[2021-01-22 05:20] LABS: TOTAL PROTEIN 5.7 GM/DL (6.4-8.2)
[2021-01-22 05:21] LABS: BILIRUBIN,TOTAL 0.6 MG/DL (0.1-1.0)
[2021-01-22 05:23] LABS: CREATININE SERUM 1.06 MG/DL (0.60-1.30); PHOSPHORUS 3.3 MG/DL (2.3-4.7)
[2021-01-22] MEDS: POTASSIUM CL 10MEQ/50ML IVPB 50 ML IV SCH (05:26)
[2021-01-22] MEDS: KCL 20 MEQ TAB (K-DUR) PO SCH (05:26)
[2021-01-22 05:27] LABS: MAGNESIUM 1.9 MG/DL (1.6-2.4)
[2021-01-22] MEDS: MAGNESIUM 1 GM/100 ML IVPB 100 ML IV SCH (05:29)
[2021-01-22] MEDS ORDERED: KCL 20 MEQ TAB (K-DUR) PO ONE (05:30)
[2021-01-22] MEDS: THIAMINE 100 MG (VITAMIN B-1) TAB PO SCH (06:31)
[2021-01-22] MEDS: HYDROcodone/APAP 5 MG/325 MG (LORTAB) TAB PO PRN ×2 (06:34→14:16)
--- NOTE | 2021-01-22 08:39 | Cardiology Progress Note ---
Subjective Date Seen by Provider: Jan 22, 2021 Time Seen by Provider: 08:36 Subjective/Events-last exam Patient is laying down in bed, has been complaining of diarrhea overnight. Feeling weak and tired Review of Systems General: No Chills, No Night Sweats; Fatigue, Malaise; No Appetite, No Other HEENT: No Head Aches, No Visual Changes, No Eye Pain, No Ear Pain, No Dysphasia, No Sinus Congestion, No Post Nasal Drip, No Sore Throat, No Other Pulmonary: Dyspnea; No Cough, No Pleuritic Chest Pain, No Other Cardiovascular: No: Chest Pain, Palpitations, Orthopnea, Paroxysmal Noc. Dyspnea, Edema, Lt Headedness, Other Objective-Cardiology Exam Last Set of Vital Signs Vital Signs 01/22/21 01/22/21 08:00 08:13 Temp 36.2 Pulse 106 Resp 22 B/P (MAP) 135/71 Pulse Ox 97 O2 Delivery Vapotherm O2 Flow Rate 25.00 FiO2 75 I&O Intake and Output 01/22/21 00:00 Intake Total 1190 ml Output Total 945 ml Balance 245 ml Intake Oral 890 ml IV Total 300 ml Output Urine Total 945 ml # Bowel Movements 3 General: Alert, Oriented X3, Cooperative, Mild Distress HEENT: Atraumatic Neck: Supple Lungs: Normal Air Movement, Other (decreased air movement throughout) Heart: Normal S1, Normal S2, Other (irregular rhythm) Abdomen: Normal Bowel Sounds, Soft, No Tenderness Extremities: No Clubbing, No Edema Skin: No Rashes Neuro: Normal Speech Psych/Mental Status: Mental Status NL, Mood NL Results Lab Laboratory Tests 01/22/21 04:45 A/P-Cardiology Admission Diagnosis Acute pancreatitis Permanent atrial fibrillation Hypertension Hyperlipidemia Assessment/Plan Status post acute pancreatitis, had abdominal pain, amylase and lipase are trending down, CT scan showed pancreatic pseudocyst. Asymptomatic at this time, improving. Continue to monitor Status post acute respiratory failure, still in advanced stage, currently on Vapotherm 100% alternating with CPAP. Managed by medical team. Electrolyte imbalance, followed and managed by primary care team Diarrhea, postobstructive, has been having constipation for the past 10 days and reported diarrhea overnight. Atrial fibrillation with rapid ventricular response, history of permanent atrial fibrillation. Tolerating oral Cardizem and atenolol. Monitor [id number] score of 3, yearly risk of stroke without oral anticoagulation is 3.2%. Started back on Xarelto on January 20, 2021 Echocardiogram done in May 2018 showing normal LV size and function, EF 55 to 65%, PA pressure 40 to 45 mm meter of mercury Stress test done in August 2020 showing no significant ischemia or infarction with EF 74% Hypertension, controlled on current medication, continue to monitor Hyperlipidemia, monitor lipids, hold Lipitor at this time. Mild bilateral carotid stenosis, ultrasound was done in February 2020. Continue to monitor History of alcoholism, drink a few glasses of wine every evening, educated on avoiding alcohol products ADRIEL ROLDAN MD Jan 22, 2021 08:39
[2021-01-22] MEDS: dilTIAZem120 MG (CARDIZEM CD) CAP PO SCH ×2 (08:54→20:37)
[2021-01-22] MEDS: FUROSEMIDE 40 MG (LASIX) TAB PO SCH (08:54)
[2021-01-22] MEDS: PANTOPRAZOLE 40 MG (PROTONIX) VIAL IV SCH (08:54)
[2021-01-22] MEDS: FOLIC ACID 1 MG TAB PO SCH (08:54)
[2021-01-22] MEDS: SPIRONOLACTONE 25 MG (ALDACTONE) TAB PO SCH (08:54)
[2021-01-22] MEDS: ENOXAPARIN 80 MG/0.8 ML (LOVENOX) SYR SC SCH ×2 (08:54→20:37)
[2021-01-22] MEDS: SENNA W/DOCUSATE (SENOKOT S) TABLET PO SCH ×2 (08:55→20:43)
--- NOTE | 2021-01-22 10:05 | Progress Note ---
Subjective Subjective/Events-last exam Afebrile, states she has had diarrhea all night and is afraid to cough due to that. She hadn't had a bowel movement in several days prior to this. Breathing is somewhat improved. Objective Exam Last Set of Vital Signs Vital Signs Date Time Temp Pulse Resp B/P (MAP) Pulse Ox O2 Delivery O2 Flow Rate FiO2 01/22/21 08:13 97 Vapotherm 25.00 75 01/22/21 08:00 36.2 106 22 135/71 Capillary Refill : Less Than 3 Seconds I&O Intake and Output 01/22/21 00:00 Intake Total 1190 ml Output Total 945 ml Balance 245 ml Intake Oral 890 ml IV Total 300 ml Output Urine Total 945 ml # Bowel Movements 3 General: Alert, No Acute Distress Lungs: Other (decreased air movement throughout) Heart: Other (tachycardic, irregular) Neuro: Normal Speech Psych/Mental Status: Mood NL Results/Procedures Lab Laboratory Tests 01/22/21 04:45: White Blood Count 21.3H, Red Blood Count 3.04L, Hemoglobin 10.3L, Hematocrit 31L , Mean Corpuscular Volume 101H, Mean Corpuscular Hemoglobin 34, Mean Corpuscular Hemoglobin Concent 33, Red Cell Distribution Width 14.0, Platelet Count 268, Mean Platelet Volume 11.2, Immature Granulocyte % (Auto) 1, Neutrophils (%) (Auto) 91H, Lymphocytes (%) (Auto) 3L, Monocytes (%) (Auto) 4, Eosinophils (%) (Auto) 1, Basophils (%) (Auto) 0, Neutrophils # (Auto) 19.4H, Lymphocytes # (Auto) 0.6L, Monocytes # (Auto) 0.9, Eosinophils # (Auto) 0.2, Basophils # (Auto) 0.1, Immature Granulocyte # (Auto) 0.2H, Sodium Level 136, Potassium Level 3.4L, Chloride Level 93L, Carbon Dioxide Level 32, Anion Gap 11, Blood Urea Nitrogen 21H, Creatinine 1.06, Estimat Glomerular Filtration Rate 52, BUN/Creatinine Ratio 20, Glucose Level 120H, Calcium Level 8.8, Corrected Ca lcium 10.1, Phosphorus Level 3.3, Magnesium Level 1.9, Total Bilirubin 0.6, Aspartate Amino Transf (AST/SGOT) 44H, Alanine Aminotransferase (ALT/SGPT) 20, Alkaline Phosphatase 89, Total Protein 5.7L, Albumin 2.4L Microbiology 01/13/21 Urine Culture - Final, Complete NO GROWTH 01/11/21 MRSA Screen - Final, Complete MRSA not isolated 01/11/21 Blood Culture - Final, Complete No growth Radiology NAME: SHOBHA SCHROEDER MED REC#: [id number] PT STATUS: REG ER : 1950 PHYSICIAN: NATALIE AMBROSE ADMIT DATE: 01/11/21/ER Signed Date of Exam:01/11/21 CT ABDOMEN/PELVIS W PROCEDURE: CT abdomen and pelvis with contrast. TECHNIQUE: Multiple contiguous axial images were obtained through the abdomen and pelvis after administration of intravenous contrast. Auto Exposure Controls were utilized during the CT exam to meet ALARA standards for radiation dose reduction. All CT scans use one or more of the following dose optimizing techniques: automated exposure control, MA and/or KvP adjustment based on patient size and exam type or iterative reconstruction. DATE: January 11, 2021. COMPARISON: None. INDICATION: 70-year-old female, abdominal pain and bloating. FINDINGS: There are linear opacities in the lung bases consistent with atelectasis. The heart is not enlarged. There is no pericardial effusion. The liver is unremarkable in size and contour. There is no identified liver lesion. The main, right, left portal veins are patent. The gallbladder is unremarkable. There is no intrahepatic or extrahepatic bile duct dilation. The main pancreatic duct is not abnormally dilated. There is abnormal fluid and inflammatory stranding adjacent to the pancreas. There is no currently well marginated focal fluid collection. There is enhancement of the pancreatic parenchyma without evidence of pancreatic necrosis. The spleen is normal in size. The adrenal glands are unremarkable. There is a 7 mm low-attenuation right renal lesion on axial image 30 which is too small to characterize. The urinary collecting systems are not distended. There is no identified renal or ureteral stone. Urinary bladder is collapsed and not well evaluated. The appendix is unremarkable and well seen. There is nonspecific wall thickening of the distal stomach. There is no free intraperitoneal air. There is a small volume ascites. There are atherosclerotic calcifications. There is no identified abnormally enlarged lymph node in the abdomen or pelvis meeting CT size criteria for adenopathy. There is no identified acute bony abnormality. IMPRESSION: CT ABDOMEN AND PELVIS. 1. Findings suspicious for acute pancreatitis with peripancreatic fluid and inflammatory stranding. No clearly identified current well marginated focal drainable fluid collection. No evidence of pancreatic necrosis. 2. Small volume ascites. 3. No CT evidence of cholelithiasis or acute cholecystitis. No biliary ductal dilation. Dictated by: Dictated on workstation # [id number] Dict: 01/11/21 1240 Trans: 01/11/[address] [facility] [id number] Interpreted by: DNONELL ESPINOZA MD Electronically signed by: DONNELL ESPINOZA MD 01/11/21 1309 NAME: SHOBHA SCHROEDER [facility] REC#: [id number] PT STATUS: ADM IN : 1950 PHYSICIAN: ANAID IBRAHIM DO ADMIT DATE: 01/11/21/ICU Draft Date of Exam:01/12/21 US ABDOMEN LIMITED [id number] PROCEDURE: US Abdomen, limited. TECHNIQUE: Multiple realtime grayscale images were obtained over the abdomen in various projections. INDICATION: Pancreatitis. FINDINGS: The liver measures 12 cm in length without evidence of focal abnormality. There is no gallbladder wall thickening. The common bile duct reaches 1 cm in diameter which may be related to previous stone passage. There is diffuse enlargement of the pancreas measuring approximately 6.6 x 5.1 x 2.5 cm with an adjacent hypoechoic region which may represent mild peripancreatic edema and/or fluid. The visualized portions of the abdominal aorta and inferior vena cava are unremarkable. There is also mild right perinephric fluid without other right renal abnormality identified. IMPRESSION: Findings are consistent with pancreatitis with demonstrated pancreatic enlargement and peripancreatic fluid. There is also a mild amount of fluid in the right anterior pararenal space which could be secondary to pancreatic inflammation. Dictated on workstation # [id number] Dict: 01/12/2124 Trans: 01/12/21 0832 [id number] Interpreted by: KAROL HARRIS MD Electronically signed by: Assessment/Plan Assessment/Plan (1) Acute respiratory failure Status: Acute Assessment & Plan: Possibly secondary to pancreatitis/sepsis, requiring extremely high FiO2, appreciate eICU recommendations. Chest CTA later today if D dimer elevated, per ICU doc. CTA chest on 01/20 with Extensive five-lobe pulmonary opacities raise the question of ARDS. Bilateral pleural effusions, nonloculated. Negative for PE or acute aortic disease. 01/22- improving, able to titrate FiO2 down to 75% this am, continue current treatments Qualifiers: Qualified Codes: J96.01 - Acute respiratory failure with hypoxia (2) Pancreatitis Onset Date: ~ 01/09/2021 Status: Acute Assessment & Plan: Lipase improved from over 1000 to 150, symptomatically improving, no evidence of necrosis on CT scan. Continued on Zosyn given her recurrent leukocytosis and respiratory failure. Continued worsening leukoctyosis, repeat CT abdomen today, continue Zosyn. 01/[address] abdomen showed Mixed changes. Previously, there was extensive peripancreatic phlegmon and stranding, now representing multiseptated fluid locules consistent with pseudocysts; The pancreatic parenchyma itself is enhanced with no gas or evidence for its necrosis. Qualifiers: Qualified Codes: K85.20 - Alcohol induced acute pancreatitis without necrosis or infection (3) Atrial fibrillation with rapid ventricular response Onset Date: ~ 01/11/2021 Status: Acute Assessment & Plan: On Xarelto outpatient, held per Cardiology due to abdominal pain, on cardizem drip, appreciate Cardiology recommendations. 01/21 changed to PO cardizem yesterday, monitor. (4) Hypertension Status: Chronic Qualifiers: Qualified Codes: I10 - Essential (primary) hypertension (5) Leukocytosis Onset Date: ~ 01/11/2021 Status: Acute Assessment & Plan: Improved initially but now worsening again, repeat procalcitonin decreased from prior, continue Zosyn. 01/21 slight decrease today, continue to monitor and continue Zosyn. Qualifiers: Qualified Codes: D72.828 - Other elevated white blood cell count (6) Severe sepsis Onset Date: ~ 01/11/2021 Status: Resolved Assessment & Plan: Elevated lactic acid, leukocytosis and tachycardia on admission. Suspect secondary to pancreatitis. (7) Alcohol use Status: Chronic Assessment & Plan: Alcohol withdrawal protocol started on admission. Has not been requiring ativan since 01/13, is on dexmedetomidine drip due to anxiety. (8) DVT prophylaxis Status: Acute Assessment & Plan: Treatment dose enoxaparin ANURAG BERNARDO MD Jan 22, 2021 10:05
--- NOTE | 2021-01-22 11:02 | Pulmonary Progress Note ---
Subjective Date Seen by a Provider: Jan 22, 2021 Time Seen by a Provider: 13:45 Sepsis Event Evaluation Height, Weight, BMI Height: 5'2.00" Weight: 122lbs. 0.0oz. [id number]; 22.52 BMI Method: Exam Exam Patient acknowledged, consented, and participated in this virtual visit which was conducted using real time audio/video Vital Signs Date Time Temp Pulse Resp B/P (MAP) Pulse Ox O2 Delivery O2 Flow Rate FiO2 01/22/21 08:13 97 Vapotherm 25.00 75 01/22/21 08:00 36.2 106 22 135/71 100 Vapotherm 25.00 75.00 01/22/21 08:00 Vapotherm 25.00 55 01/22/21 04:47 35.6 122 20 128/72 99 Vapotherm 25.00 75.00 01/22/21 03:03 95 Vapotherm 25.00 75 01/21/21 21:17 36.4 01/21/21 21:14 96 Vapotherm 25.00 75 01/21/21 20:00 Vapotherm 25.00 75 01/21/21 19:38 36.4 130 28 129/65 94 Vapotherm 25.00 75.00 01/21/21 15:40 36.8 129 26 118/77 93 Vapotherm 25.00 75.00 01/21/21 14:15 97 Vapotherm 20.00 75 01/21/21 13:06 Vapotherm 25.00 65.00 01/21/21 13:05 99 Vapotherm 25.00 75.00 01/21/21 12:00 Vapotherm 30.00 85.00 01/21/21 12:00 Vapotherm 30.00 90 01/21/21 11:40 36.1 01/21/21 11:00 126 89 Vapotherm 30.00 90.00 01/21/21 11:00 98 Vapotherm 30.00 90.00 I & O 01/22/21 07:00 Intake Total 1120 ml Output Total 625 ml Balance 495 ml Height & Weight Height: 5'2.00" Weight: 122lbs. 0.0oz. 55.082848xi; 22.52 BMI Method: General Appearance: Mild Distress HEENT: PERRL/EOMI Neck: Normal Inspection Respiratory: No Accessory Muscle Use, No Respiratory Distress, Other (Tachypnea on high flow oxygen diminished breath sounds bilaterally with fine rales no wheezing appreciated.) Cardiovascular: No Murmur, Irregularly Irregular Capillary Refill: Less Than 3 Seconds Peripheral Pulses: 1+ Dorsalis Pedis (R), 1+ Left Dors-Pedis (L) (See free text.) Gastrointestinal: soft, distended (maybe same or better than yesterday), tende rness (epigastric) Extremity: Pedal Edema (Bilateral 2+ edema to knee) Neurologic/Psychiatric: Alert, Oriented x3 Skin: Normal Color, Warm/Dry Lymphatic: No Adenopathy (cervical) Results Lab Laboratory Tests 01/20/21 16:45 01/21/21 03:31 01/22/21 04:45 Assessment/Plan Assessment/Plan Video assessment done using Quixey camera, rest of exam as per RN Discussed with RN , EXAM PER RN reports anxiety reports cought++ reports pain in right side of chest while coughing Hospital course: (01/11) 70 y/o Female - Acute Pancreatitis - A Fib RVR - Cardizem Drip. 01/14 - started on BIPAP 16/10 - 100% rr30 tv 300-600 , MV 20L + PRECEDEX,, met acidosis, attempted diuresis 1L 01/15 - BIPAP 16/10 - 100% rr30 tv 300-600 , MV 16 L 01/19- VT 40 L 100% - attempted diuresis .14 - same O2 meeds despite agressive diuresis , CT abd /pelvis - PSEUDOCYSTS 01/21 - VT 40L 100% 01/21- TRANSFERRED TO 4TH FLOOR 01/22 = VT 25L 75 % A/P acute pancreatitis probably due to alcohol abuse CT admission -finished zo Zosyn, repeat CT abd/pelvis 01/21- multiseptated fluid consistent with pseudocysts - Acute resp failure , hypoxic 01/14 ( VO , ARDS , in addition to supected RIGHT PNA - neg PCT and and CXR 01/19 - no PE on CTA 01/20 -moderate effusion R>L - might need thora latter - will follow , change on lovenox from Xarelto or possible thora PNA , R>L - zosyn /5 01/21 - 10 days ( MRSA swab negative ) - 01/19 - rising WBC on zosyn -neg PCT and same CXR 01/19 -01/20 - - worsening of leukocytosis- CT abd/pelvis : pseudocysts, CTA chest - no classic PNA - STOP ZOSYN 01/21 A fib RVR - cardizem po - AC lovenox - changed to xarelto 01/15- as per RN it is " on hold" - to recheck with cards - started 01/19 --might need thora latter - change to lovenox from Xarelto 01/21 or possible thora added robitusin xanax prn fot anxiety Plans in collaboration with bedside consultants and IM MDs. Discussed with RN to reach out if any questions or concerns ALYCE CRANE MD Jan 22, 2021 11:02
--- NOTE | 2021-01-22 11:08 | Physical Therapy Daily Note ---
PT Daily Note-Current Subjective Patient in bed pre tx, agrees to exercises in bed but refuses OOB activity because she just got back to bed from using the commode. She has unrated right side trunk pain. Appearance Patient in bed post tx with nurse call, phone, tray, all needs met. Mental Status Patient Orientation: Person, Place, Situation Attachments: Oxygen (vapotherm), Hwang Catheter Transfers SCALE: Activities may be completed with or without assistive devices. 3-Shvfjywxvc-ozoqhno completes the activity by him/herself with no assistance from a helper. 5-Set-up or Clean-up Assistance-helper sets up or cleans up; patient completes activity. [place] assists only prior to or following the activity. 4-Supervision or Touching Assistance-helper provides verbal cues and/or touching/steadying and/or contact guard assistance as patient completes activity. Assistance may be provided throughout the activity or intermittently. 3-Partial/Moderate Assistance-helper does LESS THAN HALF the effort. [place] lifts, holds or supports trunk or limbs, but provides less than half the effort. 2-Substantial/Maximal Assistance-helper does MORE THAN HALF the effort. [place] lifts or holds trunk or limbs and provides more than half the effort. 0-Fnpkovcpe-htisya does ALL the effort. Patient does none of the effort to complete the activity. Or, the assistance of 2 or more helpers is required for the patient to complete the activity. If activity was not attempted, code reason: 7-Patient Refused. 9-Not Applicable-not attempted and the patient did not perform the activity before the current illness, exacerbation or injury. 10-Not Attempted due to Environmental Limitations-(lack of equipment, weather restraints, etc.). 88-Not Attempted due to Medical Conditions or Safety Concerns. Exercises Supine Ex: Ankle pumps, Quad Set, Glut sets, Heel Slides, Short Arc Quads, Straight leg raise, Hip abd/add Supine Reps: 20 Treatments LE strengthening Assessment Current Status: Poor Progress Patient needed many rest breaks due to fatigue. PT Long-Term Goals Long-Term Goals PT Long-Term Goals Time Frame: Jan 31, 2021 Roll Left & Right (QC): 6 Sit to Lying (QC): 6 Lying-Sitting on Side/Bed(QC): 6 Sit to Stand (QC): 6 Chair/Wwk-xz-Enwfe Xfer(QC): 6 Toilet Transfer (QC): 6 Walk 10 feet (QC): 6 Walk 50ft with 2 Turns (QC): 6 Walk 150 ft (QC): 6 PT Plan Problem List Problem List: Activity Tolerance, Functional Strength, Safety, Balance, Gait, Transfer, Bed Mobility, ROM Treatment/Plan Treatment Plan: Continue Plan of Care Treatment Plan: Bed Mobility, Education, Functional Activity Wu, Functional Strength, Gait, Safety, Therapeutic Exercise, Transfers Treatment Duration: Jan 31, 2021 Frequency: 6 times per week Estimated Hrs Per Day: .5 hour per day Patient and/or Family Agrees t: Yes Safety Risks/Education Patient Education: Correct Positioning, Safety Issues Teaching Recipient: Patient Teaching Methods: Demonstration, Discussion Response to Teaching: Reinforcement Needed Time/GCodes Time In: 1050 Time Out: 1100 Total Billed Treatment Time: 10 Total Billed Treatment 1 visit EX JUAQUIN STEINER PT Jan 22, 2021 11:08
--- NOTE | 2021-01-22 11:34 | Occupational Ther Daily Note ---
OT Current Status-Daily Note Subjective Pt alert, laying in bed when OT entered. Pt agreed to therapy. Pt stated she is tired this morning and she would like nursing to check blood sugar. Therapist notified nursing and stated that her blood sugar has already been taken. ADL-Treatment Pt agreed to complete oral hygiene and washing of face. Pt requested therapist to cleanse face with wash cloth. Therapist stated she would like to see pt perform task before she does it. After set up of warm wash cloth, pt cleansed face. Pt completed oral hygiene while laying in bed, pt required assist from therapist to place toothpaste on toothbrush due to pt being shaky. After session, pt laying in bed. Call light in reach and all needs met. Therapy Code Descriptions/Definitions Functional [place] Measure: 0=Not Assessed/NA 4=Minimal Assistance 1=Total Assistance 5=Supervision or Setup 2=Maximal Assistance 6=Modified [place] 3=Moderate Assistance 7=Complete IndependenceSCALE: Activities may be completed with or without assistive devices. 4-Iutfcjfwch-gjzwzgi completes the activity by him/herself with no assistance f rom a helper. 5-Set-up or Clean-up Assistance-helper sets up or cleans up; patient completes activity. [place] assists only prior to or following the activity. 4-Supervision or Touching Assistance-helper provides verbal cues and/or touching/steadying and/or contact guard assistance as patient completes activity. Assistance may be provided throughout the activity or intermittently. 3-Partial/Moderate Assistance-helper does LESS THAN HALF the effort. [place] lifts, holds or supports trunk or limbs, but provides less than half the effort. 2-Substantial/Maximal Assistance-helper does MORE THAN HALF the effort. [place] lifts or holds trunk or limbs and provides more than half the effort. 8-Spmafxcrx-frohbn does ALL the effort. Patient does none of the effort to complete the activity. Or, the assistance of 2 or more helpers is required for the patient to complete the activity. If activity was not attempted, code reason: 7-Patient Refused. 9-Not Applicable-not attempted and the patient did not perform the activity before the current illness, exacerbation or injury. 10-Not Attempted due to Environmental Limitations-(lack of equipment, weather restraints, etc.). 88-Not Attempted due to Medical Conditions or Safety Concerns. Education OT Patient Education: Correct positioning, Modified ADL techniques, Progress toward Goal/Update tx plan Teaching Recipient: Patient Teaching Methods: Demonstration, Discussion Response to Teaching: Verbalize Understanding, Return Demonstration OT Molecular Spectroscopist Goals Molecular Spectroscopist Goals Time Frame: Jan 30, 2021 Oral Hygiene (QC): 5 Toileting Hygiene (QC): 4 Upper Body Dressing (QC): 5 Lower Body Dressing (QC): 4 On/Off Footwear (QC): 5 1=Demonstrate adherence to instructed precautions during ADL tasks. 2=Patient will verbalize/demonstrate understanding of assistive devices/modifications for ADL. 3=Patient will improve strength/tolerance for activity to enable patient to perform ADL's. OT Education/Plan Problem List/Assessment Assessment: Decreased Activ Tolerance, Impaired I ADL's, Impaired Self-Care Skills Discharge Recommendations Plan/Recommendations: Continue POC Treatment Plan/Plan of Care Patient would benefit from OT for education, treatment and training to promote independence in ADL's, mobility, safety and/or upper extremity function for ADL's. Plan of Care: ADL Retraining, Functional Mobility, Group Exercise/Act as Ind, UE Funct Exercise/Act Treatment Duration: Jan 30, 2021 Frequency: 3 times per week Estimated Hrs Per Day: .25 hour per day Agreement: Yes Rehab Potential: Fair Time/GCodes Start Time: 09:28 Stop Time: 09:44 Total Time Billed (hr/min): 16 Billed Treatment Time 1 visit- ADL 1 MELANIE BENAVIDES Jan 22, 2021 11:34
[2021-01-22] MEDS: LACTOBACILLUS ACIDOPHILUS (PROBIOTIC) CAPSULE PO SCH ×2 (13:10→17:15)
[2021-01-22] MEDS: guaiFENesin/DM (ROBITUSSIN DM) 10 ML UDC PO PRN (14:16)
--- NOTE | 2021-01-22 14:28 | Speech Therapy Progress Note ---
Therapy Progress Note Speech pathology acknowledges the "STO" Dysphagia consult for the patient and the patient's chart was reviewed. Per RN, the patient demonstrated difficulty with administration of crushed medication in applesauce on this date. Additionally, the patient has displayed "sputtering" and cough with liquid consistencies throughout the day. As the patient has displayed poor P.O. intake, the flakeboard line tender recommended an upgrade in the diet consistency to a Dysphagia II (mechanically altered) from a Dysphagia I (Puree). As the patient has demonstrated intermittent s/s of suspected aspiration on this date, the RN recommended a formal speech pathology evaluation to reduce the patient's risks for aspiration. The clinician discussed the patient with the RN on this date and stated the evaluation will occur in the morning of 01/23/2021. The RN verbalized co mprehension of the plan of care and all questions were answered within the scope of this clinician's practice. JOSSY ESPINOZA Jan 22, 2021 14:28
[2021-01-22] MEDS: ALPRAZolam 0.5 MG (XANAX) TAB PO PRN (22:08)
[2021-01-23] MEDS: RT-ALBUTEROL SULF 2.5 MG/3 ML PRE-MIX VIAL INH SCH ×4 (02:16→21:10)
[2021-01-23 04:05] LABS: HEMATOCRIT 30 % (35-52); HEMOGLOBIN 9.9 g/dL (11.5-16.0); MEAN CORPUSCULAR HEMOGLOBIN 34 pg (25-34); MEAN CORPUSCULAR HGB CONC 33 g/dL (32-36); MEAN CORPUSCULAR VOLUME 102 fL (80-99); MEAN PLATELET VOLUME 11.2 fL (9.0-12.2); PLATELET COUNT 309 10^3/uL (130-400); WHITE BLOOD COUNT 20.3 10^3/uL (4.3-11.0)
[2021-01-23 04:13] LABS: ALBUMIN 2.4 GM/DL (3.2-4.5); POTASSIUM 3.4 MMOL/L (3.6-5.0)
[2021-01-23 04:14] LABS: CALCIUM 8.8 MG/DL (8.5-10.1)
[2021-01-23 04:15] LABS: TOTAL PROTEIN 5.7 GM/DL (6.4-8.2)
[2021-01-23 04:17] LABS: BILIRUBIN,TOTAL 0.5 MG/DL (0.1-1.0)
[2021-01-23 04:19] LABS: CREATININE SERUM 0.96 MG/DL (0.60-1.30)
[2021-01-23] MEDS: guaiFENesin/DM (ROBITUSSIN DM) 10 ML UDC PO PRN ×2 (05:04→09:27)
[2021-01-23] MEDS: HYDROcodone/APAP 5 MG/325 MG (LORTAB) TAB PO PRN ×3 (05:04→17:12)
[2021-01-23] MEDS: THIAMINE 100 MG (VITAMIN B-1) TAB PO SCH (05:56)
[2021-01-23] MEDS ORDERED: KCL 20 MEQ TAB (K-DUR) PO ONE (07:30)
--- NOTE | 2021-01-23 08:16 | Diagnostic Imaging Report ---
EXAMINATION: Chest radiograph, portable AP view. DATE: 01/23/2021 6:36 AM INDICATION: 70-year-old female, follow-up pneumonia. Shortness of breath. COMPARISON: January 19, 2021. FINDINGS: The right-sided PICC line overlies the mid SVC. Heart size and mediastinal contours are unchanged. There is no identified pneumothorax. There is a probable small right pleural effusion. There is multifocal bilateral lung consolidation which is unchanged. IMPRESSION: 1. Unchanged multifocal bilateral lung consolidation with probable small right pleural effusion. 2. Stable positioning of the right-sided PICC line. Dictated by: Dictated on workstation # [id number]
--- NOTE | 2021-01-23 08:35 | ST Dysphagia Evaluation ---
Speech Evaluation-General Medical Diagnosis A-fib w/RVR, acute pancretitis and severe sepsis Onset Date: Jan 11, 2021 Therapy Diagnosis Therapy Diagnosis: Oropharyngeal Dysphagia Precautions Precautions: Aspiration Referral Referring Physician: Dr. Doe Medical History Pertinent Medical History: Atrial Fib, HTN Reviewed History: Yes Social History Current Living Status: Friend Speech PLF/Current-Dysphagia Prior Level of Function Patient lived with a friend in her own home where she was independent with daily needs. Subjective Patient was sitting up in bed eating her breakfast, alert and oriented when I entered her room. Cognitive Status Patient Orientation: Person, Place, Situation Patient is oriented to all concepts. Oral Motor Skills Dentition: Natural Current Food Consistancy: Pureed, Thin Liquids Ability to Follow Directions: Good Oral Expression Ability: No Impairment Voice Voice Phonatory-Based Quality: Normal Voice Pitch: Normal Voice Loudness: Normal Face Facial Symmetry: Symmetrical Oral-Facial Assessment Oral-Facial Dentition: Normal Labial Seal Description: Normal Smile: Normal Lingual Protrusion: Normal Lingual ROM: Normal Lingual Strength: Normal Pharynx Velopharyngeal Move.: Normal Volitional Dry Swallow: Yes Voluntary Cough: Yes Can Clear Throat Volitionally: Yes Dysphagia Evaluation Consistencies Presented: Regular, Thin Liquid, Mechanical Soft, Pureed Oral phase is within normal range of function for all consistencies presented. Pharyngeal phase is within normal range of function for all consistencies presented. Dietary Recommendations: Regular Liquid Recommendations: Thin Swallowing Precautions: Alternate Liquids/Solids, Double Swallow, Decreased Bolus 1/2 Tsp, Decreased Rate of Oral Intake, Liquids from Straw, Small Bites and Sips, Sitting Upright 90 Degrees, Sitting 90 Degrees 30 Post Intake Dysphagia Evaluation Summary Patient is a 70 y/o female who was admitted to the hospital due to respiratory failure. The patient has been on a Dysphagia I diet level to medical status and weakness, She was referred for swallow assessment to upgrade diet as appropriate. The patient's intake with current diet has been very poor. The patient completed the BDE with presentations of thin liquids via 1/2 tsp x2 and small sips via straw x2 without s/s of aspiration noted. She was also presented 1/2 tsp of puree, mechanical soft and regular without difficulty or overt s/s of aspiration. Patient is recommended for regular diet consistency and thin liquids. Nursing was advised of the recommendations to upgrade patient's diet level. Barriers to Learning Patient's recent medical diagnosis, age Speech-Plan Patient/Family Goals Patient/Family Goals: Patientt plans to return to her home where she lives with a friend. Treatment Plan Speech Therapy Treatment Plan: Discontinue ST Treatment Duration: Jan 23, 2021 Frequency: 1 time per week Estimated Hrs Per Day: .25 hour per day Rehab Potential: Fair Barriers to Learning: Patient's recent medical diagnosis, age Pt/Family Agrees to Plan: Yes Safety Risks/Education Teaching Recipient: Patient Teaching Methods: Demonstration, Discussion Response to Teaching: Verbalize Understanding, Return Demonstration Education Topics Provided: Safety with oral intake, age Time Speech Therapy Time In: 07:50 Speech Therapy Time Out: 08:05 Total Billed Time: 15 Billed Treatment Time 1, CONSUELO, ALIS Landon Jan 23, 2021 08:35
[2021-01-23] MEDS: dilTIAZem120 MG (CARDIZEM CD) CAP PO SCH ×2 (09:23→20:14)
[2021-01-23] MEDS: SPIRONOLACTONE 25 MG (ALDACTONE) TAB PO SCH (09:24)
[2021-01-23] MEDS: PANTOPRAZOLE 40 MG (PROTONIX) VIAL IV SCH (09:24)
[2021-01-23] MEDS: LACTOBACILLUS ACIDOPHILUS (PROBIOTIC) CAPSULE PO SCH ×3 (09:24→17:12)
[2021-01-23] MEDS: FOLIC ACID 1 MG TAB PO SCH (09:24)
[2021-01-23] MEDS: FUROSEMIDE 40 MG (LASIX) TAB PO SCH (09:24)
[2021-01-23] MEDS: ENOXAPARIN 80 MG/0.8 ML (LOVENOX) SYR SC SCH ×2 (09:28→20:14)
[2021-01-23] MEDS: SENNA W/DOCUSATE (SENOKOT S) TABLET PO SCH ×2 (09:37→20:14)
--- NOTE | 2021-01-23 09:37 | Occupational Ther Daily Note ---
OT Current Status-Daily Note Subjective Pt alert when OT entered. Nrsing staff present in room. Pt agreed to therapy . No c/o pain reported. Mental Status/Objective Patient Orientation: Person, Place, Time, Situation ADL-Treatment Nrsing present in room. Pt required assist x2 to raise pt to HOB. Pt agreed to completing oral care at this time. After set up of materials required, pt was able to complete oral hygiene while laying in bed with HOB raised. After set up, pt was able to cleanse with wash cloth. After session, pt laying in bed with HOB raised. Nurse present in room. All needs met and call light in reach. Therapy Code Descriptions/Definitions Functional [place] Measure: 0=Not Assessed/NA 4=Minimal Assistance 1=Total Assistance 5=Supervision or Setup 2=Maximal Assistance 6=Modified [place] 3=Moderate Assistance 7=Complete IndependenceSCALE: Activities may be completed with or without assistive devices. 8-Wohgxagriv-byouyta completes the activity by him/herself with no assistance from a helper. 5-Set-up or Clean-up Assistance-helper sets up or cleans up; patient completes activity. [place] assists only prior to or following the activity. 4-Supervision or Touching Assistance-helper provides verbal cues and/or touching/steadying and/or contact guard assistance as patient completes activity. Assistance may be provided throughout the activity or intermittently. 3-Partial/Moderate Assistance-helper does LESS THAN HALF the effort. [place] lifts, holds or supports trunk or limbs, but provides less than half the effort. 2-Substantial/Maximal Assistance-helper does MORE THAN HALF the effort. [place] lifts or holds trunk or limbs and provides more than half the effort. 4-Udbvxinkr-piagtu does ALL the effort. Patient does none of the effort to complete the activity. Or, the assistance of 2 or more helpers is required for the patient to complete the activity. If activity was not attempted, code reason: 7-Patient Refused. 9-Not Applicable-not attempted and the patient did not perform the activity before the current illness, exacerbation or injury. 10-Not Attempted due to Environmental Limitations-(lack of equipment, weather restraints, etc.). 88-Not Attempted due to Medical Conditions or Safety Concerns. Education OT Patient Education: Correct positioning, Modified ADL techniques, Purpose of tx/functional activities Teaching Recipient: Patient Teaching Methods: Demonstration, Discussion Response to Teaching: Verbalize Understanding, Return Demonstration OT Longterm Goals Longterm Goals Time Frame: Jan 30, 2021 Oral Hygiene (QC): 5 Toileting Hygiene (QC): 4 Upper Body Dressing (QC): 5 Lower Body Dressing (QC): 4 On/Off Footwear (QC): 5 1=Demonstrate adherence to instructed precautions during ADL tasks. 2=Patient will verbalize/demonstrate understanding of assistive devices/modifications for ADL. 3=Patient will improve strength/tolerance for activity to enable patient to perform ADL's. OT Education/Plan Discharge Recommendations Plan/Recommendations: Continue POC Treatment Plan/Plan of Care Patient would benefit from OT for education, treatment and training to promote independence in ADL's, mobility, safety and/or upper extremity function for ADL's. Plan of Care: ADL Retraining, Functional Mobility, Group Exercise/Act as Ind, U E Funct Exercise/Act Treatment Duration: Jan 30, 2021 Frequency: 3 times per week Estimated Hrs Per Day: .25 hour per day Agreement: Yes Rehab Potential: Fair Time/GCodes Start Time: 09:25 Stop Time: 09:26 Total Time Billed (hr/min): 11 Billed Treatment Time 1 visit- ADL 1 MELANIE BENAVIDES Jan 23, 2021 09:37
--- NOTE | 2021-01-23 10:09 | Progress Note ---
Subjective Subjective/Events-last exam Having a lot of pain in right hip, possibly into abdomen or groin area. having some difficulty with pills still, swallow study pending. Objective Exam Last Set of Vital Signs Vital Signs Date Time Temp Pulse Resp B/P (MAP) Pulse Ox O2 Delivery O2 Flow Rate FiO2 01/23/21 08:00 35.4 103 22 132/81 95 Vapotherm 01/23/21 04:16 25.00 25.00 01/23/21 02:17 50 Capillary Refill : Less Than 3 Seconds I&O Intake and Output 01/23/21 00:00 Intake Total 540 ml Output Total 700 ml Balance -160 ml Intake Oral 540 ml Output Urine Total 700 ml # Bowel Movements 3 General: Alert, No Acute Distress Heart: Regular Rate Abdomen: Normal Bowel Sounds, Soft, Other Extremities: No Edema Neuro: Normal Speech Results/Procedures Lab Laboratory Tests 01/23/21 03:40: White Blood Count 20.3H, Red Blood Count 2.91L, Hemoglobin 9.9L, Hematocrit 30L, Mean Corpuscular Volume 102H, Mean Corpuscular Hemoglobin 34, Mean Corpuscular Hemoglobin Concent 33, Red Cell Distribution Width 13.8, Platelet Count 309, Mean Platelet Volume 11.2, Sodium Level 137, Potassium Level 3.4L, Chloride Level 92L, Carbon Dioxide Level 35H, Anion Gap 10, Blood Urea Nitrogen 19H, Creatinine 0.96, Estimat Glomerular Filtration Rate 58, BUN/Creatinine Ratio 20, Glucose Level 105, Calcium Level 8.8, Corrected Calcium 10.1, Total Bilirubin 0.5, Aspartate Amino Transf (AST/SGOT) 32, Alanine Aminotransferase (ALT/SGPT) 20, Alkaline Phosphatase 77, Total Protein 5.7L, Albumin 2.4L Microbiology 01/13/21 Urine Culture - Final, Complete NO GROWTH 01/11/21 MRSA Screen - Final, Complete MRSA not isolated 01/11/21 Blood Culture - Final, Complete No growth Radiology NAME: SHOBHA SCHROEDER MED REC#: [id number] PT STATUS: REG ER : 1950 PHYSICIAN: NATALIE AMBROSE ADMIT DATE: 01/11/21/ER Signed Date of Exam:01/11/21 CT ABDOMEN/PELVIS W PROCEDURE: CT abdomen and pelvis with contrast. TECHNIQUE: Multiple contiguous axial images were obtained through the abdomen and pelvis after administration of intravenous contrast. Auto Exposure Controls were utilized during the CT exam to meet ALARA standards for radiation dose reduction. All CT scans use one or more of the following dose optimizing techniques: automated exposure control, MA and/or KvP adjustment based on patient size and exam type or iterative reconstruction. DATE: January 11, 2021. COMPARISON: None. INDICATION: 70-year-old female, abdominal pain and bloating. FINDINGS: There are linear opacities in the lung bases consistent with atelectasis. The heart is not enlarged. There is no pericardial effusion. The liver is unremarkable in size and contour. There is no identified liver lesion. The main, right, left portal veins are patent. The gallbladder is unremarkable. There is no intrahepatic or extrahepatic bile duct dilation. The main pancreatic duct is not abnormally dilated. There is abnormal fluid and inflammatory stranding adjacent to the pancreas. There is no currently well marginated focal fluid collection. There is enhancement of the pancreatic parenchyma without evidence of pancreatic necrosis. The spleen is normal in size. The adrenal glands are unremarkable. There is a 7 mm low-attenuation right renal lesion on axial image 30 which is too small to characterize. The urinary collecting systems are not distended. There is no identified renal or ureteral stone. Urinary bladder is collapsed and not well evaluated. The appendix is unremarkable and well seen. There is nonspecific wall thickening of the distal stomach. There is no free intraperitoneal air. There is a small volume ascites. There are atherosclerotic calcifications. There is no identified abnormally enlarged lymph node in the abdomen or pelvis meeting CT size criteria for adenopathy. There is no identified acute bony abnormality. IMPRESSION: CT ABDOMEN AND PELVIS. 1. Findings suspicious for acute pancreatitis with peripancreatic fluid and inflammatory stranding. No clearly identified current well marginated focal drainable fluid collection. No evidence of pancreatic necrosis. 2. Small volume ascites. 3. No CT evidence of cholelithiasis or acute cholecystitis. No biliary ductal dilation. Dictated by: Dictated on workstation # [id number] Dict: 01/11/21 1240 Trans: 01/11/21 1309 [facility] [id number] Interpreted by: DONNELL ESPINOZA MD Electronically signed by: DONNELL ESPINOZA MD 01/11/21 1302 NAME: SHOBHA SCHROEDER [facility] REC#: [id number] PT STATUS: ADM IN : 1950 PHYSICIAN: ANAID IBRAHIM DO ADMIT DATE: 01/11/21/ICU Draft Date of Exam:01/12/21 US ABDOMEN LIMITED [id number] PROCEDURE: US Abdomen, limited. TECHNIQUE: Multiple realtime grayscale images were obtained over the abdomen in various projections. INDICATION: Pancreatitis. FINDINGS: The liver measures 12 cm in length without evidence of focal abnormality. There is no gallbladder wall thickening. The common bile duct reaches 1 cm in diameter which may be related to previous stone passage. There is diffuse enlargement of the pancreas measuring approximately 6.6 x 5.1 x 2.5 cm with an adjacent hypoechoic region which may represent mild peripancreatic edema and/or fluid. The visualized portions of the abdominal aorta and inferior vena cava are unremarkable. There is also mild right perinephric fluid without other right renal abnormality identified. IMPRESSION: Findings are consistent with pancreatitis with demonstrated pancreatic enlargement and peripancreatic fluid. There is also a mild amount of fluid in the right anterior pararenal space which could be secondary to pancreatic inflammation. Dictated on workstation # [id number] Dict: 01/12/2124 Trans: 01/12/21 0832 [id number] Interpreted by: KAROL HARRIS MD Electronically signed by: Assessment/Plan Assessment/Plan (1) Acute respiratory failure Status: Acute Assessment & Plan: Possibly secondary to pancreatitis/sepsis, requiring extre ashley high FiO2, appreciate eICU recommendations. Chest CTA later today if D dimer elevated, per ICU doc. CTA chest on 01/20 with Extensive five-lobe pulmonary opacities raise the question of ARDS. Bilateral pleural effusions, nonloculated. Negative for PE or acute aortic disease. 01/22- improving, able to titrate FiO2 down to 75% this am, continue current treatments 01/23- continues to wean down FiO2 Qualifiers: Qualified Codes: J96.01 - Acute respiratory failure with hypoxia (2) Pancreatitis Onset Date: ~ 01/09/2021 Status: Acute Assessment & Plan: Lipase improved from over 1000 to 150, symptomatically improving, no evidence of necrosis on CT scan. Continued on Zosyn given her recurrent leukocytosis and respiratory failure. Continued worsening leukoctyosis, repeat CT abdomen today, continue Zosyn. 01/[address] abdomen showed Mixed changes. Previously, there was extensive peripancreatic phlegmon and stranding, now representing multiseptated fluid locules consistent with pseudocysts; The pancreatic parenchyma itself is enhanced with no gas or evidence for its necrosis. Qualifiers: Qualified Codes: K85.20 - Alcohol induced acute pancreatitis without necrosis or infection (3) Atrial fibrillation with rapid ventricular response Onset Date: ~ 01/11/2021 Status: Acute Assessment & Plan: On Xarelto outpatient, held per Cardiology due to abdominal pain, on cardizem drip, appreciate Cardiology recommendations. 01/21 changed to PO cardizem yesterday, monitor. (4) Hypertension Status: Chronic Qualifiers: Qualified Codes: I10 - Essential (primary) hypertension (5) Leukocytosis Onset Date: ~ 01/11/2021 Status: Acute Assessment & Plan: Improved initially but now worsening again, repeat procalcitonin decreased from prior, continue Zosyn. 01/21 slight decrease today, continue to monitor and continue Zosyn. 01/23 Zosyn completed, monitor Qualifiers: Qualified Codes: D72.828 - Other elevated white blood cell count (6) Severe sepsis Onset Date: ~ 01/11/2021 Status: Resolved Assessment & Plan: Elevated lactic acid, leukocytosis and tachycardia on admis linda. Suspect secondary to pancreatitis. (7) Alcohol use Status: Chronic Assessment & Plan: Alcohol withdrawal protocol started on admission. Has not been requiring ativan since 01/13, is on dexmedetomidine drip due to anxiety. (8) Right hip pain Status: Acute Assessment & Plan: Xray today (9) DVT prophylaxis Status: Acute Assessment & Plan: Treatment dose enoxaparin ANURAG BERNARDO MD Jan 23, 2021 10:09
--- NOTE | 2021-01-23 10:10 | Cardiology Progress Note ---
Subjective Date Seen by Provider: Jan 23, 2021 Time Seen by Provider: 10:06 Subjective/Events-last exam Patient is complaining of abdominal pain, still on Vapotherm Review of Systems General: No Chills, No Night Sweats; Fatigue, Malaise; No Appetite, No Other HEENT: No Head Aches, No Visual Changes, No Eye Pain, No Ear Pain, No Dysphasia, No Sinus Congestion, No Post Nasal Drip, No Sore Throat, No Other Pulmonary: Dyspnea; No Cough, No Pleuritic Chest Pain, No Other Cardiovascular: No: Chest Pain, Palpitations, Orthopnea, Paroxysmal Noc. Dyspnea, Edema, Lt Headedness, Other Gastrointestinal: Abdominal Pain Objective-Cardiology Exam Last Set of Vital Signs Vital Signs 01/23/21 01/23/21 01/23/21 02:17 04:16 08:00 Temp 35.4 Pulse 103 Resp 22 B/P (MAP) 132/81 Pulse Ox 95 O2 Delivery Vapotherm O2 Flow Rate 25.00 25.00 FiO2 50 I&O Intake and Output0 01/23/21 00:00 Intake Total 540 ml Output Total 700 ml Balance -160 ml Intake Oral 540 ml Output Urine Total 700 ml # Bowel Movements 3 General: Alert, No Acute Distress HEENT: Atraumatic Neck: Supple Lungs: Other (decreased air movement throughout) Heart: Other (tachycardic, irregular) Abdomen: Normal Bowel Sounds, Soft, No Tenderness, Other (Having right upper quadrant pain) Extremities: No Edema Skin: No Rashes Neuro: Normal Speech Psych/Mental Status: Mood NL Results Lab Laboratory Tests 01/23/21 03:40 A/P-Cardiology Admission Diagnosis Acute pancreatitis Permanent atrial fibrillation Hypertension Hyperlipidemia Assessment/Plan Status post acute pancreatitis, had abdominal pain, amylase and lipase are trending down, CT scan showed pancreatic pseudocyst, patient started to have abdominal pain, epigastric and right upper quadrant pain today. I discussed it with Dr. Vale and Dr. Gutierrez, will reconsult for reevaluation Status post acute respiratory failure, still in advanced stage, currently on Vapotherm 100% alternating with CPAP. Managed by medical team. Diarrhea, was complaining of constipation for 10 days. Feeling better today. Atrial fibrillation with rapid ventricular response, history of permanent atrial fibrillation. Tolerating oral Cardizem and atenolol. Monitor [id number] score of 3, yearly risk of stroke without oral anticoagulation is 3.2%. Started back on Xarelto on January 20, 2021 Echocardiogram done in May 2018 showing normal LV size and function, EF 55 to 65%, PA pressure 40 to 45 mm meter of mercury Stress test done in August 2020 showing no significant ischemia or infarction with EF 74% Hypertension, controlled on current medication, continue to monitor Hyperlipidemia, monitor lipids, hold Lipitor at this time. Mild bilateral carotid stenosis, ultrasound was done in February 2020. Continue to monitor History of alcoholism, drink a few glasses of wine every evening, educated on av oiding alcohol products ADRIEL ROLDAN MD Jan 23, 2021 10:10
--- NOTE | 2021-01-23 10:23 | Physical Therapy Daily Note ---
PT Daily Note-Current Subjective Pt in bed upon arrival and agrees to do bed exs w/ PT. Says she would like to get up and do more but her (R) sided pain is too bad. Pain Numeric Pain Scale: 9 Location: Right Location Body Site: Abdomen Mental Status Patient Orientation: Normal For Age Attachments: Oxygen (vapotherm), Whang Catheter Transfers SCALE: Activities may be completed with or without assistive devices. 9-Sirlurossk-jldgtja completes the activity by him/herself with no assistance from a helper. 5-Set-up or Clean-up Assistance-helper sets up or cleans up; patient completes activity. [place] assists only prior to or following the activity. 4-Supervision or Touching Assistance-helper provides verbal cues and/or touching/steadying and/or contact guard assistance as patient completes a ctivity. Assistance may be provided throughout the activity or intermittently. 3-Partial/Moderate Assistance-helper does LESS THAN HALF the effort. [place] lifts, holds or supports trunk or limbs, but provides less than half the effort. 2-Substantial/Maximal Assistance-helper does MORE THAN HALF the effort. [place] lifts or holds trunk or limbs and provides more than half the effort. 0-Hrsymripp-fxpjbs does ALL the effort. Patient does none of the effort to complete the activity. Or, the assistance of 2 or more helpers is required for the patient to complete the activity. If activity was not attempted, code reason: 7-Patient Refused. 9-Not Applicable-not attempted and the patient did not perform the activity before the current illness, exacerbation or injury. 10-Not Attempted due to Environmental Limitations-(lack of equipment, weather restraints, etc.). 88-Not Attempted due to Medical Conditions or Safety Concerns. Gait Training Does the Patient Walk?: No and Walking Goal IS indicated Exercises Supine Ex: Ankle pumps, Quad Set, Glut sets, Heel Slides, Short Arc Quads, Straight leg raise, Hip abd/add Supine Reps: 20 Treatments Pt denies wanting to ambulate d/t (R) sided pain. Says she has been out of bed to use BR this morning. Performs supine LE strengthening. Call light in hand and all needs met nurse notified that pt wants pain meds. Assessment Current Status: Fair Progress Pt informed of benefits of getting out of bed and ambulation but would like to stay in bed d/t pain. Requires to cues to stay on task to perform supine exs. PT Information Systems Project Manager Goals Information Systems Project Manager Goals PT Assisted Goals Time Frame: Jan 31, 2021 Roll Left & Right (QC): 6 Sit to Lying (QC): 6 Lying-Sitting on Side/Bed(QC): 6 Sit to Stand (QC): 6 Chair/Phk-px-Wmwml Xfer(QC): 6 Toilet Transfer (QC): 6 Walk 10 feet (QC): 6 Walk 50ft with 2 Turns (QC): 6 Walk 150 ft (QC): 6 PT Plan Problem List Problem List: Functional Strength, Gait, Transfer Treatment/Plan Treatment Plan: Continue Plan of Care Treatment Plan: Bed Mobility, Education, Functional Activity Wu, Functional Strength, Gait, Safety, Therapeutic Exercise, Transfers Treatment Duration: Jan 31, 2021 Frequency: 6 times per week Estimated Hrs Per Day: .5 hour per day Patient and/or Family Agrees t: Yes Safety Risks/Education Patient Education: Correct Positioning Teaching Recipient: Patient Teaching Methods: Discussion Response to Teaching: Return Demonstration Time/GCodes Time In: 835 Time Out: 853 Total Billed Treatment Time: 18 Total Billed Treatment 1, EX DANAE SEVERINO SECURITY ASSOCIATE Jan 23, 2021 10:23
--- NOTE | 2021-01-23 13:57 | Pulmonary Progress Note ---
Subjective Date Seen by a Provider: Jan 23, 2021 Time Seen by a Provider: 13:56 Sepsis Event Evaluation Height, Weight, BMI Height: 5'2.00" Weight: 122lbs. 0.0oz. 55.774865cd; 22.52 BMI Method: Exam Exam Patient acknowledged, consented, and participated in this virtual visit which was conducted using real time audio/video Vital Signs Date Time Temp Pulse Resp B/P (MAP) Pulse Ox O2 Delivery O2 Flow Rate FiO2 01/23/21 12:42 101 01/23/21 11:53 35.6 114 18 130/84 97 Vapotherm 25.00 25.00 01/23/21 10:26 95 Vapotherm 25.00 50 01/23/21 10:18 108 01/23/21 09:00 Vapotherm 25.00 50 01/23/21 08:00 35.4 103 22 132/81 95 Vapotherm 01/23/21 04:16 35.2 118 20 147/68 93 Vapotherm 25.00 25.00 01/23/21 02:17 90 Vapotherm 25.00 50 01/23/21 00:07 35.2 125 20 137/89 91 Vapotherm 25.00 25.00 01/22/21 21:47 90 Vapotherm 25.00 50 01/22/21 20:30 90 Vapotherm 25.00 01/22/21 19:32 93 Vapotherm 25.00 50 01/22/21 19:14 35.2 120 20 129/83 92 Vapotherm 25.00 50.00 01/22/21 16:23 35.9 115 20 126/81 95 Vapotherm 25.00 65.00 01/22/21 16:00 Vapotherm 25.00 55 01/22/21 15:56 97 Vapotherm 25.00 55 I & O 01/23/21 06:59 Intake Total 940 ml Output Total 950 ml Balance -10 ml Height & Weight Height: 5'2.00" Weight: 122lbs. 0.0oz. 55.333394hd; 22.52 BMI Method: General Appearance: Mild Distress HEENT: PERRL/EOMI Neck: Normal Inspection Respiratory: No Accessory Muscle Use, No Respiratory Distress, Other (Tachypnea on high flow oxygen diminished breath sounds bilaterally with fine rales no wheezing appreciated.) Cardiovascular: No Murmur, Irregularly Irregular Capillary Refill: Less Than 3 Seconds Peripheral Pulses: 1+ Dorsalis Pedis (R), 1+ Left Dors-Pedis (L) (See free text.) Gastrointestinal: soft, distended (maybe same or better than yesterday), tenderness (epigastric) Extremity: Pedal Edema (Bilateral 2+ edema to knee) Neurologic/Psychiatric: Alert, Oriented x3 Skin: Normal Color, Warm/Dry Lymphatic: No Adenopathy (cervical) Results Lab Laboratory Tests 01/22/21 04:45 01/23/21 03:40 Assessment/Plan Assessment/Plan PATIENT IS VISITED IN ROOM USING [employer] TELEMEDICINE CARD WITH RN IN ROOM PRESENT Discussed with RN , EXAM PER RN PATIENT REPORTS: reports anxiety reports cought++ reports pain in right side of chest while coughing Hospital course: (01/11) 70 y/o Female - Acute Pancreatitis - A Fib RVR - Cardizem Drip. 01/14 - started on BIPAP /10 - 100% rr30 tv 300-600 , MV 20L + PRECEDEX,, met acidosis, attempted diuresis 1L 01/15 - BIPAP 16/10 - 100% rr30 tv 300-600 , MV 16 L 01/19- VT 40 L 100% - attempted diuresis .14 - same O2 meeds despite agressive diuresis , CT abd /pelvis - PSEUDOCYSTS 01/21- TRANSFERRED TO 4TH FLOOR 01/22 = VT 25L 75 % 01/23 - VT 25L 50% A/P acute pancreatitis probably due to alcohol abuse CT admission -finished zo Zosyn, repeat CT abd/pelvis 01/21- multiseptated fluid consistent with pseudocysts Acute resp failure - VT 25L 50% - no PE on CTA 01/20 -moderate effusion R>L - might need thora latter - will follow , changed on lovenox from Xarelto or possible thora - follow cxr on FRIDAY 01/26 PNA , R>L - zosyn 12/-5 01/21 - 10 days ( MRSA swab negative ) - 01/19 - rising WBC on zosyn -neg PCT and same CXR 01/19 -01/20 - - worsening of leukocytosis- CT abd/pelvis : pseudocysts, CTA chest - no classic PNA - STOPED ZOSYN 01/21 A fib RVR - cardizem po - AC lovenox - changed to xarelto 01/15- on hold - re- started 01/19 --might need thora latter - changed to lovenox from Xarelto 01/21 or possible thora added robitusin xanax prn fot anxiety ALYCE CRANE MD Jan 23, 2021 13:56
--- NOTE | 2021-01-23 14:57 | Diagnostic Imaging Report ---
INDICATION: Severe right hip pain. TIME OF EXAM: 2:22 PM 2 views right hip show normal femoral acetabular alignment. Joint spaces maintained. Femoral head and neck are intact. No fractures are seen. IMPRESSION: No acute bony abnormality is detected. Dictated by: Dictated on workstation # [id number]
--- NOTE | 2021-01-23 19:52 | Consultation - Surgery ---
History of Present Illness History of Present Illness Patient Consulted On(niharika/time) 01/23/21 19:47 Date Seen by Provider: Jan 23, 2021 Time Seen by Provider: 16:43 History of Present Illness Consult requested by Dr. Davis for abdominal pain Patient is a 70-year-old female who was hospitalized for pancreatitis and abdominal pain and has pneumonia. Patient states that she is been having problems with her right hip. She is having some pain in the right hip specifically on the ASIS area. She states it may be goes up above it a little bit in the abdomen. Patient states that she has little bit of abdominal distention. This is very minimal. She is not really having any significant abdominal pain in the middle of her abdomen. She had before but this is resolved. Patient main complaint is moderate to severe pain in the right hip. Patient had right hip x-ray with no acute findings. She had a CT of the chest and thorax which demonstrated a multiloculated pseudocyst. No gas or evidence of necrosis of the pancreas. She states that her breathing is a little bit better. She is on Vapotherm. On CT scan she is also noted to have bilateral pleural effusions. She is on anticoagulation. Allergies and Home Medications Allergies Coded Allergies: ibuprofen (Unverified Allergy, Unknown, 06/07/18) Patient Home Medication List Home Medication List Reviewed: Yes Alendronate Sodium (Alendronate Sodium) 70 Mg Tablet, 70 MG PO MON, (Reported) Entered as Reported by: JOSE DANIEL WASHBURN on 01/12/21 115 Last Action: Reviewed Atorvastatin Calcium (Atorvastatin Calcium) 10 Mg Tablet, 10 MG PO HS, (Reported) Entered as Reported by: JOSE DANIEL WASHBURN on 01/12/211155 Last Action: Reviewed Calcium Carbonate/Vitamin D3 (Calcium + Vitamin D Tablet) 1 Each Tablet, 1 EACH PO DAILY, (Reported) Entered as Reported by: JOSE DANIEL WASHBURN on 01/12/211155 Last Action: Reviewed Cholecalciferol (Vitamin D3) (Vitamin D3) 125 Mcg Capsule, 125 MCG PO DAILY, (Reported) Entered as Reported by: JOSE DANIEL WASHBURN on 01/12/211155 Last Action: Reviewed Lorazepam (Ativan) 0.5 Mg Tablet, 0.5 MG PO BID PRN for ANXIETY, (Reported) Entered as Reported by: JOSE DANIEL WASHBURN on 01/12/21 1204 Last Action: Reviewed Metoprolol Succinate (Metoprolol Succinate) 50 Mg Tab.er.24h, 50 MG PO DAILY, (Reported) Entered as Reported by: JOSE DANIEL WASHBURN on 01/12/211155 Last Action: Reviewed Milk Thistle Seed Extract (Milk Thistle) 175 Mg Capsule, 175 MG PO BID, (Reported) Entered as Reported by: JOSE DANIEL WASHBURN on 01/12/211155 Last Action: Reviewed Multivitamin (Multivitamin) 1 Each Tablet, 1 EACH PO DAILY, (Reported) Entered as Reported by: JOSE DANIEL WASHBURN on 01/12/211155 Last Action: Reviewed [place]-3/Dha/Epa/Fish Oil (Fish Oil 1,000 mg Softgel) 1 Each Capsule, 1 EACH PO BID, (Reported) Entered as Reported by: JOSE DANIEL WASHBURN on 01/12/211155 Last Action: Reviewed Rivaroxaban (Xarelto Tablet) 20 Mg Tablet, 20 MG PO 1800, (Reported) Entered as Reported by: JOSE DANIEL WASHBURN on 01/12/211155 Last Action: Reviewed Past Cwqsfvy-Rumcnn-Umutni Hx Patient Social History Smoking Status: Current Someday Smoker Type Used: Cigarettes Alcohol Use?: Yes (half bottle of wine nightly) Have you traveled recently?: No Immunizations Up To Date Date of Influenza Vaccine: Nov 27, 2020 Surgeries History of Surgeries: Yes Surgeries: Orthopedic (bunionectomy) Respiratory History of Respiratory Disorde: No Cardiovascular History of Cardiac Disorders: Yes Cardiac Disorders: Atrial Fibrillation Neurological History of Neurological Disord: No Genitourinary History of Genitourinary Disor: No Gastrointestinal History of Gastrointestinal Di: No Musculoskeletal History of Musculoskeletal Dis: Yes Musculoskeletal Disorders: Osteoporosis Endocrine History of Endocrine Disorders: No HEENT History of HEENT Disorders: No Cancer History of Cancer: No Psychosocial History of Psychiatric Problem: No Integumentary History of Skin or Integumenta: No Reviewed Nursing Assessment Reviewed/Agree w Nursing PMH: Yes Family Medical History Significant Family History: No Pertinent Family Hx, Psychiatric Problems (father-alzheimer's) Review of Systems-General Constitutional: No chills, No diaphoresis EENTM: No blurred vision, No double vision Respiratory: cough, dyspnea on exertion Cardiovascular: No chest pain, No palpitations Gastrointestinal: abdominal pain; No nausea, No vomiting Genitourinary: No decreased output, No discharge Musculoskeletal: No back pain; joint pain Skin: No change in color, No change in hair/nails Psychiatric/Neurological: Denies Anxiety, Denies Depressed, Denies Emotional Problems All Other Systems Reviewed Negative Unless Noted: Yes (Negative excepted noted.) Physical Exam-General Problems Physical Exam Vital Signs Vital Signs - First Documented 01/17/21 01/17/21 00:00 03:30 Temp 36.8 Pulse 81 Resp 33 B/P (MAP) 120/77 Pulse Ox 100 O2 Delivery NIV Bilevel O2 Flow Rate 90.00 FiO2 90 Capillary Refill : Less Than 3 Seconds General Appearance: no apparent distress, thin HEENT: PERRL/EOMI, normal ENT inspection Neck: full range of motion, supple, normal inspection Respiratory: chest non-tender, no accessory muscle use, other (On Vapotherm) Cardiovascular: regular rate, rhythm, no JVD Gastrointestinal: non tender, soft, distended (Minimal) Rectal: deferred Back: no CVA tenderness, no vertebral tenderness Extremities: normal inspection, other (Tenderness over right hip) Neurologic/Psychiatric: alert, normal mood/affect Skin: normal color, warm/dry Lymphatic: no adenopathy Data Review Labs Laboratory Tests 01/23/21 03:40: White Blood Count 20.3H, Red Blood Count 2.91L, Hemoglobin 9.9L, Hematocrit 30L, Mean Corpuscular Volume 102H, Mean Corpuscular Hemoglobin 34, Mean Corpuscular Hemoglobin Concent 33, Red Cell Distribution Width 13.8, Platelet Count 309, Mean Platelet Volume 11.2, Sodium Level 137, Potassium Level 3.4L, Chloride Level 92L, Carbon Dioxide Level 35H, Anion Gap 10, Blood Urea Nitrogen 19H, Creatinine 0.96, Estimat Glomerular Filtration Rate 58, BUN/Creatinine Ratio 20, Glucose Level 105, Calcium Level 8.8, Corrected Calcium 10.1, Total Bilirubin 0.5, Aspartate Amino Transf (AST/SGOT) 32, Alanine Aminotransferase (ALT/SGPT) 20, Alkaline Phosphatase 77, Total Protein 5.7L, Albumin 2.4L Microbiology 01/13/21 Urine Culture - Final, Complete NO GROWTH 01/11/21 MRSA Screen - Final, Complete MRSA not isolated 01/11/21 Blood Culture - Final, Complete No growth Assessment/Plan Assessment/Plan Assessment/Plan Acute pancreatitis with multiloculated pseudocyst Acute Respiratory Failure Pneumonia b/l Afib Anticogulation Pleural effusion bilateral HTN Right hip pain - xray neg She has bilateral pleural effusions the right is greater than the left. She is on anticoagulation at this time. Would consider thoracentesis if no improvement. Patient with multiloculated pseudocyst. Is causing some slight abdominal distention. She does not have any significant abdominal pain at the time of my exam. Would consider referral to gastroenterology for endoscopic ultrasound and possible drainage. MALLY MONTES DO Jan 23, 2021 19:52
[2021-01-23] MEDS: ALPRAZolam 0.5 MG (XANAX) TAB PO PRN (20:14)
[2021-01-24] MEDS: HYDROcodone/APAP 5 MG/325 MG (LORTAB) TAB PO PRN ×2 (01:07→08:30)
[2021-01-24] MEDS: guaiFENesin/DM (ROBITUSSIN DM) 10 ML UDC PO PRN ×2 (01:25→15:28)
[2021-01-24] MEDS: RT-ALBUTEROL SULF 2.5 MG/3 ML PRE-MIX VIAL INH SCH ×4 (02:44→21:40)
[2021-01-24 04:38] LABS: HEMATOCRIT 30 % (35-52); HEMOGLOBIN 9.9 g/dL (11.5-16.0); MEAN CORPUSCULAR HEMOGLOBIN 33 pg (25-34); MEAN CORPUSCULAR HGB CONC 33 g/dL (32-36); MEAN CORPUSCULAR VOLUME 100 fL (80-99); PLATELET COUNT 355 10^3/uL (130-400); WHITE BLOOD COUNT 17.5 10^3/uL (4.3-11.0)
[2021-01-24 04:57] LABS: ALBUMIN 2.4 GM/DL (3.2-4.5); POTASSIUM 4.4 MMOL/L (3.6-5.0)
[2021-01-24 04:59] LABS: TOTAL PROTEIN 5.8 GM/DL (6.4-8.2)
[2021-01-24 05:01] LABS: BILIRUBIN,TOTAL 0.5 MG/DL (0.1-1.0)
[2021-01-24 05:03] LABS: CREATININE SERUM 0.88 MG/DL (0.60-1.30)
[2021-01-24] MEDS: THIAMINE 100 MG (VITAMIN B-1) TAB PO SCH (06:54)
[2021-01-24] MEDS: LACTOBACILLUS ACIDOPHILUS (PROBIOTIC) CAPSULE PO SCH ×3 (08:29→18:39)
[2021-01-24] MEDS: SENNA W/DOCUSATE (SENOKOT S) TABLET PO SCH ×2 (08:29→21:50)
[2021-01-24] MEDS: FOLIC ACID 1 MG TAB PO SCH (08:30)
[2021-01-24] MEDS: FUROSEMIDE 40 MG (LASIX) TAB PO SCH (08:30)
[2021-01-24] MEDS: ENOXAPARIN 80 MG/0.8 ML (LOVENOX) SYR SC SCH (08:30)
[2021-01-24] MEDS: PANTOPRAZOLE 40 MG (PROTONIX) VIAL IV SCH (08:30)
[2021-01-24] MEDS: dilTIAZem120 MG (CARDIZEM CD) CAP PO SCH ×2 (08:30→21:49)
[2021-01-24] MEDS: SPIRONOLACTONE 25 MG (ALDACTONE) TAB PO SCH (08:30)
--- NOTE | 2021-01-24 09:47 | Physical Therapy Daily Note ---
PT Daily Note-Current Subjective Patient lying supine in bed upon PT arrival, agreeable to treatment but reports her right side hurts a lot. Rates the pain at 10/10 when she coughs or strains. Mental Status Patient Orientation: Person Attachments: Oxygen, Hwang Catheter, IV Transfers SCALE: Activities may be completed with or without assistive devices. 1-Jsekwqonym-gcymsau completes the activity by him/herself with no assistance from a helper. 5-Set-up or Clean-up Assistance-helper sets up or cleans up; patient completes activity. [place] assists only prior to or following the activity. 4-Supervision or Touching Assistance-helper provides verbal cues and/or touching/steadying and/or contact guard assistance as patient completes activity. Assistance may be provided throughout the activity or intermittently. 3-Partial/Moderate Assistance-helper does LESS THAN HALF the effort. [place] lifts, holds or supports trunk or limbs, but provides less than half the effort. 2-Substantial/Maximal Assistance-helper does MORE THAN HALF the effort. [place] lifts or holds trunk or limbs and provides more than half the effort. 8-Eqizsfiba-dwmzor does ALL the effort. Patient does none of the effort to complete the activity. Or, the assistance of 2 or more helpers is required for the patient to complete the activity. If activity was not attempted, code reason: 7-Patient Refused. 9-Not Applicable-not attempted and the patient did not perform the activity before the current illness, exacerbation or injury. 10-Not Attempted due to Environmental Limitations-(lack of equipment, weather restraints, etc.). 88-Not Attempted due to Medical Conditions or Safety Concerns. Roll Left & Right (QC): 3 Sit to Lying (QC): 3 Lying to Sitting/Side of Bed(Q: 3 Sit to Stand (QC): 3 Chair/Nhp-ss-Zpowr Xfer(QC): 3 Gait Training Does the Patient Walk?: Yes Distance: 5 Gait Persons Needed: 1 Gait Assistive Device: FWW Assessment Current Status: Fair Progress Patient tolerated treatment fair. Reports significant increase in right sided pain with coughing and straining. Patient requires min A for all bed mobility and transfers. Patient ambulates 5 feet with FWW, with min a and verbal cues for safety, posture and control. Patient in chair post treatment with all needs met, nursing notified, call light in reach. PT Longterm Goals Longterm Goals PT Longterm Goals Time Frame: Jan 31, 2021 Roll Left & Right (QC): 6 Sit to Lying (QC): 6 Lying-Sitting on Side/Bed(QC): 6 Sit to Stand (QC): 6 Chair/Eqq-ve-Vgumm Xfer(QC): 6 Toilet Transfer (QC): 6 Walk 10 feet (QC): 6 Walk 50ft with 2 Turns (QC): 6 Walk 150 ft (QC): 6 PT Plan Treatment/Plan Treatment Plan: Continue Plan of Care Treatment Plan: Bed Mobility, Education, Functional Activity Wu, Functional Strength, Gait, Safety, Therapeutic Exercise, Transfers Treatment Duration: Jan 31, 2021 Frequency: 6 times per week Estimated Hrs Per Day: .5 hour per day Patient and/or Family Agrees t: Yes Safety Risks/Education Patient Education: Gait Training Teaching Recipient: Patient Teaching Methods: Demonstration, Discussion Response to Teaching: Reinforcement Needed Time/GCodes Time In: 931 Time Out: 943 Total Billed Treatment Time: 12 Total Billed Treatment Visit, Gait TRA CONNELL PT Jan 24, 2021 09:47
--- NOTE | 2021-01-24 10:15 | Progress Note - Surgery ---
EZRAREGINARAMSEY 01/24/21 1015: Subjective Date Seen by a Provider: Jan 24, 2021 Time Seen by a Provider: 07:11 Subjective/Events-last exam Pt was resting comfortably in bed when I visited her today. She denies any abdominal pain, but does complain of right sided soft tissue pain. Pt states that this pain limits her ability to freely move. There is an area of eccymosis superior to the right ileum. Pt initially stated that this developed after her dog jumped on her. Later she stated that that event happened a long time ago and is actually not related. The area is tender to palpation and appears to be a small hematoma, likely secondary to lovenox injection. Lung sounds are improved today and Pt states she was used her ICS a few times. Pt has no other complaints, urinary (cath) and bowel function okay at this time. Consuming diet without issue. Review of Systems General: No Chills, No Night Sweats, No Fatigue; Appetite HEENT: No Head Aches, No Eye Pain, No Dysphasia Pulmonary: No Dyspnea, No Cough, No Pleuritic Chest Pain Cardiovascular: No: Chest Pain, Palpitations, Edema, Lt Headedness Gastrointestinal: No: Nausea, Vomiting, Abdominal Pain, Diarrhea, Constipation Genitourinary: No Dysuria, No Frequency, No Incontinence Musculoskeletal: No: neck pain, shoulder pain, back pain Neurological: No: Weakness, Numbness, Change in speech, Seizures folley urinary cath in place Objective Exam Vital Signs Date Time Temp Pulse Resp B/P (MAP) Pulse Ox O2 Delivery O2 Flow Rate FiO2 01/24/21 08:43 Vapotherm 25.00 55 01/24/21 08:30 100 Vapotherm 25.00 55 01/24/21 08:00 35.7 92 18 160/81 97 Vapotherm 25.00 55.00 01/24/21 07:00 93 01/24/21 04:18 35.6 94 18 130/79 93 Vapotherm 25.00 55.00 01/24/21 02:44 84 Vapotherm 25.00 40 01/24/21 01:00 100 01/24/21 00:55 35.4 92 20 138/83 95 Vapotherm 25.00 40.00 01/23/21 21:10 92 Vapotherm 25.00 40 01/23/21 20:14 Vapotherm 25.00 40 01/23/21 20:09 35.0 106 24 122/81 93 Vapotherm 25.00 40.00 01/23/21 19:00 93 01/23/21 15:34 35.7 95 20 124/77 95 Vapotherm 25.00 25.00 01/23/21 14:39 95 Vapotherm 25.00 50 01/23/21 12:42 101 01/23/21 11:53 35.6 114 18 130/84 97 Vapotherm 25.00 25.00 01/23/21 10:26 95 Vapotherm 25.00 50 01/23/21 10:18 108 I & O 01/24/21 06:59 Intake Total 1050 ml Output Total 900 ml Balance 150 ml Capillary Refill : Less Than 3 Seconds General Appearance: No Apparent Distress, WD/WN HEENT: PERRL/EOMI, Pharynx Normal Neck: Full Range of Motion, Non Tender, Supple Respiratory: Chest Non Tender, No Accessory Muscle Use, No Respiratory Distress, Other (Tachypnea on high flow oxygen diminished breath sounds bilaterally with fine rales no wheezing appreciated.) Cardiovascular: No Edema, No Murmur, Normal Peripheral Pulses, Irregularly Irregular Peripheral Pulses: 2+ Radial Pulses (R), 2+ Radial Pulses (L) Gastrointestinal: non tender, soft, distended (Minimal) Extremity: Normal Capillary Refill, Non Tender, No Calf Tenderness, Pedal Edema (Bilateral 2+ edema to knee) Neurologic/Psychiatric: Alert, Oriented x3, Normal Mood/Affect Skin: Normal Color, Warm/Dry, Ecchymosis (Tenderness and ecchymosis on right side) Lymphatic: No Adenopathy (cervical and axillary) Results Lab Laboratory Tests 01/24/21 04:30: White Blood Count 17.5H, Red Blood Count 2.97L, Hemoglobin 9.9L, Hematocrit 30L, Mean Corpuscular Volume 100H, Mean Corpuscular Hemoglobin 33, Mean Corpuscular Hemoglobin Concent 33, Red Cell Distribution Width 13.8, Platelet Count 355, Mean Platelet Volume 11.0, Sodium Level 136, Potassium Level 4.4, Chloride Level 92L, Carbon Dioxide Level 36H, Anion Gap 8, Blood Urea Nitrogen 19H, Creatinine 0.88, Estimat Glomerular Filtration Rate 64, BUN/Creatinine Ratio 22, Glucose Level 100, Calcium Level 9.0, Corrected Calcium 10.3H, Total Bilirubin 0.5, Aspartate Amino Transf (AST/SGOT) 39H, Alanine Aminotransferase (ALT/SGPT) 24, Alkaline Phosphatase 81, Total Protein 5.8L, Albumin 2.4L Microbiology 01/13/21 Urine Culture - Final, Complete NO GROWTH 01/11/21 MRSA Screen - Final, Complete MRSA not isolated 01/11/21 Blood Culture - Final, Complete No growth Assessment/Plan Assessment/Plan Assessment/Plan Acute pancreatitis with multiloculated pseudocyst Acute Respiratory Failure Pneumonia b/l Afib Anticogulation Eccymosis and small hematoma on right side Pleural effusion bilateral HTN Right hip pain - xray neg Plan: PT and ICS use (discussed importance of ICS and pt is able to demonstrate proper usage) B/L pleural effusions with right greater than the left - follow with CXR tomorrow. She is on anticoagulation at this time. Would consider thoracentesis if no improvement. Patient with multiloculated pseudocyst. Is causing some slight abdominal distention. She does not have any significant abdominal pain at the time of my exam. Would consider referral to gastroenterology for endoscopic ultrasound and possible drainage. MALLY GUTIERREZ DO 01/24/21 1123: Subjective Subjective/Events-last exam Sitting in chair. WBC trending down. Pain around right hip still present. Tolerating diet. Breathing easier today. Denies n/v fever sweats chills or chest pain. Objective Exam General Appearance: No Apparent Distress, Chronically ill, Thin HEENT: PERRL/EOMI, Normal ENT Inspection Neck: Full Range of Motion, Non Tender, Supple Respiratory: Chest Non Tender, No Accessory Muscle Use, No Respiratory Distress, Other (on vapotherm) Cardiovascular: No JVD, Irregularly Irregular Gastrointestinal: non tender, distended (Minimal) Extremity: Normal Capillary Refill, Non Tender, Pedal Edema (Bilateral 2+ edema to knee), Other (right hip tenderness) Neurologic/Psychiatric: Alert, Normal Mood/Affect Skin: Warm/Dry, Ecchymosis (Tenderness and ecchymosis on right side flank/right hip) Lymphatic: No Adenopathy (cervical and axillary) Assessment/Plan Assessment/Plan Assessment/Plan Acute pancreatitis with multiloculated pseudocyst Acute Respiratory Failure Pneumonia b/l Afib Anticogulation Ecchymosis and small hematoma on right side Pleural effusion bilateral HTN Right hip pain - xray neg B/L pleural effusions with right greater than the left may need thoracentesis. She is on anticoagulation at this time. Would consider thoracentesis if no improvement, slight improvement in resp status today. Patient with multiloculated pseudocyst. Is causing some slight abdominal distention. She does not have any significant abdominal pain at the time of my exam. Would consider referral to gastroenterology for endoscopic ultrasound and possible drainage. Supervisory-Addendum Brief Verification & Attestation Participated in pt care: history, MDM, physical Personally performed: exam, history, MDM, supervision of care Care discussed with: Medical Student Procedures: n/a Results interpretation: Verified all documentation Verification and Attestation of Medical Student E/M Service A medical student performed and documented this service in my presence. I reviewed and verified all information documented by the medical student and made modifications to such information, when appropriate. I personally performed the physical exam and medical decision making. Mally Gutierrez, Jan 24, 2021,11:27 RMASEY WALTON Jan 24, 2021 10:15 MALLY GUTIERREZ DO Jan 24, 2021 11:23
--- NOTE | 2021-01-24 11:20 | Progress Note - Cardiology ---
Cardiology SOAP Progress Note Subjective: No cp or palp or syncope Abd pain persistent No n/v/d No shortness of breath Objective: I&O/Vital Signs 01/24/21 01/24/21 01/24/21 01/24/21 00:55 01:00 02:44 04:18 Temp 35.4 35.6 Pulse 92 100 94 Resp 20 18 B/P (MAP) 138/83 130/79 Pulse Ox 95 84 93 O2 Delivery Vapotherm Vapotherm Vapotherm O2 Flow Rate 25.00 25.00 25.00 40.00 55.00 FiO2 40 01/24/21 01/24/21 01/24/21 01/24/21 07:00 08:00 08:30 08:43 Temp 35.7 Pulse 93 92 Resp 18 B/P (MAP) 160/81 Pulse Ox 97 100 O2 Delivery Vapotherm Vapotherm Vapotherm O2 Flow Rate 25.00 25.00 25.00 55.00 FiO2 55 55 01/24/21 00:00 Intake Total 610 ml Output Total 650 ml Balance -40 ml Weight (Pounds): 122 Weight (Ounces): 0.0 Weight (Calculated Kilograms): [id number] Constitutional: AAO x 3, well-developed, well-nourished Respiratory: No accessory muscle use, No respiratory distress; chest expansion is symmetric, chest is bilaterally symmetric, lungs clear to auscultation Cardiovascular: irregularly irregular; No JVD; S1 and S2 Gastrointestional: tender (RLQ), distended; No guarding; audible bowel sounds (hyperactive) Extremities: no lower extremity edema bilateral Neurologic/Psychiatric: grossly intact (moves all extremities) Skin: No rash on exposed areas, No ulcerations on exposed areas Results/Procedures: Labs Laboratory Tests 01/24/21 04:30: White Blood Count 17.5H, Red Blood Count 2.97L, Hemoglobin 9.9L, Hematocrit 30L, Mean Corpuscular Volume 100H, Mean Corpuscular Hemoglobin 33, Mean Corpuscular Hemoglobin Concent 33, Red Cell Distribution Width 13.8, Platelet Count 355, Mean Platelet Volume 11.0, Sodium Level 136, Potassium Level 4.4, Chloride Level 92L, Carbon Dioxide Level 36H, Anion Gap 8, Blood Urea Nitrogen 19H, Creatinine 0.88, Estimat Glomerular Filtration Rate 64, BUN/Creatinine Ratio 22, Glucose Level 100, Calcium Level 9.0, Corrected Calcium 10.3H, Total Bilirubin 0.5, Aspartate Amino Transf (AST/SGOT) 39H, Alanine Aminotransferase (ALT/SGPT) 24, Alkaline Phosphatase 81, Total Protein 5.8L, Albumin 2.4L Microbiology 01/13/21 Urine Culture - Final, Complete NO GROWTH 01/11/21 MRSA Screen - Final, Complete MRSA not isolated 01/11/21 Blood Culture - Final, Complete No growth A/P: Assessment: Acute pancreatitis and pancreatic pseudocyst - management per medical/eICU/GI services Permanent a-fib - currently OAC is being held and she is on enoxaparin - Echocardiogram 06-02-[address] Davis showed normal left ventricle size and function ejection fraction 55-65 percent, PA pressure 40-45 mmHg - Lexiscan Myoview stress test was done on August 15, [address] Davis showing no ischemia or infarction, EF 74% Mild bilateral carotid stenosis, ultrasound was done in February 28, [address] Davis Hypertension Hyperlipidemia Plan: Continue current regimen Continue to monitor closely, including labs FRANNY CLARK MD FACP FAC CCDS Jan 24, 2021 11:20
--- NOTE | 2021-01-24 11:53 | Progress Note ---
Subjective Subjective/Events-last exam Complaining that pain in right hip area is now excruciating, and today points to right flank and says it continues along the posterior right side as well. She is very anxious and requesting something stronger for pain and to have her anxiety medication now. Her respiratory status continues to improve and her leukocytosis is also trending down. Hip x-ray yesterday was unremarkable. Objective Exam Last Set of Vital Signs Vital Signs Date Time Temp Pulse Resp B/P (MAP) Pulse Ox O2 Delivery O2 Flow Rate FiO2 01/24/21 08:43 Vapotherm 25.00 55 01/24/21 08:30 100 01/24/21 08:00 35.7 92 18 160/81 Capillary Refill : Less Than 3 Seconds I&O Intake and Output 01/23/21 23:59 Intake Total 1010 ml Output Total 900 ml Balance 110 ml Intake Oral 1010 ml Output Urine Total 900 ml General: Alert, Mild Distress (appears uncomfortable and anxious) Lungs: Other (ronchi) Heart: Other (tachycardic) Abdomen: Normal Bowel Sounds, Soft Neuro: Normal Speech Results/Procedures Lab Laboratory Tests 01/24/21 04:30: White Blood Count 17.5H, Red Blood Count 2.97L, Hemoglobin 9.9L, Hematocrit 30L, Mean Corpuscular Volume 100H, Mean Corpuscular Hemoglobin 33, Mean Corpuscular Hemoglobin Concent 33, Red Cell Distribution Width 13.8, Platelet Count 355, Mean Platelet Volume 11.0, Sodium Level 136, Potassium Level 4.4, Chloride Level 92L, Carbon Dioxide Level 36H, Anion Gap 8, Blood Urea Nitrogen 19H, Creatinine 0.88, Estimat Glomerular Filtration Rate 64, BUN/Creatinine Ratio 22, Glucose Level 100, Calcium Level 9.0, Corrected Calcium 10.3H, Total Bilirubin 0.5, Aspartate Amino Transf (AST/SGOT) 39H, Alanine Aminotransferase (ALT/SGPT) 24, Alkaline Phosphatase 81, Total Protein 5.8L, Albumin 2.4L Microbiology 01/13/21 Urine Culture - Final, Complete NO GROWTH 01/11/21 MRSA Screen - Final, Complete MRSA not isolated 01/11/21 Blood Culture - Final, Complete No growth Radiology NAME: SHOBHA SCHROEDER [facility] REC#: [id number] PT STATUS: REG ER : 1950 PHYSICIAN: NATALIE AMBROSE ADMIT DATE: 01/11/21/ER Signed Date of Exam:01/11/21 CT ABDOMEN/PELVIS W PROCEDURE: CT abdomen and pelvis with contrast. TECHNIQUE: Multiple contiguous axial images were obtained through the abdomen and pelvis after administration of intravenous contrast. Auto Exposure Controls were utilized during the CT exam to meet ALARA standards for radiation dose reduction. All CT scans use one or more of the following dose optimizing techniques: automated exposure control, MA and/or KvP adjustment based on patient size and exam type or iterative reconstruction. DATE: January 11, 2021. COMPARISON: None. INDICATION: 70-year-old female, abdominal pain and bloating. FINDINGS: There are linear opacities in the lung bases consistent with atelectasis. The heart is not enlarged. There is no pericardial effusion. The liver is unremarkable in size and contour. There is no identified liver lesion. The main, right, left portal veins are patent. The gallbladder is unremarkable. There is no intrahepatic or extrahepatic bile duct dilation. The main pancreatic duct is not abnormally dilated. There is abnormal fluid and inflammatory stranding adjacent to the pancreas. There is no currently well marginated focal fluid collection. There is enhancement of the pancreatic parenchyma without evidence of pancreatic necrosis. The spleen is normal in size. The adrenal glands are unremarkable. There is a 7 mm low-attenuation right renal lesion on axial image 30 which is too small to characterize. The urinary collecting systems are not distended. There is no identified renal or ureteral stone. Urinary bladder is collapsed and not well evaluated. The appendix is unremarkable and well seen. There is nonspecific wall thickening of the distal stomach. There is no free intraperitoneal air. There is a small volume ascites. There are atherosclerotic calcifications. There is no identified abnormally enlarged lymph node in the abdomen or pelvis meeting CT size criteria for adenopathy. There is no identified acute bony abnormality. IMPRESSION: CT ABDOMEN AND PELVIS. 1. Findings suspicious for acute pancreatitis with peripancreatic fluid and inflammatory stranding. No clearly identified current well marginated focal drainable fluid collection. No evidence of pancreatic necrosis. 2. Small volume ascites. 3. No CT evidence of cholelithiasis or acute cholecystitis. No biliary ductal dilation. Dictated by: Dictated on workstation # [id number] Dict: 01/11/21 1240 Trans: 01/11/21 1309 CV [id number] Interpreted by: DONNELL ESPINOZA MD Electronically signed by: DONNELL ESPINOZA MD 01/11/21 1309 NAME: SHOBHA SCHROEDER [facility] REC#: [id number] PT STATUS: ADM IN : 1950 PHYSICIAN: ANAID IBRAHIM DO ADMIT DATE: 01/11/21/ICU Draft Date of Exam:01/12/21 US ABDOMEN LIMITED [id number] PROCEDURE: US Abdomen, limited. TECHNIQUE: Multiple realtime grayscale images were obtained over the abdomen in various projections. INDICATION: Pancreatitis. FINDINGS: The liver measures 12 cm in length without evidence of focal abnormality. There is no gallbladder wall thickening. The common bile duct reaches 1 cm in diameter which may be related to previous stone passage. There is diffuse enlargement of the pancreas measuring approximately 6.6 x 5.1 x 2.5 cm with an adjacent hypoechoic region which may represent mild peripancreatic edema and/or fluid. The visualized portions of the abdominal aorta and inferior vena cava are unremarkable. There is also mild right perinephric fluid without other right renal abnormality identified. IMPRESSION: Findings are consistent with pancreatitis with demonstrated pancreatic enlargement and peripancreatic fluid. There is also a mild amount of fluid in the right anterior pararenal space which could be secondary to pancreatic inflammation. Dictated on workstation # [id number] Dict: 01/12/21 0824 Trans: 01/12/21 0832 [id number] Interpreted by: KAROL HARRIS MD Electronically signed by: Assessment/Plan Assessment/Plan (1) Acute respiratory failure Status: Acute Assessment & Plan: Possibly secondary to pancreatitis/sepsis, requiring extremely high FiO2, appreciate eICU recommendations. Chest CTA later today if D dimer elevated, per ICU doc. CTA chest on 01/20 with Extensive five-lobe pulmonary opacities raise the question of ARDS. Bilateral pleural effusions, nonloculated. Negative for PE or acute aortic disease. 01/22- improving, able to titrate FiO2 down to 75% this am, continue current treatments 01/23- continues to wean down FiO2 Qualifiers: Qualified Codes: J96.01 - Acute respiratory failure with hypoxia (2) Pancreatitis Onset Date: ~ 01/09/2021 Status: Acute Assessment & Plan: Lipase improved from over 1000 to 150, symptomatically improving, no evidence of necrosis on CT scan. Continued on Zosyn given her recurrent leukocytosis and respiratory failure. Continued worsening leukoctyosis, repeat CT abdomen today, continue Zosyn. 01/[address] abdomen showed Mixed changes. Previously, there was extensive peripancreatic phlegmon and stranding, now representing multiseptated fluid locules consistent with pseudocysts; The pancreatic parenchyma itself is enhanced with no gas or evidence for its necrosis. 01/24- given severe right sided pain that is now in abdomen, will repeat CT Qualifiers: Qualified Codes: K85.20 - Alcohol induced acute pancreatitis without ne crosis or infection (3) Atrial fibrillation with rapid ventricular response Onset Date: ~ 01/11/2021 Status: Acute Assessment & Plan: On Xarelto outpatient, held per Cardiology due to abdominal pain, on cardizem drip, appreciate Cardiology recommendations. 01/21 changed to PO cardizem yesterday, monitor. (4) Hypertension Status: Chronic Qualifiers: Qualified Codes: I10 - Essential (primary) hypertension (5) Leukocytosis Onset Date: ~ 01/11/2021 Status: Acute Assessment & Plan: Improved initially but now worsening again, repeat proc alcitonin decreased from prior, continue Zosyn. 01/21 slight decrease today, continue to monitor and continue Zosyn. 01/23 Zosyn completed, monitor 01/24 trending down Qualifiers: Qualified Codes: D72.828 - Other elevated white blood cell count (6) Severe sepsis Onset Date: ~ 01/11/2021 Status: Resolved Assessment & Plan: Elevated lactic acid, leukocytosis and tachycardia on admission. Suspect secondary to pancreatitis. (7) Alcohol use Status: Chronic Assessment & Plan: Alcohol withdrawal protocol started on admission. Has not been requiring ativan since 01/13, is on dexmedetomidine drip due to anxiety. (8) Right hip pain Status: Acute Assessment & Plan: Xray 01/23 unremarkable, pain now extending up right side, CT pending of abdomen/pelvis. (9) DVT prophylaxis Status: Acute Assessment & Plan: Treatment dose enoxaparin ANURAG BERNARDO MD Jan 24, 2021 11:53
--- NOTE | 2021-01-24 13:45 | Diagnostic Imaging Report ---
PROCEDURE: CT abdomen and pelvis without contrast. TECHNIQUE: Multiple contiguous axial images were obtained through the abdomen and pelvis without the use of intravenous contrast. Auto Exposure Controls were utilized during the CT exam to meet ALARA standards for radiation dose reduction. Indication: Worsening abdominal pain, pancreatitis. Comparison: 01/20/2021. Discussion: Moderate to large bilateral pleural effusions appear stable in the right and increased on the left. Improved aeration of the lung bases is visualized with decreasing infiltrate. Normal heart size. No pericardial fluid. The liver, gallbladder, stomach, spleen, and adrenal glands are unremarkable. No renal stone or hydronephrosis. Large complex cystic structure along the pancreas extending into the right abdomen was better seen on the prior exam due to the presence of contrast. This appears grossly unchanged in size though evaluation is limited due to lack of IV contrast. There is a large hematoma now present within the right body wall just above the pelvic crest, acute. This measures 5.7 x 4.5 cm. This is centered within the musculature. Anasarca is increased. The bladder is decompressed by Hwang catheter. Uterus appears stable as visualized. No ascites. Aorta is normal in caliber. No acute osseous abnormality. Impression: 1. New acute large hematoma within the right lateral abdominal wall. 2. Cystic change along the pancreas and right abdomen appears grossly stable given the lack of contrast. 3. Moderate to large bilateral pleural effusions, stable on the right and increased on the left. Dictated by: Dictated on workstation # [id number]
[2021-01-24 15:25] LABS: HEMATOCRIT 30 % (35-52); HEMOGLOBIN 10.1 g/dL (11.5-16.0); MEAN CORPUSCULAR HEMOGLOBIN 34 pg (25-34); MEAN CORPUSCULAR HGB CONC 34 g/dL (32-36); MEAN CORPUSCULAR VOLUME 101 fL (80-99); MEAN PLATELET VOLUME 11.1 fL (9.0-12.2); PLATELET COUNT 354 10^3/uL (130-400); WHITE BLOOD COUNT 16.9 10^3/uL (4.3-11.0)
[2021-01-25] MEDS: RT-ALBUTEROL SULF 2.5 MG/3 ML PRE-MIX VIAL INH SCH ×4 (02:50→21:04)
[2021-01-25] MEDS: THIAMINE 100 MG (VITAMIN B-1) TAB PO SCH (05:34)
[2021-01-25 05:46] LABS: HEMATOCRIT 28 % (35-52); HEMOGLOBIN 9.4 g/dL (11.5-16.0); MEAN CORPUSCULAR HEMOGLOBIN 34 pg (25-34); MEAN CORPUSCULAR HGB CONC 34 g/dL (32-36); MEAN CORPUSCULAR VOLUME 99 fL (80-99); MEAN PLATELET VOLUME 11.5 fL (9.0-12.2); PLATELET COUNT 373 10^3/uL (130-400); WHITE BLOOD COUNT 14.6 10^3/uL (4.3-11.0)
[2021-01-25 05:55] LABS: ALBUMIN 2.3 GM/DL (3.2-4.5); POTASSIUM 4.4 MMOL/L (3.6-5.0)
[2021-01-25 05:56] LABS: CALCIUM 8.9 MG/DL (8.5-10.1)
[2021-01-25 05:58] LABS: TOTAL PROTEIN 5.7 GM/DL (6.4-8.2)
[2021-01-25 05:59] LABS: BILIRUBIN,TOTAL 0.4 MG/DL (0.1-1.0)
[2021-01-25 06:01] LABS: CREATININE SERUM 0.93 MG/DL (0.60-1.30)
--- NOTE | 2021-01-25 07:48 | Progress Note - Surgery ---
RAMSEY WALTON 01/25/21 0748: Subjective Date Seen by a Provider: Jan 25, 2021 Time Seen by a Provider: 07:36 Subjective/Events-last exam Pt resting in bed in no acute distress. She continues to complain of pain on her right side which prevents her from taking a deep breath. She demonstrates ability to use the ICS correctly, but is reluctant to take deep breaths and stops when she couqhs, which then causes pain due to her right sided hematoma. Her cough sounds wet and is slightly productive - she self limits her coughing due to her rt abdominal pain. Her abdomen remains distended and CT imaging yesterday confirms new acute right sided hematoma, stable pancreatic cyst, and worsening BL plural effusion - mostly on left. She is receiving oral pain medication and I again emphasized to her the impor tance of regular & proper ICS use as well as ambulating to aid in her pulmonary sx. Review of Systems General: No Chills, No Night Sweats, No Fatigue, No Malaise; Appetite HEENT: No Head Aches, No Eye Pain, No Ear Pain Pulmonary: Dyspnea, Cough; No Pleuritic Chest Pain Cardiovascular: No: Chest Pain, Palpitations, Orthopnea Gastrointestinal: No: Nausea, Vomiting, Abdominal Pain Genitourinary: No Dysuria, No Frequency Musculoskeletal: other; No: neck pain, shoulder pain, back pain Neurological: No: Weakness, Numbness, Change in speech, Confusion right sided soft tissue pain secondary to hematoma Objective Exam Vital Signs Date Time Temp Pulse Resp B/P (MAP) Pulse Ox O2 Delivery O2 Flow Rate FiO2 01/25/21 07:00 101 01/25/21 04:26 36.8 94 19 123/84 98 Vapotherm 20.00 50.00 01/25/21 02:50 95 Vapotherm 20.00 50 01/25/21 01:00 100 01/25/21 00:58 36.3 113 20 127/80 98 Vapotherm 20.00 50.00 01/24/21 21:40 97 Vapotherm 20.00 50 01/24/21 20:52 Vapotherm 25.00 50 01/24/21 20:00 36.2 111 19 135/73 97 Vapotherm 20.00 50.00 01/24/21 19:00 112 01/24/21 16:19 36.6 104 18 125/79 97 Vapotherm 20.00 50.00 01/24/21 14:44 97 Vapotherm 25.00 50 01/24/21 13:30 93 01/24/21 12:53 120 01/24/21 12:00 36.5 97 18 130/81 100 Vapotherm 25.00 50.00 01/24/21 08:43 Vapotherm 25.00 55 01/24/21 08:30 100 Vapotherm 25.00 55 01/24/21 08:00 35.7 92 18 160/81 97 Vapotherm 25.00 55.00 I & O 01/25/21 07:00 Intake Total 1680 ml Output Total 1650 ml Balance 30 ml Capillary Refill : Less Than 3 Seconds General Appearance: No Apparent Distress, WD/WN, Chronically ill HEENT: PERRL/EOMI, Pharynx Normal Neck: Full Range of Motion, Non Tender, Supple Respiratory: Chest Non Tender, No Accessory Muscle Use, No Respiratory Distress, Inspiration (phlemy breath sounds in upper bronchioles, lower sounds dull & distant), Wheezing, Other (on vapotherm) Cardiovascular: No JVD, No Murmur, Normal Peripheral Pulses, Irregularly Irregular Peripheral Pulses: 2+ Radial Pulses (R), 2+ Radial Pulses (L) Gastrointestinal: non tender, distended (Minimal) Extremity: Normal Capillary Refill, Non Tender, Pedal Edema (Bilateral 2+ edema to knee), Other (right hip tenderness) Neurologic/Psychiatric: Alert, Oriented x3, Normal Mood/Affect Skin: Warm/Dry, Ecchymosis (Tenderness and ecchymosis on right side flank/right hip) Lymphatic: No Adenopathy (cervical and axillary) Results Lab Laboratory Tests 01/24/21 15:18: White Blood Count 16.9H, Red Blood Count 2.98L, Hemoglobin 10.1L, Hematocrit 30L , Mean Corpuscular Volume 101H, Mean Corpuscular Hemoglobin 34, Mean Corpuscular Hemoglobin Concent 34, Red Cell Distribution Width 14.0, Platelet Count 354, Mean Platelet Volume 11.1 01/25/21 05:20: White Blood Count 14.6H, Red Blood Count 2.81L, Hemoglobin 9.4L, Hematocrit 28L, Mean Corpuscular Volume 99, Mean Corpuscular Hemoglobin 34, Mean Corpuscular Hemoglobin Concent 34, Red Cell Distribution Width 13.8, Platelet Count 373, Mean Platelet Volume 11.5, Sodium Level 132L, Potassium Level 4.4, Chloride Level 90L, Carbon Dioxide Level 33H, Anion Gap 9, Blood Urea Nitrogen 19H, Creatinine 0.93, Estimat Glomerular Filtration Rate 60, BUN/Creatinine Ratio 20, Glucose Level 104, Calcium Level 8.9, Corrected Calcium 10.3H, Total Bilirubin 0.4, Aspartate Amino Transf (AST/SGOT) 64H, Alanine Aminotransferase (ALT/SGPT) 31, Alkaline Phosphatase 81, Total Protein 5.7L, Albumin 2.3L Microbiology 01/13/21 Urine Culture - Final, Complete NO GROWTH 01/11/21 MRSA Screen - Final, Complete MRSA not isolated 01/11/21 Blood Culture - Final, Complete No growth Assessment/Plan Assessment/Plan Assessment/Plan Acute pancreatitis with multiloculated pseudocyst Acute Respiratory Failure Pneumonia b/l Afib Anticogulation Ecchymosis and small hematoma on right side Pleural effusion bilateral HTN Right hip pain - xray neg Plan: Pain control and regular ICS use with ambulation as well to improve respiratory status. B/L pleural effusions stable right and increased on the left, may need thoracentesis. She is on anticoagulation at this time. Would consider thoracentesis if no improvement. Stable multiloculated pancriatic pseudocyst causing slight abdominal distention. No significant abdominal pain at the time of my exam. Would consider referral to gastroenterology for endoscopic ultrasound and possible drainage. MALLY GUTIERREZ DO 01/25/21 1108: Subjective Subjective/Events-last exam Right flank/hip pain still present. Breathing same, on vapotherm. moderate pain right flank/hip. Ct with right sided hematoma, pseuodcyst pancreas and b/l plerual effusions. Hgb 9.4. Anticoagulation on hold. Objective Exam General Appearance: No Apparent Distress, Chronically ill HEENT: PERRL/EOMI, Normal ENT Inspection Neck: Full Range of Motion, Non Tender Respiratory: Chest Non Tender, No Accessory Muscle Use, No Respiratory Distress, Other (on vapotherm) Cardiovascular: No JVD, Irregularly Irregular Gastrointestinal: distended (Minimal) Extremity: Pedal Edema (Bilateral 2+ edema to knee), Other (right hip tenderness) Neurologic/Psychiatric: Alert, Oriented x3, Normal Mood/Affect Skin: Warm/Dry, Ecchymosis (Tenderness and ecchymosis on right side flank/right hip) Assessment/Plan Assessment/Plan Assessment/Plan Acute pancreatitis with multiloculated pseudocyst Acute Respiratory Failure Pneumonia b/l Afib Anticogulation Ecchymosis and small hematoma on right side Pleural effusion bilateral HTN Right hip pain - xray neg Plan: Pain control and regular ICS use with ambulation as well to improve respiratory status. B/L pleural effusions stable right and increased on the left, plan thoracentesis tomorrow. Hold anticoagulation at this time. Stable multiloculated pancriatic pseudocyst causing slight abdominal distention. No significant abdominal pain at the time of my exam. Would consider referral to gastroenterology for endoscopic ultrasound and possible drainage. Supervisory-Addendum Brief Verification & Attestation Participated in pt care: history, MDM, physical Personally performed: exam, history, MDM, supervision of care Care discussed with: Medical Student Procedures: n/a Results interpretation: Verified all documentation Verification and Attestation of Medical Student E/M Service A medical student performed and documented this service in my presence. I reviewed and verified all information documented by the medical student and made modifications to such information, when appropriate. I personally performed the physical exam and medical decision making. Mally Gutierrez, Jan 25, 2021,11:08 RAMSEY WALTON Jan 25, 2021 07:48 MALLY GUTIERREZ DO Jan 25, 2021 11:08
[2021-01-25] MEDS: FUROSEMIDE 40 MG (LASIX) TAB PO SCH (09:03)
[2021-01-25] MEDS: SPIRONOLACTONE 25 MG (ALDACTONE) TAB PO SCH (09:03)
[2021-01-25] MEDS: LACTOBACILLUS ACIDOPHILUS (PROBIOTIC) CAPSULE PO SCH ×3 (09:03→17:07)
[2021-01-25] MEDS: dilTIAZem120 MG (CARDIZEM CD) CAP PO SCH ×2 (09:03→21:18)
[2021-01-25] MEDS: SENNA W/DOCUSATE (SENOKOT S) TABLET PO SCH ×2 (09:03→21:02)
[2021-01-25] MEDS: FOLIC ACID 1 MG TAB PO SCH (09:04)
[2021-01-25] MEDS: PANTOPRAZOLE 40 MG (PROTONIX) VIAL IV SCH (09:04)
--- NOTE | 2021-01-25 10:11 | Progress Note ---
Subjective Subjective/Events-last exam States she is still having a lot of pain from her abdominal wall hematoma, but otherwise seems to be doing pretty well. Objective Exam Last Set of Vital Signs Vital Signs Date Time Temp Pulse Resp B/P (MAP) Pulse Ox O2 Delivery O2 Flow Rate FiO2 01/25/21 09:12 94 Vapotherm 20.00 50 01/25/21 08:00 36.4 117 18 137/86 Capillary Refill : Less Than 3 Seconds I&O Intake and Output 01/25/21 00:00 Intake Total 1620 ml Output Total 1500 ml Balance 120 ml Intake Oral 1620 ml Output Urine Total 1500 ml General: Alert, No Acute Distress Lungs: Other (ronchi) Heart: Other (tachycardic) Psych/Mental Status: Mental Status NL, Mood NL Results/Procedures Lab Laboratory Tests 01/24/21 15:18: White Blood Count 16.9H, Red Blood Count 2.98L, Hemoglobin 10.1L, Hematocrit 30L , Mean Corpuscular Volume 101H, Mean Corpuscular Hemoglobin 34, Mean Corpuscular Hemoglobin Concent 34, Red Cell Distribution Width 14.0, Platelet Count 354, Mean Platelet Volume 11.1 01/25/21 05:20: White Blood Count 14.6H, Red Blood Count 2.81L, Hemoglobin 9.4L, Hematocrit 28L, Mean Corpuscular Volume 99, Mean Corpuscular Hemoglobin 34, Mean Corpuscular Hemoglobin Concent 34, Red Cell Distribution Width 13.8, Platelet Count 373, Mean Platelet Volume 11.5, Sodium Level 132L, Potassium Level 4.4, Chloride Level 90L, Carbon Dioxide Level 33H, Anion Gap 9, Blood Urea Nitrogen 19H, Creatinine 0.93, Estimat Glomerular Filtration Rate 60, BUN/Creatinine Ratio 20, Glucose Level 104, Calcium Level 8.9, Corrected Calcium 10.3H, Total Bilirubin 0.4, Aspartate Amino Transf (AST/SGOT) 64H, Alanine Aminotransferase (ALT/SGPT) 31, Alkaline Phosphatase 81, Total Protein 5.7L, Albumin 2.3L Microbiology 01/13/21 Urine Culture - Final, Complete NO GROWTH 01/11/21 MRSA Screen - Final, Complete MRSA not isolated 01/11/21 Blood Culture - Final, Complete No growth Radiology NAME: SHOBHA SCHROEDER [facility] REC#: [id number] PT STATUS: REG ER : 1950 PHYSICIAN: NATALIE AMBROSE ADMIT DATE: 01/11/21/ER Signed Date of Exam:01/11/21 CT ABDOMEN/PELVIS W PROCEDURE: CT abdomen and pelvis with contrast. TECHNIQUE: Multiple contiguous axial images were obtained through the abdomen and pelvis after administration of intravenous contrast. Auto Exposure Controls were utilized during the CT exam to meet ALARA standards for radiation dose reduction. All CT scans use one or more of the following dose optimizing techniques: automated exposure control, MA and/or KvP adjustment based on patient size and exam type or iterative reconstruction. DATE: January 11, 2021. COMPARISON: None. INDICATION: 70-year-old female, abdominal pain and bloating. FINDINGS: There are linear opacities in the lung bases consistent with atelectasis. The heart is not enlarged. There is no pericardial effusion. The liver is unremarkable in size and contour. There is no identified liver lesion. The main, right, left portal veins are patent. The gallbladder is unremarkable. There is no intrahepatic or extrahepatic bile duct dilation. The main pancreatic duct is not abnormally dilated. There is abnormal fluid and inflammatory stranding adjacent to the pancreas. There is no currently well marginated focal fluid collection. There is enhancement of the pancreatic parenchyma without evidence of pancreatic necrosis. The spleen is normal in size. The adrenal glands are unremarkable. There is a 7 mm low-attenuation right renal lesion on axial image 30 which is too small to characterize. The urinary collecting systems are not distended. There is no identified renal or ureteral stone. Urinary bladder is collapsed and not well evaluated. The appendix is unremarkable and well seen. There is nonspecific wall thickening of the distal stomach. There is no free intraperitoneal air. There is a small volume ascites. There are atherosclerotic calcifications. There is no identified abnormally enlarged lymph node in the abdomen or pelvis meeting CT size criteria for adenopathy. There is no identified acute bony abnormality. IMPRESSION: CT ABDOMEN AND PELVIS. 1. Findings suspicious for acute pancreatitis with peripancreatic fluid and inflammatory stranding. No clearly identified current well marginated focal drainable fluid collection. No evidence of pancreatic necrosis. 2. Small volume ascites. 3. No CT evidence of cholelithiasis or acute cholecystitis. No biliary ductal dilation. Dictated by: Dictated on workstation # [id number] Dict: 01/11/21 1240 Trans: 01/11/21 1309 CV [id number] Interpreted by: DONNELL ESPINOZA MD Electronically signed by: DONNELL ESPINOZA MD 01/11/21 1309 NAME: SHOBHA SCHROEDER [facility] REC#: [id number] PT STATUS: ADM IN : 1950 PHYSICIAN: ANAID IBRAHIM DO ADMIT DATE: 01/11/21/ICU Draft Date of Exam:01/12/21 US ABDOMEN LIMITED [id number] PROCEDURE: US Abdomen, limited. TECHNIQUE: Multiple realtime grayscale images were obtained over the abdomen in various projections. INDICATION: Pancreatitis. FINDINGS: The liver measures 12 cm in length without evidence of focal abnormality. There is no gallbladder wall thickening. The common bile duct reaches 1 cm in diameter which may be related to previous stone passage. There is diffuse enlargement of the pancreas measuring approximately 6.6 x 5.1 x 2.5 cm with an adjacent hypoechoic region which may represent mild peripancreatic edema and/or fluid. The visualized portions of the abdominal aorta and inferior vena cava are unremarkable. There is also mild right perinephric fluid without other right renal abnormality identified. IMPRESSION: Findings are consistent with pancreatitis with demonstrated pancreatic enlargement and peripancreatic fluid. There is also a mild amount of fluid in the right anterior pararenal space which could be secondary to pancreatic inflammation. Dictated on workstation # [id number] Dict: 01/12/21 0824 Trans: 01/12/21 0832 [id number] Interpreted by: KAROL HARRIS MD Electronically signed by: Assessment/Plan Assessment/Plan (1) Acute respiratory failure Status: Acute Assessment & Plan: Possibly secondary to pancreatitis/sepsis, requiring extremely high FiO2, appreciate eICU recommendations. Chest CTA later today if D dimer elevated, per ICU doc. CTA chest on 01/20 with Extensive five-lobe pulmonary opacities raise the question of ARDS. Bilateral pleural effusions, nonloculated. Negative for PE or acute aortic disease. 01/22- improving, able to titrate FiO2 down to 75% this am, continue current treatments 01/23- continues to wean down FiO2 01/25- on vapotherm at 20 lpm and FiO2 50%, continue to wean as tolerated, Surgery plans to drain pleural effusion tomorrow am Qualifiers: Qualified Codes: J96.01 - Acute respiratory failure with hypoxia (2) Pancreatitis Onset Date: ~ 01/09/2021 Status: Acute Assessment & Plan: Lipase improved from over 1000 to 150, symptomatically improving, no evidence of necrosis on CT scan. Continued on Zosyn given her recurrent leukocytosis and respiratory failure. Continued worsening leukoctyosis, repeat CT abdomen today, continue Zosyn. 01/[address] abdomen showed Mixed changes. Previously, there was extensive peripancreatic phlegmon and stranding, now representing multiseptated fluid locules consistent with pseudocysts; The pancreatic parenchyma itself is enhanced with no gas or evidence for its necrosis. 01/24- given severe right sided pain that is now in abdomen, will repeat CT 01/25- CT yesterday as far as pancreas appears stable Qualifiers: Qualified Codes: K85.20 - Alcohol induced acute pancreatitis without necrosis or infection (3) Atrial fibrillation with rapid ventricular response Onset Date: ~ 01/11/2021 Status: Acute Assessment & Plan: On Xarelto outpatient, held per Cardiology due to abdominal pain, on cardizem drip, appreciate Cardiology recommendations. 01/21 changed to PO cardizem yesterday, monitor. (4) Hypertension Status: Chronic Qualifiers: Qualified Codes: I10 - Essential (primary) hypertension (5) Leukocytosis Onset Date: ~ 01/11/2021 Status: Acute Assessment & Plan: Improved initially but now worsening again, repeat procalcitonin decreased from prior, continue Zosyn. 01/21 slight decrease today, continue to monitor and continue Zosyn. 01/23 Zosyn completed, monitor 01/24 trending down Qualifiers: Qualified Codes: D72.828 - Other elevated white blood cell count (6) Severe sepsis Onset Date: ~ 01/11/2021 Status: Resolved Assessment & Plan: Elevated lactic acid, leukocytosis and tachycardia on admission. Suspect secondary to pancreatitis. (7) Alcohol use Status: Chronic Assessment & Plan: Alcohol withdrawal protocol started on admission. Has not been requiring ativan since 01/13, is on dexmedetomidine drip due to anxiety. (8) Right hip pain Status: Acute Assessment & Plan: Xray 01/23 unremarkable (9) Abdominal wall hematoma Status: Acute Assessment & Plan: Per CT on 01/24, stopped enoxaparin with plan to restart oral anticoagulation this evening, however will hold one more day in anticipate of thoracentesis tomorrow morning. Qualifiers: Qualified Codes: S30.1XXA - Contusion of abdominal wall, initial encounter (10) DVT prophylaxis Status: Acute Assessment & Plan: 01/25 on hold due to hematoma and planned thoracentesis tomorrow, resume oral anticoagulation tomorrow night. ANURAG BERNARDO MD Jan 25, 2021 10:11
--- NOTE | 2021-01-25 13:03 | Progress Note - Cardiology ---
Cardiology SOAP Progress Note Subjective: No cp or palp or syncope or shortness of breath at rest No n/v/d Some gen malaise and weakness present Abd discomfort, more on the R Objective: I&O/Vital Signs 01/25/21 01/25/21 01/25/21 01/25/21 02:50 04:26 07:00 08:00 Temp 36.8 36.4 Pulse 94 101 117 Resp 19 18 B/P (MAP) 123/84 137/86 Pulse Ox 95 98 98 O2 Delivery Vapotherm Vapotherm Vapotherm O2 Flow Rate 20.00 20.00 20.00 50.00 50.00 FiO2 50 01/25/21 01/25/21 01/25/21 09:12 12:00 12:37 Temp 36.2 Pulse 120 118 Resp 20 B/P (MAP) 146/82 Pulse Ox 94 100 O2 Delivery Vapotherm Vapotherm O2 Flow Rate 20.00 20.00 50.00 FiO2 50 01/25/21 00:00 Intake Total 1180 ml Output Total 1250 ml Balance -70 ml Weight (Pounds): 122 Weight (Ounces): 0.0 Weight (Calculated Kilograms): 55.438135 Constitutional: AAO x 3, well-developed, well-nourished Respiratory: No accessory muscle use, No respiratory distress; chest expansion is symmetric, chest is bilaterally symmetric, lungs clear to auscultation Cardiovascular: irregularly irregular; No JVD; S1 and S2 Gastrointestional: tender (RLQ), distended; No guarding; audible bowel sounds (hyperactive) Extremities: no lower extremity edema bilateral Neurologic/Psychiatric: grossly intact (moves all extremities) Skin: No rash on exposed areas, No ulcerations on exposed areas Results/Procedures: Labs Laboratory Tests 01/24/21 15:18: White Blood Count 16.9H, Red Blood Count 2.98L, Hemoglobin 10.1L, Hematocrit 30L , Mean Corpuscular Volume 101H, Mean Corpuscular Hemoglobin 34, Mean Corpuscular Hemoglobin Concent 34, Red Cell Distribution Width 14.0, Platelet Count 354, Mean Platelet Volume 11.1 01/25/21 05:20: White Blood Count 14.6H, Red Blood Count 2.81L, Hemoglobin 9.4L, Hematocrit 28L, Mean Corpuscular Volume 99, Mean Corpuscular Hemoglobin 34, Mean Corpuscular Hemoglobin Concent 34, Red Cell Distribution Width 13.8, Platelet Count 373, Mean Platelet Volume 11.5, Sodium Level 132L, Potassium Level 4.4, Chloride Level 90L, Carbon Dioxide Level 33H, Anion Gap 9, Blood Urea Nitrogen 19H, Creatinine 0.93, Estimat Glomerular Filtration Rate 60, BUN/Creatinine Ratio 20, Glucose Level 104, Calcium Level 8.9, Corrected Calcium 10.3H, Total Bilirubin 0.4, Aspartate Amino Transf (AST/SGOT) 64H, Alanine Aminotransferase (ALT/SGPT) 31, Alkaline Phosphatase 81, Total Protein 5.7L, Albumin 2.3L Microbiology 01/13/21 Urine Culture - Final, Complete NO GROWTH 01/11/21 MRSA Screen - Final, Complete MRSA not isolated 01/11/21 Blood Culture - Final, Complete No growth A/P: Assessment: New acute large hematoma within the right lateral abdominal wall - likely related to sc enoxaparin injections Acute pancreatitis and pancreatic pseudocyst - management per medical/eICU/GI services Permanent a-fib - currently OAC is being held and she is on enoxaparin - Echocardiogram 06-02-[address] Davis showed normal left ventricle size and function ejection fraction 55-65 percent, PA pressure 40-45 mmHg - Lexiscan Myoview stress test was done on August 15, [address] Davis showing no ischemia or infarction, EF 74% Mild bilateral carotid stenosis, ultrasound was done in February 28, [address] Davis Hypertension Hyperlipidemia Plan: D/c enoxaparin (beginning yesterday) and start oral apixaban [address] Doe Continue to monitor closely, including labs FRANNY CLARK MD FACP FAC CCDS Jan 25, 2021 13:03
[2021-01-25] MEDS ORDERED: APIXABAN 5 MG (ELIQUIS) TABLET PO SCH (21:00)
[2021-01-25] MEDS: ALPRAZolam 0.5 MG (XANAX) TAB PO PRN (21:18)
[2021-01-26] MEDS: RT-ALBUTEROL SULF 2.5 MG/3 ML PRE-MIX VIAL INH SCH ×4 (02:08→19:20)
--- NOTE | 2021-01-26 06:20 | Diagnostic Imaging Report ---
INDICATION: Follow-up effusion, pneumonia. Compared 01/23/2021 FINDINGS: Right PICC line lower SVC stable. Bilateral pulmonary infiltrates unchanged. Small pleural effusions probably decreased. There is some improved basilar lung expansion. IMPRESSION: Some improved expansion of the lung bases and decreased pleural fluid. Five lobed infiltrates otherwise unchanged with PICC line in stable and good position. Dictated by: Dictated on workstation # [id number]
[2021-01-26] MEDS: THIAMINE 100 MG (VITAMIN B-1) TAB PO SCH (06:21)
[2021-01-26 06:33] LABS: HEMATOCRIT 27 % (35-52); HEMOGLOBIN 9.2 g/dL (11.5-16.0); MEAN CORPUSCULAR HEMOGLOBIN 34 pg (25-34); MEAN CORPUSCULAR HGB CONC 35 g/dL (32-36); MEAN CORPUSCULAR VOLUME 99 fL (80-99); MEAN PLATELET VOLUME 10.9 fL (9.0-12.2); PLATELET COUNT 314 10^3/uL (130-400); WHITE BLOOD COUNT 11.5 10^3/uL (4.3-11.0)
[2021-01-26 06:51] LABS: CREATININE SERUM 1.03 MG/DL (0.60-1.30); POTASSIUM 4.5 MMOL/L (3.6-5.0)
--- NOTE | 2021-01-26 07:12 | Progress Note - Surgery ---
EZRAREYMUNDORAMSEY WESTBROOK 01/26/21 0712: Subjective Date Seen by a Provider: Jan 26, 2021 Time Seen by a Provider: 06:51 Subjective/Events-last exam Pt sleeping in bed, easily roused. Continues to complain of left sided pain made worse when coughing, pain limits her usage of ICS. She does confirm that she as been using the ICS more and this am CXR also indicates improved lung volume and decreasing small B/L plural effusions. Helped pt sit up and she demonstrated ICS use again which again provoked coughing and pain in her side. She reports improved breathing overall and no pain deep in her abdomen. She also reports getting out of bed to use the commode. Review of Systems General: No Chills, No Night Sweats; Fatigue, Appetite HEENT: No Head Aches, No Visual Changes, No Eye Pain, No Ear Pain, No Dysphasia, No Sore Throat Pulmonary: No Dyspnea; Cough; No Pleuritic Chest Pain Cardiovascular: No: Chest Pain, Palpitations, Orthopnea, Lt Headedness Gastrointestinal: No: Nausea, Vomiting, Abdominal Pain, Diarrhea Genitourinary: No Dysuria, No Frequency Musculoskeletal: other; No: neck pain, shoulder pain, back pain Neurological: No: Weakness, Numbness, Change in speech, Confusion right sided soft tissue pain secondary to hematoma Objective Exam Vital Signs Date Time Temp Pulse Resp B/P (MAP) Pulse Ox O2 Delivery O2 Flow Rate FiO2 01/26/21 04:40 36.6 100 21 115/70 93 Vapotherm 20.00 50.00 01/26/21 02:08 95 Vapotherm 20.00 50 01/26/21 01:00 90 01/26/21 00:00 36.1 119 18 120/76 98 Vapotherm 20.00 50.00 01/25/21 21:05 98 Vapotherm 20.00 50 01/25/21 20:41 36.6 116 18 124/76 98 Vapotherm 20.00 50.00 01/25/21 20:16 98 Vapotherm 20.00 50 01/25/21 19:00 95 01/25/21 16:00 36.9 107 18 132/64 98 Vapotherm 20.00 50.00 01/25/21 14:39 97 Vapotherm 20.00 50 12/19/21 12:37 118 01/25/21 12:00 36.2 120 20 146/82 100 Vapotherm 20.00 50.00 01/25/21 09:12 94 Vapotherm 20.00 50 01/25/21 08:00 36.4 117 18 137/86 98 Vapotherm 20.00 50.00 01/25/21 08:00 100 Vapotherm 20.00 50 I & O 01/26/21 07:00 Intake Total 2050 ml Output Total 1450 ml Balance 600 ml Capillary Refill : Less Than 3 Seconds General Appearance: No Apparent Distress, WD/WN, Chronically ill HEENT: PERRL/EOMI, Pharynx Normal Neck: Full Range of Motion, Non Tender, Supple Respiratory: Chest Non Tender, No Accessory Muscle Use, No Respiratory Distress, Decreased Breath Sounds (B/L bases remain distant, but improved overall), Other (on vapotherm) Cardiovascular: No Gallop, No Murmur, Normal Peripheral Pulses, Irregularly Irregular Peripheral Pulses: 2+ Radial Pulses (R), 2+ Radial Pulses (L) Gastrointestinal: normal bowel sounds, non tender, soft, no organomegaly, no pulsatile mass, distended (Minimal) Extremity: Normal Capillary Refill, Normal Range of Motion, Non Tender, No Calf Tenderness, Pedal Edema (Bilateral 2+ edema to knee) Neurologic/Psychiatric: Alert, Oriented x3, Normal Mood/Affect Skin: Normal Color, Warm/Dry, Ecchymosis (Tenderness and ecchymosis on lower right side flank) Lymphatic: No Adenopathy (cervical and axillary) Results Lab Laboratory Tests 01/26/21 06:20: White Blood Count 11.5H, Red Blood Count 2.69L, Hemoglobin 9.2L, Hematocrit 27L, Mean Corpuscular Volume 99, Mean Corpuscular Hemoglobin 34, Mean Corpuscular Hemoglobin Concent 35, Red Cell Distribution Width 13.9, Platelet Count 314, Mean Platelet Volume 10.9, Sodium Level 133L, Potassium Level 4.5, Chloride Level 91L, Carbon Dioxide Level 32, Anion Gap 10, Blood Urea Nitrogen 18, Creatinine 1.03, Estimat Glomerular Filtration Rate 53, BUN/Creatinine Ratio 17, Glucose Level 118H, Calcium Level 9.0 Microbiology 01/13/21 Urine Culture - Final, Complete NO GROWTH 01/11/21 MRSA Screen - Final, Complete MRSA not isolated 01/11/21 Blood Culture - Final, Complete No growth Assessment/Plan Assessment/Plan Assessment/Plan Acute pancreatitis with multiloculated pseudocyst Acute Respiratory Failure Pneumonia b/l Afib Anticogulation Ecchymosis and small hematoma on right side Pleural effusion bilateral HTN Right hip pain - xray neg Plan: Pain control and regular ICS use with ambulation as well to improve respiratory status. B/L pleural effusions small and improved on CXR this am. Will U/S for largest pocket and perform thoracentesis today if needed - eliquis is held. Stable multiloculated pancriatic pseudocyst causing slight abdominal distention. No significant abdominal pain at the time of my exam. Would consider referral to gastroenterology for endoscopic ultrasound and possible drainage. MALLY GUTIERREZ DO 01/26/21 1458: Subjective Subjective/Events-last exam Patient is complaining of right-sided flank pain still. Patient breathing is low bit better still some shortness of breath. Activity makes worse. Nothing makes better. Chest x-ray showing improvement of lung volume and decreasing small bilateral effusions. Denies any nausea vomiting fever sweats chills or chest pain at this time. Objective Exam General Appearance: No Apparent Distress, Chronically ill HEENT: PERRL/EOMI, Normal ENT Inspection Neck: Full Range of Motion, Non Tender, Supple Respiratory: Chest Non Tender, No Accessory Muscle Use, No Respiratory Distress, Decreased Breath Sounds (B/L bases remain distant, but improved overall) Cardiovascular: No JVD, Irregularly Irregular Gastrointestinal: soft, distended (Minimal) Extremity: Normal Capillary Refill, Normal Range of Motion, Non Tender Neurologic/Psychiatric: Alert, Oriented x3 Skin: Normal Color, Warm/Dry, Ecchymosis (Tenderness and ecchymosis on lower right side flank) Lymphatic: No Adenopathy (cervical and axillary) Assessment/Plan Assessment/Plan Assessment/Plan Acute pancreatitis with multiloculated pseudocyst Acute Respiratory Failure Pneumonia b/l Afib Anticogulation Ecchymosis and small hematoma on right side Pleural effusion bilateral HTN Right hip pain - xray neg Plan: Pain control and regular ICS use with ambulation as well to improve respiratory status. B/L pleural effusions small and improved on CXR this am. Will U/S for largest pocket and perform thoracentesis today if needed - eliquis is held. Stable multiloculated pancriatic pseudocyst causing slight abdominal distention. No significant abdominal pain at the time of my exam. Would consider referral to gastroenterology for endoscopic ultrasound and possible drainage. Patient was discussed risk and benefits of having thoracentesis performed to help assist in breathing. Patient understands risk and benefits and wishes to proceed. Ultrasound guided. Using ultrasound pick the larger pocket and safest pocket for drainage. Procedure ultrasound-guided left thoracentesis. Ultrasound used to isolate a largest pocket which was on the left posterior chest inferior aspect. Patient was prepped and draped in sterile fashion timeout was performed. 3 mL 1% lidocaine was used anesthetize the area. Eleven blade scalpel was used and a small skin incision. The safety centesis needle and catheter were then advanced until straw-colored fluid was withdrawn. The catheter was then advanced and the needle was removed. A total of 500 mL of straw-colored fluid was withdrawn. The catheter was then removed and sterile bandage was applied. Chest x-ray pending. Patient tolerated procedure well w ithout any complications. Supervisory-Addendum Brief Verification & Attestation Participated in pt care: history, MDM, physical Personally performed: exam, history, MDM, supervision of care Care discussed with: Medical Student Procedures: performed (By myself) Results interpretation: Verified all documentation Verification and Attestation of Medical Student E/M Service A medical student performed and documented this service in my presence. I reviewed and verified all information documented by the medical student and made modifications to such information, when appropriate. I personally performed the physical exam and medical decision making. Mally Gutierrez, Jan 26, 2021,14:58 RAMSEY WALTON Jan 26, 2021 07:12 MALLY GUTIERREZ DO Jan 26, 2021 14:58
[2021-01-26] MEDS: ALPRAZolam 0.5 MG (XANAX) TAB PO PRN ×2 (09:30→21:52)
[2021-01-26] MEDS: LACTOBACILLUS ACIDOPHILUS (PROBIOTIC) CAPSULE PO SCH ×3 (09:40→17:07)
[2021-01-26] MEDS: SPIRONOLACTONE 25 MG (ALDACTONE) TAB PO SCH (09:40)
[2021-01-26] MEDS: FUROSEMIDE 40 MG (LASIX) TAB PO SCH (09:40)
[2021-01-26] MEDS: SENNA W/DOCUSATE (SENOKOT S) TABLET PO SCH ×2 (09:40→20:51)
[2021-01-26] MEDS: PANTOPRAZOLE 40 MG (PROTONIX) VIAL IV SCH (09:40)
[2021-01-26] MEDS: FOLIC ACID 1 MG TAB PO SCH (09:40)
[2021-01-26] MEDS: dilTIAZem120 MG (CARDIZEM CD) CAP PO SCH ×2 (09:40→21:52)
[2021-01-26] MEDS: guaiFENesin/DM (ROBITUSSIN DM) 10 ML UDC PO PRN (09:54)
--- NOTE | 2021-01-26 11:31 | Progress Note - Hospitalist ---
NAGI JACKSON MED STUDENT 01/26/21 1131: Subjective HPI/CC On Admission Date Seen by Provider: Jan 26, 2021 Time Seen by Provider: 08:30 Chief complaint: Atrial fibrillation with rapid ventricular response with acute pancreatitis and severe sepsis History present illness: This is a 70-year-old white female who drinks wine with heavy use who presented to the ER with a couple of days of nausea and vomiting and not feeling well with abdominal pain. She was found to be in atrial fibrillation with rapid ventricular response in addition to hypotension requiring aggressive IV fluid at 30 cc/KG and found to have acute pancreatitis. Dr. Vale obtained U/S this morning. Zosyn was started. Cardiology consulted for atrial fibrillation with right ventricular response. Patient sees Dr. Davis on a regular basis for atrial fibrillation. Currently in the ICU. Subjective/Events-last exam Mrs. Del Cid is awake and lying in bed this morning. She states that she is still having a good amount of pain on her R side that is a lot worse with coughing. She is using her breathing device. She is eating and drinking okay without complications. LBM was last night. She has a urinary catheter. States PT is going well. She states that surgery said they probably wont be doing thoracentesis on her today. Review of Systems General: No Chills, No Night Sweats, No Malaise HEENT: No Head Aches, No Visual Changes, No Dysphasia Pulmonary: No Dyspnea; Cough; No Pleuritic Chest Pain Cardiovascular: No: Chest Pain, Palpitations, Edema Gastrointestinal: Diarrhea; No: Nausea, Vomiting, Abdominal Pain, Constipation, Melena Genitourinary: No Dysuria, No Frequency, No Hematuria Musculoskeletal: other (R side Chest wall pain due to hematoma) Neurological: No: Weakness, Numbness, Seizures Objective Exam Vital Signs Vital Signs Date Time Temp Pulse Resp B/P (MAP) Pulse Ox O2 Delivery O2 Flow Rate FiO2 01/26/21 08:04 36.3 101 18 132/69 97 Vapotherm 15.00 45.00 01/26/21 08:00 50 Capillary Refill : Less Than 3 Seconds General Appearance: No Apparent Distress, WD/WN HEENT: PERRL/EOMI, Moist Mucous Membranes Neck: Supple Respiratory: No Chest Non Tender (R sided tenderness); Lungs Clear; No Normal Breath Sounds (slightly deminished); No Accessory Muscle Use, No Respiratory Distress, Other (Hematom on R side of chest) Cardiovascular: No Regular Rate, Rhythm (Irregular ); No Edema, No Murmur, Normal Peripheral Pulses Gastrointestinal: Normal Bowel Sounds, No Organomegaly, No Pulsatile Mass, Non Tender, Soft Rectal: Deferred Extremity: Normal Capillary Refill, Normal Inspection, Non Tender, No Calf Tenderness, No Pedal Edema Neurologic/Psychiatric: Alert, Oriented x3, Normal Mood/Affect Skin: Normal Color, Warm/Dry Results/Procedures Lab Laboratory Tests 01/26/21 06:20 Patient resulted labs reviewed. Imaging: Reviewed Imaging Report Assessment/Plan Assessment and Plan Assess & Plan/Chief Complaint ARF Abdominal wall hematoma -Pt could get thoracentesis today or in the coming days, depending on surgery decision -Pain with inspiration, worried about atelectasis, she is using her exhalation b reathing device -On vapotherm 15L 45% -Should wean as best as possible -Pt states she is getting better Pancreatitis -Improving -Pt states her pain is better -Continue to follow A. fib -HR 89 this morning -On diltiazem, continue to monitor HTN 132/69 today continue to monitor Chronic Alcohol Use -On protocol -Denies tremors and seizures -Has Lorazepam PRN Supervisory-Addendum Brief Verification & Attestation Participated in pt care: history, physical Personally performed: exam Care discussed with: Medical Student Procedures: n/a n/a HODA IBRAHIM DO 01/27/21 0544: Subjective Subjective/Events-last exam Pt doing about the same Vapotherm at 15 liters and 35% Dr. Gutierrez contemplating thoracentesis for pleural effusion Spontaneous abdominal wall hematoma on the right causes pain Bowels are moving after seven days, she is taking laxatives Review of Systems General: Fatigue, Malaise Pulmonary: Dyspnea Objective Exam General Appearance: WD/WN, Anxious, Chronically ill, Mild Distress Respiratory: Decreased Breath Sounds, Other (Hematoma on R side of flank) Neurologic/Psychiatric: Alert, Oriented x3, No Motor/Sensory Deficits, Normal Mood/Affect Assessment/Plan Assessment and Plan Assess & Plan/Chief Complaint Assessment: Acute respiratory failure Acute on chronic pancreatitis Flank hematoma right side Pleural effusions Chronic pain Alcoholism Plan: Supportive care Pain control Therapy Vapotherm Supervisory-Addendum Brief Verification & Attestation Participated in pt care: history, MDM, physical Personally performed: exam, history, MDM, supervision of care Care discussed with: Medical Student Procedures: n/a Results interpretation: Verified all documentation Verification and Attestation of Medical Student E/M Service A medical student performed and documented this service in my presence. I reviewed and verified all information documented by the medical student and made modifications to such information, when appropriate. I personally performed the physical exam and medical decision making. Hoda Ibrahim, Jan 27, 2021,05:44 NAGI JACKSON MED STUDENT Jan 26, 2021 11:31 HODA IBRAHIM DO Jan 27, 2021 05:44
--- NOTE | 2021-01-26 11:44 | Occupational Ther Daily Note ---
OT Current Status-Daily Note Subjective Pt alert, lying in bed. Pt agrees to therapy. Pt c/o fatigue. Requires encouragement to participate in therapy. Mental Status/Objective Patient Orientation: Person, Place, Time, Situation Attachments: Hwang Catheter, IV, Oxygen ADL-Treatment Supine <--> EOB independent with HOB slightly raised. Supplies gathered, pt sat on EOB to complete oral care and grooming. After session, pt lying in bed with call light/phone in reach. All needs met in room. Therapy Code Descriptions/Definitions Functional [place] Measure: 0=Not Assessed/NA 4=Minimal Assistance 1=Total Assistance 5=Supervision or Setup 2=Maximal Assistance 6=Modified [place] 3=Moderate Assistance 7=Complete IndependenceSCALE: Activities may be completed with or without assistive devices. 2-Ejvqylhlsn-cepgffk completes the activity by him/herself with no assistance from a helper. 5-Set-up or Clean-up Assistance-helper sets up or cleans up; patient completes activity. Hooker assists only prior to or following the activity. 4-Supervision or Touching Assistance-helper provides verbal cues and/or touching/steadying and/or contact guard assistance as patient completes activity. Assistance may be provided throughout the activity or intermittently. 3-Partial/Moderate Assistance-helper does LESS THAN HALF the effort. Hooker lifts, holds or supports trunk or limbs, but provides less than half the effort. 2-Substantial/Maximal Assistance-helper does MORE THAN HALF the effort. Hooker lifts or holds trunk or limbs and provides more than half the effort. 3-Rikikcivh-idkugw does ALL the effort. Patient does none of the effort to complete the activity. Or, the assistance of 2 or more helpers is required for the patient to complete the activity. If activity was not attempted, code reason: 7-Patient Refused. 9-Not Applicable-not attempted and the patient did not perform the activity before the current illness, exacerbation or injury. 10-Not Attempted due to Environmental Limitations-(lack of equipment, weather restraints, etc.). 88-Not Attempted due to Medical Conditions or Safety Concerns. Oral Hygiene (QC): 5 OT Skein Bander Goals Skein Bander Goals Time Frame: Jan 30, 2021 Oral Hygiene (QC): 5 Toileting Hygiene (QC): 4 Upper Body Dressing (QC): 5 Lower Body Dressing (QC): 4 On/Off Footwear (QC): 5 1=Demonstrate adherence to instructed precautions during ADL tasks. 2=Patient will verbalize/demonstrate understanding of assistive devices/modifications for ADL. 3=Patient will improve strength/tolerance for activity to enable patient to perform ADL's. OT Education/Plan Problem List/Assessment Assessment: Decreased Activ Tolerance, Decreased UE Strength, Impaired Self- Care Skills Discharge Recommendations Plan/Recommendations: Continue POC Treatment Plan/Plan of Care Patient would benefit from OT for education, treatment and training to promote independence in ADL's, mobility, safety and/or upper extremity function for ADL's. Plan of Care: ADL Retraining, Functional Mobility, Group Exercise/Act as Ind, UE Funct Exercise/Act Treatment Duration: Jan 30, 2021 Frequency: 3 times per week Estimated Hrs Per Day: .25 hour per day Agreement: Yes Rehab Potential: Fair Time/GCodes Start Time: 11:23 Stop Time: 11:40 Total Time Billed (hr/min): 17 Billed Treatment Time 1 visit-ADL 1 (17 min) ABIODUN CHACON Jan 26, 2021 11:44
--- NOTE | 2021-01-26 12:18 | Pulmonary Progress Note ---
Subjective Date Seen by a Provider: Jan 26, 2021 Time Seen by a Provider: 12:17 Sepsis Event Evaluation Height, Weight, BMI Height: 5'2.00" Weight: 122lbs. 0.0oz. 55.904013fr; 22.52 BMI Method: Exam Exam Patient acknowledged, consented, and participated in this virtual visit which was conducted using real time audio/video Vital Signs Date Time Temp Pulse Resp B/P (MAP) Pulse Ox O2 Delivery O2 Flow Rate FiO2 01/26/21 12:03 36.6 105 20 130/68 94 Nasal Cannula 2.00 01/26/21 08:04 36.3 101 18 132/69 97 Vapotherm 15.00 45.00 01/26/21 08:00 98 Vapotherm 20.00 50 01/26/21 07:00 106 01/26/21 04:40 36.6 100 21 115/70 93 Vapotherm 20.00 50.00 01/26/21 02:08 95 Vapotherm 20.00 50 01/26/21 01:00 90 01/26/21 00:00 36.1 119 18 120/76 98 Vapotherm 20.00 50.00 01/25/21 21:05 98 Vapotherm 20.00 50 01/25/21 20:41 36.6 116 18 124/76 98 Vapotherm 20.00 50.00 01/25/21 20:16 98 Vapotherm 20.00 50 01/25/21 19:00 95 01/25/21 16:00 36.9 107 18 132/64 98 Vapotherm 20.00 50.00 01/25/21 14:39 97 Vapotherm 20.00 50 01/25/21 12:37 118 I & O 01/26/21 07:00 Intake Total 2050 ml Output Total 1450 ml Balance 600 ml Height & Weight Height: 5'2.00" Weight: 122lbs. 0.0oz. 55.563541ia; 22.52 BMI Method: General Appearance: No Apparent Distress, WD/WN HEENT: PERRL/EOMI, Moist Mucous Membranes Neck: Supple Respiratory: No Chest Non Tender (R sided tenderness); Lungs Clear; No Normal Breath Sounds (slightly deminished); No Accessory Muscle Use, No Respiratory Distress, Other (Hematom on R side of chest) Cardiovascular: No Regular Rate, Rhythm (Irregular ); No Edema, No Murmur, Normal Peripheral Pulses Capillary Refill: Less Than 3 Seconds Peripheral Pulses: 2+ Radial Pulses (R), 2+ Radial Pulses (L) Gastrointestinal: normal bowel sounds, non tender, soft, no organomegaly, no pulsatile mass, distended (Minimal) Extremity: Normal Capillary Refill, Normal Inspection, Non Tender, No Calf Tenderness, No Pedal Edema Neurologic/Psychiatric: Alert, Oriented x3, Normal Mood/Affect Skin: Normal Color, Warm/Dry Lymphatic: No Adenopathy (cervical and axillary) Results Lab Laboratory Tests 01/24/21 15:18 01/25/21 05:20 01/26/21 06:20 Assessment/Plan Assessment/Plan Patient is stable from pulmonary point of view. on 2 l NC CXR with improving effusions Agree with changing back to Eliquis Will sign off, please let us know if any questions Thank you ALYCE CRANE MD Jan 26, 2021 12:18
[2021-01-26] MEDS: ONDANSETRON 4 MG/2 ML (SDV) Z0FRAN IVP PRN (13:26)
--- NOTE | 2021-01-26 13:59 | Diagnostic Imaging Report ---
INDICATION: Chest pain Portable chest at 1:41 PM Right extremity PICC line tip projects over the SVC. There are infiltrates present throughout both lungs. There is no appreciable effusion or pneumothorax. IMPRESSION: Diffuse alveolar infiltrates in the lungs. No appreciable change from earlier in the day. Dictated by: Dictated on workstation # [id number]
--- NOTE | 2021-01-26 14:08 | Physical Therapy Progress Note ---
Therapy Progress Note Patient refused physical therapy today. She says she got a needle in her back and had some fluid drained and didn't want to do anything today. Patient was educated on the benefits of physical therapy but she continued to refuse. JUAQUIN ANGELES PT Jan 26, 2021 14:08
--- NOTE | 2021-01-26 14:20 | Diagnostic Imaging Report ---
INDICATION: Pleural effusion. Sonographic guidance was provided for Dr. Gutierrez for performance of thoracentesis. There are large bilateral pleural effusions. Dr. Gutierrez performed a thoracentesis on the right side. IMPRESSION: Large bilateral pleural effusions. Guidance was provided for Dr. Gutierrez for right-sided thoracentesis. Dictated by: Dictated on workstation # [id number]
[2021-01-26 14:25] LABS: AMYLASE,BODY FLUID 32 U/L; GLUCOSE,BODY FLUID 114 MG/DL; LDH,BODY FLUID 184 U/L; TOTAL PROTEIN,BODY FLUID 1.8 G/DL
[2021-01-26 14:35] LABS: BODY FLUID APPEARENCE SLT CLDY; BODY FLUID COLOR YELLOW; BODY FLUID RBC COUNT 1750 /uL; BODY FLUID SOURCE PLEURAL
[2021-01-26 14:56] LABS: BF OTHER CELLS 9 %; LYMPHOCYTES,BODY FLUID 8 %
[2021-01-26 14:58] LABS: BODY FLUID WBC TOTAL COUNT 30 /uL
[2021-01-26 15:31] VITALS: BP 124/81
--- NOTE | 2021-01-26 17:55 | Progress Note - Cardiology ---
Cardiology SOAP Progress Note Subjective: No cp or palp or syncope No n/v/d Abd pain present Gen malaise and weakness Objective: I&O/Vital Signs 01/26/21 01/26/21 01/26/21 01/26/21 07:00 08:00 08:04 12:03 Temp 36.3 36.6 Pulse 106 101 105 Resp 18 20 B/P (MAP) 132/69 130/68 Pulse Ox 98 97 94 O2 Delivery Vapotherm Vapotherm Nasal Cannula O2 Flow Rate 20.00 15.00 2.00 45.00 FiO2 50 01/26/21 01/26/21 01/26/21 01/26/21 12:29 15:31 17:00 17:09 Temp 36.6 36.6 Pulse 108 103 100 100 Resp 22 22 B/P (MAP) 117/63 117/63 Pulse Ox 93 94 94 O2 Delivery Nasal Cannula Nasal Cannula O2 Flow Rate 1.00 1.00 01/26/21 00:00 Intake Total 1800 ml Output Total 1000 ml Balance 800 ml Weight (Pounds): 122 Weight (Ounces): 0.0 Weight (Calculated Kilograms): 55.232869 Constitutional: AAO x 3, well-developed, well-nourished Respiratory: chest expansion is symmetric, chest is bilaterally symmetric, lungs clear to auscultation Cardiovascular: irregularly irregular, S1 and S2 Gastrointestional: tender, distended, audible bowel sounds Extremities: no lower extremity edema bilateral Neurologic/Psychiatric: grossly intact Skin: No rash on exposed areas, No ulcerations on exposed areas Results/Procedures: Labs Laboratory Tests 01/26/21 06:20: White Blood Count 11.5H, Red Blood Count 2.69L, Hemoglobin 9.2L, Hematocrit 27L, Mean Corpuscular Volume 99, Mean Corpuscular Hemoglobin 34, Mean Corpuscular Hemoglobin Concent 35, Red Cell Distribution Width 13.9, Platelet Count 314, Mean Platelet Volume 10.9, Sodium Level 133L, Potassium Level 4.5, Chloride Level 91L, Carbon Dioxide Level 32, Anion Gap 10, Blood Urea Nitrogen 18, Creatinine 1.03, Estimat Glomerular Filtration Rate 53, BUN/Creatinine Ratio 17, Glucose Level 118H, Calcium Level 9.0 01/26/21 13:20: Body Fluid Source PLEURAL, Body Fluid Color YELLOW, Body Fluid Appearance SLT CLDY, Body Fluid WBC 30, Body Fluid RBC 1750, Body Fluid Polynuclear WBCs 11, Body Fluid Mononuclear WBCs 77, Body Fluid Lymphocytes 8, Body Fluid Eosinophils , Body Fluid Other Cells 9, Body Fluid Glucose 114, Body Fluid Total Protein 1.8, Body Fluid Lactate Dehydrogenase 184, Body Fluid Amylase 32, Body Fluid Creatinine 0.84 Microbiology 01/13/21 Urine Culture - Final, Complete NO GROWTH 01/11/21 MRSA Screen - Final, Complete MRSA not isolated 01/11/21 Blood Culture - Final, Complete No growth A/P: Assessment: New acute large hematoma within the right lateral abdominal wall - likely related to sc enoxaparin injections Acute pancreatitis and pancreatic pseudocyst - management per medical/eICU/GI services Permanent a-fib - currently OAC is being held and she is on enoxaparin - Echocardiogram 06-02-[address] Davis showed normal left ventricle size and function ejection fraction 55-65 percent, PA pressure 40-45 mmHg - Lexiscan Myoview stress test was done on August 15, [address] Davis showing no ischemia or infarction, EF 74% Mild bilateral carotid stenosis, ultrasound was done in February 28, [address] Davis Hypertension Hyperlipidemia Plan: Enoxaparin d/c'd and apixaban initiated Continue to monitor closely, including labs FRANNY CLARK MD FACP FAC CCDS Jan 26, 2021 17:55
[2021-01-26] MEDS: APIXABAN 5 MG (ELIQUIS) TABLET PO SCH (21:52)
[2021-01-27] MEDS: THIAMINE 100 MG (VITAMIN B-1) TAB PO SCH (05:40)
[2021-01-27 07:34] LABS: BASOPHILS % (AUTO) 0 % (0-10); EOSINOPHILS # (AUTO) 0.2 10^3/uL (0.0-0.3); EOSINOPHILS % (AUTO) 2 % (0-10); HEMATOCRIT 30 % (35-52); HEMOGLOBIN 10.1 g/dL (11.5-16.0); LYMPHOCYTES # (AUTO) 1.2 10^3/uL (1.0-4.0); LYMPHOCYTES % (AUTO) 10 % (12-44); MEAN CORPUSCULAR HEMOGLOBIN 33 pg (25-34); MEAN CORPUSCULAR HGB CONC 34 g/dL (32-36); MEAN CORPUSCULAR VOLUME 98 fL (80-99); MEAN PLATELET VOLUME 10.6 fL (9.0-12.2); MONOCYTES # (AUTO) 1.5 10^3/uL (0.0-1.0); MONOCYTES % (AUTO) 13 % (0-12); NEUTROPHILS # (AUTO) 8.4 10^3/uL (1.8-7.8); NEUTROPHILS % (AUTO) 74 % (42-75); PLATELET COUNT 383 10^3/uL (130-400); WHITE BLOOD COUNT 11.4 10^3/uL (4.3-11.0)
--- NOTE | 2021-01-27 07:36 | Progress Note - Surgery ---
RAMSEY WALTON 01/27/21 0735: Subjective Date Seen by a Provider: Jan 27, 2021 Time Seen by a Provider: 06:41 Subjective/Events-last exam Pt sleeping bed and easily roused. Pt reports breathing is much easier today. Left sided thoracentecis yesterday produced 500ml of straw yellow fluid and CXR post procedure indicates no effusion or PTX. She also reports regular ICS use and moving more. She also did not cough today when I asked her to breath deeply as she had done before. She has no chest pain or deep abdominal pain. She does continue to complain of rt flank pain from the area of her hematoma. Review of Systems General: No Chills, No Night Sweats, No Fatigue; Appetite HEENT: No Head Aches, No Visual Changes, No Eye Pain, No Ear Pain Pulmonary: No Dyspnea, No Cough, No Pleuritic Chest Pain Cardiovascular: No: Chest Pain, Palpitations, Orthopnea Gastrointestinal: Abdominal Pain; No: Nausea, Vomiting Genitourinary: No Dysuria, No Frequency, No Incontinence Musculoskeletal: other; No: neck pain, shoulder pain, leg pain Neurological: No: Weakness, Numbness, Change in speech, Confusion right sided soft tissue pain secondary to hematoma Objective Exam Vital Signs Date Time Temp Pulse Resp B/P (MAP) Pulse Ox O2 Delivery O2 Flow Rate FiO2 01/27/21 03:37 36.3 90 18 120/73 94 Nasal Cannula 2.00 01/27/21 01:00 98 01/26/21 23:42 36.8 104 20 111/72 94 Nasal Cannula 2.00 01/26/21 20:41 98 Nasal Cannula 2.00 01/26/21 19:38 36.1 103 22 112/68 100 Nasal Cannula 2.00 01/26/21 19:20 84 Nasal Cannula 1.00 01/26/21 19:00 103 01/26/21 17:09 36.6 100 22 117/63 94 Nasal Cannula 1.00 01/26/21 17:00 36.6 100 22 117/63 94 Nasal Cannula 1.00 01/26/21 15:31 103 93 01/26/21 12:29 108 01/26/21 12:03 36.6 105 20 130/68 94 Nasal Cannula 2.00 01/26/21 08:04 36.3 101 18 132/69 97 Vapotherm 15.00 45.00 01/26/21 08:00 98 Vapotherm 20.00 50 I & O 01/27/21 07:00 Intake Total 1860 ml Output Total 2500 ml Balance -640 ml Capillary Refill : Less Than 3 Seconds General Appearance: No Apparent Distress, WD/WN, Anxious, Chronically ill HEENT: PERRL/EOMI, Pharynx Normal Neck: Full Range of Motion, Non Tender, Supple Respiratory: Chest Non Tender, No Accessory Muscle Use, No Respiratory Distress, Decreased Breath Sounds (Greatly improved over yesterday), Other (Hematoma on R side of flank) Cardiovascular: No Edema, No Murmur, Normal Peripheral Pulses, Irregularly Irregular Peripheral Pulses: 2+ Radial Pulses (R), 2+ Radial Pulses (L) Gastrointestinal: normal bowel sounds, non tender, soft, no organomegaly, no pulsatile mass, distended (Minimal) Extremity: Normal Capillary Refill, Normal Range of Motion, Non Tender, No Calf Tenderness Neurologic/Psychiatric: Alert, Oriented x3, No Motor/Sensory Deficits, Normal Mood/Affect Skin: Normal Color, Warm/Dry, Ecchymosis (Tenderness and yellowing/fadding ecchymosis on lower right side flank with hematoma) Lymphatic: No Adenopathy (cervical and axillary) Results Lab Laboratory Tests 01/26/21 13:20: Body Fluid Source PLEURAL, Body Fluid Color YELLOW, Body Fluid Appearance SLT CLDY, Body Fluid WBC 30, Body Fluid RBC 1750, Body Fluid Polynuclear WBCs 11, Body Fluid Mononuclear WBCs 77, Body Fluid Lymphocytes 8, Body Fluid Eosinophils , Body Fluid Other Cells 9, Body Fluid Glucose 114, Body Fluid Total Protein 1.8, Body Fluid Lactate Dehydrogenase 184, Body Fluid Amylase 32, Body Fluid Cre atinine 0.84 01/27/21 07:25: Microbiology 01/13/21 Urine Culture - Final, Complete NO GROWTH 01/11/21 MRSA Screen - Final, Complete MRSA not isolated 01/11/21 Blood Culture - Final, Complete No growth Assessment/Plan Assessment/Plan Assessment/Plan Acute pancreatitis with multiloculated pseudocyst Acute Respiratory Failure Pneumonia b/l Afib Anticogulation Ecchymosis and small hematoma on right side Pleural effusion bilateral HTN Right hip pain - xray neg Plan: DC alas cath PT & OT Pain control and regular ICS use with ambulation as well to improve respiratory status. Stable multiloculated pancriatic pseudocyst causing slight abdominal distention without acute changes - referral to gastroenterology for endoscopic ultrasound and possible drainage. Patient was discussed risk and benefits of having thoracentesis performed to help assist in breathing. Patient understands risk and benefits and wishes to proceed. Ultrasound guided. Using ultrasound pick the larger pocket and safest pocket for drainage. Procedure ultrasound-guided left thoracentesis. Ultrasound used to isolate a largest pocket which was on the left posterior chest inferior aspect. Patient was prepped and draped in sterile fashion timeout was performed. 3 mL 1% lidocaine was used anesthetize the area. Eleven blade scalpel was used and a small skin incision. The safety centesis needle and catheter were then advanced until straw-colored fluid was withdrawn. The catheter was then advanced and the needle was removed. A total of 500 mL of str aw-colored fluid was withdrawn. The catheter was then removed and sterile bandage was applied. Chest x-ray pending. Patient tolerated procedure well without any complications. MALLY GUTIERREZ DO 01/27/21 1710: Subjective Subjective/Events-last exam Patient breathing improving. Still with right flank pain. Using IS some. Denies n/v fever sweats chills shortness of breath or chest pain. Objective Exam General Appearance: No Apparent Distress, Chronically ill HEENT: PERRL/EOMI Neck: Full Range of Motion, Non Tender, Supple Respiratory: Chest Non Tender, No Accessory Muscle Use, No Respiratory Distress, Other (Hematoma on R side of flank) Cardiovascular: No JVD, Irregularly Irregular Gastrointestinal: non tender, soft, distended (Minimal), other (right flank tender) Extremity: Non Tender, No Calf Tenderness Neurologic/Psychiatric: Alert, Oriented x3, No Motor/Sensory Deficits, Normal Mood/Affect Skin: Normal Color, Warm/Dry, Ecchymosis (Tenderness and yellowing/fadding ecchymosis on lower right side flank with hematoma) Lymphatic: No Adenopathy (cervical and axillary) Assessment/Plan Assessment/Plan Assessment/Plan Acute pancreatitis with multiloculated pseudocyst Acute Respiratory Failure Pneumonia b/l Afib Anticogulation Ecchymosis and small hematoma on right side Pleural effusion bilateral HTN Right hip pain - xray neg thoracentesis yesterday left side x ray improved hematoma right flank cause of pain should resolve on own. multiloculated pseudocyst recommend gi follow up for possilbe eus and cystgastrostomy Supervisory-Addendum Brief Verification & Attestation Participated in pt care: history, MDM, physical Personally performed: exam, history, MDM, supervision of care Care discussed with: Medical Student Procedures: n/a Results interpretation: Verified all documentation Verification and Attestation of Medical Student E/M Service A medical student performed and documented this service in my presence. I reviewed and verified all information documented by the medical student and made modifications to such information, when appropriate. I personally performed the physical exam and medical decision making. Mally Gutierrez, Jan 27, 2021,17:16 RAMSEY WALTON Jan 27, 2021 07:35 MALLY GUTIERREZ DO Jan 27, 2021 17:10
[2021-01-27 07:43] LABS: ALBUMIN 2.5 GM/DL (3.2-4.5); POTASSIUM 4.5 MMOL/L (3.6-5.0)
[2021-01-27 07:44] LABS: CALCIUM 9.2 MG/DL (8.5-10.1)
[2021-01-27 07:46] LABS: TOTAL PROTEIN 6.2 GM/DL (6.4-8.2)
[2021-01-27 07:47] LABS: BILIRUBIN,TOTAL 0.4 MG/DL (0.1-1.0)
[2021-01-27 07:49] LABS: CREATININE SERUM 1.11 MG/DL (0.60-1.30)
--- NOTE | 2021-01-27 09:51 | Physical Therapy Daily Note ---
PT Daily Note-Current Subjective Patient in bed pre tx, agrees to PT, voices no complaints of pain. Appearance Patient in recliner post tx with nurse call, phone, tray, all needs met. Mental Status Patient Orientation: Person, Place, Situation Attachments: Oxygen, Hwang Catheter Transfers SCALE: Activities may be completed with or without assistive devices. 5-Uadpkegikk-cczylit completes the activity by him/herself with no assistance from a helper. 5-Set-up or Clean-up Assistance-helper sets up or cleans up; patient completes activity. [place] assists only prior to or following the activity. 4-Supervision or Touching Assistance-helper provides verbal cues and/or touching/steadying and/or contact guard assistance as patient completes act ivity. Assistance may be provided throughout the activity or intermittently. 3-Partial/Moderate Assistance-helper does LESS THAN HALF the effort. [place] lifts, holds or supports trunk or limbs, but provides less than half the effort. 2-Substantial/Maximal Assistance-helper does MORE THAN HALF the effort. [place] lifts or holds trunk or limbs and provides more than half the effort. 8-Cxemjxhbc-aexndg does ALL the effort. Patient does none of the effort to complete the activity. Or, the assistance of 2 or more helpers is required for the patient to complete the activity. If activity was not attempted, code reason: 7-Patient Refused. 9-Not Applicable-not attempted and the patient did not perform the activity before the current illness, exacerbation or injury. 10-Not Attempted due to Environmental Limitations-(lack of equipment, weather restraints, etc.). 88-Not Attempted due to Medical Conditions or Safety Concerns. Roll Left & Right (QC): 4 Lying to Sitting/Side of Bed(Q: 4 Sit to Stand (QC): 3 Chair/Svs-px-Prtyi Xfer(QC): 4 Gait Training Distance: 20' Walk 10 feet (QC): 4 Gait Persons Needed: 1 Gait Assistive Device: FWW CGA, slow ambulation, barely makes it to the recliner, states "my legs are going to give out" but she makes it. Exercises Seated Therapy Exercises: Ankle pumps, Long arc quads Seated Reps: 20 Treatments bed mobility and transfers, ambulation, LE strengthening Assessment Current Status: Fair Progress patient made a little progress with ambulation today PT Rewriter Goals Care Home Goals PT Care Home Goals Time Frame: Jan 31, 2021 Roll Left & Right (QC): 6 Sit to Lying (QC): 6 Lying-Sitting on Side/Bed(QC): 6 Sit to Stand (QC): 6 Chair/Lje-ec-Zlmkx Xfer(QC): 6 Toilet Transfer (QC): 6 Walk 10 feet (QC): 6 Walk 50ft with 2 Turns (QC): 6 Walk 150 ft (QC): 6 PT Plan Problem List Problem List: Activity Tolerance, Functional Strength, Safety, Balance, Gait, Transfer, Bed Mobility, ROM Treatment/Plan Treatment Plan: Continue Plan of Care Treatment Plan: Bed Mobility, Education, Functional Activity Wu, Functional Strength, Gait, Safety, Therapeutic Exercise, Transfers Treatment Duration: Jan 31, 2021 Frequency: 6 times per week Estimated Hrs Per Day: .5 hour per day Patient and/or Family Agrees t: Yes Safety Risks/Education Patient Education: Gait Training, Transfer Techniques, Correct Positioning, Safety Issues Teaching Recipient: Patient Teaching Methods: Demonstration, Discussion Response to Teaching: Reinforcement Needed Time/GCodes Time In: 909 Time Out: 920 Total Billed Treatment Time: 11 Total Billed Treatment 1 visit FA 11' JUAQUIN ANGELES PT Jan 27, 2021 09:51
[2021-01-27] MEDS: FOLIC ACID 1 MG TAB PO SCH (09:57)
[2021-01-27] MEDS: LACTOBACILLUS ACIDOPHILUS (PROBIOTIC) CAPSULE PO SCH ×3 (09:57→18:14)
[2021-01-27] MEDS: dilTIAZem120 MG (CARDIZEM CD) CAP PO SCH ×2 (09:57→21:10)
[2021-01-27] MEDS: SPIRONOLACTONE 25 MG (ALDACTONE) TAB PO SCH (09:57)
[2021-01-27] MEDS: SENNA W/DOCUSATE (SENOKOT S) TABLET PO SCH ×2 (09:57→21:10)
[2021-01-27] MEDS: APIXABAN 5 MG (ELIQUIS) TABLET PO SCH ×2 (09:57→21:10)
[2021-01-27] MEDS: FUROSEMIDE 40 MG (LASIX) TAB PO SCH (09:57)
[2021-01-27] MEDS: PANTOPRAZOLE 40 MG (PROTONIX) VIAL IV SCH (09:58)
[2021-01-27] MEDS: RT-ALBUTEROL SULF 2.5 MG/3 ML PRE-MIX VIAL INH SCH ×2 (10:01→21:18)
--- NOTE | 2021-01-27 10:18 | Occupational Ther Daily Note ---
OT Current Status-Daily Note Subjective Pt dozing in bed, woke to name. Pt agrees to therapy. Increased cough this am. Pt c/o pain though did not rate. Mental Status/Objective Patient Orientation: Person, Place, Time, Situation Attachments: IV, Oxygen (2L) ADL-Treatment Therapy Code Descriptions/Definitions Functional [place] Measure: 0=Not Assessed/NA 4=Minimal Assistance 1=Total Assistance 5=Supervision or Setup 2=Maximal Assistance 6=Modified [place] 3=Moderate Assistance 7=Complete IndependenceSCALE: Activities may be completed with or without assistive devices. 7-Typirvymog-nayrmcn completes the activity by him/herself with no assistance from a helper. 5-Set-up or Clean-up Assistance-helper sets up or cleans up; patient completes activity. [place] assists only prior to or following the activity. 4-Supervision or Touching Assistance-helper provides verbal cues and/or touching/steadying and/or contact guard assistance as patient completes activity. Assistance may be provided throughout the activity or intermittently. 3-Partial/Moderate Assistance-helper does LESS THAN HALF the effort. [place] lifts, holds or supports trunk or limbs, but provides less than half the effort. 2-Substantial/Maximal Assistance-helper does MORE THAN HALF the effort. [place] lifts or holds trunk or limbs and provides more than half the effort. 5-Ikogxoioh-sglxbf does ALL the effort. Patient does none of the effort to complete the activity. Or, the assistance of 2 or more helpers is required for the patient to complete the activity. If activity was not attempted, code reason: 7-Patient Refused. 9-Not Applicable-not attempted and the patient did not perform the activity before the current illness, exacerbation or injury. 10-Not Attempted due to Environmental Limitations-(lack of equipment, weather restraints, etc.). 88-Not Attempted due to Medical Conditions or Safety Concerns. Other Treatment Supine to EOB independent with HOB raised. Pt ambulated in room using FWW with assist x1 for stabilization and assist x1 to manipulate tubing. Pt able to reach out and grasp items from bed side table and demonstrates fair strength with B UE. After session, pt sitting in recliner with call light/phone in reach. All needs met in room. OT Correction Goals [employer] Goals Time Frame: Jan 30, 2021 Oral Hygiene (QC): 5 Toileting Hygiene (QC): 4 Upper Body Dressing (QC): 5 Lower Body Dressing (QC): 4 On/Off Footwear (QC): 5 1=Demonstrate adherence to instructed precautions during ADL tasks. 2=Patient will verbalize/demonstrate understanding of assistive devices/modifications for ADL. 3=Patient will improve strength/tolerance for activity to enable patient to perform ADL's. OT Education/Plan Problem List/Assessment Assessment: Decreased Activ Tolerance, Decreased UE Strength, Impaired Funct Balance, Impaired Self-Care Skills Discharge Recommendations Plan/Recommendations: Continue POC Treatment Plan/Plan of Care Patient would benefit from OT for education, treatment and training to promote independence in ADL's, mobility, safety and/or upper extremity function for ADL's. Plan of Care: ADL Retraining, Functional Mobility, Group Exercise/Act as Ind, UE Funct Exercise/Act Treatment Duration: Jan 30, 2021 Frequency: 3 times per week Estimated Hrs Per Day: .25 hour per day Agreement: Yes Rehab Potential: Fair Time/GCodes Start Time: 09:07 Stop Time: 09:22 Total Time Billed (hr/min): 15 Billed Treatment Time 1 visit-FA 1 (15 min) ABIODUN CHACON Jan 27, 2021 10:18
--- NOTE | 2021-01-27 11:39 | Progress Note - Cardiology ---
Cardiology SOAP Progress Note Subjective: Sitting up in recliner at the bedside C/O gen weakness and SOB C/O discomfort at site of hematoma Objective: I&O/Vital Signs Weight (Pounds): 122 Weight (Ounces): 0.0 Weight (Calculated Kilograms): 55.174332 Constitutional: AAO x 3, well-developed, well-nourished Respiratory: chest expansion is symmetric, chest is bilaterally symmetric, lungs clear to auscultation Cardiovascular: irregularly irregular, S1 and S2 Gastrointestional: tender, distended, audible bowel sounds Extremities: no lower extremity edema bilateral Neurologic/Psychiatric: grossly intact Skin: No rash on exposed areas, No ulcerations on exposed areas Results/Procedures: Labs Microbiology 01/26/21 Gram Stain - Final, Complete 01/26/21 Anaerobic Culture - Final, Complete No anaerobes isolated 01/26/21 Body Fluid Culture - Final, Complete No growth 01/13/21 Urine Culture - Final, Complete NO GROWTH 01/11/21 MRSA Screen - Final, Complete MRSA not isolated 01/11/21 Blood Culture - Final, Complete No growth A/P: Assessment: New acute large hematoma within the right lateral abdominal wall - likely related to sc enoxaparin injections Acute pancreatitis and pancreatic pseudocyst - management per medical/eICU/GI services Permanent a-fib - currently OAC is being held and she is on enoxaparin - Echocardiogram 06-02-[address] Davis showed normal left ventricle size and function ejection fraction 55-65 percent, PA pressure 40-45 mmHg - Lexiscan Myoview stress test was done on August 15, [address] Davis showing no ischemia or infarction, EF 74% Mild bilateral carotid stenosis, ultrasound was done in February 28, [address] Davis Hypertension Hyperlipidemia Plan: Enoxaparin d/c'd and apixaban initiated Continue to monitor closely, including labs Possible dc to [facility] CASSANDRA RAI Jan 27, 2021 11:39
--- NOTE | 2021-01-27 11:44 | Progress Note - Hospitalist ---
NAGI JACKSON MED STUDENT 01/27/21 1144: Subjective HPI/CC On Admission Date Seen by Provider: Jan 27, 2021 Time Seen by Provider: 08:20 Chief complaint: Atrial fibrillation with rapid ventricular response with acute pancreatitis and severe sepsis History present illness: This is a 70-year-old white female who drinks wine with heavy use who presented to the ER with a couple of days of nausea and vomiting and not feeling well with abdominal pain. She was found to be in atrial fibrillation with rapid ventricular response in addition to hypotension requiring aggressive IV fluid at 30 cc/KG and found to have acute pancreatitis. Dr. Vale obtained U/S this morning. Zosyn was started. Cardiology consulted for atrial fibrillation with right ventricular response. Patient sees Dr. Davis on a regular basis for atrial fibrillation. Currently in the ICU. Subjective/Events-last exam Mrs. Schroeder is a 70 yo female with a history of A.fib and alcohol use that presented to the ER on 01/11 for R sided abdominal pain of a couple days. She was tachycardic and had some vomiting. She was found to be in Afib, Hypotensive, septic, and had Pancreatitis. She was started on ABX and a cardizem drip. Admitted to the hospital with surgical consult. She was put on bowel rest. She advanced her diet from clear liquids to solids and did fine. Her lipase came down and the pancreatitis resolved. She was also found at one point to have bilateral lung effusions. On 01/26 she underwent thoracentesis of 500ml fluid. She also had a large hematoma on her R side that was painful and limited her breathing. She used her IS regularly though. She was also weaned down from vapotherm to 2l NC. She was on CIWA protocol due to her heavy alcohol usage. She was ready for discharge on 01/27 Today Mrs Schroeder is sitting up in bed. She states she is feeling okay and not having any pain. She does say her hematoma hurts when she coughs. She is doing PT and using her IS. LBM was evening before last night. She currently has a alas catheter. Underwent thoracentesis yesterday with ~500ml removed. Review of Systems General: No Chills, No Night Sweats HEENT: No Head Aches, No Visual Changes, No Dysphasia Pulmonary: No Dyspnea; Cough; No Pleuritic Chest Pain Cardiovascular: Chest Pain (R side hematoma); No: Palpitations, Edema Gastrointestinal: Constipation; No: Nausea, Vomiting, Abdominal Pain, Diarrhea, Melena Genitourinary: No Dysuria, No Frequency, No Incontinence; Other (alas) Musculoskeletal: No: leg pain, foot pain Objective Exam Vital Signs Vital Signs Date Time Temp Pulse Resp B/P (MAP) Pulse Ox O2 Delivery O2 Flow Rate FiO2 01/27/21 10:02 96 Nasal Cannula 2.00 01/27/21 08:00 36.5 101 18 116/76 01/26/21 08:00 50 Capillary Refill : Less Than 3 Seconds General Appearance: No Apparent Distress, Chronically ill, Other (Pt seems weak and a little lethargic) HEENT: Moist Mucous Membranes Neck: Supple Respiratory: Chest Non Tender, Lungs Clear, Normal Breath Sounds, No Accessory Muscle Use, No Respiratory Distress, Other (Large R side hematoma, pain with inspiration) Cardiovascular: Regular Rate, Rhythm, No Edema, No Murmur, Normal Peripheral Pulses Gastrointestinal: Normal Bowel Sounds, No Organomegaly, No Pulsatile Mass, Non Tender, Soft Rectal: Deferred Extremity: Normal Capillary Refill, Normal Inspection, Non Tender, No Calf Tenderness, No Pedal Edema Neurologic/Psychiatric: Alert, Oriented x3, Normal Mood/Affect Skin: Normal Color, Warm/Dry Results/Procedures Lab Laboratory Tests 01/27/21 07:25 Patient resulted labs reviewed. Imaging: Reviewed Imaging Report Radiology NAME: SHOBHA SCHROEDER [facility] REC#: [id number] PT STATUS: ADM IN : 1950 PHYSICIAN: MALLY MONTES DO ADMIT DATE: 01/11/21 Signed Date of Exam:01/26/21 CHEST 1 VIEW, AP/PA ONLY INDICATION: Chest pain Portable chest at 1:41 PM Right extremity PICC line tip projects over the SVC. There are infiltrates present throughout both lungs. There is no appreciable effusion or pneumothorax. IMPRESSION: Diffuse alveolar infiltrates in the lungs. No appreciable change from earlier in the day. Dictated by: Dictated on workstation # [id number] Dict: 01/26/21 1353 Trans: 01/26/21 9961 CVB [id number] Interpreted by: ANDREWS COX MD Electronically signed by: ANDREWS COX MD 01/26/21 1405 Assessment/Plan Assessment and Plan Assess & Plan/Chief Complaint ARF Abdominal wall hematoma -Thoracentesis yesterday, pt states she feels a bit better -Pain with inspiration, worried about atelectasis, she is using her exhalation breathing device -On 2l NC down from vapotherm -Should wean as best as possible -Pt states she is getting better Pancreatitis -Improving -Pt states her pain is better -Continue to follow A. fib -HR 93 this morning -On diltiazem, continue to monitor HTN 120/73 today continue to monitor Chronic Alcohol Use -On protocol -Denies tremors and seizures -Has Lorazepam PRN Pt possibly discharged today ANAID IBRAHIM DO 01/28/21 0616: Subjective Subjective/Events-last exam Pt appears to be very debilitated Will DC telemetry Thoracentesis removed 500cc of fluid No off Vapotherm Lovenox will be restarted Review of Systems General: Fatigue, Malaise Objective Exam General Appearance: No Apparent Distress, WD/WN, Chronically ill Respiratory: Lungs Clear, Normal Breath Sounds Cardiovascular: Regular Rate, Rhythm Neurologic/Psychiatric: Alert, Oriented x3 Assessment/Plan Assessment and Plan Assess & Plan/Chief Complaint Supportive care Supervisory-Addendum Brief Verification & Attestation Participated in pt care: history, MDM, physical Personally performed: exam, history, MDM, supervision of care Care discussed with: Medical Student Procedures: n/a Results interpretation: Verified all documentation Verification and Attestation of Medical Student E/M Service A medical student performed and documented this service in my presence. I reviewed and verified all information documented by the medical student and made modifications to such information, when appropriate. I personally performed the physical exam and medical decision making. Anaid Ibrahim, Jan 28, 2021,06:15 NAGI JACKSON MED STUDENT Jan 27, 2021 11:44 ANAID IBRAHIM DO Jan 28, 2021 06:16
[2021-01-27] MEDS: ALPRAZolam 0.5 MG (XANAX) TAB PO PRN (15:23)
--- NOTE | 2021-01-27 18:25 | Progress Note - Cardiology ---
Cardiology SOAP Progress Note Subjective: No cp or palp or syncope or shortness of breath at rest Abd pain as before No n/v/d Gen malaise and weakness present Objective: I&O/Vital Signs 01/27/21 01/27/21 01/27/21 01/27/21 07:00 08:00 08:00 10:01 Temp 36.5 Pulse 94 101 Resp 18 B/P (MAP) 116/76 Pulse Ox 96 96 83 O2 Delivery Nasal Cannula Nasal Cannula Room Air O2 Flow Rate 2.00 2.00 0.00 01/27/21 01/27/21 01/27/21 10:02 12:00 15:46 Temp 36.5 36.7 Pulse 101 110 Resp 18 20 B/P (MAP) 116/76 127/63 Pulse Ox 96 96 96 O2 Delivery Nasal Cannula Nasal Cannula Nasal Cannula O2 Flow Rate 2.00 2.00 2.00 2.00 01/27/21 00:00 Intake Total 1360 ml Output Total 1700 ml Balance -340 ml Weight (Pounds): 122 Weight (Ounces): 0.0 Weight (Calculated Kilograms): [id number] Constitutional: AAO x 3, well-developed, well-nourished Respiratory: chest expansion is symmetric, chest is bilaterally symmetric, lungs clear to auscultation Cardiovascular: irregularly irregular, S1 and S2 Gastrointestional: tender, distended, audible bowel sounds Extremities: no lower extremity edema bilateral Neurologic/Psychiatric: grossly intact Skin: No rash on exposed areas, No ulcerations on exposed areas Results/Procedures: Labs Laboratory Tests 01/27/21 07:25: White Blood Count 11.4H, Red Blood Count 3.06L, Hemoglobin 10.1L, Hematocrit 30L , Mean Corpuscular Volume 98, Mean Corpuscular Hemoglobin 33, Mean Corpuscular Hemoglobin Concent 34, Red Cell Distribution Width 13.6, Platelet Count 383, Mean Platelet Volume 10.6, Immature Granulocyte % (Auto) 1, Neutrophils (%) (Auto) 74, Lymphocytes (%) (Auto) 10L, Monocytes (%) (Auto) 13H, Eosinophils (%) (Auto) 2, Basophils (%) (Auto) 0, Neutrophils # (Auto) 8.4H, Lymphocytes # (Auto) 1.2, Monocytes # (Auto) 1.5H, Eosinophils # (Auto) 0.2, Basophils # (Auto) 0.0, Immature Granulocyte # (Auto) 0.2H, Sodium Level 133L, Potassium Level 4.5, Chloride Level 93L, Carbon Dioxide Level 32, Anion Gap 8, Blood Urea Nitrogen 21H, Creatinine 1.11, Estimat Glomerular Filtration Rate 49, BUN/Creatinine Ratio 19, Glucose Level 93, Calcium Level 9.2, Corrected Calcium 10.4H, Total Bilirubin 0.4, Aspartate Amino Transf (AST/SGOT) 48H, Alanine Aminotransferase (ALT/SGPT) 34, Alkaline Phosphatase 84, Total Protein 6.2L, Albumin 2.5L Microbiology 01/26/21 Gram Stain - Final, Resulted 01/26/21 Anaerobic Culture, Resulted Pending 01/26/21 Body Fluid Culture - Preliminary, Resulted No growth 01/13/21 Urine Culture - Final, Complete NO GROWTH 01/11/21 MRSA Screen - Final, Complete MRSA not isolated 01/11/21 Blood Culture - Final, Complete No growth Laboratory Tests 01/26/21 06:20 01/27/21 07:25 A/P: Assessment: New acute large hematoma within the right lateral abdominal wall (on abd CT of 01/24/21) - likely related to sc enoxaparin injections Acute pancreatitis and pancreatic pseudocyst - management per medical/eICU/GI services Permanent a-fib - currently OAC is being held and she is on enoxaparin - Echocardiogram 06-02-[address] Davis showed normal left ventricle size and function ejection fraction 55-65 percent, PA pressure 40-45 mmHg - Lexiscan Myoview stress test was done on August 15, [address] Davis showing no ischemia or infarction, EF 74% Mild bilateral carotid stenosis, ultrasound was done in February 28, [address] Davis Hypertension Hyperlipidemia Plan: Enoxaparin d/c'd and apixaban initiated Continue to monitor closely, including labs Possible dc to [facility] FRANNY CLARK MD FACP FAC CCDS Jan 27, 2021 18:25
[2021-01-28] MEDS: THIAMINE 100 MG (VITAMIN B-1) TAB PO SCH (06:12)
[2021-01-28 06:27] LABS: BASOPHILS % (AUTO) 0 % (0-10); EOSINOPHILS # (AUTO) 0.2 10^3/uL (0.0-0.3); EOSINOPHILS % (AUTO) 2 % (0-10); HEMATOCRIT 28 % (35-52); HEMOGLOBIN 9.4 g/dL (11.5-16.0); LYMPHOCYTES # (AUTO) 1.2 10^3/uL (1.0-4.0); LYMPHOCYTES % (AUTO) 12 % (12-44); MEAN CORPUSCULAR HEMOGLOBIN 34 pg (25-34); MEAN CORPUSCULAR HGB CONC 34 g/dL (32-36); MEAN CORPUSCULAR VOLUME 99 fL (80-99); MEAN PLATELET VOLUME 10.8 fL (9.0-12.2); MONOCYTES # (AUTO) 1.3 10^3/uL (0.0-1.0); MONOCYTES % (AUTO) 13 % (0-12); NEUTROPHILS # (AUTO) 7.1 10^3/uL (1.8-7.8); NEUTROPHILS % (AUTO) 71 % (42-75); PLATELET COUNT 384 10^3/uL (130-400)
[2021-01-28 06:41] LABS: ALBUMIN 2.4 GM/DL (3.2-4.5); POTASSIUM 4.4 MMOL/L (3.6-5.0)
[2021-01-28 06:42] LABS: CALCIUM 9.3 MG/DL (8.5-10.1)
[2021-01-28 06:43] LABS: TOTAL PROTEIN 5.9 GM/DL (6.4-8.2)
[2021-01-28 06:45] LABS: BILIRUBIN,TOTAL 0.3 MG/DL (0.1-1.0)
[2021-01-28 06:47] LABS: CREATININE SERUM 1.14 MG/DL (0.60-1.30)
--- NOTE | 2021-01-28 06:49 | Progress Note - Hospitalist ---
Subjective HPI/CC On Admission Date Seen by Provider: Jan 28, 2021 Time Seen by Provider: 09:30 Chief complaint: Atrial fibrillation with rapid ventricular response with acute pancreatitis and severe sepsis History present illness: This is a 70-year-old white female who drinks wine with heavy use who presented to the ER with a couple of days of nausea and vomiting and not feeling well with abdominal pain. She was found to be in atrial fibrillation with rapid ventricular response in addition to hypotension requiring aggressive IV fluid at 30 cc/KG and found to have acute pancreatitis. Dr. Vale obtained U/S this morning. Zosyn was started. Cardiology consulted for atrial fibrillation with right ventricular response. Patient sees Dr. Davis on a regular basis for atrial fibrillation. Currently in the ICU. Subjective/Events-last exam Pt doing a little better [facility] looking at her for alf placement She is straining to have a BM Will start giving more laxatives She is off oxygen now Decreasing pain pills also Review of Systems General: Fatigue, Malaise Pulmonary: Dyspnea Gastrointestinal: Constipation Objective Exam Vital Signs Vital Signs Date Time Temp Pulse Resp B/P (MAP) Pulse Ox O2 Delivery O2 Flow Rate FiO2 01/29/21 04:31 36.2 80 18 112/70 98 Nasal Cannula 1.50 01/26/21 08:00 50 Capillary Refill : Less Than 3 Seconds General Appearance: No Apparent Distress, WD/WN, Chronically ill, Other (Very debilitated) Respiratory: Lungs Clear, Normal Breath Sounds, Decreased Breath Sounds Cardiovascular: Regular Rate, Rhythm Neurologic/Psychiatric: Alert, Oriented x3, No Motor/Sensory Deficits, Normal Mood/Affect Results/Procedures Lab Laboratory Tests 01/28/21 06:18 Patient resulted labs reviewed. Imaging: Reviewed Imaging Report Assessment/Plan Assessment and Plan Assess & Plan/Chief Complaint Assessment: ARF Abdominal wall hematoma -Thoracentesis 2 days ago, pt states she feels a bit better -Pain with inspiration, worried about atelectasis, she is using her exhalation breathing device -Oxygen titrated off Pancreatitis -Improving -Pt states her pain is better -Continue to follow A. fib -HR 93 this morning -On diltiazem, continue to monitor HTN 120/73 today continue to monitor Chronic Alcohol Use -On protocol -Denies tremors and seizures -Has Lorazepam PRN 01/28/2021: Supportive care Wean oxygen [facility]PC placement Critical Care Critically Ill Patient Diagnosis/Problems Diagnosis/Problems (1) Atrial fibrillation with rapid ventricular response Onset Date: ~ 01/11/2021 Status: Acute (2) Hypertension Status: Chronic Qualifiers: Hypertension type: primary hypertension Qualified Codes: I10 - Essential (primary) hypertension (3) Leukocytosis Onset Date: ~ 01/11/2021 Status: Acute Qualifiers: Leukocytosis type: other Qualified Codes: D72.828 - Other elevated white b lood cell count (4) On continuous oral anticoagulation Status: Chronic (5) Osteoporosis Status: Chronic (6) Severe sepsis Onset Date: ~ 01/11/2021 Status: Resolved Resolution Date/Time: 01/12/21 @ 16:00 (7) Pancreatitis Onset Date: ~ 01/09/2021 Status: Acute Qualifiers: Chronicity: acute Pancreatitis type: alcohol induced Acute pancreatitis complication: no infection or necrosis Qualified Codes: K85.20 - Alcohol induced acute pancreatitis without necrosis or infection ANAID IBRAHIM DO Jan 28, 2021 06:49
--- NOTE | 2021-01-28 07:13 | Progress Note - Surgery ---
Subjective Date Seen by a Provider: Jan 28, 2021 Time Seen by a Provider: 07:10 Subjective/Events-last exam Breathing easier. Using incentive spirometer. Still right flank pain. Denies n/v fever sweats chills or chest pain. Objective Exam Vital Signs Date Time Temp Pulse Resp B/P (MAP) Pulse Ox O2 Delivery O2 Flow Rate FiO2 01/28/21 03:57 36.0 92 20 112/70 96 Nasal Cannula 2.00 01/27/21 23:52 36.1 100 20 113/71 98 Nasal Cannula 2.00 01/27/21 23:22 36.3 01/27/21 21:18 98 Nasal Cannula 2.00 01/27/21 20:00 Nasal Cannula 2.00 01/27/21 19:23 36.3 97 22 121/77 98 Nasal Cannula 2.00 01/27/21 15:46 36.7 110 20 127/63 96 Nasal Cannula 2.00 01/27/21 12:00 36.5 101 18 116/76 96 Nasal Cannula 2.00 2.00 01/27/21 10:02 96 Nasal Cannula 2.00 01/27/21 10:01 83 Room Air 0.00 01/27/21 08:00 36.5 101 18 116/76 96 Nasal Cannula 2.00 01/27/21 08:00 96 Nasal Cannula 2.00 I & O 01/28/21 07:00 Intake Total 2218 ml Output Total 2525 ml Balance -307 ml Capillary Refill : Less Than 3 Seconds General Appearance: No Apparent Distress, WD/WN, Chronically ill HEENT: PERRL/EOMI Neck: Full Range of Motion, Non Tender, Supple Respiratory: Chest Non Tender, Normal Breath Sounds Cardiovascular: Regular Rate, Rhythm, No JVD Peripheral Pulses: 2+ Radial Pulses (R), 2+ Radial Pulses (L) Gastrointestinal: non tender, soft, distended (Minimal), other (right flank tender with bruising) Extremity: Non Tender, No Calf Tenderness Neurologic/Psychiatric: Alert, Oriented x3 Skin: Normal Color, Warm/Dry, Ecchymosis (Tenderness and yellowing/fadding ecchymosis on lower right side flank with hematoma) Lymphatic: No Adenopathy (cervical and axillary) Results Lab Laboratory Tests 01/27/21 07:25: White Blood Count 11.4H, Red Blood Count 3.06L, Hemoglobin 10.1L, Hematocrit 30L , Mean Corpuscular Volume 98, Mean Corpuscular Hemoglobin 33, Mean Corpuscular Hemoglobin Concent 34, Red Cell Distribution Width 13.6, Platelet Count 383, Mean Platelet Volume 10.6, Immature Granulocyte % (Auto) 1, Neutrophils (%) (Auto) 74, Lymphocytes (%) (Auto) 10L, Monocytes (%) (Auto) 13H, Eosinophils (%) (Auto) 2, Basophils (%) (Auto) 0, Neutrophils # (Auto) 8.4H, Lymphocytes # (Auto) 1.2, Monocytes # (Auto) 1.5H, Eosinophils # (Auto) 0.2, Basophils # (Auto) 0.0, Immature Granulocyte # (Auto) 0.2H, Sodium Level 133L, Potassium Level 4.5, Chloride Level 93L, Carbon Dioxide Level 32, Anion Gap 8, Blood Urea Nitrogen 21H, Creatinine 1.11, Estimat Glomerular Filtration Rate 49, BUN/Creatinine Ratio 19, Glucose Level 93, Calcium Level 9.2, Corrected Calcium 10.4H, Total Bilirubin 0.4, Aspartate Amino Transf (AST/SGOT) 48H, Alanine Aminotransferase (ALT/SGPT) 34, Alkaline Phosphatase 84, Total Protein 6.2L, Albumin 2.5L 01/28/21 06:18: White Blood Count 10.0, Red Blood Count 2.79L, Hemoglobin 9.4L, Hematocrit 28L, Mean Corpuscular Volume 99, Mean Corpuscular Hemoglobin 34, Mean Corpuscular Hemoglobin Concent 34, Red Cell Distribution Width 13.4, Platelet Count 384, Mean Platelet Volume 10.8, Immature Granulocyte % (Auto) 1, Neutrophils (%) (Auto) 71, Lymphocytes (%) (Auto) 12, Monocytes (%) (Auto) 13H, Eosinophils (%) (Auto) 2, Basophils (%) (Auto) 0, Neutrophils # (Auto) 7.1, Lymphocytes # (Auto) 1.2, Monocytes # (Auto) 1.3H, Eosinophils # (Auto) 0.2, Basophils # (Auto) 0.0, Immature Granulocyte # (Auto) 0.1, Sodium Level 134L, Potassium Level 4.4, Chloride Level 95L, Carbon Dioxide Level 31, Anion Gap 8, Blood Urea Nitrogen 22H, Creatinine 1.14, Estimat Glomerular Filtration Rate 47, BUN/Creatinine Ratio 19, Glucose Level 86, Calcium Level 9.3, Corrected Calcium 10.6H, Total Bilirubin 0.3, Aspartate Amino Transf (AST/SGOT) 45H, Alanine Aminotransferase (ALT/SGPT) 29, Alkaline Phosphatase 72, Total Protein 5.9L, Albumin 2.4L Microbiology 01/26/21 Gram Stain - Final, Resulted 01/26/21 Anaerobic Culture, Resulted Pending 01/26/21 Body Fluid Culture - Preliminary, Resulted No growth 01/13/21 Urine Culture - Final, Complete NO GROWTH 01/11/21 MRSA Screen - Final, Complete MRSA not isolated 01/11/21 Blood Culture - Final, Complete No growth Assessment/Plan Assessment/Plan Assessment/Plan Acute pancreatitis with multiloculated pseudocyst Acute Respiratory Failure Pneumonia b/l Afib Anticogulation Ecchymosis and small hematoma on right side Pleural effusion bilateral HTN Right hip pain - xray neg thoracentesis left side 2 days ago x ray improved afterwards hematoma right flank cause of pain should resolve on own. multiloculated pseudocyst recommend gi follow up for possilbe eus and cystgastrostomy will sign off, call if needed. MALLY MONTES DO Jan 28, 2021 07:13
[2021-01-28] MEDS: FUROSEMIDE 40 MG (LASIX) TAB PO SCH (08:51)
[2021-01-28] MEDS: dilTIAZem120 MG (CARDIZEM CD) CAP PO SCH ×2 (08:51→20:07)
[2021-01-28] MEDS: SENNA W/DOCUSATE (SENOKOT S) TABLET PO SCH ×2 (08:51→20:07)
[2021-01-28] MEDS: FOLIC ACID 1 MG TAB PO SCH (08:51)
[2021-01-28] MEDS: PANTOPRAZOLE 40 MG (PROTONIX) VIAL IV SCH (08:51)
[2021-01-28] MEDS: LACTOBACILLUS ACIDOPHILUS (PROBIOTIC) CAPSULE PO SCH ×3 (08:51→17:58)
[2021-01-28] MEDS: SPIRONOLACTONE 25 MG (ALDACTONE) TAB PO SCH (08:51)
[2021-01-28] MEDS: APIXABAN 5 MG (ELIQUIS) TABLET PO SCH ×2 (08:52→20:07)
[2021-01-28] MEDS: RT-ALBUTEROL SULF 2.5 MG/3 ML PRE-MIX VIAL INH SCH ×2 (10:05→21:30)
--- NOTE | 2021-01-28 10:26 | Physical Therapy Daily Note ---
PT Daily Note-Current Subjective Patient in restroom pre tx, taking a shower with OT, has 4/10 abdominal pain, agrees to PT. Patient states she is very tired and wants to get back to bed. Appearance Patient in bed post tx with nurse call, phone, tray, all needs met. Mental Status Patient Orientation: Person, Place, Situation Attachments: Oxygen, Hwang Catheter Transfers SCALE: Activities may be completed with or without assistive devices. 1-Wxmhoxqlhp-ipbuipz completes the activity by him/herself with no assistance from a helper. 5-Set-up or Clean-up Assistance-helper sets up or cleans up; patient completes activity. [place] assists only prior to or following the activity. 4-Supervision or Touching Assistance-helper provides verbal cues and/or touching/steadying and/or contact guard assistance as patient completes activity. Assistance may be provided throughout the activity or intermittently. 3-Partial/Moderate Assistance-helper does LESS THAN HALF the effort. [place] lifts, holds or supports trunk or limbs, but provides less than half the effort. 2-Substantial/Maximal Assistance-helper does MORE THAN HALF the effort. [place] lifts or holds trunk or limbs and provides more than half the effort. 4-Finfvjbdr-rezfna does ALL the effort. Patient does none of the effort to complete the activity. Or, the assistance of 2 or more helpers is required for the patient to complete the activity. If activity was not attempted, code reason: 7-Patient Refused. 9-Not Applicable-not attempted and the patient did not perform the activity before the current illness, exacerbation or injury. 10-Not Attempted due to Environmental Limitations-(lack of equipment, weather restraints, etc.). 88-Not Attempted due to Medical Conditions or Safety Concerns. Roll Left & Right (QC): 6 Sit to Lying (QC): 4 Sit to Stand (QC): 4 Chair/Uev-po-Jmaic Xfer(QC): 4 occasional cue for hand placement and safety Gait Training Distance: 10' Walk 10 feet (QC): 4 Gait Persons Needed: 1 Gait Assistive Device: FWW slow but steady ambulation Treatments bed mobility and transfers, ambulation Assessment Current Status: Poor Progress slowly improving functional mobility PT Senior Care Goals Senior Care Goals PT Senior Care Goals Time Frame: Jan 31, 2021 Roll Left & Right (QC): 6 Sit to Lying (QC): 6 Lying-Sitting on Side/Bed(QC): 6 Sit to Stand (QC): 6 Chair/Tub-mx-Ybjqs Xfer(QC): 6 Toilet Transfer (QC): 6 Walk 10 feet (QC): 6 Walk 50ft with 2 Turns (QC): 6 Walk 150 ft (QC): 6 PT Plan Problem List Problem List: Activity Tolerance, Functional Strength, Safety, Balance, Gait, Transfer, Bed Mobility, ROM Treatment/Plan Treatment Plan: Continue Plan of Care Treatment Plan: Bed Mobility, Education, Functional Activity Wu, Functional Strength, Gait, Safety, Therapeutic Exercise, Transfers Treatment Duration: Jan 31, 2021 Frequency: 6 times per week Estimated Hrs Per Day: .5 hour per day Patient and/or Family Agrees t: Yes Safety Risks/Education Patient Education: Gait Training, Transfer Techniques, Correct Positioning, Safety Issues Teaching Recipient: Patient Teaching Methods: Demonstration, Discussion Response to Teaching: Reinforcement Needed Time/GCodes Time In: 920 Time Out: 934 Total Billed Treatment Time: 14 Total Billed Treatment 1 visit FA JUAQUIN FORBES PT Jan 28, 2021 10:26
--- NOTE | 2021-01-28 11:09 | Occupational Ther Daily Note ---
OT Current Status-Daily Note Subjective Pt alert, lying in bed. Pt stated that she had told nrsg that she wanted a shower today. Pt agrees to therapy. C/o L upper side torso pain. Mental Status/Objective Patient Orientation: Person, Place, Time, Situation Attachments: Hwang Catheter, IV, Oxygen ADL-Treatment Supine <--> EOB independent. CGA using FWW to ambulate bathroom <--> EOB. Transferred to toilet SBA using FWW. Pt attempted to cleanse self after BM with max encouragement, assist to thoroughly cleanse. Pt then transferred to shower with SBA using FWW, grabbars and bench. Sitting on bench, pt able to reach upper body, tiffanie area and upper legs by self. Pt fatigues quickly. Assist to [facility] gown and socks. After therapy, pt lying in bed with call light/phone in reach. Nrsg aware of pt's position. Therapy Code Descriptions/Definitions Functional [place] Measure: 0=Not Assessed/NA 4=Minimal Assistance 1=Total Assistance 5=Supervision or Setup 2=Maximal Assistance 6=Modified [place] 3=Moderate Assistance 7=Complete IndependenceSCALE: Activities may be completed with or without assistive devices. 8-Oqmwiaghot-xsadrbn completes the activity by him/herself with no assistance from a helper. 5-Set-up or Clean-up Assistance-helper sets up or cleans up; patient completes activity. [place] assists only prior to or following the activity. 4-Supervision or Touching Assistance-helper provides verbal cues and/or touching/steadying and/or contact guard assistance as patient completes activity. Assistance may be provided throughout the activity or intermittently. 3-Partial/Moderate Assistance-helper does LESS THAN HALF the effort. [place] lifts, holds or supports trunk or limbs, but provides less than half the effort. 2-Substantial/Maximal Assistance-helper does MORE THAN HALF the effort. [place] lifts or holds trunk or limbs and provides more than half the effort. 7-Zmqrpmree-hjdibd does ALL the effort. Patient does none of the effort to complete the activity. Or, the assistance of 2 or more helpers is required for the patient to complete the activity. If activity was not attempted, code reason: 7-Patient Refused. 9-Not Applicable-not attempted and the patient did not perform the activity before the current illness, exacerbation or injury. 10-Not Attempted due to Environmental Limitations-(lack of equipment, weather restraints, etc.). 88-Not Attempted due to Medical Conditions or Safety Concerns. Bathing Location: L Arm, R Arm, L Upper Leg, R Upper Leg, Chest, Abdomen, Perineal Area Shower/Bathe Self (QC): 3 Upper Body Dressing (QC): 3 On/Off Footwear: 2 Toileting Hygiene (QC): 2 Toilet Transfer (QC): 4 OT Bosom Presser Goals Senior Care Goals Time Frame: Jan 30, 2021 Oral Hygiene (QC): 5 Toileting Hygiene (QC): 4 Upper Body Dressing (QC): 5 Lower Body Dressing (QC): 4 On/Off Footwear (QC): 5 1=Demonstrate adherence to instructed precautions during ADL tasks. 2=Patient will verbalize/demonstrate understanding of assistive devices/modifications for ADL. 3=Patient will improve strength/tolerance for activity to enable patient to perform ADL's. OT Education/Plan Problem List/Assessment Assessment: Decreased Activ Tolerance, Decreased UE Strength, Impaired Self- Care Skills Discharge Recommendations Plan/Recommendations: Continue POC Treatment Plan/Plan of Care Patient would benefit from OT for education, treatment and training to promote independence in ADL's, mobility, safety and/or upper extremity function for ADL's. Plan of Care: ADL Retraining, Functional Mobility, Group Exercise/Act as Ind, UE Funct Exercise/Act Treatment Duration: Jan 30, 2021 Frequency: 3 times per week Estimated Hrs Per Day: .25 hour per day Agreement: Yes Rehab Potential: Fair Time/GCodes Start Time: 08:45 Stop Time: 09:35 Total Time Billed (hr/min): 50 Billed Treatment Time 1 visit-ADL 3 (50 min) ABIODUN CHACON Jan 28, 2021 11:09
--- NOTE | 2021-01-28 19:30 | Cardiology Progress Note ---
Progress Note-Cardiology Events since last exam Date Seen by Provider: Jan 28, 2021 Time Seen by Provider: 19:24 Events since last exam We are following her due to permanent atrial fibrillation. She normally follows with Dr. Davis. She still has a fair amount of abdominal discomfort related to the abdominal wall hematoma as well as the pancreatitis. She denies chest discomfort, dyspnea, palpitations, or syncope. She has mild ankle edema. Certain portions of this document may have been dictated utilizing voice recognition technology. Inherent to this technology, typographical and grammatical errors may exist. As much as I am diligent to identify and correct these mistakes, some errors may remain in the document. Vitals Last set of Vitals Signs Vital Signs 01/26/21 01/28/21 08:00 16:00 Temp 36.2 Pulse 105 Resp 20 B/P (MAP) 122/86 Pulse Ox 97 O2 Delivery Nasal Cannula O2 Flow Rate 1.50 FiO2 50 Labs Labs Laboratory Tests 01/28/21 06:18 Exam Vital Signs Vital Signs Date Time Temp Pulse Resp B/P (MAP) Pulse Ox O2 Delivery O2 Flow Rate FiO2 01/28/21 16:00 36.2 105 20 122/86 97 Nasal Cannula 1.50 01/26/21 08:00 50 Physical Exam General: Alert. No acute distress. Eye: No xanthelasma. HENT: Normocephalic. Neck: Jugular venous pressure does not appear elevated. Respiratory: Lungs are clear to auscultation. Respirations are non-labored. Breath sounds are equal. Symmetrical chest wall expansion. Cardiovascular: Tachycardia with irregular rhythm. No murmur. No gallop. Trace bilateral pretibial edema. Gastrointestinal: Soft. Normal bowel sounds. Abdomen is tender. Skin: Warm. Dry. Neurologic: Alert and oriented to person, place, time. Cranial nerves 3-11 grossly intact. Psychiatric: Cooperative. Appropriate mood & affect. Labs Laboratory Tests Test 01/28/21 06:18 Range/Units White Blood Count 10.0 4.3-11.0 10^3/uL Red Blood Count 2.79 L 3.80-5.11 10^6/uL Hemoglobin 9.4 L 11.5-16.0 g/dL Hematocrit 28 L 35-52 % Mean Corpuscular Volume 99 80-99 fL Mean Corpuscular Hemoglobin 34 25-34 pg Mean Corpuscular Hemoglobin Concent 34 32-36 g/dL Red Cell Distribution Width 13.4 10.0-14.5 % Platelet Count 384 130-400 10^3/uL Mean Platelet Volume 10.8 9.0-12.2 fL Immature Granulocyte % (Auto) 1 % Neutrophils (%) (Auto) 71 42-75 % Lymphocytes (%) (Auto) 12 12-44 % Monocytes (%) (Auto) 13 H 0-12 % Eosinophils (%) (Auto) 2 0-10 % Basophils (%) (Auto) 0 0-10 % Neutrophils # (Auto) 7.1 1.8-7.8 10^3/uL Lymphocytes # (Auto) 1.2 1.0-4.0 10^3/uL Monocytes # (Auto) 1.3 H 0.0-1.0 10^3/uL Eosinophils # (Auto) 0.2 0.0-0.3 10^3/uL Basophils # (Auto) 0.0 0.0-0.1 10^3/uL Immature Granulocyte # (Auto) 0.1 0.0-0.1 10^3/uL Sodium Level 134 L 135-145 MMOL/L Potassium Level 4.4 3.6-5.0 MMOL/L Chloride Level 95 L 98-107 MMOL/L Carbon Dioxide Level 31 21-32 MMOL/L Anion Gap 8 5-14 MMOL/L Blood Urea Nitrogen 22 H 7-18 MG/DL Creatinine 1.14 0.60-1.30 MG/DL Estimat Glomerular Filtration Rate 47 BUN/Creatinine Ratio 19 Glucose Level 86 70-105 MG/DL Calcium Level 9.3 8.5-10.1 MG/DL Corrected Calcium 10.6 H 8.5-10.1 MG/DL Total Bilirubin 0.3 0.1-1.0 MG/DL Aspartate Amino Transf (AST/SGOT) 45 H 5-34 U/L Alanine Aminotransferase (ALT/SGPT) 29 0-55 U/L Alkaline Phosphatase 72 40-136 U/L Total Protein 5.9 L 6.4-8.2 GM/DL Albumin 2.4 L 3.2-4.5 GM/DL Diagnosis/Problems Diagnosis/Problems (1) Permanent atrial fibrillation Assessment & Plan: She is on diltiazem for rate control and apixaban for stroke prophylaxis. These will be continued. She was supposed to be seen in our office in about 2 weeks. I will ask our office to have her appointment rescheduled. (2) Primary hypertension Assessment & Plan: Blood pressure is reasonably controlled with diltiazem which should be continued. (3) Mixed hyperlipidemia Assessment & Plan: Atorvastatin has been ordered. LDL was well controlled on her outpatient dose of atorvastatin. (4) Abdominal wall hematoma Status: Acute Assessment & Plan: This has been presumed to be related to enoxaparin injections. She has now been changed back over to oral apixaban. Problem Qualifiers (1) Abdominal wall hematoma: Encounter type: initial encounter Qualified Codes: S30.1XXA - Contusion of abdominal wall, initial encounter RAMSEY BARKER JR, MD Jan 28, 2021 19:30
[2021-01-28] MEDS: ACETAMINOPHEN 325 MG TABLET PO PRN (20:07)
[2021-01-28] MEDS: ALPRAZolam 0.5 MG (XANAX) TAB PO PRN (20:07)
[2021-01-28] MEDS: MELATONIN 3 MG TABLET PO PRN (20:07)
[2021-01-28] MEDS: AtorvaSTATin TABLET 10 MG TABLET PO SCH (21:24)
[2021-01-29] MEDS: THIAMINE 100 MG (VITAMIN B-1) TAB PO SCH (06:12)
[2021-01-29 06:27] LABS: BASOPHILS % (AUTO) 0 % (0-10); EOSINOPHILS # (AUTO) 0.2 10^3/uL (0.0-0.3); EOSINOPHILS % (AUTO) 2 % (0-10); HEMATOCRIT 28 % (35-52); HEMOGLOBIN 9.4 g/dL (11.5-16.0); LYMPHOCYTES # (AUTO) 1.1 10^3/uL (1.0-4.0); LYMPHOCYTES % (AUTO) 12 % (12-44); MEAN CORPUSCULAR HEMOGLOBIN 33 pg (25-34); MEAN CORPUSCULAR HGB CONC 34 g/dL (32-36); MEAN CORPUSCULAR VOLUME 98 fL (80-99); MEAN PLATELET VOLUME 10.7 fL (9.0-12.2); MONOCYTES # (AUTO) 1.2 10^3/uL (0.0-1.0); MONOCYTES % (AUTO) 13 % (0-12); NEUTROPHILS # (AUTO) 6.7 10^3/uL (1.8-7.8); NEUTROPHILS % (AUTO) 71 % (42-75); PLATELET COUNT 400 10^3/uL (130-400); WHITE BLOOD COUNT 9.4 10^3/uL (4.3-11.0)
[2021-01-29 06:44] LABS: ALBUMIN 2.4 GM/DL (3.2-4.5); BILIRUBIN,TOTAL 0.3 MG/DL (0.1-1.0); CALCIUM 9.8 MG/DL (8.5-10.1); CREATININE SERUM 1.09 MG/DL (0.60-1.30); TOTAL PROTEIN 6.1 GM/DL (6.4-8.2)
[2021-01-29] MEDS: RT-ALBUTEROL SULF 2.5 MG/3 ML PRE-MIX VIAL INH SCH (08:12)
[2021-01-29 08:14] VITALS: BP 111/72
[2021-01-29] MEDS: FOLIC ACID 1 MG TAB PO SCH (08:57)
[2021-01-29] MEDS: PANTOPRAZOLE 40 MG (PROTONIX) VIAL IV SCH (08:57)
[2021-01-29] MEDS: LACTOBACILLUS ACIDOPHILUS (PROBIOTIC) CAPSULE PO SCH ×3 (08:57→18:09)
[2021-01-29] MEDS: FUROSEMIDE 40 MG (LASIX) TAB PO SCH (08:57)
[2021-01-29] MEDS: dilTIAZem120 MG (CARDIZEM CD) CAP PO SCH ×2 (08:57→20:21)
[2021-01-29] MEDS: SPIRONOLACTONE 25 MG (ALDACTONE) TAB PO SCH (08:57)
[2021-01-29] MEDS: ALPRAZolam 0.5 MG (XANAX) TAB PO PRN (08:57)
[2021-01-29] MEDS: APIXABAN 5 MG (ELIQUIS) TABLET PO SCH ×2 (08:57→20:21)
[2021-01-29] MEDS: SENNA W/DOCUSATE (SENOKOT S) TABLET PO SCH ×2 (09:16→20:16)
--- NOTE | 2021-01-29 09:30 | Physical Therapy Daily Note ---
PT Daily Note-Current Subjective Patient in recliner pre tx, agrees to PT reluctantly, states she is very tired, has no complaints of pain. Appearance Patient in recliner post tx with nurse call, phone, tray, all needs met. Mental Status Patient Orientation: Person, Place, Situation Attachments: Oxygen, Hwang Catheter Transfers SCALE: Activities may be completed with or without assistive devices. 9-Kjtuqflejt-lqldest completes the activity by him/herself with no assistance from a helper. 5-Set-up or Clean-up Assistance-helper sets up or cleans up; patient completes activity. [place] assists only prior to or following the activity. 4-Supervision or Touching Assistance-helper provides verbal cues and/or touching/steadying and/or contact guard assistance as patient completes activity. Assistance may be provided throughout the activity or intermittently. 3-Partial/Moderate Assistance-helper does LESS THAN HALF the effort. [place] lifts, holds or supports trunk or limbs, but provides less than half the effort. 2-Substantial/Maximal Assistance-helper does MORE THAN HALF the effort. [place] lifts or holds trunk or limbs and provides more than half the effort. 2-Zjidgoeqp-qgowni does ALL the effort. Patient does none of the effort to complete the activity. Or, the assistance of 2 or more helpers is required for the patient to complete the activity. If activity was not attempted, code reason: 7-Patient Refused. 9-Not Applicable-not attempted and the patient did not perform the activity b efore the current illness, exacerbation or injury. 10-Not Attempted due to Environmental Limitations-(lack of equipment, weather restraints, etc.). 88-Not Attempted due to Medical Conditions or Safety Concerns. Sit to Stand (QC): 4 Chair/Yyz-vr-Uornx Xfer(QC): 4 CGA Gait Training Distance: 20' Walk 10 feet (QC): 4 Gait Persons Needed: 1 Gait Assistive Device: FWW Patient pretty shaky after ambulating 20' but gait was steady Exercises Seated Therapy Exercises: Ankle pumps, Long arc quads Seated Reps: 20 Treatments transfers, ambulation, LE strengthening Assessment Current Status: Poor Progress slow progress with endurance and functional mobility PT Prison Goals Prison Goals PT Core Paster Goals Time Frame: Jan 31, 2021 Roll Left & Right (QC): 6 Sit to Lying (QC): 6 Lying-Sitting on Side/Bed(QC): 6 Sit to Stand (QC): 6 Chair/Tcu-tm-Mifyu Xfer(QC): 6 Toilet Transfer (QC): 6 Walk 10 feet (QC): 6 Walk 50ft with 2 Turns (QC): 6 Walk 150 ft (QC): 6 PT Plan Problem List Problem List: Activity Tolerance, Functional Strength, Safety, Balance, Gait, Transfer, Bed Mobility, ROM Treatment/Plan Treatment Plan: Continue Plan of Care Treatment Plan: Bed Mobility, Education, Functional Activity Wu, Functional Strength, Gait, Safety, Therapeutic Exercise, Transfers Treatment Duration: Jan 31, 2021 Frequency: 6 times per week Estimated Hrs Per Day: .5 hour per day Patient and/or Family Agrees t: Yes Safety Risks/Education Patient Education: Gait Training, Transfer Techniques, Correct Positioning, Safety Issues Teaching Recipient: Patient Teaching Methods: Demonstration, Discussion Response to Teaching: Reinforcement Needed Time/GCodes Time In: 825 Time Out: 835 Total Billed Treatment Time: 10 Total Billed Treatment 1 visit FA JUAQUIN STEINER PT Jan 29, 2021 09:30
--- NOTE | 2021-01-29 09:37 | Occupational Ther Daily Note ---
OT Current Status-Daily Note Subjective Pt alert, in bathroom. Pt agrees to therapy. No c/o pain only fatigue. Mental Status/Objective Patient Orientation: Person, Place, Time, Situation Attachments: IV, Oxygen ADL-Treatment Sit<-->stand, SBA. Pt requires assist to cleanse buttocks thoroughly after attempts to wipe. Pt then ambulated back to recliner and requested to soak hands and fingernails, set up for this. Pt then ambulated around room with PT using FWW. Pt able to complete hand washing and set up of own food to eat. After therapy, pt sitting in recliner with call light/phone in reach. All needs met in room. Therapy Code Descriptions/Definitions Functional [place] Measure: 0=Not Assessed/NA 4=Minimal Assistance 1=Total Assistance 5=Supervision or Setup 2=Maximal Assistance 6=Modified [place] 3=Moderate Assistance 7=Complete IndependenceSCALE: Activities may be completed with or without assistive devices. 6-Azjqbxnhci-vmecktk completes the activity by him/herself with no assistance from a helper. 5-Set-up or Clean-up Assistance-helper sets up or cleans up; patient completes activity. [place] assists only prior to or following the activity. 4-Supervision or Touching Assistance-helper provides verbal cues and/or touching/steadying and/or contact guard assistance as patient completes activity. Assistance may be provided throughout the activity or intermittently. 3-Partial/Moderate Assistance-helper does LESS THAN HALF the effort. [place] lifts, holds or supports trunk or limbs, but provides less than half the effort. 2-Substantial/Maximal Assistance-helper does MORE THAN HALF the effort. Section lifts or holds trunk or limbs and provides more than half the effort. 9-Tbtnjfbwr-bkaqfy does ALL the effort. Patient does none of the effort to complete the activity. Or, the assistance of 2 or more helpers is required for the patient to complete the activity. If activity was not attempted, code reason: 7-Patient Refused. 9-Not Applicable-not attempted and the patient did not perform the activity before the current illness, exacerbation or injury. 10-Not Attempted due to Environmental Limitations-(lack of equipment, weather restraints, etc.). 88-Not Attempted due to Medical Conditions or Safety Concerns. Eating (QC): 6 Toileting Hygiene (QC): 2 (mod A) Toilet Transfer (QC): 4 OT [facility] Goals Power System Electrical Engineer Goals Time Frame: Jan 30, 2021 Oral Hygiene (QC): 5 Toileting Hygiene (QC): 4 Upper Body Dressing (QC): 5 Lower Body Dressing (QC): 4 On/Off Footwear (QC): 5 1=Demonstrate adherence to instructed precautions during ADL tasks. 2=Patient will verbalize/demonstrate understanding of assistive devices/modifications for ADL. 3=Patient will improve strength/tolerance for activity to enable patient to perform ADL's. OT Education/Plan Problem List/Assessment Assessment: Decreased Activ Tolerance, Impaired Self-Care Skills Discharge Recommendations Plan/Recommendations: Continue POC Treatment Plan/Plan of Care Patient would benefit from OT for education, treatment and training to promote independence in ADL's, mobility, safety and/or upper extremity function for ADL's. Plan of Care: ADL Retraining, Functional Mobility, Group Exercise/Act as Ind, UE Funct Exercise/Act Treatment Duration: Jan 30, 2021 Frequency: 3 times per week Estimated Hrs Per Day: .25 hour per day Agreement: Yes Rehab Potential: Fair Time/GCodes Start Time: 08:23 Stop Time: 08:38 Total Time Billed (hr/min): 15 Billed Treatment Time 1 visit-ADL 1 (15 min) ABIODUN CHACON Jan 29, 2021 09:37
--- NOTE | 2021-01-29 10:41 | Progress Note - Hospitalist ---
Subjective HPI/CC On Admission Date Seen by Provider: Jan 29, 2021 Time Seen by Provider: 11:30 Chief complaint: Atrial fibrillation with rapid ventricular response with acute pancreatitis and severe sepsis History present illness: This is a 70-year-old white female who drinks wine with heavy use who presented to the ER with a couple of days of nausea and vomiting and not feeling well with abdominal pain. She was found to be in atrial fibrillation with rapid ventricular response in addition to hypotension requiring aggressive IV fluid at 30 cc/KG and found to have acute pancreatitis. Dr. Vale obtained U/S this morning. Zosyn was started. Cardiology consulted for atrial fibrillation with right ventricular response. Patient sees Dr. Davis on a regular basis for atrial fibrillation. Currently in the ICU. Subjective/Events-last exam Pt doing a lot better Hgb 9.4 Getting up to go to the bathroom residential placement at [facility] probably Tuesday Bowels are moving Review of Systems General: Fatigue, Malaise Objective Exam Vital Signs Vital Signs Date Time Temp Pulse Resp B/P (MAP) Pulse Ox O2 Delivery O2 Flow Rate FiO2 01/30/21 04:57 37.0 84 18 113/72 97 Nasal Cannula 1.50 01/26/21 08:00 50 Capillary Refill : Less Than 3 Seconds General Appearance: No Apparent Distress, WD/WN, Chronically ill Respiratory: Lungs Clear, Normal Breath Sounds Cardiovascular: Regular Rate, Rhythm Neurologic/Psychiatric: Alert, Oriented x3, No Motor/Sensory Deficits, Normal Mood/Affect Results/Procedures Lab Laboratory Tests 01/29/21 06:15 Patient resulted labs reviewed. Imaging: Reviewed Imaging Report Assessment/Plan Assessment and Plan Assess & Plan/Chief Complaint Assessment: ARF Abdominal wall hematoma -Status post thoracentesis pt states she feels a bit better -Pain with inspiration, worried about atelectasis, she is using her exhalation breathing device -Oxygen titrated off Pancreatitis -Improving -Pt states her pain is better -Continue to follow A. fib -HR 93 this morning -On diltiazem, continue to monitor HTN 120/73 today continue to monitor Chronic Alcohol Use -On protocol -Denies tremors and seizures -Has Lorazepam PRN 01/28/2021: Supportive care Wean oxygen residential placement 01/29/2021: Await skilled nursing placement Critical Care Critically Ill Patient Diagnosis/Problems Diagnosis/Problems (1) Atrial fibrillation with rapid ventricular response Onset Date: ~ 01/11/2021 Status: Acute (2) Hypertension Status: Chronic Qualifiers: Hypertension type: primary hypertension Qualified Codes: I10 - Essential (primary) hypertension (3) Leukocytosis Onset Date: ~ 01/11/2021 Status: Acute Qualifiers: Leukocytosis type: other Qualified Codes: D72.828 - Other elevated white blood cell count (4) On continuous oral anticoagulation Status: Chronic (5) Osteoporosis Status: Chronic (6) Severe sepsis Onset Date: ~ 01/11/2021 Status: Resolved Resolution Date/Time: 01/12/21 @ 16:00 (7) Pancreatitis Onset Date: ~ 01/09/2021 Status: Acute Qualifiers: Chronicity: acute Pancreatitis type: alcohol induced Acute pancreatitis complication: no infection or necrosis Qualified Codes: K85.20 - Alcohol induced acute pancreatitis without necrosis or infection ANAID IBRAHIM DO Jan 29, 2021 10:41
[2021-01-29] MEDS: CALCIUM CARBONATE 500 MG (TUMS) TAB.CHEW PO PRN (12:22)
[2021-01-29] MEDS: diphenhydrAMINE 25 MG TAB (BENADRYL) PO PRN (12:22)
[2021-01-29] MEDS: ONDANSETRON 4 MG/2 ML (SDV) Z0FRAN IVP PRN (12:23)
[2021-01-29] MEDS: ACETAMINOPHEN 325 MG TABLET PO PRN (13:53)
[2021-01-29] MEDS ORDERED: SIMETHICONE 80 MG (MYLICON) CHEW PO PRN (14:00)
--- NOTE | 2021-01-29 16:38 | Cardiology Progress Note ---
Progress Note-Cardiology Events since last exam Date Seen by Provider: Jan 29, 2021 Time Seen by Provider: 16:34 Events since last exam I am following her for permanent atrial fibrillation. Today she had worse right upper quadrant pain. She denies nausea or vomiting. The pain was severe earlier today and is starting to improve now. She denies chest pain, dyspnea, palpitations, syncope, or ankle edema. Certain portions of this document may have been dictated utilizing voice recognition technology. Inherent to this technology, typographical and grammatical errors may exist. As much as I am diligent to identify and correct these mistakes, some errors may remain in the document. Vitals Last set of Vitals Signs Vital Signs 01/26/21 01/29/21 08:00 16:13 Temp 36.3 Pulse 119 Resp 18 B/P (MAP) 115/75 Pulse Ox 99 O2 Delivery Nasal Cannula O2 Flow Rate 1.50 FiO2 50 Labs Labs Laboratory Tests 01/29/21 06:15 Exam Vital Signs Vital Signs Date Time Temp Pulse Resp B/P (MAP) Pulse Ox O2 Delivery O2 Flow Rate FiO2 01/29/21 16:13 36.3 119 18 115/75 99 Nasal Cannula 1.50 01/26/21 08:00 50 Physical Exam General: Alert. No acute distress. Eye: No xanthelasma. HENT: Normocephalic. Neck: Jugular venous pressure does not appear elevated. Respiratory: Lungs are clear to auscultation. Respirations are non-labored. Breath sounds are equal. Symmetrical chest wall expansion. Cardiovascular: Tachycardia with irregular rhythm. No murmur. No gallop. No edema. Gastrointestinal: Soft. Normal bowel sounds. Diffuse tenderness. Skin: Warm. Dry. Neurologic: Alert and oriented to person, place, time. Cranial nerves 3-11 grossly intact. Psychiatric: Cooperative. Appropriate mood & affect. Labs Laboratory Tests Test 01/29/21 06:15 Range/Units White Blood Count 9.4 4.3-11.0 10^3/uL Red Blood Count 2.83 L 3.80-5.11 10^6/uL Hemoglobin 9.4 L 11.5-16.0 g/dL Hematocrit 28 L 35-52 % Mean Corpuscular Volume 98 80-99 fL Mean Corpuscular Hemoglobin 33 25-34 pg Mean Corpuscular Hemoglobin Concent 34 32-36 g/dL Red Cell Distribution Width 13.3 10.0-14.5 % Platelet Count 400 130-400 10^3/uL Mean Platelet Volume 10.7 9.0-12.2 fL Immature Granulocyte % (Auto) 1 % Neutrophils (%) (Auto) 71 42-75 % Lymphocytes (%) (Auto) 12 12-44 % Monocytes (%) (Auto) 13 H 0-12 % Eosinophils (%) (Auto) 2 0-10 % Basophils (%) (Auto) 0 0-10 % Neutrophils # (Auto) 6.7 1.8-7.8 10^3/uL Lymphocytes # (Auto) 1.1 1.0-4.0 10^3/uL Monocytes # (Auto) 1.2 H 0.0-1.0 10^3/uL Eosinophils # (Auto) 0.2 0.0-0.3 10^3/uL Basophils # (Auto) 0.0 0.0-0.1 10^3/uL Immature Granulocyte # (Auto) 0.1 0.0-0.1 10^3/uL Sodium Level 135 135-145 MMOL/L Potassium Level 4.0 3.6-5.0 MMOL/L Chloride Level 97 L 98-107 MMOL/L Carbon Dioxide Level 29 21-32 MMOL/L Anion Gap 9 5-14 MMOL/L Blood Urea Nitrogen 20 H 7-18 MG/DL Creatinine 1.09 0.60-1.30 MG/DL Estimat Glomerular Filtration Rate 50 BUN/Creatinine Ratio 18 Glucose Level 99 70-105 MG/DL Calcium Level 9.8 8.5-10.1 MG/DL Corrected Calcium 11.1 H 8.5-10.1 MG/DL Total Bilirubin 0.3 0.1-1.0 MG/DL Aspartate Amino Transf (AST/SGOT) 39 H 5-34 U/L Alanine Aminotransferase (ALT/SGPT) 34 0-55 U/L Alkaline Phosphatase 66 40-136 U/L Total Protein 6.1 L 6.4-8.2 GM/DL Albumin 2.4 L 3.2-4.5 GM/DL Diagnosis/Problems Diagnosis/Problems (1) Permanent atrial fibrillation Assessment & Plan: Heart rate is intermittently elevated. This may be related to the pancreatitis. She is on diltiazem for rate control and apixaban for stroke prophylaxis. If her heart rate remains elevated, we may need to adjust the diltiazem. (2) Primary hypertension Assessment & Plan: Blood pressure is reasonably controlled with diltiazem which should be continued. (3) Mixed hyperlipidemia Assessment & Plan: Continue atorvastatin. (4) Stage 3 chronic kidney disease Assessment & Plan: Her creatinine remained stable despite being on oral furosemide. (5) Abdominal wall hematoma Status: Acute Assessment & Plan: This has been presumed to be related to enoxaparin injections. She has now been changed back over to oral apixaban. Problem Qualifiers (1) Abdominal wall hematoma: Encounter type: initial encounter Qualified Codes: S30.1XXA - Contusion of abdominal wall, initial encounter RAMSEY BARKER JR, MD Jan 29, 2021 16:38
[2021-01-29] MEDS: AtorvaSTATin TABLET 10 MG TABLET PO SCH (20:21)
[2021-01-30] MEDS: THIAMINE 100 MG (VITAMIN B-1) TAB PO SCH (06:11)
--- NOTE | 2021-01-30 06:12 | Progress Note - Hospitalist ---
Subjective HPI/CC On Admission Date Seen by Provider: Jan 30, 2021 Time Seen by Provider: 11:00 Chief complaint: Atrial fibrillation with rapid ventricular response with acute pancreatitis and severe sepsis History present illness: This is a 70-year-old white female who drinks wine with heavy use who presented to the ER with a couple of days of nausea and vomiting and not feeling well with abdominal pain. She was found to be in atrial fibrillation with rapid ventricular response in addition to hypotension requiring aggressive IV fluid at 30 cc/KG and found to have acute pancreatitis. Dr. Vale obtained U/S this morning. Zosyn was started. Cardiology consulted for atrial fibrillation with right ventricular response. Patient sees Dr. Davis on a regular basis for atrial fibrillation. Currently in the ICU. Subjective/Events-last exam Patient feels a lot better Walking around a little bit with therapy No pain reported except for an episode yesterday Patient appears to be very chronically debilitated Bowels are moving Checked meds and labs Review of Systems General: Fatigue, Malaise Objective Exam Vital Signs Vital Signs Date Time Temp Pulse Resp B/P (MAP) Pulse Ox O2 Delivery O2 Flow Rate FiO2 01/30/21 15:59 36.4 90 20 114/72 94 Nasal Cannula 1.50 01/26/21 08:00 50 Capillary Refill : Less Than 3 Seconds General Appearance: No Apparent Distress, WD/WN, Anxious, Chronically ill Respiratory: No Accessory Muscle Use, No Respiratory Distress, Decreased Breath Sounds Cardiovascular: Regular Rate, Rhythm Neurologic/Psychiatric: Alert, Oriented x3, Depressed Affect Results/Procedures Lab Laboratory Tests 01/30/21 06:17 Patient resulted labs reviewed. Imaging: Reviewed Imaging Report Assessment/Plan Assessment and Plan Assess & Plan/Chief Complaint Assessment: ARF Abdominal wall hematoma -Status post thoracentesis pt states she feels a bit better -Pain with inspiration, worried about atelectasis, she is using her exhalation breathing device -Oxygen titrated off Pancreatitis -Improving -Pt states her pain is better -Continue to follow A. fib -HR 93 this morning -On diltiazem, continue to monitor HTN 120/73 today continue to monitor Chronic Alcohol Use -On protocol -Denies tremors and seizures -Has Lorazepam PRN 01/28/2021: Supportive care Wean oxygen residential placement 01/29/2021: Await fpc placement 01/30/2021: Chronically debilitated Await fpc placement Critical Care Critically Ill Patient Diagnosis/Problems Diagnosis/Problems (1) Atrial fibrillation with rapid ventricular response Onset Date: ~ 01/11/2021 Status: Acute (2) Hypertension Status: Chronic Qualifiers: Hypertension type: primary hypertension Qualified Codes: I10 - Essential (primary) hypertension (3) Leukocytosis Onset Date: ~ 01/11/2021 Status: Acute Qualifiers: Leukocytosis type: other Qualified Codes: D72.828 - Other elevated white blood cell count (4) On continuous oral anticoagulation Status: Chronic (5) Osteoporosis Status: Chronic (6) Severe sepsis Onset Date: ~ 01/11/2021 Status: Resolved Resolution Date/Time: 01/12/21 @ 16:00 (7) Pancreatitis Onset Date: ~ 01/09/2021 Status: Acute Qualifiers: Chronicity: acute Pancreatitis type: alcohol induced Acute pancreatitis complication: no infection or necrosis Qualified Codes: K85.20 - Alcohol induced acute pancreatitis without necrosis or infection ANAID IBRAHIM DO Jan 30, 2021 06:12
[2021-01-30 06:22] LABS: BASOPHILS # (AUTO) 0.1 10^3/uL (0.0-0.1); BASOPHILS % (AUTO) 1 % (0-10); EOSINOPHILS # (AUTO) 0.2 10^3/uL (0.0-0.3); EOSINOPHILS % (AUTO) 2 % (0-10); HEMATOCRIT 27 % (35-52); HEMOGLOBIN 8.9 g/dL (11.5-16.0); LYMPHOCYTES # (AUTO) 1.3 10^3/uL (1.0-4.0); LYMPHOCYTES % (AUTO) 12 % (12-44); MEAN CORPUSCULAR HEMOGLOBIN 33 pg (25-34); MEAN CORPUSCULAR HGB CONC 33 g/dL (32-36); MEAN CORPUSCULAR VOLUME 99 fL (80-99); MEAN PLATELET VOLUME 10.4 fL (9.0-12.2); MONOCYTES # (AUTO) 1.3 10^3/uL (0.0-1.0); MONOCYTES % (AUTO) 12 % (0-12); NEUTROPHILS # (AUTO) 7.9 10^3/uL (1.8-7.8); NEUTROPHILS % (AUTO) 73 % (42-75); PLATELET COUNT 371 10^3/uL (130-400); WHITE BLOOD COUNT 10.9 10^3/uL (4.3-11.0)
[2021-01-30 06:42] LABS: ALBUMIN 2.5 GM/DL (3.2-4.5); BILIRUBIN,TOTAL 0.3 MG/DL (0.1-1.0); CALCIUM 9.2 MG/DL (8.5-10.1); CREATININE SERUM 1.08 MG/DL (0.60-1.30); POTASSIUM 4.1 MMOL/L (3.6-5.0); TOTAL PROTEIN 5.9 GM/DL (6.4-8.2)
[2021-01-30] MEDS: dilTIAZem120 MG (CARDIZEM CD) CAP PO SCH ×2 (08:17→21:22)
[2021-01-30] MEDS: SPIRONOLACTONE 25 MG (ALDACTONE) TAB PO SCH (08:17)
[2021-01-30] MEDS: PANTOPRAZOLE 40 MG (PROTONIX) VIAL IV SCH (08:17)
[2021-01-30] MEDS: APIXABAN 5 MG (ELIQUIS) TABLET PO SCH ×2 (08:17→21:22)
[2021-01-30] MEDS: FOLIC ACID 1 MG TAB PO SCH (08:17)
[2021-01-30] MEDS: FUROSEMIDE 40 MG (LASIX) TAB PO SCH (08:17)
[2021-01-30] MEDS: SENNA W/DOCUSATE (SENOKOT S) TABLET PO SCH ×2 (08:17→21:21)
[2021-01-30] MEDS: LACTOBACILLUS ACIDOPHILUS (PROBIOTIC) CAPSULE PO SCH ×3 (08:17→18:15)
--- NOTE | 2021-01-30 09:38 | Physical Therapy Daily Note ---
PT Daily Note-Current Subjective Patient in recliner pre tx, agrees to PT, has no complaints of pain, appears to be in better spirits. Appearance Patient in recliner post tx with nurse call, phone, tray, all needs met. Mental Status Patient Orientation: Person, Place, Situation Attachments: Oxygen, Hwang Catheter Transfers SCALE: Activities may be completed with or without assistive devices. 1-Diqmqbrkgx-mmgqawz completes the activity by him/herself with no assistance from a helper. 5-Set-up or Clean-up Assistance-helper sets up or cleans up; patient completes activity. [place] assists only prior to or following the activity. 4-Supervision or Touching Assistance-helper provides verbal cues and/or touching/steadying and/or contact guard assistance as patient completes activity. Assistance may be provided throughout the activity or intermittently. 3-Partial/Moderate Assistance-helper does LESS THAN HALF the effort. [place] lifts, holds or supports trunk or limbs, but provides less than half the effort. 2-Substantial/Maximal Assistance-helper does MORE THAN HALF the effort. [place] lifts or holds trunk or limbs and provides more than half the effort. 8-Iacsfhitf-crjgbw does ALL the effort. Patient does none of the effort to complete the activity. Or, the assistance of 2 or more helpers is required for the patient to complete the activity. If activity was not attempted, code reason: 7-Patient Refused. 9-Not Applicable-not attempted and the patient did not perform the activity before the current illness, exacerbation or injury. 10-Not Attempted due to Environmental Limitations-(lack of equipment, weather restraints, etc.). 88-Not Attempted due to Medical Conditions or Safety Concerns. Sit to Stand (QC): 4 Chair/Dbo-ph-Jzcwq Xfer(QC): 4 Gait Training Distance: 400' Walk 10 feet (QC): 4 Walk 50 ft with 2 Turns(QC): 4 Walk 150 ft (QC): 4 Gait Persons Needed: 1 Gait Assistive Device: FWW SBA, slow but steady ambulation, occasional standing rest break Treatments ambulation, transfers Assessment Current Status: Good Progress greatly improved endurance and ambulation PT Detention Goals Flat Finisher Goals PT Flat Finisher Goals Time Frame: Jan 31, 2021 Roll Left & Right (QC): 6 Sit to Lying (QC): 6 Lying-Sitting on Side/Bed(QC): 6 Sit to Stand (QC): 6 Chair/Guo-ff-Uhgqm Xfer(QC): 6 Toilet Transfer (QC): 6 Walk 10 feet (QC): 6 Walk 50ft with 2 Turns (QC): 6 Walk 150 ft (QC): 6 PT Plan Problem List Problem List: Activity Tolerance, Functional Strength, Safety, Balance, Gait, Transfer, Bed Mobility, ROM Treatment/Plan Treatment Plan: Continue Plan of Care Treatment Plan: Bed Mobility, Education, Functional Activity Wu, Functional Strength, Gait, Safety, Therapeutic Exercise, Transfers Treatment Duration: Jan 31, 2021 Frequency: 6 times per week Estimated Hrs Per Day: .5 hour per day Patient and/or Family Agrees t: Yes Safety Risks/Education Patient Education: Gait Training, Transfer Techniques, Correct Positioning, Safety Issues Teaching Recipient: Patient Teaching Methods: Demonstration, Discussion Response to Teaching: Reinforcement Needed Time/GCodes Time In: 911 Time Out: 925 Total Billed Treatment Time: 14 Total Billed Treatment 1 visit GT 14' JUAQUIN ANGELES PT Jan 30, 2021 09:37
--- NOTE | 2021-01-30 09:47 | Occupational Ther Daily Note ---
OT Current Status-Daily Note Subjective Pt alert, sitting in recliner. Pt appears in good spirits and stated that she felt better today. Agrees to therapy. Mental Status/Objective Patient Orientation: Person, Place, Time, Situation ADL-Treatment Pt stated that nrsg set up oral care while pt sat in recliner then completed by self. Pt stated that she had went to bathroom and attempted to cleanse herself though is still having difficulty due to pain in R side. Pt then was able to ambulate around South end of 4th floor with CGA and assist to manipulate O2. After session, pt sitting in recliner with call light/phone in reach. All needs met in room. Therapy Code Descriptions/Definitions Functional [place] Measure: 0=Not Assessed/NA 4=Minimal Assistance 1=Total Assistance 5=Supervision or Setup 2=Maximal Assistance 6=Modified [place] 3=Moderate Assistance 7=Complete IndependenceSCALE: Activities may be completed with or without assistive devices. 9-Evbqvqclwt-crjrhvz completes the activity by him/herself with no assistance from a helper. 5-Set-up or Clean-up Assistance-helper sets up or cleans up; patient completes activity. [place] assists only prior to or following the activity. 4-Supervision or Touching Assistance-helper provides verbal cues and/or touching/steadying and/or contact guard assistance as patient completes activity. Assistance may be provided throughout the activity or intermittently. 3-Partial/Moderate Assistance-helper does LESS THAN HALF the effort. [place] lifts, holds or supports trunk or limbs, but provides less than half the effort. 2-Substantial/Maximal Assistance-helper does MORE THAN HALF the effort. [place] lifts or holds trunk or limbs and provides more than half the effort. 1-Wmtykaofb-ejvlro does ALL the effort. Patient does none of the effort to complete the activity. Or, the assistance of 2 or more helpers is required for the patient to complete the activity. If activity was not attempted, code reason: 7-Patient Refused. 9-Not Applicable-not attempted and the patient did not perform the activity before the current illness, exacerbation or injury. 10-Not Attempted due to Environmental Limitations-(lack of equipment, weather restraints, etc.). 88-Not Attempted due to Medical Conditions or Safety Concerns. Eating (QC): 6 Oral Hygiene (QC): 5 Toileting Hygiene (QC): 3 Toilet Transfer (QC): 4 OT [facility] Goals Inspection Supervisor Goals Time Frame: Jan 30, 2021 Oral Hygiene (QC): 5 Toileting Hygiene (QC): 4 Upper Body Dressing (QC): 5 Lower Body Dressing (QC): 4 On/Off Footwear (QC): 5 1=Demonstrate adherence to instructed precautions during ADL tasks. 2=Patient will verbalize/demonstrate understanding of assistive devices/modifications for ADL. 3=Patient will improve strength/tolerance for activity to enable patient to perform ADL's. OT Education/Plan Problem List/Assessment Assessment: Decreased Activ Tolerance, Impaired Self-Care Skills Discharge Recommendations Plan/Recommendations: Continue POC Treatment Plan/Plan of Care Patient would benefit from OT for education, treatment and training to promote independence in ADL's, mobility, safety and/or upper extremity function for ADL's. Plan of Care: ADL Retraining, Functional Mobility, Group Exercise/Act as Ind, UE Funct Exercise/Act Treatment Duration: Jan 30, 2021 Frequency: 3 times per week Estimated Hrs Per Day: .25 hour per day Agreement: Yes Rehab Potential: Fair Time/GCodes Start Time: 09:12 Stop Time: 09:26 Total Time Billed (hr/min): 14 Billed Treatment Time 1 visit-FA 1 (14 min) ABIODUN CHACON Jan 30, 2021 09:47
--- NOTE | 2021-01-30 10:58 | Cardiology Progress Note ---
Progress Note-Cardiology Events since last exam Date Seen by Provider: Jan 30, 2021 Time Seen by Provider: 10:54 Events since last exam I am following her due to permanent atrial fibrillation. Her abdominal pain has improved. She denies chest discomfort, dyspnea, palpitations, syncope, or ankle edema. Vitals Last set of Vitals Signs Vital Signs 01/26/21 01/30/21 01/30/21 08:00 07:20 08:00 Temp 36.6 Pulse 84 Resp 18 B/P (MAP) 121/78 Pulse Ox 96 O2 Delivery Nasal Cannula O2 Flow Rate 2.00 FiO2 50 Labs Labs Laboratory Tests 01/30/21 06:17 Exam Vital Signs Vital Signs Date Time Temp Pulse Resp B/P (MAP) Pulse Ox O2 Delivery O2 Flow Rate FiO2 01/30/21 08:00 Nasal Cannula 2.00 01/30/21 07:20 36.6 84 18 121/78 96 01/26/21 08:00 50 Physical Exam General: Alert. No acute distress. Eye: No xanthelasma. HENT: Normocephalic. Neck: Jugular venous pressure does not appear elevated. Respiratory: Lungs are clear to auscultation. Respirations are non-labored. Breath sounds are equal. Symmetrical chest wall expansion. Cardiovascular: Normal rate. Irregular rhythm. No murmur. No gallop. No edema. Gastrointestinal: Soft. Normal bowel sounds. Skin: Warm. Dry. Neurologic: Alert and oriented to person, place, time. Cranial nerves 3-11 grossly intact. Psychiatric: Cooperative. Appropriate mood & affect. Labs Laboratory Tests Test 01/30/21 06:17 Range/Units White Blood Count 10.9 4.3-11.0 10^3/uL Red Blood Count 2.70 L 3.80-5.11 10^6/uL Hemoglobin 8.9 L 11.5-16.0 g/dL Hematocrit 27 L 35-52 % Mean Corpuscular Volume 99 80-99 fL Mean Corpuscular Hemoglobin 33 25-34 pg Mean Corpuscular Hemoglobin Concent 33 32-36 g/dL Red Cell Distribution Width 13.3 10.0-14.5 % Platelet Count 371 130-400 10^3/uL Mean Platelet Volume 10.4 9.0-12.2 fL Immature Granulocyte % (Auto) 1 % Neutrophils (%) (Auto) 73 42-75 % Lymphocytes (%) (Auto) 12 12-44 % Monocytes (%) (Auto) 12 0-12 % Eosinophils (%) (Auto) 2 0-10 % Basophils (%) (Auto) 1 0-10 % Neutrophils # (Auto) 7.9 H 1.8-7.8 10^3/uL Lymphocytes # (Auto) 1.3 1.0-4.0 10^3/uL Monocytes # (Auto) 1.3 H 0.0-1.0 10^3/uL Eosinophils # (Auto) 0.2 0.0-0.3 10^3/uL Basophils # (Auto) 0.1 0.0-0.1 10^3/uL Immature Granulocyte # (Auto) 0.1 0.0-0.1 10^3/uL Sodium Level 133 L 135-145 MMOL/L Potassium Level 4.1 3.6-5.0 MMOL/L Chloride Level 98 98-107 MMOL/L Carbon Dioxide Level 27 21-32 MMOL/L Anion Gap 8 5-14 MMOL/L Blood Urea Nitrogen 17 7-18 MG/DL Creatinine 1.08 0.60-1.30 MG/DL Estimat Glomerular Filtration Rate 50 BUN/Creatinine Ratio 16 Glucose Level 101 70-105 MG/DL Calcium Level 9.2 8.5-10.1 MG/DL Corrected Calcium 10.4 H 8.5-10.1 MG/DL Total Bilirubin 0.3 0.1-1.0 MG/DL Aspartate Amino Transf (AST/SGOT) 41 H 5-34 U/L Alanine Aminotransferase (ALT/SGPT) 39 0-55 U/L Alkaline Phosphatase 68 40-136 U/L Total Protein 5.9 L 6.4-8.2 GM/DL Albumin 2.5 L 3.2-4.5 GM/DL Diagnosis/Problems Diagnosis/Problems (1) Permanent atrial fibrillation Assessment & Plan: She seems to be asymptomatic with this. Her heart rate is intermittently elevated which may be related to her abdominal pain. She is on diltiazem for rate control and apixaban for stroke prophylaxis. Her heart rates are improved today. (2) Primary hypertension Assessment & Plan: Blood pressure is reasonably controlled with diltiazem. (3) Mixed hyperlipidemia Assessment & Plan: Continue atorvastatin. (4) Stage 3 chronic kidney disease Assessment & Plan: Her creatinine remained stable. (5) Abdominal wall hematoma Status: Acute Assessment & Plan: This has been presumed to be related to previous enoxaparin injections. This is improving. Continue apixaban which she takes for her atrial fibrillation. Problem Qualifiers (1) Abdominal wall hematoma: Encounter type: initial encounter Qualified Codes: S30.1XXA - Contusion of abdominal wall, initial encounter RAMSEY BARKER JR, MD Jan 30, 2021 10:58
[2021-01-30] MEDS: ALPRAZolam 0.5 MG (XANAX) TAB PO PRN ×2 (12:50→21:21)
[2021-01-30] MEDS: ACETAMINOPHEN 325 MG TABLET PO PRN (19:45)
[2021-01-30] MEDS: AtorvaSTATin TABLET 10 MG TABLET PO SCH (21:22)
[2021-01-30] MEDS: MELATONIN 3 MG TABLET PO PRN (21:22)
[2021-01-31] MEDS: ALPRAZolam 0.5 MG (XANAX) TAB PO PRN ×3 (03:29→23:08)
--- NOTE | 2021-01-31 06:05 | Progress Note - Hospitalist ---
Subjective HPI/CC On Admission Date Seen by Provider: Jan 31, 2021 Time Seen by Provider: 09:45 Chief complaint: Atrial fibrillation with rapid ventricular response with acute pancreatitis and severe sepsis History present illness: This is a 70-year-old white female who drinks wine with heavy use who presented to the ER with a couple of days of nausea and vomiting and not feeling well with abdominal pain. She was found to be in atrial fibrillation with rapid ventricular response in addition to hypotension requiring aggressive IV fluid at 30 cc/KG and found to have acute pancreatitis. Dr. Vale obtained U/S this morning. Zosyn was started. Cardiology consulted for atrial fibrillation with right ventricular response. Patient sees Dr. Davis on a regular basis for atrial fibrillation. Currently in the ICU. Subjective/Events-last exam Patient doing really well but exhausted after a good day yesterday Patient appears to be very chronically debilitated Abdominal pain is periodic Review of Systems General: Fatigue, Malaise Objective Exam Vital Signs Vital Signs Date Time Temp Pulse Resp B/P (MAP) Pulse Ox O2 Delivery O2 Flow Rate FiO2 01/31/21 11:45 36.7 110 18 115/75 97 Nasal Cannula 1.00 01/26/21 08:00 50 Capillary Refill : Less Than 3 Seconds General Appearance: No Apparent Distress, WD/WN, Chronically ill Respiratory: Lungs Clear, Normal Breath Sounds Cardiovascular: Regular Rate, Rhythm Neurologic/Psychiatric: Alert, Oriented x3, Depressed Affect Results/Procedures Lab Patient resulted labs reviewed. Imaging: Reviewed Imaging Report Assessment/Plan Assessment and Plan Assess & Plan/Chief Complaint Assessment: ARF Abdominal wall hematoma -Status post thoracentesis pt states she feels a bit better -Pain with inspiration, worried about atelectasis, she is using her exhalation breathing device -Oxygen titrated off Pancreatitis -Improving -Pt states her pain is better -Continue to follow A. fib -HR 93 this morning -On diltiazem, continue to monitor HTN 120/73 today continue to monitor Chronic Alcohol Use -On protocol -Denies tremors and seizures -Has Lorazepam PRN 01/28/2021: Supportive care Wean oxygen detention placement 01/29/2021: Await fci placement 01/30/2021: Chronically debilitated Await fci placement 01/31/2021: Chronic debility Critical Care Critically Ill Patient Diagnosis/Problems Diagnosis/Problems (1) Atrial fibrillation with rapid ventricular response Onset Date: ~ 01/11/2021 Status: Acute (2) Hypertension Status: Chronic Qualifiers: Hypertension type: primary hypertension Qualified Codes: I10 - Essential (primary) hypertension (3) Leukocytosis Onset Date: ~ 01/11/2021 Status: Acute Qualifiers: Leukocytosis type: other Qualified Codes: D72.828 - Other elevated white blood cell count (4) On continuous oral anticoagulation Status: Chronic (5) Osteoporosis Status: Chronic (6) Severe sepsis Onset Date: ~ 01/11/2021 Status: Resolved Resolution Date/Time: 01/12/21 @ 16:00 (7) Pancreatitis Onset Date: ~ 01/09/2021 Status: Acute Qualifiers: Chronicity: acute Pancreatitis type: alcohol induced Acute pancreatitis complication: no infection or necrosis Qualified Codes: K85.20 - Alcohol induced acute pancreatitis without necrosis or infection ANAID IBRAHIM DO Jan 31, 2021 06:05
[2021-01-31] MEDS: THIAMINE 100 MG (VITAMIN B-1) TAB PO SCH (06:18)
[2021-01-31] MEDS: SPIRONOLACTONE 25 MG (ALDACTONE) TAB PO SCH (08:57)
[2021-01-31] MEDS: FUROSEMIDE 40 MG (LASIX) TAB PO SCH (08:57)
[2021-01-31] MEDS: LACTOBACILLUS ACIDOPHILUS (PROBIOTIC) CAPSULE PO SCH ×3 (08:57→17:47)
[2021-01-31] MEDS: SENNA W/DOCUSATE (SENOKOT S) TABLET PO SCH ×2 (08:57→20:13)
[2021-01-31] MEDS: FOLIC ACID 1 MG TAB PO SCH (08:57)
[2021-01-31] MEDS: dilTIAZem120 MG (CARDIZEM CD) CAP PO SCH ×2 (08:58→20:13)
[2021-01-31] MEDS: PANTOPRAZOLE 40 MG (PROTONIX) VIAL IV SCH (08:58)
[2021-01-31] MEDS: APIXABAN 5 MG (ELIQUIS) TABLET PO SCH ×2 (08:58→20:13)
[2021-01-31] MEDS: ACETAMINOPHEN 325 MG TABLET PO PRN (12:36)
--- NOTE | 2021-01-31 12:45 | Cardiology Progress Note ---
Progress Note-Cardiology Events since last exam Date Seen by Provider: Jan 31, 2021 Time Seen by Provider: 12:41 Events since last exam I am following her due to atrial fibrillation. Yesterday her Hwang catheter was removed and she was up and down a fair amount using the bathroom. Today she fe els tired because of all the activity yesterday. She denies chest discomfort, dyspnea, palpitations, syncope, or ankle edema. Her abdominal pain remains improved. Certain portions of this document may have been dictated utilizing voice recognition technology. Inherent to this technology, typographical and grammatical errors may exist. As much as I am diligent to identify and correct these mistakes, some errors may remain in the document. Vitals Last set of Vitals Signs Vital Signs 01/26/21 01/31/21 08:00 11:45 Temp 36.7 Pulse 110 Resp 18 B/P (MAP) 115/75 Pulse Ox 97 O2 Delivery Nasal Cannula O2 Flow Rate 1.00 FiO2 50 Exam Vital Signs Vital Signs Date Time Temp Pulse Resp B/P (MAP) Pulse Ox O2 Delivery O2 Flow Rate FiO2 01/31/21 11:45 36.7 110 18 115/75 97 Nasal Cannula 1.00 01/26/21 08:00 50 Physical Exam General: Alert. No acute distress. Eye: No xanthelasma. HENT: Normocephalic. Neck: Jugular venous pressure does not appear elevated. Respiratory: Lungs are clear to auscultation. Respirations are non-labored. Breath sounds are equal. Symmetrical chest wall expansion. Cardiovascular: Normal rate. Irregular rhythm. No murmur. No gallop. No edema. Gastrointestinal: Soft. Normal bowel sounds. Skin: Warm. Dry. Neurologic: Alert and oriented to person, place, time. Cranial nerves 3-11 grossly intact. Psychiatric: Cooperative. Appropriate mood & affect. Diagnosis/Problems Diagnosis/Problems (1) Permanent atrial fibrillation Assessment & Plan: She seems to be asymptomatic with this. Her heart rate is intermittently elevated which may be related to her abdominal pain. She is on diltiazem for rate control and apixaban for stroke prophylaxis. Her heart rates have improved over the past 48 hours but still has some tachycardia. If this persists, we may need to increase her diltiazem. (2) Primary hypertension Assessment & Plan: Blood pressure has been reasonably controlled with diltiazem. (3) Mixed hyperlipidemia Assessment & Plan: Continue atorvastatin. (4) Stage 3 chronic kidney disease Assessment & Plan: Her creatinine remained stable. She is on oral furosemide and spironolactone. (5) Abdominal wall hematoma Status: Acute Assessment & Plan: This has been presumed to be related to previous enoxaparin injections. This is improving. Continue apixaban which she takes for her atrial fibrillation. Problem Qualifiers (1) Abdominal wall hematoma: Encounter type: initial encounter Qualified Codes: S30.1XXA - Contusion of abdominal wall, initial encounter RAMSEY BARKER JR, MD Jan 31, 2021 12:44
[2021-01-31] MEDS: AtorvaSTATin TABLET 10 MG TABLET PO SCH (20:13)
[2021-01-31] MEDS: MELATONIN 3 MG TABLET PO PRN (23:08)
[2021-02-01] MEDS: LACTOBACILLUS ACIDOPHILUS (PROBIOTIC) CAPSULE PO SCH ×3 (06:50→17:19)
[2021-02-01] MEDS: THIAMINE 100 MG (VITAMIN B-1) TAB PO SCH (06:50)
--- NOTE | 2021-02-01 06:57 | Progress Note - Hospitalist ---
Subjective HPI/CC On Admission Date Seen by Provider: Feb 01, 2021 Time Seen by Provider: 11:00 Chief complaint: Atrial fibrillation with rapid ventricular response with acute pancreatitis and severe sepsis History present illness: This is a 70-year-old white female who drinks wine with heavy use who presented to the ER with a couple of days of nausea and vomiting and not feeling well with abdominal pain. She was found to be in atrial fibrillation with rapid ventricular response in addition to hypotension requiring aggressive IV fluid at 30 cc/KG and found to have acute pancreatitis. Dr. Vale obtained U/S this morning. Zosyn was started. Cardiology consulted for atrial fibrillation with right ventricular response. Patient sees Dr. Davis on a regular basis for atrial fibrillation. Currently in the ICU. Subjective/Events-last exam Patient doing pretty well Going to [facility] tomorrow Appears to be very debilitated Checked meds and labs No pain is reported Review of Systems General: Fatigue, Malaise Objective Exam Vital Signs Vital Signs Date Time Temp Pulse Resp B/P (MAP) Pulse Ox O2 Delivery O2 Flow Rate FiO2 02/01/21 19:23 35.9 97 18 129/79 97 Room Air 02/01/21 08:29 2.00 01/26/21 08:00 50 Capillary Refill : Less Than 3 Seconds General Appearance: No Apparent Distress, WD/WN, Chronically ill Respiratory: Lungs Clear, Normal Breath Sounds Cardiovascular: Regular Rate, Rhythm Neurologic/Psychiatric: Alert, Oriented x3, No Motor/Sensory Deficits, Normal Mood/Affect Results/Procedures Lab Laboratory Tests 02/01/21 06:50 Patient resulted labs reviewed. Imaging: Reviewed Imaging Report Assessment/Plan Assessment and Plan Assess & Plan/Chief Complaint Assessment: ARF Abdominal wall hematoma -Status post thoracentesis pt states she feels a bit better -Pain with inspiration, worried about atelectasis, she is using her exhalation breathing device -Oxygen titrated off Pancreatitis -Improving -Pt states her pain is better -Continue to follow A. fib -HR 93 this morning -On diltiazem, continue to monitor HTN 120/73 today continue to monitor Chronic Alcohol Use -On protocol -Denies tremors and seizures -Has Lorazepam PRN 01/28/2021: Supportive care Wean oxygen prison placement 01/29/2021: Await snf placement 01/30/2021: Chronically debilitated Await snf placement 01/31/2021: Chronic debility 02/01/2021: Alcoholism is caused chronic debility Critical Care Critically Ill Patient Diagnosis/Problems Diagnosis/Problems (1) Atrial fibrillation with rapid ventricular response Onset Date: ~ 01/11/2021 Status: Acute (2) Hypertension Status: Chronic Qualifiers: Hypertension type: primary hypertension Qualified Codes: I10 - Essential (primary) hypertension (3) Leukocytosis Onset Date: ~ 01/11/2021 Status: Acute Qualifiers: Leukocytosis type: other Qualified Codes: D72.828 - Other elevated white blood cell count (4) On continuous oral anticoagulation Status: Chronic (5) Osteoporosis Status: Chronic (6) Severe sepsis Onset Date: ~ 01/11/2021 Status: Resolved Resolution Date/Time: 01/12/21 @ 16:00 (7) Pancreatitis Onset Date: ~ 01/09/2021 Status: Acute Qualifiers: Chronicity: acute Pancreatitis type: alcohol induced Acute pancreatitis complication: no infection or necrosis Qualified Codes: K85.20 - Alcohol induced acute pancreatitis without necrosis or infection ANAID IBRAHIM DO Feb 01, 2021 06:57
[2021-02-01] MEDS: SENNA W/DOCUSATE (SENOKOT S) TABLET PO SCH ×2 (07:45→20:06)
[2021-02-01 07:57] LABS: BASOPHILS % (AUTO) 0 % (0-10); EOSINOPHILS # (AUTO) 0.2 10^3/uL (0.0-0.3); EOSINOPHILS % (AUTO) 2 % (0-10); HEMATOCRIT 28 % (35-52); HEMOGLOBIN 9.7 g/dL (11.5-16.0); LYMPHOCYTES # (AUTO) 1.7 10^3/uL (1.0-4.0); LYMPHOCYTES % (AUTO) 19 % (12-44); MEAN CORPUSCULAR HEMOGLOBIN 33 pg (25-34); MEAN CORPUSCULAR HGB CONC 34 g/dL (32-36); MEAN CORPUSCULAR VOLUME 98 fL (80-99); MEAN PLATELET VOLUME 10.4 fL (9.0-12.2); MONOCYTES % (AUTO) 11 % (0-12); NEUTROPHILS # (AUTO) 6.1 10^3/uL (1.8-7.8); NEUTROPHILS % (AUTO) 67 % (42-75); PLATELET COUNT 422 10^3/uL (130-400); WHITE BLOOD COUNT 9.1 10^3/uL (4.3-11.0)
[2021-02-01 08:09] LABS: ALBUMIN 2.7 GM/DL (3.2-4.5); POTASSIUM 3.6 MMOL/L (3.6-5.0)
[2021-02-01 08:10] LABS: CALCIUM 9.6 MG/DL (8.5-10.1)
[2021-02-01 08:12] LABS: TOTAL PROTEIN 6.7 GM/DL (6.4-8.2)
[2021-02-01 08:13] LABS: BILIRUBIN,TOTAL 0.4 MG/DL (0.1-1.0)
[2021-02-01 08:15] LABS: CREATININE SERUM 1.15 MG/DL (0.60-1.30)
[2021-02-01] MEDS: SPIRONOLACTONE 25 MG (ALDACTONE) TAB PO SCH (09:39)
[2021-02-01] MEDS: PANTOPRAZOLE 40 MG (PROTONIX) VIAL IV SCH (09:39)
[2021-02-01] MEDS: FUROSEMIDE 40 MG (LASIX) TAB PO SCH (09:39)
[2021-02-01] MEDS: APIXABAN 5 MG (ELIQUIS) TABLET PO SCH (09:39)
[2021-02-01] MEDS: dilTIAZem120 MG (CARDIZEM CD) CAP PO SCH (09:39)
[2021-02-01] MEDS: FOLIC ACID 1 MG TAB PO SCH (09:39)
[2021-02-01] MEDS: ALPRAZolam 0.5 MG (XANAX) TAB PO PRN ×2 (12:44→21:21)
--- NOTE | 2021-02-01 14:59 | Cardiology Progress Note ---
Progress Note-Cardiology Events since last exam Date Seen by Provider: Feb 01, 2021 Time Seen by Provider: 14:54 Events since last exam I am following her due to atrial fibrillation. She had some mild abdominal pain earlier today as well as some diarrhea. Her abdominal pain is now resolved. She denies chest discomfort, dyspnea, palpitations, syncope, or ankle edema. Prior to admission, she had been taking Xarelto for blood thinner and metoprolol for rate control. Certain portions of this document may have been dictated utilizing voice recognition technology. Inherent to this technology, typographical and grammatical errors may exist. As much as I am diligent to identify and correct these mistakes, some errors may remain in the document. Vitals Last set of Vitals Signs Vital Signs 01/26/21 02/01/21 02/01/21 08:00 08:29 12:13 Temp 36.2 Pulse 99 Resp 18 B/P (MAP) 115/80 Pulse Ox 97 O2 Delivery Room Air O2 Flow Rate 2.00 FiO2 50 Labs Labs Laboratory Tests 02/01/21 06:50 Exam Vital Signs Vital Signs Date Time Temp Pulse Resp B/P (MAP) Pulse Ox O2 Delivery O2 Flow Rate FiO2 02/01/21 12:13 36.2 99 18 115/80 97 Room Air 02/01/21 08:29 2.00 01/26/21 08:00 50 Physical Exam General: Alert. No acute distress. Eye: No xanthelasma. HENT: Normocephalic. Neck: Jugular venous pressure does not appear elevated. Respiratory: Lungs are clear to auscultation. Respirations are non-labored. Breath sounds are equal. Symmetrical chest wall expansion. Cardiovascular: Normal rate. Irregular rhythm. No murmur. No gallop. No edema. Gastrointestinal: Soft. Normal bowel sounds. Skin: Warm. Dry. Neurologic: Alert and oriented to person, place, time. Cranial nerves 3-11 grossly intact. Psychiatric: Cooperative. Appropriate mood & affect. Labs Laboratory Tests Test 02/01/21 06:50 Range/Units White Blood Count 9.1 4.3-11.0 10^3/uL Red Blood Count 2.90 L 3.80-5.11 10^6/uL Hemoglobin 9.7 L 11.5-16.0 g/dL Hematocrit 28 L 35-52 % Mean Corpuscular Volume 98 80-99 fL Mean Corpuscular Hemoglobin 33 25-34 pg Mean Corpuscular Hemoglobin Concent 34 32-36 g/dL Red Cell Distribution Width 13.2 10.0-14.5 % Platelet Count 422 H 130-400 10^3/uL Mean Platelet Volume 10.4 9.0-12.2 fL Immature Granulocyte % (Auto) 1 % Neutrophils (%) (Auto) 67 42-75 % Lymphocytes (%) (Auto) 19 12-44 % Monocytes (%) (Auto) 11 0-12 % Eosinophils (%) (Auto) 2 0-10 % Basophils (%) (Auto) 0 0-10 % Neutrophils # (Auto) 6.1 1.8-7.8 10^3/uL Lymphocytes # (Auto) 1.7 1.0-4.0 10^3/uL Monocytes # (Auto) 1.0 0.0-1.0 10^3/uL Eosinophils # (Auto) 0.2 0.0-0.3 10^3/uL Basophils # (Auto) 0.0 0.0-0.1 10^3/uL Immature Granulocyte # (Auto) 0.1 0.0-0.1 10^3/uL Sodium Level 135 135-145 MMOL/L Potassium Level 3.6 3.6-5.0 MMOL/L Chloride Level 99 98-107 MMOL/L Carbon Dioxide Level 26 21-32 MMOL/L Anion Gap 10 5-14 MMOL/L Blood Urea Nitrogen 18 7-18 MG/DL Creatinine 1.15 0.60-1.30 MG/DL Estimat Glomerular Filtration Rate 47 BUN/Creatinine Ratio 16 Glucose Level 109 H 70-105 MG/DL Calcium Level 9.6 8.5-10.1 MG/DL Corrected Calcium 10.6 H 8.5-10.1 MG/DL Total Bilirubin 0.4 0.1-1.0 MG/DL Aspartate Amino Transf (AST/SGOT) 37 H 5-34 U/L Alanine Aminotransferase (ALT/SGPT) 39 0-55 U/L Alkaline Phosphatase 74 40-136 U/L Total Protein 6.7 6.4-8.2 GM/DL Albumin 2.7 L 3.2-4.5 GM/DL Diagnosis/Problems Diagnosis/Problems (1) Permanent atrial fibrillation Assessment & Plan: She seems to be asymptomatic with this. Her heart rate is intermittently elevated which may be related to her abdominal pain. She is on diltiazem for rate control and apixaban for stroke prophylaxis. I will change her apixaban over to rivaroxaban and diltiazem over to metoprolol succinate as she was taking at home. (2) Primary hypertension Assessment & Plan: Blood pressure has been reasonably controlled with diltiazem. I will change her back over to metoprolol succinate that she was taking at home. She was also started on spironolactone during this admission. (3) Mixed hyperlipidemia Assessment & Plan: Continue atorvastatin. (4) Stage 3 chronic kidney disease Assessment & Plan: Her creatinine remained stable. She is on oral furosemide and spironolactone. RAMSEY BARKER JR, MD Feb 01, 2021 14:59
[2021-02-01] MEDS ORDERED: RIVAROXABAN 20 MG TABLET (XARELTO) PO SCH (17:00)
[2021-02-01] MEDS: AtorvaSTATin TABLET 10 MG TABLET PO SCH (20:05)
[2021-02-01] MEDS: MELATONIN 3 MG TABLET PO PRN (21:21)
[2021-02-02] MEDS: diphenhydrAMINE 25 MG TAB (BENADRYL) PO PRN (00:36)
[2021-02-02] MEDS ORDERED: THIA100T80 PO (06:07)
[2021-02-02] MEDS ORDERED: SENN1TAB76 PO (06:07)
[2021-02-02] MEDS ORDERED: LORA-404 PO (06:07)
[2021-02-02] MEDS ORDERED: FURO40TA4 PO (06:07)
[2021-02-02] MEDS ORDERED: LACT1CAP7 PO (06:07)
[2021-02-02] MEDS ORDERED: FOLI1TAB33 PO (06:07)
[2021-02-02] MEDS ORDERED: OXC5T PO (06:07)
[2021-02-02] MEDS ORDERED: SPIR25TA5 PO (06:07)
[2021-02-02] MEDS ORDERED: PANT40TA2 PO (06:07)
--- NOTE | 2021-02-02 06:08 | Discharge Inst-Skilled Nursing ---
Discharge Inst-Skilled NF Reconcile Patient Problems Problems Reviewed?: Yes Chief Complaint Chief complaint: Atrial fibrillation with rapid ventricular response with acute pancreatitis and severe sepsis History present illness: This is a 70-year-old white female who drinks wine with heavy use who presented to the ER with a couple of days of nausea and vomiting and not feeling well with abdominal pain. She was found to be in atrial fibrill ation with rapid ventricular response in addition to hypotension requiring aggressive IV fluid at 30 cc/KG and found to have acute pancreatitis. Dr. Vale obtained U/S this morning. Zosyn was started. Cardiology consulted for atrial fibrillation with right ventricular response. Patient sees Dr. Davis on a regular basis for atrial fibrillation. Currently in the ICU. Patient Instructions Patient Problems: Debility Pancreatitis Alcoholism Goal: [place] Consult/Follow Up/Orders Follow Up Appt.: PCP 2 weeks Skilled NF Admit to: [facility] Certification (SNF) I certify that SNF services are required to be given on an inpatient basis because of the above named patient's need for senior care care on a continuing basis for the conditions(s) for which he/she was receiving inpatient hospital services prior to his/her transfer to the SNF. Jail Facility Order: Nursing Services, [facility]-Evaluate & Treat, Physical Therapy-Evaluate & Treat Oxygen Delivery Method: Room Air Discharge Diet: No Restrictions Resuscitation Status: Do Not Resuscitate New & Resume Previous Orders New Medications: Pantoprazole Sodium (Protonix) 40 Mg Tablet.dr 40 MG PO DAILY for 30 Days, TAB Folic Acid (Folic Acid) 1 Mg Tablet 1 MG PO DAILY for 30 Days, TAB Furosemide (Furosemide) 40 Mg Tablet 40 MG PO DAILY for 30 Days, TAB Lactobacillus Acidophilus/Pect (Acidophilus-Pectin Capsule) 1 Each Capsule 2 EACH PO TIDWM for 30 Days, CAP Oxycodone Hcl (Oxyir Tablet) 5 Mg Tab 5 MG PO Q4H PRN for PAIN-SEVERE (8-10), #30 TAB Sennosides/Docusate Sodium (Stool Softener-Laxative Tablet) 1 Each Tablet 2 EA PO BID for 30 Days, TAB Spironolactone (Spironolactone) 25 Mg Tablet 25 MG PO DAILY for 30 Days, TAB Thiamine HCl (Vitamin B-1) 100 Mg Tablet 100 MG PO DAILY@0700 for 30 Days, TAB Continued Medications: Alendronate Sodium (Alendronate Sodium) 70 Mg Tablet 70 MG PO MON, TAB Atorvastatin Calcium (Atorvastatin Calcium) 10 Mg Tablet 10 MG PO HS, TAB Calcium Carbonate/Vitamin D3 (Calcium + Vitamin D Tablet) 1 Each Tablet 1 EACH PO DAILY, TAB Cholecalciferol (Vitamin D3) (Vitamin D3) 125 Mcg Capsule 125 MCG PO DAILY, CAP Lorazepam (Ativan) 0.5 Mg Tablet 0.5 MG PO BID PRN for ANXIETY, #30 TAB (This prescription has been renewed) Metoprolol Succinate (Metoprolol Succinate) 50 Mg Tab.er.24h 50 MG PO DAILY, TAB Milk Thistle Seed Extract (Milk Thistle) 175 Mg Capsule 175 MG PO BID, CAP Multivitamin (Multivitamin) 1 Each Tablet 1 EACH PO DAILY, TAB [place]-3/Dha/Epa/Fish Oil (Fish Oil 1,000 mg Softgel) 1 Each Capsule 1 EACH PO BID, CAP Rivaroxaban (Xarelto Tablet) 20 Mg Tablet 20 MG PO 1800, TAB Hoda José Feb 02, 2021 06:07 HODA JOSÉ DO Feb 02, 2021 06:08
--- NOTE | 2021-02-02 06:22 | Discharge Summary ---
Discharge Summary Hospital Course Was the Problem List Reviewed?: Yes Problems/Dx: (1) Permanent atrial fibrillation (2) Primary hypertension (3) Mixed hyperlipidemia (4) Stage 3 chronic kidney disease Hospital Course Date of Admission: Jan 11, 2021 at 14:17 Admission Diagnosis : Family Physician/Provider: Gwendolyn Botello MD Date of Discharge: 02/02/21 Discharge Diagnosis: Acute on chronic pancreatitis, volume overload, chronic atrial fibrillation, alcoholism, alcohol withdrawal Hospital Course: Hospital course: Pt had a lengthy hospital course for 23 days after she was admitted for acute on chronic pancreatitis with alcoholism and alcohol withdrawal and septic shock. Pt was aggressively treated in the ICU and ultimately regained enough function to transfer to the 4th floor. She completed IV antibiotics and she was maintained on vitamin supplementation for alcoholism to prevent Wernicke's Encephalopathy. Pt overall had significant improvement but still very chronically ill and debilitated and required residential care at [facility] on Tuesday and was discharged in improved condition but poor prognosis intermediate card tender due to the severe debility. Labs and Pending Lab Test: Laboratory Tests 02/01/21 06:50: White Blood Count 9.1, Red Blood Count 2.90L, Hemoglobin 9.7L, Hematocrit 28L, Mean Corpuscular Volume 98, Mean Corpuscular Hemoglobin 33, Mean Corpuscular Hemoglobin Concent 34, Red Cell Distribution Width 13.2, Platelet Count 422H, Mean Platelet Volume 10.4, Immature Granulocyte % (Auto) 1, Neutrophils (%) (Auto) 67, Lymphocytes (%) (Auto) 19, Monocytes (%) (Auto) 11, Eosinophils (%) (Auto) 2, Basophils (%) (Auto) 0, Neutrophils # (Auto) 6.1, Lymphocytes # (Auto) 1.7, Monocytes # (Auto) 1.0, Eosinophils # (Auto) 0.2, Basophils # (Auto) 0.0, Immature Granulocyte # (Auto) 0.1, Sodium Level 135, Potassium Level 3.6, Chloride Level 99, Carbon Dioxide Level 26, Anion Gap 10, Blood Urea Nitrogen 18, Creatinine 1.15, Estimat Glomerular Filtration Rate 47, BUN/Creatinine Ratio 16, Glucose Level 109H, Calcium Level 9.6, Corrected Calcium 10.6H, Total Bilirubin 0.4, Aspartate Amino Transf (AST/SGOT) 37H, Alanine Aminotransferase (ALT/SGPT) 39, Alkaline Phosphatase 74, Total Protein 6.7, Albumin 2.7L Microbiology 01/26/21 Gram Stain - Final, Complete 01/26/21 Anaerobic Culture - Final, Complete No anaerobes isolated 01/26/21 Body Fluid Culture - Final, Complete No growth 01/13/21 Urine Culture - Final, Complete NO GROWTH 01/11/21 MRSA Screen - Final, Complete MRSA not isolated 01/11/21 Blood Culture - Final, Complete No growth Home Meds Active Spironolactone 25 Mg Tablet 25 Mg PO DAILY 30 Days Protonix (Pantoprazole Sodium) 40 Mg Tablet.dr 40 Mg PO DAILY 30 Days Vitamin B-1 (Thiamine HCl) 100 Mg Tablet 100 Mg PO DAILY@0700 30 Days Folic Acid 1 Mg Tablet 1 Mg PO DAILY 30 Days Acidophilus-Pectin Capsule (Lactobacillus Acidophilus/Pect) 1 Each Capsule 2 Each PO TIDWM 30 Days Stool Softener-Laxative Tablet (Sennosides/Docusate Sodium) 1 Each Tablet 2 Ea PO BID 30 Days Furosemide 40 Mg Tablet 40 Mg PO DAILY 30 Days Oxyir Tablet (Oxycodone HCl) 5 Mg Tab 5 Mg PO Q4H PRN Ativan (Lorazepam) 0.5 Mg Tablet 0.5 Mg PO BID PRN Reported Vitamin D3 (Cholecalciferol (Vitamin D3)) 125 Mcg Capsule 125 Mcg PO DAILY Fish Oil 1,000 mg Softgel ([place]-3/Dha/Epa/Fish Oil) 1 Each Capsule 1 Each PO BID Milk Thistle (Milk Thistle Seed Extract) 175 Mg Capsule 175 Mg PO BID Calcium + Vitamin D Tablet (Calcium Carbonate/Vitamin D3) 1 Each Tablet 1 Each PO DAILY Multivitamin 1 Each Tablet 1 Each PO DAILY Metoprolol Succinate 50 Mg Tab.er.24h 50 Mg PO DAILY Atorvastatin Calcium 10 Mg Tablet 10 Mg PO HS Xarelto Tablet (Rivaroxaban) 20 Mg Tablet 20 Mg PO 1800 Alendronate Sodium 70 Mg Tablet 70 Mg PO MON Assessment/Pt Instructions PCP on residential rounds Discharge Planning: <30 minutes discharge planning Discharge Instructions Discharge Diet: No Restrictions Activity as Tolerated: Yes Discharge Physical Examination Vital Signs Vital Signs Date Time Temp Pulse Resp B/P (MAP) Pulse Ox O2 Delivery O2 Flow Rate FiO2 02/02/21 04:05 36.4 90 18 109/68 95 Room Air 02/01/21 20:05 2.00 General Appearance: No Apparent Distress, WD/WN, Chronically ill Respiratory: Lungs Clear, Normal Breath Sounds Neurologic/Psychiatric: Alert, Oriented x3 Allergies: Coded Allergies: ibuprofen (Unverified Allergy, Unknown, 06/07/18) Discharge Summary Date of Admission Jan 11, 2021 at 14:17 Date of Discharge Discharge Date: Feb 02, 2021 Admission Diagnosis Assessment: Severe sepsis placed on severe sepsis IV fluid protocol Acute pancreatitis with possible pseudocyst infection placed on Zosyn Atrial fibrillation with rapid ventricular response Regular alcohol use heavy consumption of wine Anticoagulation for atrial fibrillation managed by Dr. Davis INR 2.4 today Leukocytosis Hypoxemia on ABG Osteoporosis Plan: Alcohol withdrawal protocol Aggressive IV fluid Zosyn Dr. Akanksha Grimes eICCrescencio Oxygen Supportive care Discharge Diagnosis Assessment: ARF Abdominal wall hematoma -Status post thoracentesis pt states she feels a bit better -Pain with inspiration, worried about atelectasis, she is using her exhalation breathing device -Oxygen titrated off Pancreatitis -Improving -Pt states her pain is better -Continue to follow A. fib -HR 93 this morning -On diltiazem, continue to monitor HTN 120/73 today continue to monitor Chronic Alcohol Use -On protocol -Denies tremors and seizures -Has Lorazepam PRN 01/28/2021: Supportive care Wean oxygen snf placement 01/29/2021: Await residential placement 01/30/2021: Chronically debilitated Await residential placement 01/31/2021: Chronic debility 02/01/2021: Alcoholism is caused chronic debility (1) Permanent atrial fibrillation Assessment & Plan: She seems to be asymptomatic with this. Her heart rate is intermittently elevated which may be related to her abdominal pain. She is on diltiazem for rate control and apixaban for stroke prophylaxis. I will change her apixaban over to rivaroxaban and diltiazem over to metoprolol succinate as she was taking at home. (2) Primary hypertension Assessment & Plan: Blood pressure has been reasonably controlled with diltiazem. I will change her back over to metoprolol succinate that she was taking at home. She was also started on spironolactone during this admission. (3) Mixed hyperlipidemia Assessment & Plan: Continue atorvastatin. (4) Stage 3 chronic kidney disease Assessment & Plan: Her creatinine remained stable. She is on oral furosemide and spironolactone. ANAID IBRAHIM DO Feb 02, 2021 06:22
[2021-02-02] MEDS: THIAMINE 100 MG (VITAMIN B-1) TAB PO SCH (06:24)
[2021-02-02] MEDS ORDERED: meTOproloL SUCCINATE 50 MG (TOPROL XL) TAB PO SCH (09:00)
[2021-02-02] MEDS: PANTOPRAZOLE 40 MG (PROTONIX) VIAL IV SCH (09:41)
[2021-02-02] MEDS: FOLIC ACID 1 MG TAB PO SCH (09:41)
[2021-02-02] MEDS: LACTOBACILLUS ACIDOPHILUS (PROBIOTIC) CAPSULE PO SCH (09:41)
[2021-02-02] MEDS: FUROSEMIDE 40 MG (LASIX) TAB PO SCH (09:41)
[2021-02-02] MEDS: SPIRONOLACTONE 25 MG (ALDACTONE) TAB PO SCH (09:41)
[2021-02-02] MEDS: SENNA W/DOCUSATE (SENOKOT S) TABLET PO SCH (09:45)
[2021-02-02 14:23] VITALS: BP 123/74
== END 2021-02-02 14:00 | DRG 871 ==
LOC: EDUNIT# 10:19 → ER 10:29 → ICU 14:17 → 4TH 01-21 15:45
PROVIDERS: ADMIT Internal Medicine; ATTEND Internal Medicine
PROC: 0W993ZZ Drainage of Right Pleural Cavity, Percutaneous Approach (ICD-10-PCS; principal; 2021-01-26)
DX: A41.9 Sepsis, unspecified organism (principal); R65.21 Severe sepsis with septic shock; K85.20 Alcohol induced acute pancreatitis without necrosis or infection; J80 Acute respiratory distress syndrome; J18.9 Pneumonia, unspecified organism; K86.3 Pseudocyst of pancreas; J98.11 Atelectasis; E87.2 Acidosis; E51.2 Wernicke's encephalopathy; I48.21 Permanent atrial fibrillation; Z66 Do not resuscitate; Z51.5 Encounter for palliative care; M81.0 Age-related osteoporosis without current pathological fracture; D72.829 Elevated white blood cell count, unspecified; F10.10 Alcohol abuse, uncomplicated; E83.51 Hypocalcemia; E83.39 Other disorders of phosphorus metabolism; K21.9 Gastro-esophageal reflux disease without esophagitis; D69.6 Thrombocytopenia, unspecified; N18.30 Chronic kidney disease, stage 3 unspecified; E78.2 Mixed hyperlipidemia; R53.81 Other malaise; I65.23 Occlusion and stenosis of bilateral carotid arteries; R19.7 Diarrhea, unspecified; M25.551 Pain in right hip; S30.1XXA Contusion of abdominal wall, initial encounter; Z20.822 Contact with and (suspected) exposure to COVID-19; Z79.01 Long term (current) use of anticoagulants; Z87.891 Personal history of nicotine dependence
CPT/HCPCS: 36415; 36569; 71045; 71275; 73502; 74176; 74177; 76705; 76937; 76942; 80048; 80053; 80061; 80076; 81000; 82150; 82570; 82805; 82945; 82947; 83605; 83615; 83690; 83735; 83880; 84100; 84132; 84145; 84157; 85007; 85025; 85027; 85379; 85384; 85610; 85730; 86022; 86141; 87040; 87070; 87075; 87081; 87088; 87205; 87636; 88112; 88305; 89051; 93005; 94640; 94660; 94760; 96361; 96365; 96375

== ENCOUNTER → 2021-07-24 | Outpatient (CLI) | payer MEDICARE, OTHER ==
[~2021-07-24] MED LIST changes: +ALEN70TA80 PO; +ATOR10TA66 PO; +CALC-140 PO; -CATHETER FLUSH 10 ML SYR IV PRN; +CHOL500050 PO; +FOLI1TAB33 PO; +FURO40TA4 PO; +LACT1CAP7 PO; +LORA-404 PO; +METO50TA7 PO; +MILK175C5 PO; +MULT-1136 PO; +OMEG-160 PO; +OXC5T PO; +PANT40TA2 PO; -REGADENOSON 0.4 MG/5 ML SYR (LEXISCAN) IV ONE; +RIVA20TA2 PO; +SENN1TAB76 PO; +SPIR25TA5 PO; +THIA100T80 PO
--- NOTE | 2021-07-24 12:16 | Diagnostic Imaging Report ---
Indication: Routine screening. Comparison is made with prior mammogram 07/18/2020 and 07/13/2019. 2-D and 3-D bilateral screening mammography was performed with CAD. CAD is utilized. The current study was also evaluated with a Computer Aided Detection (CAD) system. Both breasts are heterogeneously dense, limiting the sensitivity of mammography. There are benign calcifications in both breasts. No mass or malignant-appearing microcalcifications are seen. There is a biopsy clip in the superior left breast. Axillae are unremarkable. IMPRESSION: BI-RADS Category 2 No mammographic features suspicious for malignancy are identified. ACR BI-RADS Category 2: Benign findings. Result letter will be mailed to the patient. Note: At least 10% of breast cancer is not imaged by mammography. Dictated by: Dictated on workstation # [id number]
== END ==
LOC: RAD 09:15
PROVIDERS: ATTEND Family Medicine
DX: Z12.31 Encounter for screening mammogram for malignant neoplasm of breast (principal)
CPT/HCPCS: 77063; 77067

== ENCOUNTER → 2021-09-17 | Outpatient (CLI) | payer MEDICARE, OTHER | LOC: CARDFS 12:48 | PROVIDERS: ATTEND Internal Medicine Cardiovascular Disease | DX: I10 Essential (primary) hypertension (principal) | CPT/HCPCS: 93306 ==